=== PATIENT | male | born 1970 | race Two or more races ===

== ENCOUNTER 2017-09-07 09:09 | Inpatient (IN) | payer SELFPAY ==
[2017-09-07] MEDS ORDERED: ASPIRIN 81 MG CHEWABLE TAB PO ONE (09:20)
--- NOTE | 2017-09-07 09:21 | EDPHY ---
H & P HPI/ROS: CHIEF COMPLAINT: Chest pain HISTORY OF PRESENT ILLNESS: The patient is a Icelandic-speaking 47 y/o male complaining of chest pain and dyspnea onset acutely at 07:00 this morning, 2.5 hours ago. He was combing his hair this morning and felt like "an electric shock came from my head to my heart." His pain is located along his left anterior chest and radiates directly through to his back. He describes it as if "someone is punching my chest" and very severe. He took ibuprofen for pain prior to arrival here. His roommate noted that he has complained of epigastric pain for the last 2 weeks. He denies nausea, vomiting. He denies any prior medical history or surgeries and does not take any medication. History obtained via Icelandic fiction and nonfiction author. REVIEW OF SYSTEMS: A ten point review of systems was performed during the course of his ED evaluation and is negative with the exception of the items mentioned in the HPI. Past medical history: Denies Past surgical history: Denies Family history: Noncontributory Social history: Icelandic speaking. Employed. Nonsmoker. No alcohol or illicit drug use. General Appearance: Alert. Writhing, very uncomfortable appearing, diaphoretic. Vital signs reviewed. BP 200/90. Eyes: Pupils equal and round. ENT, Mouth: Mucous membranes are moist, no oropharyngeal erythema or edema. Neck: No lymphadenopathy, supple. No JVD. Respiratory: Lungs are clear to auscultation; no wheezes, rales, or rhonchi. Cardiovascular: Regular rate and rhythm; no murmur, rub, or gallop. Gastrointestinal: Abdomen is obese, soft and nontender, no masses or organomegaly. Skin: Warm and diaphoretic, no rashes on exposed skin, normal color. Back: Nontender to palpation over the thoracolumbar spine. No CVAT. Extremities: No lower extremity edema, no calf tenderness or swelling. Neurological: Alert and oriented. Moving all four extremities easily and equally. Psychiatric: Normal affect. Constitutional: Initial Vital Signs Temperature (C) 36 C 09/07/17 09:15 Heart Rate 59 L 09/07/17 09:15 Respiratory Rate 16 09/07/17 09:15 Blood Pressure 200/90 H 09/07/17 09:15 O2 Sat (%) 97 09/07/17 09:15 O2 Delivery Mode Nasal Cannula O2 (L/minute) 2 Allergies/Adverse Reactions: No Known Allergies Allergy (Unverified 09/07/17 09:15) Home Medications: Medication Instructions Recorded NK [No Known Home Meds] 09/07/17 Medical Decision Making - Diagnostics Imaging: Discussed imaging studies w/ advertising internship Radiologist, I viewed and interpreted images myself ED Course/Re-evaluation: This is a Icelandic-speaking obese 47 y/o male with no known prior medical history who presents with acute onset severe chest pain radiating directly through to his back. He is extremely uncomfortable appearing, diaphoretic, and restless. He complains of associated dyspnea. Significant concern for aortic dissection. IV established. Labs drawn. Patient placed on appliance installer. Chest x-ray ordered. The 12 lead EKG was interpreted by myself. Sinus rhythm. Inverted T waves and ST depression. See hard copy and/or "tracemaster" electronic copy for interpretation. 0927: Cardiac Alert called due to ischemic EKG changes. Continued concern for aortic dissection. Second IV established. 0931: Dr. Galvin, focuser, at bedside, assessing patient. Echocardiogram ordered. 0933: Portable chest x-ray appears to show widened mediastinum. STAT chest CT ordered. BP at arrival was 200/90, now 178/100. RR 22 on 2L NC oxygen with pulse ox of 95%. HR 75. 0935: Nitro drip ordered at request of Dr. Galvin. 0938: K low at 2.5. Repeat potassium ordered. 0945: Consulted with Dr. Kilgore, nuclear plant operator. 0950: Spoke with Dr. Ricardo, radiology. He reads an extensive aortic dissection from root of aorta extending to renal arteries. Cardiothoracic surgeon paged. 0954: Dr. Rock, cardiothoracic surgery, at bedside. To OR emergently. 0958: Additional 5mg Lopressor ordered--esmolol not yet arrived in ED. Critical care time spent by me, Dr. Padilla, exclusively with this patient was 40 minutes, exclusive of PA time and exclusive of procedures (none were performed by me). The organ system at risk was cardiovascular. Time spent in urgent assessment and serial reassessments of patient, consideration of appropriate antihypertensive drips, consultation with cardiology, nuclear plant operator, radiologist, and cardiothoracic surgeon, and review of imaging. Differential Diagnosis: DDX included but was not limited to aortic dissection, ACS, cardiac tamponade, pneumothorax, hypertensive emergency. - Data Points Laboratory Results: Laboratory Results 09/07/17 12:37 09/07/17 12:37 Medications Given: Acetaminophen (Tylenol 650/20.3ml Oral Liquid) 650 mg TUBE Q4HRS PRN PRN Reason: Pain, Mild/Fever, Can Take PO Stop: 03/08/18 08:50 Last Admin: 09/13/17 21:11 Dose: 650 mg Hydralazine HCl (Apresoline) 10 mg IVP Q6H PRN PRN Reason: SBP > 180 OR MAP > 85 Stop: 03/12/18 15:46 Last Admin: 09/14/17 04:11 Dose: 10 mg Sodium Citrate 5 ml/ (Miscellaneous Information) 5 mls @ 0 mls/hr DIAL AD PRN; As Directed PRN Reason: For Dialysis Catheter Stop: 03/09/18 13:46 Last Admin: 09/11/17 18:11 Dose: 5 mls Lansoprazole (Prevacid Susp (Adult)) 30 mg TUBE DAILY [facility] Stop: 03/08/18 08:59 Last Admin: 09/13/17 08:00 Dose: 30 mg Metoclopramide HCl (Reglan Injection) 5 mg IVP Q12 PRN PRN Reason: Nausea/Vomiting, Can't Take PO Stop: 03/08/18 08:59 Last Admin: 09/11/17 22:03 Dose: 5 mg Metoprolol Tartrate (Lopressor) 25 mg TUBE BID BRENT Stop: 03/12/18 20:59 Last Admin: 09/13/17 21:11 Dose: 25 mg Senna (Senexon Oral Liquid) 8.8 - 17.6 mg TUBE BID [facility] Stop: 03/08/18 10:29 Last Admin: 09/13/17 21:11 Dose: 17.6 mg Tramadol HCl (Ultram) 25 mg PO Q6H PRN PRN Reason: Pain, Moderate Able to Take PO Stop: 03/12/18 18:40 Last Admin: 09/13/17 21:10 Dose: 25 mg Discontinued Medications Hydrocodone Bitart/Acetaminophen ([place] 5/325) 1 - 2 tab PO Q4HRS PRN PRN Reason: Pain, Moderate Able to Take PO Stop: 09/17/17 15:39 Last Admin: 09/11/17 09:22 Dose: 2 tab Hydrocodone Bitart/Acetaminophen (Hycet Oral Liquid) 10 - 20 ml TUBE Q4HRS PRN PRN Reason: Pain, Moderate Able to Take PO Stop: 09/21/17 11:03 Last Admin: 09/12/17 10:27 Dose: 20 ml Adenosine (Adenosine) Confirm Administered Dose 12 mg .ROUTE .STK-MED ONE Stop: 09/07/17 10:43 Last Admin: 09/07/17 12:16 Dose: Not Given Adenosine (Adenosine) Confirm Administered Dose 12 mg .ROUTE .STK-MED ONE Stop: 09/08/17 05:46 Last Admin: 09/08/17 08:01 Dose: Not Given Albumin Human (Alburx 5) Confirm Administered Dose 1,000 ml IV .STK-MED ONE Stop: 09/07/17 10:43 Last Admin: 09/07/17 12:17 Dose: Not Given Albumin Human (Alburx 5) Confirm Administered Dose 500 ml IV .STK-MED ONE Stop: 09/08/17 06:27 Last Admin: 09/08/17 11:52 Dose: Not Given Amiodarone HCl (Amiodarone Hcl) Confirm Administered Dose 300 mg .ROUTE .STK- MED ONE Stop: 09/07/17 10:32 Last Admin: 09/07/17 12:18 Dose: Not Given Amiodarone HCl (Amiodarone Hcl) Confirm Administered Dose 300 mg .ROUTE .STK- MED ONE Stop: 09/07/17 10:43 Last Admin: 09/07/17 12:18 Dose: Not Given Amiodarone HCl (Amiodarone Hcl) Confirm Administered Dose 150 mg .ROUTE .STK- MED ONE Stop: 09/07/17 10:44 Last Admin: 09/07/17 12:18 Dose: Not Given Amiodarone HCl (Amiodarone Hcl) Confirm Administered Dose 300 mg .ROUTE .STK- MED ONE Stop: 09/08/17 05:46 Last Admin: 09/08/17 08:01 Dose: Not Given Aspirin (Aspirin) 324 mg PO EDNOW ONE Stop: 09/07/17 09:21 Last Admin: 09/07/17 09:22 Dose: 324 mg Calcium Chloride (Calcium Chloride) Confirm Administered Dose 3 gm .ROUTE .STK- MED ONE Stop: 09/07/17 10:32 Last Admin: 09/07/17 12:23 Dose: Not Given Calcium Chloride (Calcium Chloride) Confirm Administered Dose 3 gm .ROUTE .STK- MED ONE Stop: 09/07/17 10:41 Last Admin: 09/07/17 12:25 Dose: Not Given Calcium Chloride (Calcium Chloride) Confirm Administered Dose 3 gm .ROUTE .STK- MED ONE Stop: 09/07/17 10:44 Last Admin: 09/07/17 12:25 Dose: Not Given Calcium Chloride (Calcium Chloride) Confirm Administered Dose 3 gm .ROUTE .STK- MED ONE Stop: 09/08/17 05:45 Last Admin: 09/08/17 08:03 Dose: Not Given Cefazolin Sodium (Ancef) Confirm Administered Dose 2 gm .ROUTE .STK-MED ONE Stop: 09/07/17 10:43 Last Admin: 09/07/17 12:26 Dose: Not Given Cefazolin Sodium (Ancef) Confirm Administered Dose 2 gm .ROUTE .STK-MED ONE Stop: 09/08/17 05:46 Last Admin: 09/08/17 08:02 Dose: Not Given Chlorhexidine Gluconate (Hibiclens) 1 btl TP ONCALL ONE Stop: 09/07/17 16:31 Last Admin: 09/07/17 16:38 Dose: Not Given Dopamine HCl/Dextrose (Dopamine 1600 Mcg/Ml (Premix)) Confirm Administered Dose 400 mg IV .STK-MED ONE Stop: 09/07/17 10:32 Last Admin: 09/07/17 12:27 Dose: Not Given Dopamine HCl/Dextrose (Dopamine 1600 Mcg/Ml (Premix)) Confirm Administered Dose 400 mg IV .STK-MED ONE Stop: 09/07/17 10:42 Last Admin: 09/07/17 12:27 Dose: Not Given Dopamine HCl/Dextrose (Dopamine 1600 Mcg/Ml (Premix)) Confirm Administered Dose 400 mg IV .STK-MED ONE Stop: 09/08/17 05:46 Last Admin: 09/08/17 07:59 Dose: 400 mg Fentanyl (Sublimaze) 50 - 100 mcg IVP Q1HR PRN PRN Reason: Pain, Severe Unable to Take PO Stop: 09/17/17 15:39 Last Admin: 09/08/17 07:57 Dose: 100 mcg Fibrinogen/Thrombin (Evicel Fibrin Sealant) Confirm Administered Dose 5 ml TP .STK-MED ONE Stop: 09/07/17 14:50 Last Admin: 09/08/17 00:02 Dose: Not Given Furosemide (Lasix Injection) 40 mg IVP ONCE ONE Stop: 09/08/17 00:31 Last Admin: 09/08/17 00:30 Dose: 40 mg Furosemide (Lasix Injection) 40 mg IVP ONCE ONE Stop: 09/08/17 15:01 Last Admin: 09/08/17 15:06 Dose: 40 mg Heparin Sodium (Porcine) (Heparin Injection) Confirm Administered Dose 100,000 unit .ROUTE .STK-MED ONE Stop: 09/07/17 10:32 Last Admin: 09/07/17 12:29 Dose: Not Given Heparin Sodium (Porcine) (Heparin Injection) Confirm Administered Dose 100,000 unit .ROUTE .STK-MED ONE Stop: 09/07/17 10:42 Last Admin: 09/07/17 12:30 Dose: Not Given Heparin Sodium (Porcine) (Heparin Injection) Confirm Administered Dose 40,000 unit .ROUTE .STK-MED ONE Stop: 09/07/17 10:44 Last Admin: 09/07/17 12:30 Dose: Not Given Heparin Sodium (Porcine) (Heparin Sc Injection) 5,000 unit SC Q8HRS BRENT Stop: 03/07/18 05:59 Last Admin: 09/09/17 06:31 Dose: Not Given Heparin Sodium (Porcine) (Heparin Injection) Confirm Administered Dose 100,000 unit .ROUTE .STK-MED ONE Stop: 09/08/17 05:46 Last Admin: 09/08/17 08:01 Dose: Not Given Sodium Bicarbonate 20 meq/Lidocaine HCl 10 ml/Parenteral Electrolytes 1,030 mls @ 0 mls/hr MISC ONCALL ONE PRN Reason: As Directed Stop: 09/07/17 09:54 Last Admin: 09/07/17 12:34 Dose: Not Given Cefazolin Sodium 3 gm/ (Dextrose) 100 mls @ 200 mls/hr IV ONCALL ONE PRN Reason: Protocol Stop: 09/07/17 10:22 Last Admin: 09/07/17 10:10 Dose: 100 mls Dopamine HCl/Dextrose (Dopamine 1600 Mcg/Ml (Premix)) 250 mls @ 0 mls/hr IV ONCALL ONE PRN Reason: As Directed Stop: 09/07/17 09:54 Last Admin: 09/07/17 12:29 Dose: Not Given Epinephrine HCl 8 mg/ Dextrose 250 mls @ 0 mls/hr IV ONCALL ONE PRN Reason: As Directed Stop: 09/07/17 09:54 Last Admin: 09/07/17 12:29 Dose: Not Given Insulin Human Regular 100 unit (/ Sodium Chloride) 101 mls @ 0 mls/hr IV ONCALL ONE PRN Reason: As Directed Stop: 09/07/17 09:54 Last Admin: 09/07/17 12:30 Dose: Not Given Norepinephrine 16 mg/ Sodium (Chloride) 250 mls @ 0 mls/hr IV ONCALL ONE PRN Reason: As Directed Stop: 09/07/17 09:54 Last Admin: 09/07/17 12:32 Dose: Not Given Phenylephrine HCl 50 mg/ (Sodium Chloride) 250 mls @ 0 mls/hr IV ONCALL ONE; As Directed PRN Reason: Protocol Stop: 09/07/17 09:54 Last Admin: 09/07/17 12:32 Dose: Not Given Nicardipine/Sodium Chloride (Cardene 0.1 Mg/Ml (Premix)) 200 mls @ 0 mls/hr IV CONT BRENT; Titrate PRN Reason: Protocol Stop: 03/06/18 09:59 Last Admin: 09/07/17 16:34 Dose: 200 mls Esmolol HCl/Sodium Chloride (Brevibloc 10 Mg/Ml Premix) 250 mls @ 0 mls/hr IV ONCE ONE PRN Reason: As Directed Stop: 09/07/17 10:01 Last Admin: 09/07/17 12:29 Dose: Not Given Tranexamic Acid 1,000 mg/ (Sodium Chloride) 110 mls @ 0 mls/hr IV ONCE ONE PRN Reason: As Directed Stop: 09/07/17 15:31 Last Admin: 09/08/17 00:06 Dose: Not Given Albumin Human (Alburx 5) 250 mls @ 0 mls/hr IV PRN PRN; As Directed PRN Reason: Volume Expansion Stop: 09/08/17 15:40 Last Admin: 09/07/17 17:33 Dose: 250 mls Cefazolin Sodium/Dextrose (Ancef 2 Gm (Premix)) 100 mls @ 200 mls/hr IV Q8HRS BRENT PRN Reason: Protocol Stop: 09/09/17 06:29 Last Admin: 09/08/17 05:23 Dose: 100 mls Insulin Human Regular 100 unit (/ Sodium Chloride) 101 mls @ 0 mls/hr IV CONT BRENT; Per Protocol PRN Reason: Protocol Stop: 03/06/18 15:59 Last Admin: 09/07/17 16:33 Dose: 101 mls Magnesium Sulfate (Magnesium Sulf 2 Gm (Premix)) 50 mls @ 12.5 mls/hr IV ONCE ONE Stop: 09/07/17 19:39 Last Admin: 09/07/17 16:38 Dose: 50 mls Sodium Chloride (Ns) 1,000 mls @ 25 mls/hr IV CONT BRENT Stop: 03/06/18 15:44 Last Admin: 09/09/17 07:48 Dose: 1,000 mls Tranexamic Acid 1,000 mg/ (Sodium Chloride) 110 mls @ 660 mls/hr IV ONCALL ONE Stop: 09/07/17 16:23 Last Admin: 09/08/17 00:07 Dose: 110 mls Tranexamic Acid 1,000 mg/ (Sodium Chloride) 110 mls @ 660 mls/hr IV ONCALL ONE Stop: 09/07/17 16:25 Last Admin: 09/07/17 16:33 Dose: 110 mls Dexmedetomidine/Sodium Chloride (Precedex 4 Mcg/Ml 100 Ml (Premix)) 100 mls @ 0 mls/hr IV CONT BRENT; Per Protocol PRN Reason: Protocol Stop: 03/06/18 16:59 Last Admin: 09/13/17 00:28 Dose: 100 mls Albumin Human (Alburx 5) 250 mls @ 0 mls/hr IV ONCE ONE PRN Reason: As Directed Stop: 09/07/17 18:31 Last Admin: 09/07/17 19:00 Dose: 250 mls Calcium Gluconate (Calcium Gluconate 1 Gm (Premix)) 50 mls @ 100 mls/hr IV ONCE ONE Stop: 09/07/17 20:29 Last Admin: 09/07/17 23:53 Dose: Not Given Dopamine HCl/Dextrose (Dopamine 1600 Mcg/Ml (Premix)) 250 mls @ 0 mls/hr IV CONT BRENT; Titrate PRN Reason: Protocol Stop: 03/06/18 21:29 Last Admin: 09/11/17 16:55 Dose: 250 mls Factor VIIa (Recombinant) 5, 000 mcg/ Miscellaneous Information 5 mls @ 0 mls/ hr IVP ONCE ONE PRN Reason: As Directed Stop: 09/07/17 22:22 Last Admin: 09/07/17 22:45 Dose: 5 mls Norepinephrine 16 mg/ Sodium (Chloride) 250 mls @ 0 mls/hr IV CONT BRENT; Per Protocol PRN Reason: Protocol Stop: 03/07/18 05:59 Last Admin: 09/10/17 07:10 Dose: 250 mls Furosemide 100 mg/ Dextrose 100 mls @ 0 mls/hr IV CONT BRENT PRN Reason: As Directed Stop: 03/07/18 16:14 Last Admin: 09/09/17 01:22 Dose: 100 mls Cefazolin Sodium/Dextrose (Ancef 1 Gm (Premix)) 50 mls @ 200 mls/hr IV ONCE ONE PRN Reason: Protocol Stop: 09/09/17 09:14 Last Admin: 09/09/17 09:37 Dose: 50 mls Albumin Human (Alburx 5) 500 mls @ 0 mls/hr IV ONCE ONE PRN Reason: As Directed Stop: 09/09/17 22:01 Last Admin: 09/09/17 22:05 Dose: 500 mls Calcium Gluconate 2 gm/ (Dextrose) 60 mls @ 30 mls/hr IV ONCE ONE Stop: 09/10/17 22:29 Last Admin: 09/10/17 21:42 Dose: 60 mls Calcium Gluconate 2 gm/ (Dextrose) 70 mls @ 140 mls/hr IV ONCE ONE Stop: 09/11/17 09:22 Last Admin: 09/11/17 09:21 Dose: 70 mls Amiodarone HCl (Amiodarone Hcl) 100 mls @ 600 mls/hr IV ONCE ONE Stop: 09/11/17 12:39 Last Admin: 09/11/17 13:00 Dose: 100 mls Amiodarone HCl (Amiodarone Hcl) 200 mls @ 33.333 mls/hr IV ONCE ONE PRN Reason: Protocol Stop: 09/11/17 18:29 Last Admin: 09/11/17 13:13 Dose: 200 mls Amiodarone HCl 540 mg/ (Dextrose) 300 mls @ 16.667 mls/hr IV ONCE ONE PRN Reason: Protocol Stop: 09/12/17 12:59 Last Admin: 09/11/17 19:02 Dose: 300 mls Amiodarone HCl (Amiodarone Hcl) 100 mls @ 600 mls/hr IV ONCE ONE Stop: 09/11/17 17:39 Last Admin: 09/11/17 18:03 Dose: 100 mls Amiodarone HCl (Amiodarone Hcl) 200 mls @ 16.7 mls/hr IV AD BRENT PRN Reason: As Directed Stop: 03/11/18 12:59 Last Admin: 09/13/17 00:28 Dose: 200 mls Norepinephrine 16 mg/ Sodium (Chloride) 250 mls @ 0 mls/hr IV CONT BRENT; Per Protocol PRN Reason: Protocol Stop: 03/11/18 12:29 Last Admin: 09/12/17 12:38 Dose: 250 mls Lidocaine HCl (Lidocaine Hcl 2%) Confirm Administered Dose 200 mg .ROUTE .STK- MED ONE Stop: 09/07/17 10:44 Last Admin: 09/07/17 12:30 Dose: Not Given Magnesium Sulfate (Magnesium Sulfate) Confirm Administered Dose 4 gm .ROUTE .STK -MED ONE Stop: 09/07/17 10:44 Last Admin: 09/07/17 12:30 Dose: Not Given Mannitol (Mannitol 25%) 25 gm IVP ONCALL ONE Stop: 09/07/17 09:54 Last Admin: 09/07/17 12:31 Dose: Not Given Methylprednisolone Sodium Succinate (Solu-Medrol) Confirm Administered Dose 1 gm .ROUTE .STK-MED ONE Stop: 09/07/17 10:44 Last Admin: 09/07/17 12:31 Dose: Not Given Metoprolol Tartrate (Lopressor) 12.5 mg TUBE ONCE ONE Stop: 09/13/17 12:01 Last Admin: 09/13/17 14:25 Dose: 12.5 mg Midazolam HCl (Versed) 2 mg IVP ONCE ONE Stop: 09/09/17 20:16 Last Admin: 09/09/17 20:15 Dose: 2 mg Milrinone Lactate/Dextrose (Primacor 200 Mcg/Ml (Premix)) Confirm Administered Dose 20 mg IV .STK-MED ONE Stop: 09/07/17 10:32 Last Admin: 09/07/17 12:31 Dose: Not Given Milrinone Lactate/Dextrose (Primacor 200 Mcg/Ml (Premix)) Confirm Administered Dose 20 mg IV .STK-MED ONE Stop: 09/07/17 10:42 Last Admin: 09/07/17 12:31 Dose: Not Given Milrinone Lactate/Dextrose (Primacor 200 Mcg/Ml (Premix)) Confirm Administered Dose 20 mg IV .STK-MED ONE Stop: 09/08/17 05:45 Last Admin: 09/08/17 08:01 Dose: Not Given Mineral Oil (Muri-Lube Mineral Oil) Confirm Administered Dose 10 ml .ROUTE .STK- MED ONE Stop: 09/08/17 05:47 Last Admin: 09/08/17 06:40 Dose: 10 ml Morphine Sulfate (Morphine) 4 mg IVP EDNOW ONE Stop: 09/07/17 09:41 Last Admin: 09/07/17 10:09 Dose: 4 mg Morphine Sulfate (Morphine) 2 - 4 mg IVP Q1HR PRN PRN Reason: Pain, Severe Unable to Take PO Stop: 09/17/17 15:39 Last Admin: 09/13/17 09:45 Dose: 2 mg Morphine Sulfate (Morphine) 1 - 2 mg IVP Q1HR PRN PRN Reason: Pain, Severe Unable to Take PO Stop: 09/22/17 16:59 Last Admin: 09/13/17 07:02 Dose: 2 mg Mupirocin (Bactroban 2%) 1 cb NS ONCE ONE Stop: 09/07/17 09:54 Last Admin: 09/07/17 12:31 Dose: Not Given Mupirocin (Bactroban 2%) 1 cb NS BID BRENT PRN Reason: Protocol Stop: 09/09/17 20:59 Last Admin: 09/09/17 09:55 Dose: 1 cb Naloxone HCl (Narcan) 0.4 mg IVP ONCE ONE Stop: 09/08/17 22:46 Last Admin: 09/08/17 22:45 Dose: 0.4 mg Nicardipine/Sodium Chloride (Cardene 0.1 Mg/Ml (Premix)) Confirm Administered Dose 20 mg IV .STK-MED ONE Stop: 09/07/17 10:32 Last Admin: 09/07/17 12:32 Dose: Not Given Nicardipine/Sodium Chloride (Cardene 0.1 Mg/Ml (Premix)) Confirm Administered Dose 20 mg IV .STK-MED ONE Stop: 09/07/17 10:42 Last Admin: 09/07/17 12:32 Dose: Not Given Nicardipine/Sodium Chloride (Cardene 0.1 Mg/Ml (Premix)) Confirm Administered Dose 20 mg IV .STK-MED ONE Stop: 09/08/17 05:46 Last Admin: 09/08/17 06:43 Dose: Not Given Pantoprazole Sodium (Protonix) 40 mg PO DAILY [facility] Stop: 03/07/18 08:59 Last Admin: 09/08/17 11:43 Dose: Not Given Pantoprazole Sodium (Protonix) 40 mg IVP ONCE ONE Stop: 09/07/17 15:41 Last Admin: 09/08/17 00:06 Dose: Not Given Pantoprazole Sodium (Protonix) 40 mg IVP ONCE ONE Stop: 09/08/17 10:46 Last Admin: 09/08/17 11:42 Dose: 40 mg Papaverine HCl (Papaverine) Confirm Administered Dose 120 mg .ROUTE .STK-MED ONE Stop: 09/08/17 05:47 Last Admin: 09/08/17 06:42 Dose: Not Given Protamine Sulfate (Protamine Sulfate) Confirm Administered Dose 400 mg IVP .STK- MED ONE Stop: 09/07/17 10:32 Last Admin: 09/07/17 12:33 Dose: Not Given Protamine Sulfate (Protamine Sulfate) Confirm Administered Dose 400 mg IVP .STK- MED ONE Stop: 09/07/17 10:41 Last Admin: 09/07/17 12:33 Dose: Not Given Protamine Sulfate (Protamine Sulfate) Confirm Administered Dose 350 mg IVP .STK- MED ONE Stop: 09/08/17 05:45 Last Admin: 09/08/17 06:43 Dose: Not Given Senna (Senexon Oral Liquid) 8.8 - 17.6 mg PO BID [facility] Stop: 03/08/18 10:29 Last Admin: 09/11/17 08:56 Dose: 8.8 mg Senna/Docusate Sodium (Senokot-S) 1 - 2 tab PO BID BRENT PRN Reason: Protocol Stop: 03/06/18 20:59 Last Admin: 09/09/17 11:21 Dose: Not Given Sodium Bicarbonate (Sodium Bicarbonate) Confirm Administered Dose 350 meq .ROUTE .STK-MED ONE Stop: 09/07/17 10:32 Last Admin: 09/07/17 12:33 Dose: Not Given Sodium Bicarbonate (Sodium Bicarbonate) Confirm Administered Dose 200 meq .ROUTE .STK-MED ONE Stop: 09/07/17 10:40 Last Admin: 09/07/17 12:33 Dose: Not Given Sodium Bicarbonate (Sodium Bicarbonate) Confirm Administered Dose 350 meq .ROUTE .STK-MED ONE Stop: 09/07/17 10:42 Last Admin: 09/07/17 12:33 Dose: Not Given Sodium Bicarbonate (Sodium Bicarbonate) 100 meq IV ONCE ONE Stop: 09/07/17 18:31 Last Admin: 09/07/17 18:30 Dose: 100 meq Sodium Bicarbonate (Sodium Bicarbonate) Confirm Administered Dose 350 meq .ROUTE .STK-MED ONE Stop: 09/08/17 05:45 Last Admin: 09/08/17 06:43 Dose: Not Given Sodium Bicarbonate (Sodium Bicarbonate) 50 meq IV ONCE ONE Stop: 09/08/17 20:46 Last Admin: 09/08/17 20:42 Dose: 50 meq Sodium Bicarbonate (Sodium Bicarbonate) 50 meq IV ONCE ONE Stop: 09/08/17 21:46 Last Admin: 09/08/17 21:45 Dose: 50 meq Sodium Citrate (Acd-A) 500 ml MISC ONCALL ONE Stop: 09/07/17 09:54 Last Admin: 09/07/17 12:27 Dose: Not Given Sodium Citrate (Acd-A) Confirm Administered Dose 500 ml .ROUTE .STK-MED ONE Stop: 09/07/17 10:44 Last Admin: 09/07/17 12:27 Dose: Not Given Sodium Citrate (Acd-A) Confirm Administered Dose 500 ml .ROUTE .STK-MED ONE Stop: 09/07/17 14:38 Last Admin: 09/07/17 16:35 Dose: Not Given Sodium Polystyrene Sulfonate (Kayexalate) 60 gm PO ONCE ONE Stop: 09/08/17 23:01 Last Admin: 09/08/17 23:05 Dose: 60 gm Verapamil HCl (Verapamil Hcl) Confirm Administered Dose 5 mg .ROUTE .STK-MED ONE Stop: 09/08/17 05:47 Last Admin: 09/08/17 06:42 Dose: Not Given Departure - Departure Disposition: [facility] Inpatient Acute Clinical Impression: Aortic dissection, thoracoabdominal, Hypokalemia Condition: Critical Report Scribed for: Sheila Padilla Report Scribed by: Beatriz Bobo Date of Report: 09/07/17 Time of Report: 09:29 Physician Review and Approval Statement: 09/07/17 09:21 Portions of this note were transcribed by the curator medical museum. I, Dr. Sheila Padilla, personally performed the history, physical exam, and medical decision- making; and confirmed the accuracy of the information in the transcribed note.
--- NOTE | 2017-09-07 09:23 | CPEKG ---
Heart Rate: 51 RR Interval: 1176 P-R Interval: 208 QRSD Interval: 184 QT Interval: 552 QTC Interval: 509 P [place]: 56 QRS [place]: 14 T Wave [place]: 190 EKG Severity - ABNORMAL ECG - EKG Impression: Not interpreted due to artifact. Electronically Signed By: Sheila Padilla 07-Sep-2017 15:02:30
[2017-09-07 09:27] LABS: PLATELET COUNT 213 10^3/uL (150-400)
--- NOTE | 2017-09-07 09:31 | CPEKG ---
Heart Rate: 58 RR Interval: 1034 P-R Interval: 192 QRSD Interval: 170 QT Interval: 564 QTC Interval: 555 P [place]: 45 QRS [place]: 18 T Wave [place]: 212 EKG Severity - ABNORMAL ECG - EKG Impression: SINUS RHYTHM EKG Impression: RIGHT BUNDLE BRANCH BLOCK Electronically Signed By: Sheila Padilla 07-Sep-2017 15:01:45
[2017-09-07] MEDS ORDERED: IOPAMIDOL (ISOVUE 370) 100 ML BTL IV ONE (09:36)
[2017-09-07] MEDS ORDERED: NITROGLYCERIN/D5W 50 MG/250 ML BOTTLE IV ONE (09:36)
[2017-09-07] MEDS ORDERED: CITRATE DEXTROSE SOLN 500 ML BAG MISC ONE (09:53)
[2017-09-07] MEDS ORDERED: NOREPINEPHRINE BITARTRATE 16 MG in NS 250 ML IV ONE (09:53)
[2017-09-07] MEDS ORDERED: AMINOCAPROIC ACID 5 GM/20 ML VIAL IV ONE (09:53)
[2017-09-07] MEDS ORDERED: MANNITOL 25% 12.5 GM/50 ML VIAL IVP ONE (09:53)
[2017-09-07] MEDS ORDERED: SODIUM BICARBONATE 20 MEQ, LIDOCAINE 1% 10 ML in NORMOSOL-R 1,000 ML MISC ONE (09:53)
[2017-09-07] MEDS ORDERED: INSULIN REGULAR HUMAN 100 UNIT in NS 100 ML IV ONE (09:53)
[2017-09-07] MEDS ORDERED: MUPIROCIN 2% 22 GM OINT NS ONE (09:53)
[2017-09-07] MEDS ORDERED: ceFAZolin 3 GM in D5W 100 ML IV ONE (09:53)
[2017-09-07] MEDS ORDERED: PHENYLEPHRINE HCL 50 MG in NS 250 ML IV ONE (09:53)
[2017-09-07] MEDS ORDERED: METOPROLOL TARTRATE 5 MG/5 ML INJ ONE (09:59)
[2017-09-07] MEDS ORDERED: ESMOLOL/NACL 250 ML IV SCH (10:00)
[2017-09-07] MEDS ORDERED: ESMOLOL/NACL 250 ML IV ONE (10:00)
[2017-09-07] MEDS ORDERED: niCARdipine/NACL 200 ML IV SCH (10:00)
[2017-09-07] MEDS ORDERED: NITROGLYCERIN/DEXTROSE 250 ML IV SCH (10:00)
--- NOTE | 2017-09-07 10:09 | ASMTCMCOM ---
CM Note CM Note Notes: Patient brought to ED by friend(s); as they were driving to work this AM, patient began to complain of intense chest/back pain. Found to have aortic dissection and taken emergently to OR. Patient was accompanied by friend Ray, but we were unable to find him in the waiting room. Patient says he has no family here; he is from [facility] and is [place] speaking only. Hopefully, his friend returns to hospital and can be informed of the situation. Date Signed: 09/07/2017 10:09 AM Electronically Signed By:Samantha Marshall RN
[2017-09-07] MEDS ORDERED: AMIODARONE HCL 150 MG/3 ML VIAL ONE ×3 (10:31→10:43)
[2017-09-07] MEDS ORDERED: PROTAMINE SULFATE 50 MG/5 ML VIAL IVP ONE ×2 (10:31→10:40)
[2017-09-07] MEDS ORDERED: CALCIUM CHLORIDE 1 GM/10 ML INJ ONE ×3 (10:31→10:43)
[2017-09-07] MEDS ORDERED: MILRINONE/DEXTROSE/100 ML BAG IV ONE ×2 (10:31→10:41)
[2017-09-07] MEDS ORDERED: niCARdipine/NACL/200 ML BAG IV ONE ×2 (10:31→10:41)
[2017-09-07] MEDS ORDERED: HEPARIN 10,000 UNIT/10 ML MDV (1,000 UNIT/ML) ONE ×3 (10:31→10:43)
[2017-09-07] MEDS ORDERED: NA BICARBONATE 50 MEQ/50 ML VIAL ONE ×3 (10:31→10:41)
[2017-09-07] MEDS ORDERED: DOPamine/DEXTROSE/250 ML BAG IV ONE ×2 (10:31→10:41)
[2017-09-07] MEDS ORDERED: ceFAZolin 1 GM VIAL ONE (10:42)
[2017-09-07] MEDS ORDERED: ALBUMIN 5% 250 ML BOTTLE IV ONE ×2 (10:42→13:37)
[2017-09-07] MEDS ORDERED: ADENOSINE 6 MG/2 ML VIAL ONE (10:42)
[2017-09-07] MEDS ORDERED: methylPREDNISolone SOD SUCC 1 GM/8 ML VIAL ONE (10:43)
[2017-09-07] MEDS ORDERED: LIDOCAINE 2% 100 MG/5 ML SYR ONE (10:43)
[2017-09-07] MEDS ORDERED: MAGNESIUM SULFATE 1 GM/2 ML VIAL ONE (10:43)
[2017-09-07] MEDS ORDERED: CITRATE DEXTROSE SOLN 500 ML BAG ONE ×2 (10:43→14:37)
[2017-09-07] MEDS ORDERED: ROCURONIUM 50 MG/5 ML VIAL ONE ×2 (11:44→13:12)
--- NOTE | 2017-09-07 12:04 | PDANEPAE ---
ANE History of Present Illness aortic dissection ANE Past Medical History - Cardiovascular History Hx Hypertension: No Hx Arrhythmias: No Hx Chest Pain: Yes Hx Coronary Artery / Peripheral Vascular Disease: No Hx CHF / Valvular Disease: No Hx Palpitations: No - Pulmonary History Hx COPD: No Hx Asthma/Reactive Airway Disease: No Hx Recent Upper Respiratory Infection: No Hx Oxygen in Use at Home: No Hx Sleep Apnea: No - Neurologic History Hx Cerebrovascular Accident: No Hx Seizures: No Hx Dementia: No - Endocrine History Hx Diabetes: No Hypothyroid: No Hyperthyroid: No - Renal History Hx Renal Disorders: No ANE Review of Systems Review of Systems: - Exercise capacity Exercise capacity: unable to assess ANE Patient History - Allergies Allergies/Adverse Reactions: No Known Allergies Allergy (Unverified 09/07/17 09:15) - Home Medications Home Medications: NK [No Known Home Meds] 09/07/17 [Last Taken Unknown] - Anes Hx Anes Hx: no prior problems Hx Anesthesia Complications (with details): no prior operations reported - Smoking Hx Smoking Status: Never smoked ANE Labs/Vital Signs - Labs Result Diagrams: 09/07/17 09:15 09/07/17 09:15 - Vital Signs Blood Pressure: 178/100 Heart Rate: 75 Respiratory Rate: 24 O2 Sat (%): 95 Height: 170.18 cm Weight: 90.718 kg ANE Physical Exam - Airway Mallampati Score: Class 2 Mouth exam: normal dental/mouth exam - Pulmonary Pulmonary: no respiratory distress - Cardiovascular Cardiovascular: tachycardia - ASA Status ASA Status: IV, E ANE Anesthesia Plan Anesthesia Plan: general endotracheal anesthesia Lines/Monitors: arterial line, central line, MARA Urgent/Emergent Case: Louisa kemp completed preop but documented later for safe timely pt care
[2017-09-07] MEDS ORDERED: MAGNESIUM SULF 2 GM/WATER 50 ML BAG IV ONE (13:37)
[2017-09-07] MEDS ORDERED: THROMBIN(HUM PLAS)/FIBRINOG/CA 5 ML VIAL TP ONE (14:49)
[2017-09-07] MEDS ORDERED: PROPOFOL 200 MG/20 ML VIAL ONE (15:27)
[2017-09-07] MEDS ORDERED: fentaNYL 250 MCG/5 ML INJ ONE ×2 (15:27)
[2017-09-07] MEDS ORDERED: PHENYLEPHRINE 10 MG/ML SDV ONE (15:29)
[2017-09-07] MEDS ORDERED: TRANEXAMIC ACID 1,000 MG in NS 100 ML IV ONE ×4 (15:30→22:21)
[2017-09-07] MEDS ORDERED: LIDOCAINE 2% 5 ML SDV ONE (15:30)
[2017-09-07] MEDS ORDERED: ROCURONIUM 100 MG/10 ML VIAL ONE (15:31)
[2017-09-07] MEDS ORDERED: MAGNESIUM SULF 2 GM/WATER 50 ML IV ONE (15:40)
[2017-09-07] MEDS ORDERED: PANTOPRAZOLE SODIUM 40 MG VIAL IVP ONE (15:40)
[2017-09-07] MEDS ORDERED: ACETAMINOPHEN 650 MG SUPP PR PRN (15:40)
[2017-09-07] MEDS ORDERED: D50W 25 GM/50 ML SYR IVP PRN (15:40)
[2017-09-07] MEDS ORDERED: POLYETHYLENE GLYCOL 3350 17 GM PKT PO PRN (15:40)
[2017-09-07] MEDS ORDERED: SODIUM CL NASAL 45 ML BTL EACHNARE PRN (15:40)
[2017-09-07] MEDS ORDERED: CEPACOL LOZENGE PO PRN (15:40)
[2017-09-07] MEDS ORDERED: ONDANSETRON 4 MG/2 ML VIAL IVP PRN (15:40)
[2017-09-07] MEDS ORDERED: ONDANSETRON DISINTEGRATING 4 MG TAB PO PRN (15:40)
[2017-09-07] MEDS ORDERED: MEPERIDINE 25 MG/ML SYR IVP PRN (15:40)
[2017-09-07] MEDS ORDERED: MAGNESIUM HYDROXIDE 30 ML UDCUP PO PRN (15:40)
[2017-09-07] MEDS ORDERED: POTASSIUM Cl (KCl) 50 ML IV PRN (15:40)
[2017-09-07] MEDS ORDERED: fentaNYL 100 MCG/2 ML INJ IVP PRN (15:40)
[2017-09-07] MEDS ORDERED: METOCLOPRAMIDE 10 MG/2 ML VIAL IVP PRN (15:40)
[2017-09-07] MEDS ORDERED: HYDROCODONE/APAP 5/325 TAB PO PRN (15:40)
[2017-09-07] MEDS ORDERED: LACTULOSE 20 GM/30 ML UDCUP PO PRN (15:40)
[2017-09-07] MEDS ORDERED: ACETAMINOPHEN 325 MG TAB PO PRN (15:40)
[2017-09-07] MEDS ORDERED: BISACODYL 10 MG SUPP PR PRN (15:40)
[2017-09-07] MEDS ORDERED: NS 1,000 ML IV SCH (15:45)
--- NOTE | 2017-09-07 15:45 | PDGENHP ---
History and Physical - Chief Complaint asc ao dissection - History of Present Illness 47M with tearing chest pain this morning discovered to have ascending aortic dissection. History Information - Allergies/Home Medication List Allergies/Adverse Reactions: No Known Allergies Allergy (Unverified 09/07/17 09:15) Home Medications: NK [No Known Home Meds] 09/07/17 [Last Taken Unknown] I have personally reviewed and updated: family history, medical history, social history, surgical history - Social History Smoking Status: Never smoked Review of Systems Review of Systems: ROS: 10pt was reviewed & negative except for what was stated in HPI & below Physical Exam Physical Exam: Temp Pulse Resp BP Pulse Ox 36 C 75 24 H 178/100 H 95 09/07/17 09:15 09/07/17 12:04 09/07/17 12:04 09/07/17 12:04 09/07/17 12:04 Constitutional: no apparent distress, obese Eyes: anicteric sclera Cardiovascular: bradycardia Respiratory: no respiratory distress Gastrointestinal: soft, non-tender abdomen Skin: warm, normal color Musculoskeletal: full muscle strength Neurologic: AAOx3 Lab Data & Imaging Review 09/07/17 09:15 09/07/17 09:15 WBC 10.82 10^3/uL (3.80-9.50) H 09/07/17 09:15 RBC 5.00 10^6/uL (4.40-6.38) 09/07/17 09:15 Hgb 15.1 g/dL (13.7-17.5) 09/07/17 09:15 Hct 42.5 % (40.0-51.0) 09/07/17 09:15 MCV 85.0 fL (81.5-99.8) 09/07/17 09:15 MCH 30.2 pg (27.9-34.1) 09/07/17 09:15 MCHC 35.5 g/dL (32.4-36.7) 09/07/17 09:15 RDW 14.3 % (11.5-15.2) 09/07/17 09:15 Plt Count 213 10^3/uL (150-400) 09/07/17 09:15 MPV 9.6 fL (8.7-11.7) 09/07/17 09:15 Neut % (Auto) 62.3 % (39.3-74.2) 09/07/17 09:15 Lymph % (Auto) 27.2 % (15.0-45.0) 09/07/17 09:15 [place] % (Auto) 7.2 % (4.5-13.0) 09/07/17 09:15 Eos % (Auto) 2.2 % (0.6-7.6) 09/07/17 09:15 Baso % (Auto) 0.5 % (0.3-1.7) 09/07/17 09:15 Nucleat RBC Rel Count 0.0 % (0.0-0.2) 09/07/17 09:15 Absolute Neuts (auto) 6.75 10^3/uL (1.70-6.50) H 09/07/17 09:15 Absolute Lymphs (auto) 2.94 10^3/uL (1.00-3.00) 09/07/17 09:15 Absolute Monos (auto) 0.78 10^3/uL (0.30-0.80) 09/07/17 09:15 Absolute Eos (auto) 0.24 10^3/uL (0.03-0.40) 09/07/17 09:15 Absolute Basos (auto) 0.05 10^3/uL (0.02-0.10) 09/07/17 09:15 Absolute Nucleated RBC 0.00 10^3/uL (0-0.01) 09/07/17 09:15 Immature Gran % 0.6 % (0.0-1.1) 09/07/17 09:15 Immature Gran # 0.06 10^3/uL (0.00-0.10) 09/07/17 09:15 Puncture Site NONE GIVEN 09/07/17 12:37 Patient Temperature 37.0 DEGREES 09/07/17 12:37 pCO2 39 mmHg (34-38) H 09/07/17 12:37 pO2 331 mmHg (65-75) H 09/07/17 12:37 Total CO2 20 mEq/L (23-27) L 09/07/17 12:37 ABG pH 7.30 (7.35-7.45) L 09/07/17 12:37 ABG HCO3 19 mEq/L (22-26) L 09/07/17 12:37 ABG O2 Saturation 100 % (92-95) H 09/07/17 12:37 ABG Base Excess -6.4 mEq/L (-2.5-2.5) L 09/07/17 12:37 ABG Hemoglobin 9.4 gm/dL (14.5-17.3) L 09/07/17 12:37 Cord Blood PCO2 Cancelled 09/07/17 12:37 Cord Base Excess Cancelled 09/07/17 12:37 Cord ABG pH Cancelled 09/07/17 12:37 Cord VBG pH Cancelled 09/07/17 12:37 POC Sodium 135 mEq/L (137-146) L 09/07/17 12:37 POC Potassium 5.0 mEq/L (3.3-5.0) 09/07/17 12:37 Sodium 143 mEq/L (134-144) 09/07/17 09:15 Potassium 2.8 mEq/L (3.5-5.2) L 09/07/17 09:15 Chloride 101 mEq/L (97-110) 09/07/17 09:15 Carbon Dioxide 25 mEq/l (22-31) 09/07/17 09:15 Anion Gap 17 mEq/L (8-16) H 09/07/17 09:15 BUN 15 mg/dL (7-23) 09/07/17 09:15 Creatinine 1.2 mg/dL (0.7-1.3) 09/07/17 09:15 Estimated GFR > 60 09/07/17 09:15 Glucose 177 mg/dL (70-100) H 09/07/17 09:15 Calcium 8.8 mg/dL (8.5-10.4) 09/07/17 09:15 Ionized Calcium 0.95 MMOL/L (1.12-1.30) L 09/07/17 12:37 Troponin I 0.031 ng/mL (0.000-0.034) 09/07/17 09:15 Specimen Hemolysis [employer] 09/07/17 09:15 Patient ABO/Rh O POSITIVE 09/07/17 09:50 Antibody Screen NEGATIVE 09/07/17 09:50 Crossmatch IS Only See Detail 09/07/17 09:50 Bld Prod Verbal Order YES 09/07/17 09:50 Visualized and Interpreted imaging results: Yes Assessment & Plan Assessment: Asc ao dissection Plan: To OR
[2017-09-07] MEDS ORDERED: NALOXONE HCL 0.4 MG/ML INJ IVP PRN (15:57)
--- NOTE | 2017-09-07 15:58 | POSTANESTH ---
Post Anesthetic Evaluation Cardiovascular Status: Other, See Comment Respiratory Status: Other, See Comment Level of Consciousness/Mental Status: Unconscious Pain Control: Adequate, Prn Tx Ordered Nausea/Vomiting Control: Adequate, Prn Tx Ordered Complications Possibly Related to Anesthesia: None Noted (stable on bp control, stable on the vent)
[2017-09-07] MEDS ORDERED: INSULIN REGULAR HUMAN 100 UNIT in NS 100 ML IV SCH (16:00)
[2017-09-07] MEDS ORDERED: MIDAZOLAM 2 MG/2 ML VIAL ONE (16:01)
[2017-09-07] MEDS ORDERED: CHLORHEXIDINE GLUC HIBICLENS 118 ML BTL TP ONE (16:30)
[2017-09-07] MEDS ORDERED: SODIUM BICARBONATE 50 MEQ/50 ML SYR ONE ×2 (16:45→18:20)
[2017-09-07] MEDS ORDERED: NS 500 ML IV PRN (16:51)
[2017-09-07] MEDS ORDERED: DEXMEDETOMIDINE HCL 400 MCG in NS 100 ML IV SCH (16:51)
[2017-09-07] MEDS: ALBUMIN 5% 250 ML IV PRN ×2 (17:05→17:33)
[2017-09-07] MEDS ORDERED: PHENYLEPHRINE HCL 100 MCG/ML SYR ONE ×2 (18:28→19:43)
[2017-09-07] MEDS ORDERED: NA BICARBONATE 50 MEQ/50 ML VIAL IV ONE (18:30)
[2017-09-07] MEDS ORDERED: ALBUMIN 5% 250 ML IV ONE (18:30)
--- NOTE | 2017-09-07 19:33 | GCON ---
[f rep st] CONSULTATION ETHANOL MAINTENANCE MECHANIC CONSULTATION. Patient examined postoperatively after receiving an ascending aortic dissection repair. HISTORY: Patient is a 47-year-old male with a past medical history of uncontrolled hyperten yandy. He presented to the emergency room with complaints of chest pain. He had been complaining of epigastric pain for 2 weeks prior. He was brought to the emergency room and was subsequently diagnos ed by CT angiogram of the chest and thorax of a type 1 aortic dissection extending from the aortic ro ot to below the renal arteries. He went urgently to surgery and was repaired by Dr. Rock. Currentl y patient is sedated and on mechanical ventilation. All history is gleaned from the medical record. PAST MEDICAL HISTORY: Significant for hypertension. PAST SURGICAL HISTORY: None. ALLERGIES: No known allergies to medications. SOCIAL HISTORY: No history of tobacco use. No history of alcohol use. He is Bahamian-speaking only. FAMILY HISTORY: Noncontributory. REVIEW OF SYSTEMS: A 10-point review of systems was performed. Patient is on the mechanical ventila tion and unable to provide this. PHYSICAL EXAM: VITAL SIGNS: Blood pressure 178/100, pulse 75, respirations 24, temperature 36.0. Ox ygen saturation 95% on mechanical ventilation. GENERAL: He is a moderately overweight 47-year-old, male, who is sedated and on mechanical ventilation. HEENT: Eyes are PERRLA, EOMI. Throat e ndotracheal tube is in good position. NECK: Supple. No cervical adenopathy. HEART: Regular rate and rhythm without murmurs, rubs, or gallops. LUNGS: Diminished breath sounds but no wheeze. ABDOM EN: Soft, nontender. Bowel sounds are present in all 4 quadrants. EXTREMITIES: No clubbing, cyano sis, or edema. LABORATORIES: White count 10, hemoglobin 15, hematocrit 42, platelet count 213. Sodium 143, potassi um 2.8, chloride 101, CO2 25, BUN 15, creatinine 1.2. Glucose is 177. Arterial blood gas: pH 7.30, pCO2 of 39, PO2 331, bicarb 20, oxygen saturation 100%. IMPRESSION: 1. Type 1 aortic dissection. 2. Status post emergent repair. 3. Acute respiratory failure secondary to above. 4. Hypertension, poorly controlled as an outpatient. 5. Obesity. 6. Hypokalemia. RECOMMENDATIONS: 1. Adequate pain control. 2. Wean FiO2 as tolerated. 3. Assess for extubation. 4. DVT and PE prophylaxis, holding anticoagulation for now. 5. Stress ulcer prophylaxis. 6. Aggressive blood pressure control. /[id number]/MODL
[2017-09-07] MEDS ORDERED: CALCIUM GLUCONATE 50 ML IV ONE (20:00)
[2017-09-07] MEDS ORDERED: PHENYLEPHRINE HCL 50 MG in D5W 250 ML IV SCH (20:00)
[2017-09-07 20:07] LABS: PLATELET COUNT 83 10^3/uL (150-400)
[2017-09-07 20:27] LABS: INR 2.03 (0.83-1.16)
[2017-09-07] MEDS ORDERED: FAMOTIDINE 20 MG/NACL 50 ML IV SCH (21:00)
--- NOTE | 2017-09-07 21:39 | GOP ---
[f rep st] OPERATIVE REPORT DATE OF OPERATION: 09/07/2017 SURGEON: Neil Rock DO ENGINEER SECOND ASSISTANT: Patrick Agarwal PA-C. ANESTHESIA: Dr. Stearns. PREOPERATIVE DIAGNOSIS: Acute aortic dissection, uncontrolled hypertension, and morbid obesity. POSTOPERATIVE DIAGNOSIS: Acute aortic dissection, uncontrolled hypertension, and morbid obesity. PROCEDURE PERFORMED: 1. Emergent replacement of ascending aorta and grace arch under circulatory arrest with right axillar y artery cannulation with a 10 mm Hemashield end to side axillary graft. 2. Resuspension of the aortic valve with repair. FINDINGS: DESCRIPTION OF PROCEDURE: The patient presented with uncontrolled hypertension and severe chest pain , was immediately diagnosed with aortic dissection type A with extension into the iliacs. He was ernestine en directly to the operating room, intubated, and monitoring lines were placed. He was prepped and d raped in sterile classical manner. We then exposed the right axillary artery. The patient was hepar inized and a 10 mm Hemashield graft was sewn end-to-side. We then placed an arterial graft within th at conduit and secured it to the chest wall. We then performed a sternotomy, opened the pericardium. There was serosanguineous fluid. There was obvious evidence of dissection of ascending aorta with evidence of a contained rupture between the aorta and pulmonary artery. Cardiopulmonary bypass was b egun. We then began cooling to 19 degree centigrade with nasopharyngeal temperature probe. Because of the urgent nature and his uncontrolled hypertension coming to the OR, which was refractory to medi cations, we were unable to place a right radial A line; however, the plan was to axillary cannulate a nd perfuse at 50 cc/kilo with the innominate artery cross clamped while performing low-flow circulato ry arrest. When the patient fibrillated, we placed an LV sump through the right superior pulmonary v ein. He was noted to have massive left ventricular hypertrophy on echo as well as palpably in the op erating room. He had a 5 cm ascending aorta again which was with contained rupture between there and the pulmonary artery. As far as we could tell from the CT scan, the coronary arteries were without calcification and appeared to be without plaque in the lumen. When the patient reached 19 degrees ce ntigrade, the innominate artery was cross clamped. The pump was turned down to 500 cc/minute and the aorta was opened. A classic lateral wall dissection originating appeared to be just at the base of the innominate. The sinotubular junction to the base of the innominate and into the grace arch was ex cised. The true and false lumens were proximally were felt on the inside and graft on the outside wi th a continuous running 3-0 Prolene suture reinforced in multiple sites. BioGlue was applied. We th en shortened the graft and then anastomosed it end-to-side to the sinotubular junction after placing felt along the non coronary and the right sinus to resuspend the prolapsed commissure with an interru pted 2-0 Prolene pledgeted mattress suture on the non right commissure. The valve appeared to be nor mal. Otherwise, the sinuses were normal. We then anastomosed the graft end-to-side to the sinotubul ar junction with felt reinforcement on the outside reinforced in several sites with pledgeted mattres s sutures. Intermittent retrograde cardioplegia was administered throughout the procedure. Rewarmin g had been begun after completing the distal anastomosis. We then removed the cross-clamp on suction on the ascending aortic vent and LV sump. The patient was cardioverted to sinus rhythm. When this temperature reached 33 degrees, he was allowed to eject in Trendelenburg to de-air through the apex a nd aortic vent. When he was rewarmed, the vent was removed. He was weaned from bypass in Trendelenb urg. Again, de-airing was performed through the ascending aorta until no further air was seen. We t hen removed the cannulas in the heart and over sewed the sites while protamine was administered. LV function appeared preserved. The patient remained relatively hemodynamically stable. He had some ev idence of a coagulopathy, which was corrected with platelets and time. Right axillary graft was left intact and cut off 1 cm proximal to the anastomosis and oversewn with several large clips applied to it as well. That wound was closed in standard fashion. We then waited some time for his coagulopat hy to resolve and gave additional products. 2 drains were placed, 2 V wires. The thymic fat and per icardium were reapproximated. The sternum was closed in standard fashion. The patient was returned to ICU in stable condition. /[id number]/MODL
[2017-09-07] MEDS ORDERED: TRANEXAMIC ACID 1,000 MG in NS 500 ML IV ONE (22:21)
[2017-09-07] MEDS ORDERED: [UNRECOGNIZED DRUG - MIXTURE] IVP ONE (22:21)
[2017-09-07] MEDS ORDERED: POTASSIUM Cl (KCl) 20 MEQ/100 ML BAG IV ONE (22:25)
[2017-09-07] MEDS: DEXMEDETOMIDINE IN 0.9 % NACL 100 ML IV SCH (23:13)
[2017-09-07] MEDS: ceFAZolin 2 GM/DEXTROSE 100 ML IV SCH (23:51)
[2017-09-08] MEDS: MUPIROCIN 2% 22 GM OINT NS SCH ×3 (00:07→19:55)
[2017-09-08] MEDS: SENNOSIDES/DOCUSATE SODIUM TAB PO SCH ×3 (00:08→19:55)
[2017-09-08] MEDS ORDERED: FUROSEMIDE 40 MG/4 ML VIAL IVP ONE ×2 (00:30→15:00)
[2017-09-08 04:36] LABS: PLATELET COUNT 95 10^3/uL (150-400)
--- NOTE | 2017-09-08 04:45 | CPEKG ---
Heart Rate: 85 RR Interval: 706 P-R Interval: 157 QRSD Interval: 134 QT Interval: 444 QTC Interval: 528 P [place]: 0 QRS [place]: -73 T Wave [place]: 106 EKG Severity - ABNORMAL ECG - EKG Impression: SINUS RHYTHM EKG Impression: IVCD, CONSIDER ATYPICAL RBBB EKG Impression: LVH WITH IVCD AND SECONDARY REPOL ABNRM Electronically Signed By: Moses Drew 09-Sep-2017 07:51:43
[2017-09-08] MEDS: DEXMEDETOMIDINE IN 0.9 % NACL 100 ML IV SCH ×3 (04:59→19:54)
[2017-09-08] MEDS ORDERED: EPINEPHrine 1 MG/10 ML SYR IVP ONE (05:21)
[2017-09-08] MEDS ORDERED: PHENYLEPHRINE HCL 100 MCG/ML SYR ONE (05:23)
[2017-09-08] MEDS: ceFAZolin 2 GM/DEXTROSE 100 ML IV SCH (05:23)
[2017-09-08] MEDS ORDERED: NA BICARBONATE 50 MEQ/50 ML VIAL ONE (05:44)
[2017-09-08] MEDS ORDERED: MILRINONE/DEXTROSE/100 ML BAG IV ONE (05:44)
[2017-09-08] MEDS ORDERED: CALCIUM CHLORIDE 1 GM/10 ML INJ ONE (05:44)
[2017-09-08] MEDS ORDERED: PROTAMINE SULFATE 50 MG/5 ML VIAL IVP ONE (05:44)
[2017-09-08] MEDS ORDERED: ceFAZolin 1 GM VIAL ONE (05:45)
[2017-09-08] MEDS ORDERED: HEPARIN 10,000 UNIT/10 ML MDV (1,000 UNIT/ML) ONE (05:45)
[2017-09-08] MEDS ORDERED: ADENOSINE 6 MG/2 ML VIAL ONE (05:45)
[2017-09-08] MEDS ORDERED: niCARdipine/NACL/200 ML BAG IV ONE (05:45)
[2017-09-08] MEDS ORDERED: AMIODARONE HCL 150 MG/3 ML VIAL ONE (05:45)
[2017-09-08] MEDS ORDERED: DOPamine/DEXTROSE/250 ML BAG IV ONE (05:45)
[2017-09-08] MEDS ORDERED: VERAPAMIL 5 MG/2 ML VIAL ONE (05:46)
[2017-09-08] MEDS ORDERED: PAPAVERINE HCL 60 MG/2 ML SDV ONE (05:46)
[2017-09-08] MEDS ORDERED: MINERAL OIL 10 ML VIAL ONE (05:46)
[2017-09-08] MEDS ORDERED: MIDAZOLAM 2 MG/2 ML VIAL ONE (05:57)
[2017-09-08] MEDS ORDERED: ALBUMIN 5% 250 ML BOTTLE IV ONE (06:26)
[2017-09-08] MEDS: HEPARIN 5,000 UNIT/0.5 ML SYR SC SCH ×3 (06:37→20:42)
--- NOTE | 2017-09-08 07:03 | SOAPPROG ---
SOAP Progress Note Assessment/Plan: POD #1: Emergent replacement of ascending aorta and hemiarch under circulatory arrest with #26 mm Hemashield graft, left axillary artery cannulation with #10 mm Hemashield graft and resuspension of aortic valve with repair POD #0: Re-exploration of chest with evacuation of clot Acute ascending aortic dissection s/p repair - wean drips and vent as tolerated. Acute blood loss anemia with coagulopathy s/p massive blood transfusion - monitor CT output and lab work and transfuse as needed. Post-op tamponade - clot evacuated with improvement in hemodynamics. Acute renal failure - likely secondary to hypotension and low-flow state. Monitor. Hypertension - stable for now. Subjective: Sedated. Objective: Vital Signs Temp Pulse Resp BP Pulse Ox 38.4 C H 101 H 21 H 85/51 L 98 09/08/17 05:00 09/08/17 05:00 09/08/17 05:00 09/08/17 05:00 09/08/17 05:00 Laboratory Results 09/08/17 04:25 09/08/17 04:25 09/07/17 09/08/17 09/09/17 05:59 05:59 05:59 Intake Total 00137 Output Total 2835 Balance 7499 PT 23.0 SEC (12.0-15.0) H 09/07/17 19:55 INR 2.03 (0.83-1.16) H 09/07/17 19:55 Physical Exam - Physical Exam General Appearance: no apparent distress, obese EENT: ET tube, No scleral icterus (R), No scleral icterus (L) Neck: normal inspection Respiratory: No respiratory distress Cardiac/Chest: tachycardia Abdomen: soft, distended Skin: normal color, warm/dry Extremities: pedal edema Neuro/Psych: other (sedated ) ICD10 Worksheet Patient Problems: Problems Problem Status Onset Aortic dissection, thoracoabdominal Acute Hypokalemia Acute
[2017-09-08] MEDS ORDERED: NALOXONE HCL 0.4 MG/ML INJ IVP PRN (07:28)
--- NOTE | 2017-09-08 07:28 | PDANEPAE ---
ANE History of Present Illness exp chest ANE Past Medical History - Cardiovascular History Hx Hypertension: No Hx Arrhythmias: No Hx Chest Pain: Yes Hx Coronary Artery / Peripheral Vascular Disease: No Hx CHF / Valvular Disease: No Hx Palpitations: No - Pulmonary History Hx COPD: No Hx Asthma/Reactive Airway Disease: No Hx Recent Upper Respiratory Infection: No Hx Oxygen in Use at Home: No Hx Sleep Apnea: No - Neurologic History Hx Cerebrovascular Accident: No Hx Seizures: No Hx Dementia: No - Endocrine History Hx Diabetes: No Hypothyroid: No Hyperthyroid: No - Renal History Hx Renal Disorders: No ANE Review of Systems Review of Systems: - Exercise capacity Exercise capacity: unable to assess ANE Patient History - Allergies Allergies/Adverse Reactions: No Known Allergies Allergy (Unverified 09/07/17 09:15) - Home Medications Home Medications: NK [No Known Home Meds] 09/07/17 [Last Taken Unknown] - NPO status NPO Status: no food or drink >8 hours - Smoking Hx Smoking Status: Never smoked ANE Labs/Vital Signs - Labs Result Diagrams: 09/08/17 04:25 09/08/17 04:25 - Vital Signs Blood Pressure: 85/51 Heart Rate: 101 Respiratory Rate: 21 O2 Sat (%): 98 Height: 170.18 cm Weight: 90.718 kg ANE Physical Exam - Airway Mouth exam: ETT in situ - Cardiovascular Cardiovascular: tachycardia - ASA Status ASA Status: V, E ANE Anesthesia Plan Anesthesia Plan: general endotracheal anesthesia Urgent/Emergent Case: Louisa kemp completed preop but documented later for safe timely pt care
--- NOTE | 2017-09-08 07:29 | POSTANESTH ---
Post Anesthetic Evaluation Cardiovascular Status: Other, See Comment (stable on pressor, stable on vent) Respiratory Status: Other, See Comment Level of Consciousness/Mental Status: Unconscious Pain Control: Adequate, Prn Tx Ordered Nausea/Vomiting Control: Adequate, Prn Tx Ordered Complications Possibly Related to Anesthesia: None Noted
--- NOTE | 2017-09-08 07:55 | GOP ---
[f rep st] OPERATIVE REPORT DATE OF OPERATION: 09/08/2017 SURGEON: Neil Rock DO BILLIARD TABLE MECHANIC: Patrick Agarwal PA-C. ANESTHESIOLOGIST: Nathen Stearns MD. PREOPERATIVE DIAGNOSIS: Cardiac tamponade. POSTOPERATIVE DIAGNOSIS: Cardiac tamponade. PROCEDURE PERFORMED: Re-exploration of sternum with evacuation of clot. FINDINGS: Patient had repair of an aortic dissection the day before. Had persistent bleeding with c oagulopathy. Once his coagulopathy was resolved, he then developed signs of tamponade. He was taken back to the operating room, prepped and draped in sterile classical manner. Repeat median sternotom y was performed. Clot was evacuated from the anterior mediastinum in the right side of the heart as well as around the aorta. The heart was copiously irrigated. There was no evidence of ongoing bleed ing. The coagulopathy appeared resolved. We then partially closed the pericardium over the aorta, r eplaced the drains, closed the sternum in the standard fashion. Returned patient to ICU in stable co ndition. DESCRIPTION OF PROCEDURE: /[id number]/MODL
--- NOTE | 2017-09-08 08:19 | CPEKG ---
Heart Rate: 101 RR Interval: 594 P-R Interval: 176 QRSD Interval: 128 QT Interval: 424 QTC Interval: 550 P [place]: 69 QRS [place]: 125 T Wave [place]: -49 EKG Severity - ABNORMAL ECG - EKG Impression: SINUS TACHYCARDIA EKG Impression: IVCD, CONSIDER ATYPICAL RBBB EKG Impression: BORDERLINE R WAVE PROGRESSION, ANTERIOR LEADS EKG Impression: CONSIDER ST ELEVATION IN SEPTAL LEADS AND ST DEPRESSION IN INFERIOR LEADS Electronically Signed By: Moses Drew 09-Sep-2017 07:56:07
--- NOTE | 2017-09-08 08:47 | PDINTPN ---
Advertising Assistant Manager Progress Note Assessment/Plan: Assessment/plan: * Type 1 aortic dissection with repair * Cardiac tamponade requiring return to the operating room and removal of clots from the anterior mediastinum * Excessive blood loss requiring multiple units of blood products * Coagulopathy-improved. INR at 2 * Shock-on multiple pressors -wean as tolerated * Acute respiratory failure-now with high FiO2 -wean FiO2 as tolerated * History of Hypertension * Sedation-adequate * Nutrition-none * Acute renal failure-creatinine now at 2.7 -Follow closely -consider nephrology consult * VTE prophylaxis * Stress ulcer prophylaxis Case discussed with Nursing and Respiratory therapy Subjective: Sedated and on mechanical ventilation Objective: Vital Signs Temp Pulse Resp BP Pulse Ox 38.4 C H 112 H 20 85/51 L 93 09/08/17 05:00 09/08/17 07:50 09/08/17 07:50 09/08/17 07:28 09/08/17 07:50 Laboratory Results 09/08/17 04:25 09/08/17 04:25 09/07/17 09/08/17 09/09/17 05:59 05:59 05:59 Intake Total 52611 Output Total 2835 Balance 7499 PT 23.0 SEC (12.0-15.0) H 09/07/17 19:55 INR 2.03 (0.83-1.16) H 09/07/17 19:55 Laboratory Results 09/08/17 04:25 09/08/17 04:25 09/08/17 01:09 Patient Temperature 97.5 DEGREES DEGREES POC pH 7.42 (7.35 - 7.45) POC pCO2 40 mmHg H mmHg (34 - 38) POC pO2 68 mmHg mmHg (65 - 75) POC HCO3 26 mEq/L mEq/L (22 - 26) POC Total CO2 27 mEq/L mEq/L (23 - 27) POC Base Excess 1.0 mEq/L mEq/L (-2.5 - 2.5) POC O2 Sat (Calc) 94 % % (92 - 95) POC FiO2 40 % % Chest [id number] by myself. Endotracheal tube in good position. Line in chest tube in good position. Mild pulmonary edema - Time Spent With Patient Time Spent With Patient: 45 min of critical care time spent with patient. Case discussed with Nursing and Respiratory therapy Physical Exam - Physical Exam General Appearance: other (Sedated), No alert EENT: PERRL/EOMI, ET tube Neck: non-tender Respiratory: rales (Few), No respiratory distress, No accessory muscle use Cardiac/Chest: normal peripheral pulses, regular rate, rhythm Abdomen: normal bowel sounds, non-tender, soft Male Genitalia: deferred Rectal: deferred Skin: normal color, warm/dry Extremities: normal inspection Neuro/Psych: No alert ICD10 Worksheet Patient Problems: Problems Problem Status Onset Aortic dissection, thoracoabdominal Acute Hypokalemia Acute
[2017-09-08] MEDS ORDERED: PANTOPRAZOLE SODIUM 40 MG TAB PO SCH (09:00)
[2017-09-08] MEDS ORDERED: PANTOPRAZOLE SODIUM 40 MG VIAL IVP ONE (10:45)
[2017-09-08] MEDS: NOREPINEPHRINE BITARTRATE 16 MG in NS 250 ML IV SCH (11:51)
[2017-09-08] MEDS ORDERED: FUROSEMIDE 40 MG/4 ML VIAL ONE (14:14)
[2017-09-08] MEDS: FUROSEMIDE 100 MG in D5W 100 ML IV SCH (16:48)
[2017-09-08] MEDS ORDERED: NA BICARBONATE 50 MEQ/50 ML VIAL IV ONE ×2 (20:45→21:45)
[2017-09-08] MEDS ORDERED: SUCCINYLCHOLINE CHLORIDE 200 MG/10 ML SYR IVP ONE (22:05)
[2017-09-08] MEDS ORDERED: KETAMINE 100 MG/10 ML SYR ONE (22:05)
[2017-09-08] MEDS ORDERED: NALOXONE HCL 0.4 MG/ML INJ ONE (22:21)
--- NOTE | 2017-09-08 22:42 | EDPHY ---
ED Progress Note Narrative: I was called to the ICU to intubate a patient who was having respiratory distress. Patient had recent open heart surgery. He required repeat surgery this morning. He is extubated today. Since that time, the nursing staff states he has had increasing respiratory distress. I evaluated the patient at bedside. He was noted to have significant work of breathing. He had coarse breath sounds bilaterally. His on oxygen saturation was 90%. Indication for the procedure was respiratory distress. The patient was preoxygenated with 100% oxygen by face mask and high-flow nasal cannula. The patient was sedated with the ketamine and paralyzed with succinylcholine. The patient was orally endotracheally intubated under direct visualization with a the 7.5 ETT. Tracheal intubation was confirmed with misting on the tube; breath sounds were auscultated equally bilaterally; appropriate color change with [place] CO2 detector, capnography waveform is appropriate, oxygen saturation after procedure is 97% . Chest X-ray shows ETT the at the kevin. I discussed this with the patient's nurse in ICU. The ET tube was pulled back 1 cm. The procedure was performed by myself.
[2017-09-08] MEDS ORDERED: NALOXONE HCL 0.4 MG/ML INJ IVP ONE (22:45)
[2017-09-08] MEDS ORDERED: SODIUM POLY SULF 15 GM/60 ML BOTTLE PO ONE (23:00)
[2017-09-09] MEDS: DEXMEDETOMIDINE IN 0.9 % NACL 100 ML IV SCH ×5 (01:02→21:15)
[2017-09-09] MEDS: FUROSEMIDE 100 MG in D5W 100 ML IV SCH (01:22)
[2017-09-09 05:35] LABS: PLATELET COUNT 60 10^3/uL (150-400)
[2017-09-09] MEDS: HEPARIN 5,000 UNIT/0.5 ML SYR SC SCH (06:31)
--- NOTE | 2017-09-09 08:06 | SOAPPROG ---
SOAP Progress Note Assessment/Plan: Assessment: POD#2 Emergent replacement of ascending aorta and hemiarch with #26 mm Hemashield graft. Hypothermic circulatory arrest, right axillary artery cannulation, resuspension of aortic valve with repair POD #1 Re-exploration of chest with evacuation of clot Acute type 1 aortic dissection - Repair complicated by coagulopathy and cardiac tamponade necessitating re-exploration and wash-out. Hemodynamic support on multiple pressors. Significant fluid overload and ventilatory support. Acute expected blood loss anemia with coagulopathy - Exacerbated by HCA. Stable s/p massive blood transfusion. No evidence active bleeding. Additional transfusion as needed. Acute renal failure - Likely secondary to hypotension and low-flow state. Nephrology consulted. HD, fluid and electrolyte management at their direction. Acute postoperative respiratory failure - Remains on vent with elev FIO2. Plan: Switch RIJ QLC to dialysis cath. LUE PICC. Vent per ICU. Dialysis per renal. Wean levo to MAP > 70. Wean dopa once off levo. Cont Vpacing at 72. Keep blakes to pleurovac while on vent. Keep palmer for accurate I/Os. Keep juhi while on pressors. 09/09/17 08:00 Subjective: Sedated on vent Objective: Vital Signs Temp Pulse Resp BP Pulse Ox 38 C 72 23 H 104/55 L 93 09/09/17 03:00 09/09/17 06:00 09/09/17 06:00 09/09/17 06:00 09/09/17 06:00 Laboratory Results 09/09/17 05:20 09/09/17 05:20 09/08/17 09/09/17 09/10/17 05:59 05:59 05:59 Intake Total 03350 3400 Output Total 2835 2295 Balance 7499 1105 PT 23.0 SEC (12.0-15.0) H 09/07/17 19:55 INR 2.03 (0.83-1.16) H 09/07/17 19:55 Vpaced. Dopa @ 7.5 mcg, Levo at 7 mcg. Vent FIO2 60-80%. CXR -> no PTX, mild pulm vasc congestion, LLL atelectasis, support tubes/lines in good position. CTOP thinning, quantity falling. Positive fluid balance. +14kg overall. Slight dip in platelets, possibly dilutional. H/H stable. Cr appears to have plateaued. Physical Exam - Physical Exam General Appearance: no apparent distress Respiratory: lungs clear (vent), other (mediastinal blakes x 2 y-d to pleurovac , no air leak) Cardiac/Chest: regular rate, rhythm (paced), other (Vwire to generator) Abdomen: soft Skin: warm/dry Extremities: swelling (2+ gen), other (feet slightly cool to touch, no mottling) ICD10 Worksheet Patient Problems: Problems Problem Status Onset Aortic dissection, thoracoabdominal Acute Hypokalemia Acute
[2017-09-09] MEDS ORDERED: ceFAZolin 2 GM/DEXTROSE 100 ML IV SCH (09:00)
[2017-09-09] MEDS: ACETAMINOPHEN 650 MG/20.3 ML UDCUP TUBE PRN (09:37)
[2017-09-09] MEDS: MUPIROCIN 2% 22 GM OINT NS SCH (09:55)
--- NOTE | 2017-09-09 10:08 | GCON ---
[f rep st] CONSULTATION NEPHROLOGY CONSULTATION REASON FOR ADMISSION: Chest pain. ADMITTING DIAGNOSIS: Dissection of Ascending Aorta REASON FOR CONSULTATION: Acute renal failure. ASSESSMENT: 1. Acute renal failure, likely ATN. 2. Status post emergent repair of ascending aortic and grace arch with 10 mm grace shield end-to-side axillary graft and right axillary artery cannulation. 3. Resuspension of the aortic valve with repair. 4. Complication of pericardial tamponade requiring sternotomy and evacuation of clot on 09/08/2017. 5. Anuric acute renal failure. RECOMMENDATIONS: 1. Placement of temporary hemodialysis catheter. 2. Initiation of dialysis. 3. Ultrafiltration as tolerated. HISTORY OF PRESENT ILLNESS: The patient is a 47-year-old male who presented to the emergency room with 2-1/2 hours of tearing chest pain. He was found to have an ascending aortic dissection. He was taken to the operating room emergently for repair. This was complicated by uncontrolled hypertension and tamponade as described. The patient now is in the ICU on dopamine and Levophed with good blood pressures, with systolics in the 100 and oxygen requirements decreasing from 80% down to 60%. He is oliguric. His creatinine has risen from 3.2 yesterday morning to a level of 6.1 this morning. He is moderately azotemic with a BUN of 45. PAST MEDICAL HISTORY: His past medical history is limited. In the emergency room, he denied any past medical history. FAMILY HISTORY: Noncontributory. SOCIAL HISTORY: Noncontributory, nonsmoker. MEDICATIONS: Patient has no medications. ALLERGIES: Patient has no allergies. REVIEW OF SYSTEMS: Currently is unobtainable. PHYSICAL EXAMINATION: VITAL SIGNS: Temperature 39.2, pulse 72, respirations 22 , saturating 95% on 60% with the ventilator. Blood pressure 112/57, CVP is 15. His weight is 25 kg above his admission weight. APPEARANCE: Intubated, sedated, on vent and pressors. HEENT: Exam unremarkable. NECK: Unremarkable. CHEST: Shows a scar over the right subclavian area from what I believe was where the artery was cannulated, status post sternotomy with chest tubes in place. Lungs coarse. ABDOMEN: Silent. EXTREMITIES: With mild edema. MEDICATIONS CURRENTLY: Acetaminophen, Seaview, Dulcolax, Precedex, dopamine, fentanyl, Lasix, heparin, Cephulac, Prevacid, Reglan, morphine, Bactroban, norepinephrine, Zofran. LABORATORY STUDIES: Potassium 5.1. Carbon dioxide 17 with an anion gap increased at 25. INR after surgery was 2.0. Hematocrit 26.9, platelet count today 60,000. ASSESSMENT: Acute renal failure. This most certainly represents acute tubular necrosis. His creatinine on admission was 1.2. We have no prior values to know what his true baseline may have been. Currently his creatinine is up to 6.1, with oliguria, acidosis and a potassium that has increased mildly over the last 24 hours. I think it is likely the patient will need dialysis to help control volume status and maintain homeostasis. I placed a call to a friend of his, who plans to come in later this morning. It sounds like the patient is estranged from his brother and therefore this close friend is likely the closest person who can speak for [facility]on at this time. I have asked CV surgery to place a temporary dialysis catheter today. I suspect we will be able to have a PICC line placed in his arm with subsequent rewiring of the right IJ triple-lumen catheter with a 16 cm triple-lumen dialysis catheter. This should provide adequate access. I think from the medical point of view, we can simply do daily intermittent hemodialysis rather than CRRT. I think this should be much more straightforward and with his primary problems being volume and not metabolic we should be able to keep up with this form of treatment. The dialysis team is aware of the patient's current situation. The plan would be to have him undergo dialysis as soon as access is available. I think it is probably better for him to start sooner rather than later given his clinical situation. There is no reason for him to get to an extreme level of potassium or uremia before initiating therapy especially given the fact that he had the pericardial bleeding before that led to tamponade. There is no reason to have him experience additional platelet dysfunction that could cause additional problems with coagulopathy. /[id number]/MODL MTDD
[2017-09-09] MEDS: LANSOPRAZOLE SUSP 30MG/10ML UDSYR (Adult) TUBE SCH (10:13)
[2017-09-09] MEDS: SENNOSIDES/DOCUSATE SODIUM TAB PO SCH (11:21)
[2017-09-09] MEDS: SENNOSIDES 17.6 MG/10 ML UDL PO SCH (11:42)
--- NOTE | 2017-09-09 13:05 | PDINTPN ---
Sports Book Writer Progress Note Assessment/Plan: Assessment/plan: 47 M with uncontrolled HTN admitted 09/07/17 with chest pain and found to have Aortic dissection from Ao root to iliacs, who underwent urgent repair including AV repair and root replacement with graft, complicated by cardiac tamponade requiring return to OR for removal of large clot. He was also hypotensive and required multiple pressors, in addition to 11 units RBCs, 10 units FFP, 4 platelets and 2 cryo transfusions. He subsequently develop MADDY and will require HD 09/09. * Aortic dissection- s/p root replacement, AV repair with improving hemodynamics. Titrating levophed per surgery * Acute respiratory failure with hypoxia. Minimal O2 requirement and improving. Will start weaning in AM and proceed towards extubation depending on HD effect * MADDY 2/2 likely ATN and hypotension. Will assist with HD catheter placement after PICC placement, and proceed with HD per renal recs. * Hypocalcemia- will correct with HD * Critical care time 35 minutes including bedside eval in patient with MOF. Of note- patient is unable to sign consents and no available next of kin. I signed his HD catheter consent, but feel this is medically necessary and urgent (if not emergent) care at this time. Will continue to work with CM to notify appropriate family. Subjective: No events. Remains on levophed and dopamine as well as SIMV ventilation Objective: Vital Signs Temp Pulse Resp BP Pulse Ox 38.5 C H 72 22 H 125/63 H 94 09/09/17 12:00 09/09/17 12:00 09/09/17 12:00 09/09/17 12:00 09/09/17 12:00 Laboratory Results 09/09/17 05:20 09/09/17 05:20 09/08/17 09/09/17 09/10/17 05:59 05:59 05:59 Intake Total 33633 3400 30.1 Output Total 2835 2295 111 Balance 7499 1105 -80.9 PT 23.0 SEC (12.0-15.0) H 09/07/17 19:55 INR 2.03 (0.83-1.16) H 09/07/17 19:55 Physical Exam - Physical Exam General Appearance: unresponsive, obese, other (sedated on vent) EENT: PERRL/EOMI Neck: supple Respiratory: lungs clear, normal breath sounds, decreased breath sounds, No respiratory distress Cardiac/Chest: regular rate, rhythm, No edema Abdomen: non-tender, soft, No distended Skin: normal color, warm/dry Lymphatic: no adenopathy Extremities: No pedal edema Neuro/Psych: cognition abnormalities ICD10 Worksheet Patient Problems: Problems Problem Status Onset Aortic dissection, thoracoabdominal Acute Hypokalemia Acute
[2017-09-09] MEDS ORDERED: MIDAZOLAM 2 MG/2 ML VIAL ONE (19:30)
[2017-09-09] MEDS ORDERED: HEPARIN 10,000 UNIT/10 ML MDV (1,000 UNIT/ML) ONE (19:53)
[2017-09-09] MEDS ORDERED: MIDAZOLAM 2 MG/2 ML VIAL IVP ONE (20:15)
[2017-09-09] MEDS ORDERED: HEPARIN 50,000 UNIT/10 ML VIAL ONE (21:00)
[2017-09-09] MEDS ORDERED: ALBUMIN 5% 500 ML BOTTLE IV ONE (21:48)
[2017-09-09] MEDS ORDERED: ALBUMIN 5% 500 ML IV ONE (22:00)
--- NOTE | 2017-09-09 23:57 | SOAPPROG ---
AIDA Progress Note Assessment/Plan: Assessment: 47 MALE SP URGENT HEART SURGERY FOR DISSECTION IN NEED OF DIALYSIS CATH FOR ACUTE RENAL FAILURWE WITH CREAT> 8 INR PROLONGED PT UNABLE TO RESPOND Plan:RT IJ DIALYSIS CATH 09/09/17 23:55 Objective: Vital Signs Temp Pulse Resp BP Pulse Ox 36.6 C 104 H 18 115/71 96 09/09/17 19:00 09/09/17 23:00 09/09/17 23:00 09/09/17 23:00 09/09/17 23:00 Laboratory Results 09/09/17 05:20 09/09/17 05:20 09/08/17 09/09/17 09/10/17 05:59 05:59 05:59 Intake Total 76803 3400 1066.7 Output Total 2835 2295 513 Balance 7499 1105 553.7 PT 23.0 SEC (12.0-15.0) H 09/07/17 19:55 INR 2.03 (0.83-1.16) H 09/07/17 19:55 ICD10 Worksheet Patient Problems: Problems Problem Status Onset Aortic dissection, thoracoabdominal Acute Hypokalemia Acute
--- NOTE | 2017-09-09 23:59 | POSTOPPROG ---
Post Op Note Date of Operation: 09/09/17 Surgeon: Angelo Harkins Anesthesia: Local (Specify) Pre-op Diagnosis: RENAL FAILURE Post-op Diagnosis: SAME Indication: DIALYSIS Procedure: RT IJ TEMPORARY DIALYSIS CATH PLACEMENT Findings: GOOD POSITION AND FLOW Inf/Abcess present in the surg proc area at time of surgery?: No Depth: Deep Incisional (Fascial) EBL: Minimal Complications: 0
[2017-09-10] MEDS: DEXMEDETOMIDINE IN 0.9 % NACL 100 ML IV SCH ×6 (04:00→21:47)
[2017-09-10] MEDS ORDERED: PETROLAT,WHT/MIN OIL/SOD CHL 3.5 GM OPHT.OINT ONE (05:19)
[2017-09-10 05:45] LABS: PLATELET COUNT 41 10^3/uL (150-400)
[2017-09-10] MEDS: NOREPINEPHRINE BITARTRATE 16 MG in NS 250 ML IV SCH (07:10)
--- NOTE | 2017-09-10 07:42 | SOAPPROG ---
SOAP Progress Note Assessment/Plan: POD #3: Emergent replacement of ascending aorta and hemiarch under circulatory arrest with #26 mm Hemashield graft, resuspension of aortic valve with repair, left axillary artery cannulation with #10 mm Hemashield graft POD #2: Re-exploration of chest with evacuation of clot Acute ascending aortic dissection s/p repair - wean dopamine as tolerated. Post-op tamponade - clot evacuated, stable. Acute blood loss anemia with coagulopathy s/p massive blood transfusion - stable. Acute renal failure - dialysis as per renal. VDRF - management as per pulmonology. Lines/drains - RIJ HD catheter, LUE PICC, CT x2 (to be removed), V pacing wires , Betancourt catheter Subjective: Sedated. Objective: Vital Signs Temp Pulse Resp BP Pulse Ox 38.1 C 92 20 122/75 H 99 09/10/17 04:00 09/10/17 07:30 09/10/17 07:30 09/10/17 07:30 09/10/17 07:30 Laboratory Results 09/10/17 04:30 09/10/17 04:30 09/09/17 09/10/17 09/11/17 05:59 05:59 05:59 Intake Total 3400 1662.5 Output Total 2295 773 Balance 1105 889.5 PT 23.0 SEC (12.0-15.0) H 09/07/17 19:55 INR 2.03 (0.83-1.16) H 09/07/17 19:55 Physical Exam - Physical Exam General Appearance: no apparent distress, obese EENT: ET tube, No scleral icterus (R), No scleral icterus (L) Neck: normal inspection Respiratory: No respiratory distress Cardiac/Chest: regular rate, rhythm Abdomen: non-tender, soft, distended Skin: normal color, warm/dry Extremities: pedal edema Neuro/Psych: other (sedated) ICD10 Worksheet Patient Problems: Problems Problem Status Onset Aortic dissection, thoracoabdominal Acute Hypokalemia Acute
--- NOTE | 2017-09-10 08:37 | SOAPPROG ---
SOAP Progress Note Assessment/Plan: Assessment: Oliguric MADDY POD 3 Ao repair after dissection hypocalcemia volume overload, FiO2 0.6 Plan: HD today, not much volume removal yesterday, will try again today HD should help with his hypocalcemia if unable to remove fluid on HD, may need to consider CRRT, would need to be sedated if we go the CRRT route 09/10/17 08:27 Subjective: not communicative this AM Objective: Vital Signs Temp Pulse Resp BP Pulse Ox 38.1 C 87 20 106/67 98 09/10/17 08:00 09/10/17 08:00 09/10/17 08:00 09/10/17 08:00 09/10/17 08:00 Laboratory Results 09/10/17 04:30 09/10/17 04:30 09/09/17 09/10/17 09/11/17 05:59 05:59 05:59 Intake Total 3400 1662.5 Output Total 2295 773 40 Balance 1105 889.5 -40 PT 23.0 SEC (12.0-15.0) H 09/07/17 19:55 INR 2.03 (0.83-1.16) H 09/07/17 19:55 Physical Exam - Physical Exam General Appearance: other (not communicative this AM) Respiratory: other (coarse, occas rhonchi wh and rales) Cardiac/Chest: regular rate, rhythm, edema, No friction rub Abdomen: other (quiet, distended, nt) Extremities: swelling ICD10 Worksheet Patient Problems: Problems Problem Status Onset Aortic dissection, thoracoabdominal Acute Hypokalemia Acute
[2017-09-10] MEDS: METOCLOPRAMIDE 10 MG/2 ML VIAL IVP PRN (08:38)
[2017-09-10] MEDS: SENNOSIDES 17.6 MG/10 ML UDL PO SCH ×3 (08:41→21:47)
--- NOTE | 2017-09-10 09:26 | PDINTPN ---
Build And Release Manager Progress Note Assessment/Plan: Assessment/plan: 47 M with uncontrolled HTN admitted 09/07/17 with chest pain and found to have Aortic dissection from Ao root to iliacs, who underwent urgent repair including AV repair and root replacement with graft, complicated by cardiac tamponade requiring return to OR for removal of large clot. He was also hypotensive and required multiple pressors, in addition to 11 units RBCs, 10 units FFP, 4 platelets and 2 cryo transfusions. He subsequently develop MADDY and will require HD 09/09. * Aortic dissection- s/p root replacement, AV repair with improving hemodynamics. Levophed off, DA coming down. BP labile with HD * Acute respiratory failure with hypoxia. Increased PEEP today and will reduce FiO2 as tolerated. Additional HD (or CRRT) may be helpful. * MADDY 2/2 likely ATN and hypotension. Additional HD attempts today vs CRRT * Hypocalcemia- will correct with HD * * Critical care time 30 minutes including bedside eval in patient with MOF. Of note- patient is unable to sign consents and no available next of kin. I signed his HD catheter consent, but feel this is medically necessary and urgent (if not emergent) care at this time. Will continue to work with CM to notify appropriate family. 09/10/17 09:23 Subjective: Imp[roved pressor requirements. S/P HD but very little volume removed. FiO2 60% Objective: Vital Signs Temp Pulse Resp BP Pulse Ox 38.1 C 87 20 106/67 98 09/10/17 08:00 09/10/17 08:00 09/10/17 08:00 09/10/17 08:00 09/10/17 08:00 Laboratory Results 09/10/17 04:30 09/10/17 04:30 09/09/17 09/10/17 09/11/17 05:59 05:59 05:59 Intake Total 3400 1662.5 Output Total 2295 773 40 Balance 1105 889.5 -40 PT 23.0 SEC (12.0-15.0) H 09/07/17 19:55 INR 2.03 (0.83-1.16) H 09/07/17 19:55 Physical Exam - Physical Exam General Appearance: no apparent distress, obtunded, obese, other (sedated on vent) EENT: PERRL/EOMI Neck: supple Respiratory: decreased breath sounds, rhonchi, No respiratory distress, No accessory muscle use, No wheezing Cardiac/Chest: regular rate, rhythm, edema Abdomen: non-tender, soft, No distended Skin: normal color, warm/dry, No cyanosis Lymphatic: no adenopathy Extremities: pedal edema Neuro/Psych: cognition abnormalities ICD10 Worksheet Patient Problems: Problems Problem Status Onset Aortic dissection, thoracoabdominal Acute Hypokalemia Acute
[2017-09-10] MEDS: LANSOPRAZOLE SUSP 30MG/10ML UDSYR (Adult) TUBE SCH (09:34)
[2017-09-10] MEDS: ACETAMINOPHEN 650 MG/20.3 ML UDCUP TUBE PRN (10:51)
--- NOTE | 2017-09-10 12:34 | ASMTCMCOM ---
CM Note CM Note Notes: Looking for an interested person to be Medical Proxy. Contacted Tavares Lock [phone] a work friend who came to the hospital with two other work mates. They speak Korean and have worked with [facility] for a few years. They have talked with patient's brother, Adal and Adal understands that patient is in the hospital. Adal and [facility]on don't have a close relationship but Chapin felt that they should first ask Adal before taking on the responsibility of Medical Proxy. Chapin will let this CM know this afternoon the outcome of their discussion. Date Signed: 09/10/2017 12:34 PM Electronically Signed By:Rae Price LCSW
--- NOTE | 2017-09-10 13:08 | GPN ---
[f rep st] PROCEDURE NOTE DATE OF PROCEDURE: 09/09/2017 PRE-PROCEDURE DIAGNOSIS: Renal failure. POST-PROCEDURE DIAGNOSIS: Renal failure. NAME OF PROCEDURE: Right IJ temporary dialysis catheter placement. FINDINGS: Patient was found to have good flow and good position of the catheter. DESCRIPTION OF PROCEDURE: Patient was in the ICU on a ventilator and sedated. He was prepped and debo ped in the usual sterile fashion, and the previous Neck catheter was completely painted with Hibiclen s. The area was prepped and draped in the usual sterile fashion. A guidewire was passed through the d istal lumen and then the catheter was removed. The wound was re-prepped and draped. A dilator was the n passed over the guidewire and then a Mahurkar neck catheter was passed over the guidewire which was then removed. Good backflow was present. The catheter was flushed with heparinized saline, all 3 lum ens, and it was secured to the skin with 3-0 nylon suture. The wound was sterilely dressed. He tolera lu the procedure well. There were no complications. Chest x-ray shows good position of the catheter without complications. /[id number]/MODL
[2017-09-10] MEDS: SODIUM CITRATE 4% 5 ML in SYRINGE 0 ML DIAL PRN (16:50)
--- NOTE | 2017-09-10 17:32 | WOCRNPDOC ---
[facility] Advanced Assessment Note - Skin Integrity Problem, Advanced Assess Bilateral Buttock Pressure Injury Dressing Type: Open to Air Exudate Amount: None Integumentary Issue Intervention: Dressing Applied Wound Bed Constitution: Intact Serous Filled Blister Site Measurement - Head-to-Toe Length X Width X Depth (cm): 9.5x13x0 Pressure Injury Stage: Deep Tissue Injury (DTI) Pressure Injury Present on Admit: No Skin Integrity Problem Comment: Extensive DTI on bilateral sacral area. Majority of area is intact and non blanching, however there on the medial buttocks there are areas begining to blister on both sides. Allevyn Life sacral dressing applied and several XL Allevyn life dressings were sent to ICU seperately. Wound care will continue to follow this patient and monitor wound. Bariatric TAPS in use and second one opened to use the draw sheet as the original one was soiled and thrown away. Patient on Total Care Bariatric Support surface which is appropriate as a Clinitron mattress may bottom out due to his body habitus. Nerissa RAY in room, Reanna YUSUF.
[2017-09-10] MEDS ORDERED: CALCIUM GLUCONATE 2 GM in D5W 50 ML IV ONE (20:30)
[2017-09-11] MEDS: ACETAMINOPHEN 650 MG/20.3 ML UDCUP TUBE PRN (04:13)
[2017-09-11 05:30] LABS: PLATELET COUNT 33 10^3/uL (150-400)
[2017-09-11] MEDS: DEXMEDETOMIDINE IN 0.9 % NACL 100 ML IV SCH ×6 (05:39→22:05)
--- NOTE | 2017-09-11 07:50 | SOAPPROG ---
SOAP Progress Note Assessment/Plan: Assessment: POD#4 Emergent replacement of ascending aorta and hemiarch with #26 mm Hemashield graft. Hypothermic circulatory arrest, right axillary artery cannulation, resuspension of aortic valve with repair POD #3 Re-exploration of chest with evacuation of clot. Chest closure with kacey. LUE PICC. RIJ dialysis cath. GIUSEPPE reynaga. NGT trickle TFs Acute type 1 aortic dissection - Aortic root to infrarenal abd aorta. AV resuspended and asc ao and hemiarch replaced with dacron tube graft. Repair complicated by coagulopathy and cardiac tamponade necessitating re-exploration and wash-out. Hemodynamic support on multiple pressors x 48 hrs. Now only on low dose dopa. Significant fluid overload and ventilatory support. Acute expected blood loss anemia with coagulopathy - Exacerbated by HCA. Stable s/p massive blood transfusion. No evidence active bleeding. Chest tubes out. Platelet count remains depressed. Precautionary HIT pending. Acute renal failure - Likely secondary to hypotension and low-flow state. Nephrology consulted. HD, fluid and electrolyte management at their direction. Acute postoperative respiratory failure - Vent dependent. Wean per ICU. Plan: Vent per ICU. Dialysis per renal. Wean dopa to MAP > 70 after HD/CRRT. Remove fem elsie as unreliable. Decr VVI backup to 50. Keep palmer for accurate I/Os. 09/11/17 07:47 Subjective: Sedated on vent. Objective: Vital Signs Temp Pulse Resp BP Pulse Ox 37 C 80 24 H 119/72 97 09/11/17 06:00 09/11/17 07:00 09/11/17 07:00 09/11/17 07:00 09/11/17 07:00 Laboratory Results 09/11/17 05:00 09/11/17 05:00 09/10/17 09/11/17 09/12/17 05:59 05:59 05:59 Intake Total 1662.5 1929 Output Total 773 2204 Balance 889.5 -275 PT 23.0 SEC (12.0-15.0) H 09/07/17 19:55 INR 2.03 (0.83-1.16) H 09/07/17 19:55 Holding SR > 70. VVI backup at 60. Off levo yest. Dopa down to 3 mcg. Poor Elsie tracing. Cath appears easily kinked under pannus. CPAP, FIO2 down to 40%. Balanced I/Os. Suboptimal fluid removal on HD. Platelet count cont to fall. Physical Exam - Physical Exam General Appearance: no apparent distress Respiratory: lungs clear (vent) Cardiac/Chest: regular rate, rhythm, other (Sternum grossly stable. Sternotomy CDI. CT sites clean and moist.) Peripheral Pulses: 2+: dorsalis-pedis (R) (feet cool, mottled toes), dorsalis- pedis (L) (feet cool, mottled toes) Abdomen: soft Skin: warm/dry Extremities: swelling (1-2+ gen) ICD10 Worksheet Patient Problems: Problems Problem Status Onset Aortic dissection, thoracoabdominal Acute Hypokalemia Acute
--- NOTE | 2017-09-11 08:49 | SOAPPROG ---
SOAP Progress Note Assessment/Plan: Assessment: Oliguric MADDY POD 4 Ao repair after dissection hypocalcemia, continue supplementation volume overload, FiO2 0.4 today, down from 0.6 Plan: HD today, tolerated HD better yesterday, will try again today for more volume removal HD should help with his hypocalcemia, ended up needing IV calcium last night as well. will give another 2G today if unable to remove fluid on HD, may need to consider CRRT, would need to be sedated if we go the CRRT route: assess needs daily 09/10/17 08:27 09/11/17 08:46 09/11/17 08:52 Subjective: restless, not communicative Objective: Vital Signs Temp Pulse Resp BP Pulse Ox 37 C 80 24 H 119/72 97 09/11/17 06:00 09/11/17 07:00 09/11/17 07:00 09/11/17 07:00 09/11/17 07:00 Laboratory Results 09/11/17 05:00 09/11/17 05:00 09/10/17 09/11/17 09/12/17 05:59 05:59 05:59 Intake Total 1662.5 1929 Output Total 773 2204 Balance 889.5 -275 PT 23.0 SEC (12.0-15.0) H 09/07/17 19:55 INR 2.03 (0.83-1.16) H 09/07/17 19:55 Physical Exam - Physical Exam General Appearance: other (restless, opens eyes) Respiratory: other (coarse bs bilat occas rh and wh) Cardiac/Chest: regular rate, rhythm, edema, No friction rub Abdomen: other (minimal BS, mild dist, nt) Extremities: swelling Neuro/Psych: other (not communicative on vent, voluntarily moving his left arm above his head) ICD10 Worksheet Patient Problems: Problems Problem Status Onset Aortic dissection, thoracoabdominal Acute Hypokalemia Acute
[2017-09-11] MEDS ORDERED: CALCIUM GLUCONATE 2 GM in D5W 50 ML IV ONE (08:53)
[2017-09-11] MEDS: SENNOSIDES 17.6 MG/10 ML UDL PO SCH (08:56)
[2017-09-11] MEDS: LANSOPRAZOLE SUSP 30MG/10ML UDSYR (Adult) TUBE SCH (08:57)
[2017-09-11] MEDS ORDERED: HYDROCOD/APAP 7.5/325 IN 15ML UDCUP TUBE PRN (11:04)
[2017-09-11] MEDS ORDERED: ONDANSETRON DISINTEGRATING 4 MG TAB TUBE PRN (11:30)
[2017-09-11] MEDS ORDERED: LACTULOSE 20 GM/30 ML UDCUP TUBE PRN (11:30)
--- NOTE | 2017-09-11 11:43 | GCON ---
[f rep st] CONSULTATION DATE OF CONSULTATION: 09/09/2017 HISTORY OF PRESENT ILLNESS: The patient is a 47-year-old male who has just undergone emergency cardi ac surgery for ascending aortic dissection. He has gone into acute renal failure and is in need of u rgent dialysis. The patient is sedated on a ventilator and cannot be directly consented. PAST MEDICAL HISTORY: Limited by his condition. REVIEW OF SYSTEMS: Limited by his condition. MEDICATIONS: None prior to hospitalization. ALLERGIES: None by report. PHYSICAL EXAMINATION: Exam reveals a sedated and responsive 47-year-old male on a ventilator status post open heart surgery. IMPRESSION: A significant rise in creatinine, up greater than 8, in a patient who needs hemodialysis . PLAN: Temporary right jugular dialysis catheter placement. /[id number]/MODL
--- NOTE | 2017-09-11 12:24 | PDINTPN ---
Project Systems Engineer Progress Note Assessment/Plan: Assessment/plan: 47 M with uncontrolled HTN admitted 09/07/17 with chest pain and found to have Aortic dissection from Ao root to iliacs, who underwent urgent repair including AV repair and root replacement with graft, complicated by cardiac tamponade requiring return to OR for removal of large clot. He was also hypotensive and required multiple pressors, in addition to 11 units RBCs, 10 units FFP, 4 platelets and 2 cryo transfusions. He subsequently develop MADDY and will require HD 09/09. * Aortic dissection- s/p root replacement, AV repair with improving hemodynamics. Levophed off, DA coming down. BP labile with HD * Acute respiratory failure with hypoxia. FiO2 has been reduced and weaning well on minimal support. Mental status remains poor and not following commands with some intermittent right side neglect. Continue weans today and possible extubation in AM. * MADDY 2/2 likely ATN and hypotension. Additional HD attempts today vs CRRT * Hypocalcemia- will correct with HD * * Critical care time 35 minutes including bedside eval in patient with MOF. 09/10/17 09:23 09/11/17 12:21 Subjective: Stable overnight with reduced FiO2 Objective: Vital Signs Temp Pulse Resp BP Pulse Ox 37.1 C 95 22 H 149/85 H 97 09/11/17 09:00 09/11/17 11:00 09/11/17 11:00 09/11/17 11:00 09/11/17 11:00 Laboratory Results 09/11/17 05:00 09/11/17 05:00 09/10/17 09/11/17 09/12/17 05:59 05:59 05:59 Intake Total 1662.5 1929 Output Total 773 2204 Balance 889.5 -275 PT 23.0 SEC (12.0-15.0) H 09/07/17 19:55 INR 2.03 (0.83-1.16) H 09/07/17 19:55 Physical Exam - Physical Exam General Appearance: no apparent distress, obtunded EENT: normal ENT inspection, ET tube, other (pinpoint pupils, roving movement) Neck: supple Respiratory: lungs clear, normal breath sounds, decreased breath sounds, No respiratory distress, No accessory muscle use Cardiac/Chest: normal peripheral pulses, regular rate, rhythm, No edema Abdomen: non-tender, soft, No distended, No guarding Skin: normal color, warm/dry, No cyanosis Lymphatic: no adenopathy Extremities: No pedal edema Neuro/Psych: cognition abnormalities, No abnormal supervisor education II-XII ICD10 Worksheet Patient Problems: Problems Problem Status Onset Acute blood loss anemia Acute Acute renal failure Acute Acute respiratory failure Acute Aortic dissection, thoracoabdominal Acute Hypokalemia Acute S/P ascending aortic replacement Acute ~09/07/17 HTN (hypertension) Chronic Morbid obesity Chronic
[2017-09-11] MEDS ORDERED: AMIODARONE A.FIB-18HR INFSN (ORDER 3/3) IV ONE ×2 (12:30→19:00)
[2017-09-11] MEDS ORDERED: AMIODARONE A.FIB-6HR INFSN (ORDER 2/3) PREMIX IV ONE (12:30)
[2017-09-11] MEDS ORDERED: AMIODARONE A.FIB-LOAD DOSE(ORDER 1/3) PREMIX IV ONE (12:30)
--- NOTE | 2017-09-11 13:17 | ASMTCMCOM ---
CM Note CM Note Notes: Chart reviewed. This CM has not seen any viistors today. Slow progession. Spiritual care asked to get involved to assist with finding proxy, CM to follow. Date Signed: 09/11/2017 01:16 PM Electronically Signed By:Mare Fernandez RN
--- NOTE | 2017-09-11 15:15 | SOAPPROG ---
SOAP Progress Note Assessment/Plan: Assessment: Plan: 09/11/17 15:13 Pt was fully neurologically intact postop before and after reintubation, no neuro event. Current status due to sedation and language barrier, no further eval at this time. No reason for any acute neuro injury. Will follow Objective: Vital Signs Temp Pulse Resp BP Pulse Ox 37.2 C 89 17 100/60 97 09/11/17 13:00 09/11/17 13:00 09/11/17 13:00 09/11/17 13:00 09/11/17 13:00 Laboratory Results 09/11/17 05:00 09/11/17 05:00 09/10/17 09/11/17 09/12/17 05:59 05:59 05:59 Intake Total 1662.5 1929 Output Total 773 2204 Balance 889.5 -275 PT 23.0 SEC (12.0-15.0) H 09/07/17 19:55 INR 2.03 (0.83-1.16) H 09/07/17 19:55 ICD10 Worksheet Patient Problems: Problems Problem Status Onset Acute blood loss anemia Acute Acute renal failure Acute Acute respiratory failure Acute Aortic dissection, thoracoabdominal Acute Hypokalemia Acute Postoperative atrial fibrillation Acute S/P ascending aortic replacement Acute ~09/07/17 HTN (hypertension) Chronic Morbid obesity Chronic
[2017-09-11 17:22] LABS: HEPATITIS B SURFACE ANTIGEN NEGATIVE (NEGATIVE)
[2017-09-11 17:27] LABS: HEPATITIS B CORE AB IGM NEGATIVE (NEGATIVE)
[2017-09-11] MEDS ORDERED: AMIODARONE HCL 100 ML IV ONE (17:30)
[2017-09-11] MEDS: SODIUM CITRATE 4% 5 ML in SYRINGE 0 ML DIAL PRN (18:11)
[2017-09-11] MEDS: METOCLOPRAMIDE 10 MG/2 ML VIAL IVP PRN (22:03)
[2017-09-11] MEDS: SENNOSIDES 17.6 MG/10 ML UDL TUBE SCH (22:03)
[2017-09-12] MEDS: DEXMEDETOMIDINE IN 0.9 % NACL 100 ML IV SCH ×5 (00:49→21:20)
[2017-09-12 05:32] LABS: PLATELET COUNT 42 10^3/uL (150-400)
--- NOTE | 2017-09-12 08:35 | SOAPPROG ---
<Leyda Potter - Last Filed: 09/12/17 11:30> SOAP Progress Note Assessment/Plan: Assessment: POD#5 Emergent replacement of ascending aorta and hemiarch with #26 mm Hemashield graft. Hypothermic circulatory arrest, right axillary artery cannulation, resuspension of aortic valve with repair POD #4 Re-exploration of chest with evacuation of clot. Chest closure with kacey. LUE PICC. RIJ dialysis cath. NGT trickle TFs Acute type 1 aortic dissection - Aortic root to infrarenal abd aorta. AV resuspended and asc ao and hemiarch replaced with dacron tube graft. Repair complicated by coagulopathy and cardiac tamponade necessitating re-exploration and wash-out. Hemodynamic support on multiple pressors x 48 hrs. Able to wean off dopa yest. Significant fluid overload and ventilatory support. Acute expected blood loss anemia with coagulopathy - Exacerbated by HCA. Stable s/p massive blood transfusion. No evidence active bleeding. Chest tubes out. Platelet count appears to have plateaued. Precautionary HIT neg. Acute renal failure - Likely secondary to hypotension and low-flow state. Nephrology consulted. HD, fluid and electrolyte management at their direction. Acute postoperative respiratory failure - Vent dependent. Wean yest thwarted by AMS, decr rt limb mvmt, concern neuro event. Sedation adjusted without clear improvement. Postoperative PAF - With RVR. Onset yest. Successful conversion back to SR on amiodarone within 8hr. High threshold for anticoag given depressed plt count. Plan: Vent per ICU. Dialysis per renal. Cont IV amio at 0.5mg/min. Cont VVI backup at 50. Keep palmer for accurate I/Os. Agree CT head. 09/12/17 08:28 Subjective: Sedated. Opens eyes to name. No spontaneous limb movement. Central wince to pain. Objective: Vital Signs Temp Pulse Resp BP Pulse Ox 38.7 C H 86 34 H 132/77 H 98 09/12/17 05:00 09/12/17 08:03 09/12/17 08:03 09/12/17 05:00 09/12/17 08:03 Microbiology 09/12/17 05:16 - Final Sputum, Induced/Suctioned Laboratory Results 09/12/17 05:10 09/12/17 05:10 09/11/17 09/12/17 09/13/17 05:59 05:59 05:59 Intake Total 1928 2724 Output Total 2203 2049 Balance -275 674 PT 23.0 SEC (12.0-15.0) H 09/07/17 19:55 INR 2.03 (0.83-1.16) H 09/07/17 19:55 Holding SR. Stable BPs off dopa. Stable sats on FIO2 40%. Remains sig fluid overloaded, > 20kg. No further drop in plt. HIT neg. Physical Exam - Physical Exam General Appearance: no apparent distress Respiratory: lungs clear (vent) Cardiac/Chest: regular rate, rhythm, other (Sternotomy CDI. Vwires intact.) Skin: mottled (soles/toes) Extremities: swelling (2+ gen) ICD10 Worksheet Patient Problems: Problems Problem Status Onset Acute blood loss anemia Acute Acute renal failure Acute Acute respiratory failure Acute Aortic dissection, thoracoabdominal Acute Hypokalemia Acute Postoperative atrial fibrillation Acute S/P ascending aortic replacement Acute ~09/07/17 HTN (hypertension) Chronic Morbid obesity Chronic <Nimo Morales - Last Filed: 09/12/17 23:02> SOAP Progress Note Assessment/Plan: Patient seen and examined with Leyda Potter PA-C. Main issue is that of decreased left sided motor function in past 24-36h - exact timing unknown. Continues on dialysis - will try to pull as much fluid as possible (pulled ~2L yesterday and will try to do same today). Weaned off Dopamine O/N. May need transient Levo to try and be aggressive in pulling fluid on HD. Agree with CT scan of head for noted left sided motor deficit. Will need to establish medical proxy for future decision making. Objective: Vital Signs Temp Pulse Resp BP Pulse Ox 38.2 C 71 20 121/66 H 95 09/12/17 20:00 09/12/17 22:00 09/12/17 22:00 09/12/17 22:00 09/12/17 22:00 Microbiology 09/12/17 05:16 - Final Sputum, Induced/Suctioned Laboratory Results 09/12/17 05:10 09/12/17 05:10 09/11/17 09/12/17 09/13/17 05:59 05:59 05:59 Intake Total 19284 511.5 Output Total 2203 2049 75 Balance -275 674 436.5 PT 23.0 SEC (12.0-15.0) H 09/07/17 19:55 INR 2.03 (0.83-1.16) H 09/07/17 19:55
--- NOTE | 2017-09-12 09:42 | PDINTPN ---
Sound Cutter Progress Note Assessment/Plan: Assessment/plan: 47 M with uncontrolled HTN admitted 09/07/17 with chest pain and found to have Aortic dissection from Ao root to iliacs, who underwent urgent repair including AV repair and root replacement with graft, complicated by cardiac tamponade requiring return to OR for removal of large clot. He was also hypotensive and required multiple pressors, in addition to 11 units RBCs, 10 units FFP, 4 platelets and 2 cryo transfusions. He subsequently develop MADDY and will require HD 09/09. * Aortic dissection- s/p root replacement, AV repair with improving hemodynamics. Levophed off, DA remains but minimal. BP labile with HD * Acute respiratory failure with hypoxia. Tolerating weans well with acceptable ABG, but mental status precludes extubation. Continue with CPAP/PS today * MADDY 2/2 likely ATN and hypotension. Additional HD per renal * Hypocalcemia- will correct with HD * Altered mental status- difficult to assess as he does not wd to painful stim, though has had spontaneous movements, at least in his LUE. Pupils remain pinpoint so suspect element of persistent medication effect. Would hold narcotics and precedex as tolerated. No seizure activity, no obvious CVA symptoms, but some concern for anoxic/ischemic encephalopathy. Check head CT today * Critical care time 35 minutes including bedside eval in patient with MOF. 09/12/17 09:43 09/12/17 09:46 Subjective: Weaned most of yesterday on minimal support. Mental status remains poor Objective: Vital Signs Temp Pulse Resp BP Pulse Ox 38.7 C H 86 34 H 132/77 H 98 09/12/17 05:00 09/12/17 08:03 09/12/17 08:03 09/12/17 05:00 09/12/17 08:03 Microbiology 09/12/17 05:16 - Final Sputum, Induced/Suctioned Laboratory Results 09/12/17 05:10 09/12/17 05:10 09/11/17 09/12/17 09/13/17 05:59 05:59 05:59 Intake Total 1929 2724 Output Total 2203 2049 Balance -275 674 PT 23.0 SEC (12.0-15.0) H 09/07/17 19:55 INR 2.03 (0.83-1.16) H 09/07/17 19:55 Physical Exam - Physical Exam General Appearance: obtunded, obese EENT: ET tube, other (pinpoint but equal pupils), No scleral icterus (R), No scleral icterus (L), No EOM palsy Neck: supple Respiratory: lungs clear, normal breath sounds, decreased breath sounds, No respiratory distress, No accessory muscle use, No rhonchi, No wheezing Cardiac/Chest: regular rate, rhythm, tachycardia, No edema Abdomen: non-tender, soft, No distended Skin: normal color, warm/dry, No cyanosis Lymphatic: no adenopathy Extremities: No pedal edema Neuro/Psych: motor weakness (all extremities except LUE), cognition abnormalities ICD10 Worksheet Patient Problems: Problems Problem Status Onset Acute blood loss anemia Acute Acute renal failure Acute Acute respiratory failure Acute Aortic dissection, thoracoabdominal Acute Hypokalemia Acute Postoperative atrial fibrillation Acute S/P ascending aortic replacement Acute ~09/07/17 HTN (hypertension) Chronic Morbid obesity Chronic
[2017-09-12] MEDS: SENNOSIDES 17.6 MG/10 ML UDL TUBE SCH ×2 (10:27→21:20)
[2017-09-12] MEDS: LANSOPRAZOLE SUSP 30MG/10ML UDSYR (Adult) TUBE SCH (10:27)
[2017-09-12] MEDS ORDERED: PROPOFOL/EMULSION 500 MG/50 ML BOTTLE IV ONE (11:35)
[2017-09-12] MEDS ORDERED: NOREPINEPHRINE BITARTRATE 16 MG in NS 250 ML IV SCH (12:30)
[2017-09-12] MEDS: AMIODARONE HCL 200 ML IV SCH (12:38)
--- NOTE | 2017-09-12 13:11 | SOAPPROG ---
SOAP Progress Note Assessment/Plan: Assessment/Plan: The patient is a 47 y/o M who presented with an aortic dissection and oliguric MADDY requiring dialysis most likely 2/2 to ATN. -HD today, able to UF 1.9L -will assess for HD tomorrow, CXR -still oliguric with 150cc UO yesterday -BP's stable, keep MAP>65 -continue to monitor UO -replete lytes as needed -awaiting family meeting given poor neurologic function as d/w ethics coordinator -please contact if ?'s, 09/12/17 14:04 Subjective: Patient seen on HD requiring some pressor support. Unresponsive. Having some line issues. Objective: Vital Signs Temp Pulse Resp BP Pulse Ox 38.7 C H 74 17 132/77 H 98 09/12/17 05:00 09/12/17 11:57 09/12/17 11:57 09/12/17 05:00 09/12/17 11:57 Microbiology 09/12/17 05:16 - Final Sputum, Induced/Suctioned Laboratory Results 09/12/17 05:10 09/12/17 05:10 09/11/17 09/12/17 09/13/17 05:59 05:59 05:59 Intake Total 1929 2724 Output Total 2204 2050 Balance -275 674 PT 23.0 SEC (12.0-15.0) H 09/07/17 19:55 INR 2.03 (0.83-1.16) H 09/07/17 19:55 Physical Exam - Physical Exam General Appearance: obtunded, obese, other (intubated) EENT: ET tube Neck: supple Respiratory: decreased breath sounds Cardiac/Chest: regular rate, rhythm Abdomen: non-tender, soft, distended Skin: normal color, warm/dry Extremities: normal range of motion, non-tender Neuro/Psych: other (unable to assess) ICD10 Worksheet Patient Problems: Problems Problem Status Onset Acute blood loss anemia Acute Acute renal failure Acute Acute respiratory failure Acute Aortic dissection, thoracoabdominal Acute Hypokalemia Acute Postoperative atrial fibrillation Acute S/P ascending aortic replacement Acute ~09/07/17 HTN (hypertension) Chronic Morbid obesity Chronic
--- NOTE | 2017-09-12 15:23 | ASMTCMCOM ---
CM Note CM Note Notes: Chart reviewed. Little progress. Withdraws to painful stimulation. No therapies at this time. Head CT this am. Spiritual care called ethics who was able to speak to brother with boat [employer]er. His Brother Adal # [phone] is trying to get here by the weekend with other family members. Hopefully he will assume role of proxy medical decision maker. CM to follow, Date Signed: 09/12/2017 03:23 PM Electronically Signed By:Mare Fernandez RN
[2017-09-13] MEDS: ACETAMINOPHEN 650 MG/20.3 ML UDCUP TUBE PRN ×4 (00:28→21:11)
[2017-09-13] MEDS: AMIODARONE HCL 200 ML IV SCH (00:28)
[2017-09-13] MEDS: DEXMEDETOMIDINE IN 0.9 % NACL 100 ML IV SCH (00:28)
[2017-09-13 05:24] LABS: PLATELET COUNT 45 10^3/uL (150-400)
[2017-09-13] MEDS: SENNOSIDES 17.6 MG/10 ML UDL TUBE SCH ×2 (08:00→21:11)
[2017-09-13] MEDS: LANSOPRAZOLE SUSP 30MG/10ML UDSYR (Adult) TUBE SCH (08:00)
--- NOTE | 2017-09-13 08:26 | GCON ---
[f rep st] CONSULTATION NEUROLOGIC CONSULTATION REFERRING PHYSICIAN: Patrick Monsivais MD HISTORY OF PRESENT ILLNESS: The patient is a 47-year-old male who came to the hospital 08/16, for acute onset of chest pain and was found to have significant aortic dissection and underwent ur gent surgical treatment. Over the next 12 hours, he developed cardiac tamponade and had repeat surge ry for evacuation of hematoma and stabilized. There were some periods of relative hypotension with t he lowest I have seen in the range of 80 systolic. For the most part, however, he has been stable wit h blood pressure 80 to 120 systolic and had periodically needed pressors. His first several days wer e predominantly focused on management of his cardiovascular status and treatment of acute renal injur y. He has received multiple blood products and is also getting dialysis. I received a call from Dr. Monsivais yesterday to assess him for evidence of relative right-sided weakness and diffuse encephalopat hy. He has had periods of agitation and nurse was reporting spontaneous movements, predominantly of the left arm and seemingly purposeful attempts to grab his tube on the left side, had definitely less obvious movements in the right side. However, the report from overnight was that he was having some movements on the right as well as the left spontaneously. He has spontaneous eye opening. He was t olerating a weaning trial yesterday on CPAP for several hours and is back on assist control at this p oint and rested overnight, not requiring any heavy sedation. Just before I am seeing him, he receive d some morphine. He does not have any known neurologic history. We are unable to get detail because of lack of knowle dge of any individuals who have been around him, and we do not have any family members currently [facility] for any clarification. In reviewing the medical information from the therapeutic case manager, it appears he does have at least a brother and other family members who will be likely coming to town soon to as sist in followup and decision-making, but he is starting to make significant improvements. He had a head CT obtained yesterday, and that showed some evidence of possible ischemia with microvascular gli osis in the left frontal lobe and possible lacunar infarctions in the right head of the caudate and l eft occipital region. There was rather diffuse white matter change. No hemorrhage or cerebral edema . PAST MEDICAL HISTORY: Prior to this, he had been working and active. My understanding is that he pr obably speaks either exclusively B[place]an or limited Azeri abilities. In any case, it also sounds a s if he does not have any regular medical care and probably has chronic hypertension. PHYSICAL EXAMINATION: Blood pressure is currently 127/66, pulse of 70, respirations 20, temperature is currently 38.9 Celsius. In general, he is an overweight man in no acute distress. When I first wa lked in the room, he was resting comfortably and breathing on the ventilator. When I said his first name, he probably opened his eyes and looked toward me. He would follow some commands to specificall y close and open his eyes and seemed to move the left arm better than any other extremity, although t here was a little bit of movement of the left lower extremity and a little bit on the right. I would assess strength probably at least 4/5, or normal in the left upper extremity. Left lower extremity was probably only in the 2 or 3/5, and the right side similarly, 3 to 3/5, but hard to assess beyond that. Reflexes are all hypoactive. He seems to localize to touch. Pupils are 2 mm with partial yana ctivity. Extraocular movements appear to be intact, even if he is not consistently tracking my finge r very well. He becomes a little bit restless and looks around and seems to simply have an inquisiti ve look on his face as if to say what is happening is unclear to him, but this is purely conjecture. In any case, he rested and did not continue to become any more agitated. We were communicating with him through my limited [place]an ability and we will hopefully get a greenbelt soon for clarification of details and give the patient a lot more reassurance about what is happening. IMPRESSION: The patient has experienced aortic dissection and cardiac tamponade and had some periods of hypotension but is starting to make a good recovery. At a preliminary stage, he seems to now be comprehending and following commands and has relative right-sided weakness compared to the left. As to whether this represents any definite cerebral ischemic change or not is hard to say yet. It is ce rtainly possible he could have had some ischemic damage. The head CT shows changes of rather diffuse white matter change, which could be related to chronic hypertension. There is no evidence of a larg e infarct with any significant edema, but there are changes that look consistent with multiple small lacunar infarcts. This could be related to diffuse hypoxic ischemic insult or embolic phenomena. MR I could clarify that, but I would not recommend doing that in this acute setting. It would not jewell e our current management and we will continue to monitor his clinical course. It is very encouraging today the progress he has made from a neurologic standpoint compared to what was described even yest van. Hopefully, it will be possible to gradually wean him from the ventilator as long as he can ma intain adequate protection of his airway, but this will be deferred to the judgment of Dr. Rock and the neuro litigation legal assistant. I am available for further questions as they arise. The total unit time was 50 minutes. /[id number]/MODL
--- NOTE | 2017-09-13 08:46 | SOAPPROG ---
SOAP Progress Note Assessment/Plan: Assessment: POD#6 Emergent replacement of ascending aorta and hemiarch with #26 mm Hemashield graft. Hypothermic circulatory arrest, right axillary artery cannulation, resuspension of aortic valve with repair POD #5 Re-exploration of chest with evacuation of clot. Chest closure with kacey. LUE PICC. [facility] dialysis cath. NGT trickle TFs Acute type 1 aortic dissection - Aortic root to infrarenal abd aorta. AV resuspended and asc ao and hemiarch replaced with dacron tube graft. Repair complicated by coagulopathy and cardiac tamponade necessitating re-exploration and wash-out. Hemodynamic support on multiple pressors x 48 hrs. Able to wean off dopa yest. Significant fluid overload and ventilatory support. Acute expected blood loss anemia with coagulopathy - Exacerbated by HCA. Stable s/p massive blood transfusion. No evidence active bleeding. Chest tubes out. Platelet count appears to rebounding. Precautionary HIT neg. Acute renal failure - Likely secondary to hypotension and low-flow state. Nephrology consulted. HD, fluid and electrolyte management at their direction. Acute postoperative respiratory failure - Vent dependent. Wean yest thwarted by AMS, decr rt limb mvmt, concern neuro event. CT head indeterminate. Possible small lacunar infarcts per neurology. Component of metabolic encephalopathy as delayed but notable improvements in responsiveness and ability to follow commands today. Right leg only limb without purposeful mvmt. Vent wean to be retrialed. Postoperative PAF - With RVR on POD#4. Successful conversion back to SR on amiodarone within 8hr. High threshold for anticoag given depressed plt count. Plan: Vent per ICU. Dialysis per renal. Stop amio. Start metoprolol 12.5 mg BID. Cont VVI backup capacity. 09/13/17 08:45 Subjective: Lightly sedated. Eyes open. Head tracking. Responds to czech. Trying to talk. Follows simple commands, ROBLES except rt leg. Objective: Vital Signs Temp Pulse Resp BP Pulse Ox 38.9 C H 70 20 127/66 H 97 09/13/17 07:22 09/13/17 07:22 09/13/17 07:22 09/13/17 07:22 09/13/17 07:22 Microbiology 09/12/17 05:16 - Final Sputum, Induced/Suctioned Laboratory Results 09/13/17 05:10 09/13/17 05:10 09/12/17 09/13/17 09/14/17 05:59 05:59 05:59 Intake Total 2724 1751.5 Output Total 5 2105 Balance 674 -353.5 PT 23.0 SEC (12.0-15.0) H 09/07/17 19:55 INR 2.03 (0.83-1.16) H 09/07/17 19:55 Precedex during night, o/w off all sedation. Holding SR. SBP trending up. Min vent support. Balanced I/Os. LFTs elev. Physical Exam - Physical Exam General Appearance: alert, no apparent distress Respiratory: lungs clear (vent) Cardiac/Chest: regular rate, rhythm, other (Sternum grossly stable. Distal sternotomy with clear serosang ooze between kacey. Vwires intact.) Abdomen: distended (slightly), other (hypoactive BS) Skin: warm/dry Extremities: swelling (2+ gen) ICD10 Worksheet Patient Problems: Problems Problem Status Onset Acute blood loss anemia Acute Acute renal failure Acute Acute respiratory failure Acute Aortic dissection, thoracoabdominal Acute Hypokalemia Acute Postoperative atrial fibrillation Acute S/P ascending aortic replacement Acute ~09/07/17 HTN (hypertension) Chronic Morbid obesity Chronic
[2017-09-13] MEDS ORDERED: METOPROLOL TARTRATE 25 MG TAB TUBE ONE (12:00)
--- NOTE | 2017-09-13 13:00 | PDINTPN ---
Density Control Puncher Progress Note Assessment/Plan: Assessment/plan: 47 M with uncontrolled HTN admitted 09/07/17 with chest pain and found to have Aortic dissection from Ao root to iliacs, who underwent urgent repair including AV repair and root replacement with graft, complicated by cardiac tamponade requiring return to OR for removal of large clot. He was also hypotensive and required multiple pressors, in addition to 11 units RBCs, 10 units FFP, 4 platelets and 2 cryo transfusions. He subsequently develop MADDY and will require HD 09/09. * Aortic dissection- s/p root replacement, AV repair with improving hemodynamics. BP labile with HD * Acute respiratory failure with hypoxia. Weaned all day 09/12 and stable this AM for extubation * MADDY 2/2 likely ATN and hypotension. Additional HD per renal but agree with holding for today * Hypocalcemia- resolved * Altered mental status- much improved after holding meds last pm. CT with tiny hypodensities consistent with infarcts, but do not explain issues of 09/11-. No immediate intervention at this time. * Abnormal sputum. though Tm 38.9 today, his CXR does not show PNA and his WBC is normal. Chest incision clean and dry. Holding abx for now. Check blood cultures * Afib- resolved. Amiodarone dc'd today * * Critical care time 40 minutes including bedside eval in patient with MOF. Subjective: Improved mental status overnight Objective: Vital Signs Temp Pulse Resp BP Pulse Ox 38 C 80 25 H 140/78 H 96 09/13/17 09:52 09/13/17 11:48 09/13/17 11:48 09/13/17 11:48 09/13/17 11:48 Microbiology 09/12/17 05:16 - Final Sputum, Induced/Suctioned Laboratory Results 09/13/17 05:10 09/13/17 05:10 09/12/17 09/13/17 09/14/17 05:59 05:59 05:59 Intake Total 2724 1751.5 Output Total 0 2105 Balance 674 -353.5 PT 23.0 SEC (12.0-15.0) H 09/07/17 19:55 INR 2.03 (0.83-1.16) H 09/07/17 19:55 Physical Exam - Physical Exam General Appearance: alert, no apparent distress, obese EENT: PERRL/EOMI Neck: supple Respiratory: lungs clear, normal breath sounds, decreased breath sounds, No respiratory distress, No accessory muscle use Cardiac/Chest: regular rate, rhythm, edema Abdomen: non-tender, soft, No distended Skin: normal color, warm/dry, No cyanosis Lymphatic: no adenopathy Extremities: No pedal edema Neuro/Psych: alert, cognition abnormalities ICD10 Worksheet Patient Problems: Problems Problem Status Onset Acute blood loss anemia Acute Acute renal failure Acute Acute respiratory failure Acute Aortic dissection, thoracoabdominal Acute Hypokalemia Acute Postoperative atrial fibrillation Acute S/P ascending aortic replacement Acute ~09/07/17 HTN (hypertension) Chronic Morbid obesity Chronic
--- NOTE | 2017-09-13 13:46 | SOAPPROG ---
SOAP Progress Note Assessment/Plan: Assessment/Plan: The patient is a 47 y/o M who presented with an aortic dissection and oliguric MADDY requiring dialysis most likely 2/2 to ATN. 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 Agitated. Eyes open, not following commands. Objective: Vital Signs Temp Pulse Resp BP Pulse Ox 38 C 80 25 H 140/78 H 96 09/13/17 09:52 09/13/17 11:48 09/13/17 11:48 09/13/17 11:48 09/13/17 11:48 Microbiology 09/12/17 05:16 - Final Sputum, Induced/Suctioned Laboratory Results 09/13/17 05:10 09/13/17 05:10 09/12/17 09/13/17 09/14/17 05:59 05:59 05:59 Intake Total 2724 1751.5 Output Total 2050 2105 Balance 674 -353.5 PT 23.0 SEC (12.0-15.0) H 09/07/17 19:55 INR 2.03 (0.83-1.16) H 09/07/17 19:55 Physical Exam - Physical Exam General Appearance: mild distress, obese EENT: PERRL/EOMI Neck: non-tender, full range of motion, supple Respiratory: decreased breath sounds, rales Cardiac/Chest: regular rate, rhythm, edema Abdomen: normal bowel sounds, non-tender, soft, distended Skin: normal color, warm/dry Extremities: normal range of motion, non-tender, pedal edema Neuro/Psych: no motor/sensory deficits, disoriented to person, disoriented to place, disoriented to time ICD10 Worksheet Patient Problems: Problems Problem Status Onset Acute blood loss anemia Acute Acute renal failure Acute Acute respiratory failure Acute Aortic dissection, thoracoabdominal Acute Hypokalemia Acute Postoperative atrial fibrillation Acute S/P ascending aortic replacement Acute ~09/07/17 HTN (hypertension) Chronic Morbid obesity Chronic
[2017-09-13] MEDS ORDERED: METOPROLOL TARTRATE 25 MG TAB ONE (14:24)
[2017-09-13] MEDS: hydrALAZINE 20 MG/ML VIAL IVP PRN (16:06)
[2017-09-13] MEDS ORDERED: METOPROLOL TARTRATE 25 MG TAB TUBE SCH (21:00)
[2017-09-13] MEDS: traMADol 50 MG TAB PO PRN (21:10)
[2017-09-13] MEDS: METOPROLOL TARTRATE 25 MG TAB TUBE SCH (21:11)
[2017-09-14] MEDS: hydrALAZINE 20 MG/ML VIAL IVP PRN (04:11)
[2017-09-14 06:06] LABS: PLATELET COUNT 71 10^3/uL (150-400)
--- NOTE | 2017-09-14 08:52 | SOAPPROG ---
SOAP Progress Note Assessment/Plan: Assessment: POD#7 Emergent replacement of ascending aorta and hemiarch with #26 mm Hemashield graft. Hypothermic circulatory arrest, right axillary artery cannulation, resuspension of aortic valve with repair POD#6 Re-exploration of chest with evacuation of clot. Chest closure with kacey. CASEYE PICC. [facility] dialysis cath. NG TFs @ 50ml/h Acute type 1 aortic dissection - Aortic root to infrarenal abd aorta. AV resuspended and asc ao and hemiarch replaced with dacron tube graft. Repair complicated by coagulopathy and cardiac tamponade necessitating re-exploration and wash-out. Hemodynamic support on multiple pressors x 48 hrs. Successfully extubated yest. Remains significantly fluid overloaded. Acute expected blood loss anemia with coagulopathy - Exacerbated by HCA. Stable s/p massive blood transfusion. No evidence active bleeding. Chest tubes out. Platelet count slowly rebounding. Precautionary HIT neg. Acute renal failure - Likely secondary to hypotension and low-flow state. Nephrology consulted. HD, fluid and electrolyte management at their direction. Acute postoperative respiratory failure - Vent dependent. Wean delayed by metabolic encephalopathy. Stable for extubation yest. Modest suppl O2 req. Min interstitial edema/effusions/atelectasis by CXR. Cleared for dysphagia 1 diet by INCOMING FREIGHT CLERK. thwarted by AMS, decr rt limb mvmt, concern neuro event.Component of metabolic encephalopathy as delayed but notable improvements in responsiveness and ability to follow commands today. Right leg only limb without purposeful mvmt. Vent wean to be retrialed. Postoperative encephalopathy - AMS with decr rt limb mvmt. CT head indeterminate. Rapid improvements in mentation and ext mvmt/strength last 48h with cessation of sedation and ongoing supportive care. Postoperative PAF - With RVR on POD#4. Successful conversion back to SR on amiodarone within 8hr. Transitioned to BB. High threshold for anticoag given depressed plt count. Plan: Vwires removed. Dysphagia diet per INCOMING FREIGHT CLERK. Transition off TFs per ICU. Dialysis per renal. Cont metoprolol 25 mg BID. Permissive HTN to tolerate more aggressive fluid removal HD/CRRT. Mobilize. 09/14/17 08:48 Subjective: More alert. Talking (in frisian) intelligibly. Aware had surgery. Thirsty for ice. Able to wiggle toes and lift both arms. Denies pain. Objective: Vital Signs Temp Pulse Resp BP Pulse Ox 37.9 C 78 16 147/74 H 98 09/14/17 04:00 09/14/17 08:00 09/14/17 08:00 09/14/17 08:00 09/14/17 08:00 Microbiology 09/12/17 05:16 - Final Sputum, Induced/Suctioned Laboratory Results 09/14/17 05:55 09/14/17 05:55 09/13/17 09/14/17 09/15/17 05:59 05:59 05:59 Intake Total 1751.5 1881.6 Output Total 2105 270 Balance -353.5 1611.6 PT 23.0 SEC (12.0-15.0) H 09/07/17 19:55 INR 2.03 (0.83-1.16) H 09/07/17 19:55 Holding SR. SBP creeping up. Afeb overnoc. 4 Lpm suppl O2 req. CXR -> min pulm vasc congestion, mild bibasilar atelectasis. Sputum + enterobacter and ecoli. Coverage deferred to pulm. Blood cxs NG x 24h. +24 kg by wt. TFs reportedly at goal, without residual. Physical Exam - Physical Exam General Appearance: alert, no apparent distress Respiratory: other (coarse breath sounds) Cardiac/Chest: regular rate, rhythm, other (Sternotomy with serosang ooze distally. No underlying fluctuance or erythema. No appreciable sternal instability. CT sites clean and moist.) Peripheral Pulses: 2+: dorsalis-pedis (R) (dusky toe pads), dorsalis-pedis (L) ( dusky toe pads, incl gt toe) Abdomen: distended (slightly), other (hypoactive BS) Skin: warm/dry Extremities: swelling (2+ gen) ICD10 Worksheet Patient Problems: Problems Problem Status Onset Acute blood loss anemia Acute Acute renal failure Acute Acute respiratory failure Acute Aortic dissection, thoracoabdominal Acute Hypokalemia Acute Postoperative atrial fibrillation Acute S/P ascending aortic replacement Acute ~09/07/17 HTN (hypertension) Chronic Morbid obesity Chronic
[2017-09-14] MEDS: SENNOSIDES 17.6 MG/10 ML UDL TUBE SCH (08:53)
[2017-09-14] MEDS: LANSOPRAZOLE SUSP 30MG/10ML UDSYR (Adult) TUBE SCH (08:53)
[2017-09-14] MEDS: METOPROLOL TARTRATE 25 MG TAB TUBE SCH (08:53)
--- NOTE | 2017-09-14 09:10 | NEUROPROG ---
Assessment: Total unit time of 25 min with review of his neurologic status and determination of the best plan moving forward. For now, we have clinical evidence of ongoing improvement in his encephalopathy and focal neurologic findings with some relative right-sided weakness. Although there may be cerebral ischemia accounting for some of the findings, he continues to improve. We will continue to monitor his progress intermittently and will be happy to be involved if necessary for ongoing outpatient assistance. He may ultimately need rehab care, but that will be determined based on his recovery. Dr. Hernandez will be available starting tomorrow for any additional questions. Subjective: The patient is now extubated. He is able to communicate at a basic level in [place]ese. He is requiring more to eat. He denies feeling pain. He is not clear on pressing what has occurred but has the general understanding that he is in the hospital following his surgical procedure. He has been able to start eating under the guidance of speech therapy and was not having any choking. Objective: Vital Signs Temp Pulse Resp BP Pulse Ox 37.9 C 78 16 147/74 H 98 09/14/17 04:00 09/14/17 08:00 09/14/17 08:00 09/14/17 08:00 09/14/17 08:00 Microbiology 09/12/17 05:16 - Final Sputum, Induced/Suctioned Laboratory Results 09/14/17 05:55 09/14/17 05:55 09/13/17 09/14/17 09/15/17 05:59 05:59 05:59 Intake Total 1751.5 1881.6 Output Total 2105 270 Balance -353.5 1611.6 PT 23.0 SEC (12.0-15.0) H 09/07/17 19:55 INR 2.03 (0.83-1.16) H 09/07/17 19:55 He is currently awake and has fairly well sustained attention. As noted, he will answer basic questions and follow commands to move all of the extremities. I do not see any asymmetry of movement in the face. The movement is easier and stronger on the left side by the exam today but he is definitely still moving both the right arm and the right leg to command and shows antigravity strength at least in the right upper extremity and less clear about function in the right upper extremity. I asked if he could feel cold in the extremities in the implied that he could not feel cold but he knew he was being touched. Allergies/Adverse Reactions: No Known Allergies Allergy (Unverified 09/07/17 09:15)
--- NOTE | 2017-09-14 10:29 | SOAPPROG ---
SOAP Progress Note Assessment/Plan: Assessment/Plan: The patient is a 47 y/o M who presented with an aortic dissection and oliguric MADDY requiring dialysis most likely 2/2 to ATN. -HD 09/12, will do HD again today -CXR markedly improved -still oliguric, monitor UO -BP's labile, may be cuff keep MAP>65 and may add hydralazine prn as needed -replete lytes as needed including calcium -starting phos binder, if TF's should be renally dosed and may need to increase FW flushes due to mild hypernatremia -awaiting family meeting -please contact if ?'s, 09/14/17 11:40 Subjective: Hypertensive overnight. Now awake and alert. About to start dialysis. Objective: Vital Signs Temp Pulse Resp BP Pulse Ox 36.4 C 74 23 H 115/87 H 96 09/14/17 10:00 09/14/17 10:00 09/14/17 10:00 09/14/17 10:00 09/14/17 10:00 Microbiology 09/12/17 05:16 - Final Sputum, Induced/Suctioned Laboratory Results 09/14/17 05:55 09/14/17 05:55 09/13/17 09/14/17 09/15/17 05:59 05:59 05:59 Intake Total 1751.5 1881.6 Output Total 2105 270 Balance -353.5 1611.6 PT 23.0 SEC (12.0-15.0) H 09/07/17 19:55 INR 2.03 (0.83-1.16) H 09/07/17 19:55 Physical Exam - Physical Exam General Appearance: mild distress, obese EENT: PERRL/EOMI Neck: non-tender, full range of motion Respiratory: accessory muscle use, decreased breath sounds Cardiac/Chest: regular rate, rhythm, edema Abdomen: normal bowel sounds, non-tender, soft Skin: normal color, warm/dry Extremities: normal range of motion, pedal edema (Unable to cooperate with exam) ICD10 Worksheet Patient Problems: Problems Problem Status Onset Acute blood loss anemia Acute Acute renal failure Acute Acute respiratory failure Acute Aortic dissection, thoracoabdominal Acute Hypokalemia Acute Postoperative atrial fibrillation Acute S/P ascending aortic replacement Acute ~09/07/17 HTN (hypertension) Chronic Morbid obesity Chronic
[2017-09-14] MEDS ORDERED: SODIUM CITRATE 4% 5 ML in SYRINGE 0 ML DIAL PRN (11:14)
--- NOTE | 2017-09-14 13:22 | PDINTPN ---
Tool Filer Progress Note Assessment/Plan: Assessment/plan: 47 M with uncontrolled HTN admitted 09/07/17 with chest pain and found to have Aortic dissection from Ao root to iliacs, who underwent urgent repair including AV repair and root replacement with graft, complicated by cardiac tamponade requiring return to OR for removal of large clot. He was also hypotensive and required multiple pressors, in addition to 11 units RBCs, 10 units FFP, 4 platelets and 2 cryo transfusions. He subsequently develop MADDY and will require HD 09/09. * Aortic dissection- s/p emergent root replacement, AV repair with improving hemodynamics. BP labile with HD. Would favor beta anish if needed * Acute respiratory failure with hypoxia. Extubated without difficulty, and now on minimal O2. Tm 39 and now WBC 14 with sputum culture growing E coli and enterobacter. Uncertain significance but will cover with Zosyn for now and monitor progress. Encourage IS, OOB as tolerates * MADDY 2/2 likely ATN and hypotension. To get additional HD today, but note that serum calcium remains low and BUN continues to rise despite previous HD treatments. * Altered mental status- much improved after holding meds last prior to extubation. CT with tiny hypodensities consistent with infarcts, but do not explain issues of 09/11-. No immediate intervention at this time. Family expected to arrive today, but prognosis is good and I dont think these Ct abnormalities will have any sequelae. Passed speech eval for swallow. There has been zero discussion about withdrawal of any support which would be inappropriate. * Afib- resolved. Amiodarone dc'd 09/13 * 09/14/17 13:15 Subjective: Much improved mental status and extubated 09/13. Off pressors Objective: Vital Signs Temp Pulse Resp BP Pulse Ox 36.4 C 76 19 117/61 94 09/14/17 10:00 09/14/17 12:00 09/14/17 12:00 09/14/17 12:00 09/14/17 12:00 Microbiology 09/12/17 05:16 - Final Sputum, Induced/Suctioned Laboratory Results 09/14/17 05:55 09/14/17 05:55 09/13/17 09/14/17 09/15/17 05:59 05:59 05:59 Intake Total 1751.5 1881.6 Output Total 2105 270 Balance -353.5 1611.6 PT 23.0 SEC (12.0-15.0) H 09/07/17 19:55 INR 2.03 (0.83-1.16) H 09/07/17 19:55 Physical Exam - Physical Exam General Appearance: alert, no apparent distress, obese EENT: PERRL/EOMI Neck: supple Respiratory: lungs clear, normal breath sounds, decreased breath sounds, No respiratory distress, No accessory muscle use, No rhonchi, No stridor, No wheezing Cardiac/Chest: regular rate, rhythm, No edema Abdomen: non-tender, soft, No distended Skin: normal color, warm/dry, other (sternotomy incision clean and dry), No cyanosis Lymphatic: no adenopathy Extremities: No pedal edema Neuro/Psych: alert, normal mood/affect, cognition abnormalities, other ( language barrier) ICD10 Worksheet Patient Problems: Problems Problem Status Onset Acute blood loss anemia Acute Acute renal failure Acute Acute respiratory failure Acute Aortic dissection, thoracoabdominal Acute Hypokalemia Acute Postoperative atrial fibrillation Acute S/P ascending aortic replacement Acute ~09/07/17 HTN (hypertension) Chronic Morbid obesity Chronic
[2017-09-14] MEDS: CALCIUM ACETATE 667 MG CAP PO SCH ×3 (15:34→18:04)
[2017-09-14] MEDS: PIPERACILLIN/TAZO 2.25 GM/DEX 50 ML IV SCH ×2 (16:02→22:17)
[2017-09-14] MEDS: SENNOSIDES 1 TAB PO SCH (20:39)
[2017-09-14] MEDS: METOPROLOL TARTRATE 25 MG TAB PO SCH (20:39)
[2017-09-14] MEDS ORDERED: ONDANSETRON DISINTEGRATING 4 MG TAB PO PRN (21:00)
[2017-09-15 04:23] LABS: PLATELET COUNT 99 10^3/uL (150-400)
[2017-09-15] MEDS: PIPERACILLIN/TAZO 2.25 GM/DEX 50 ML IV SCH ×3 (05:30→21:44)
--- NOTE | 2017-09-15 08:19 | SOAPPROG ---
<Leyda Potter - Last Filed: 18 09:34> SOAP Progress Note Assessment/Plan: Assessment: POD#8 Emergent replacement of ascending aorta and hemiarch with #26 mm Hemashield graft. Hypothermic circulatory arrest, right axillary artery cannulation, resuspension of aortic valve with repair POD#7 Re-exploration of chest with evacuation of clot. Chest closure with kacey. LUE PICC. D2 Zosyn Acute type 1 aortic dissection - Aortic root to infrarenal abd aorta. AV resuspended and asc ao and hemiarch replaced with dacron tube graft. Repair complicated by coagulopathy and cardiac tamponade necessitating re-exploration and wash-out. Hemodynamic support on multiple pressors x 48 hrs. Multiorgan dysfx slowly resolving. Remains significantly fluid overloaded. Acute expected blood loss anemia with coagulopathy - Exacerbated by HCA. Stable s/p massive blood transfusion. No evidence active bleeding. Chest tubes out. Platelet count slowly rebounding. Precautionary HIT neg. VTE prophylaxis with SCDs. Acute renal failure - Likely secondary to hypotension and low-flow state. Nephrology consulted. HD, fluid and electrolyte management at their direction. Acute postoperative respiratory failure - Vent dependent thru POD#6. Wean delayed by metabolic encephalopathy. Modest suppl O2 req post extubation. Now on room air. Abnl sputum (with low grade temps/mild inc WBC) covered with Zosyn. No overt PNA by CXR. Cleared for dysphagia 1 diet by RN SURGICAL. Postoperative encephalopathy - AMS with decr rt limb mvmt. CT head indeterminate. Rapid improvements in mentation and ext mvmt/strength last 72h with cessation of sedation and ongoing supportive care. Postoperative PAF - With RVR on POD#4. Successful conversion back to SR on amiodarone within 8hr. Transitioned to BB. High threshold for anticoag given depressed plt count. Plan: Cont supportive care by multidisciplinary team. Dialysis access per ICU or gen surg. Start daily ASA 81mg. Consider daily lovenox in am. 09/15/17 08:19 Subjective: Awoken from sleep. Speech thick and not as easily understood as yest. Answers simple questions appropriately. MAEE. Objective: Vital Signs Temp Pulse Resp BP Pulse Ox 37.3 C 87 22 H 109/86 H 96 09/15/17 04:00 09/15/17 04:00 09/15/17 04:00 09/15/17 04:00 09/15/17 04:00 Microbiology 09/12/17 05:16 - Final Sputum, Induced/Suctioned Laboratory Results 09/15/17 04:15 09/15/17 04:15 09/14/17 09/15/17 09/16/17 05:59 05:59 05:59 Intake Total 1881.6 1642.7 Output Total 270 2350 Balance 1611.6 -707.3 PT 23.0 SEC (12.0-15.0) H 09/07/17 19:55 INR 2.03 (0.83-1.16) H 09/07/17 19:55 Intermittent confusion and agitation. Pulled out his dialysis cath last noc. Cardioresp status stable. Off suppl O2. UOP improving. >2L fluid removed on HD yest. +20 kg overall. Plts appear to be rebounding. WBC stable. Afeb. Blood cxs NGTD. Physical Exam - Physical Exam General Appearance: no apparent distress Respiratory: lungs clear (grossly) Cardiac/Chest: regular rate, rhythm, other (Sternum grossly stable. Sternotomy and CT dressing CDI. Rt ax incision CDI. Rt radial pulse 2+) Peripheral Pulses: 3+: dorsalis-pedis (R), dorsalis-pedis (L) Abdomen: non-tender, soft Skin: warm/dry Extremities: swelling (2+ gen) ICD10 Worksheet Patient Problems: Problems Problem Status Onset Acute blood loss anemia Acute Acute renal failure Acute Acute respiratory failure Acute Aortic dissection, thoracoabdominal Acute Hypokalemia Acute Postoperative atrial fibrillation Acute S/P ascending aortic replacement Acute ~09/07/17 HTN (hypertension) Chronic Morbid obesity Chronic <Terrell Bergman - Last Filed: 09/15/17 15:54> SOAP Progress Note Assessment/Plan: Assessment: Pt seen and records reviewed. Opens eyes, responds to verbal command per family Agree with note. Continue present care. Plan: 09/15/17 15:52 Objective: Vital Signs Temp Pulse Resp BP Pulse Ox 37.3 C 82 22 H 112/73 96 09/15/17 04:00 09/15/17 14:00 09/15/17 14:00 09/15/17 14:00 09/15/17 14:00 Microbiology 12/29/17 05:16 - Final Sputum, Induced/Suctioned Sputum Culture - Final Enterobacter Aerogenes Escherichia Coli Laboratory Results 09/15/17 04:15 09/15/17 04:15 09/14/17 09/15/17 09/16/17 05:59 05:59 05:59 Intake Total 1881.6 1642.7 Output Total 270 2350 Balance 1611.6 -707.3 PT 23.0 SEC (12.0-15.0) H 09/07/17 19:55 INR 2.03 (0.83-1.16) H 09/07/17 19:55
[2017-09-15] MEDS: SENNOSIDES 1 TAB PO SCH ×2 (09:55→20:18)
[2017-09-15] MEDS: ASPIRIN EC 81 MG TAB PO SCH (09:55)
[2017-09-15] MEDS: CALCIUM ACETATE 667 MG CAP PO SCH ×3 (09:55→20:16)
[2017-09-15] MEDS: PANTOPRAZOLE SODIUM 40 MG TAB PO SCH (09:55)
[2017-09-15] MEDS: METOPROLOL TARTRATE 25 MG TAB PO SCH ×2 (09:55→20:18)
[2017-09-15] MEDS: METOCLOPRAMIDE 10 MG/2 ML VIAL IVP PRN (09:56)
--- NOTE | 2017-09-15 12:28 | SOAPPROG ---
SOAP Progress Note Assessment/Plan: Assessment/Plan: The patient is a 47 y/o M who presented with an aortic dissection and oliguric MADDY requiring dialysis most likely 2/2 to ATN. -HD 09/14, will reassess tomorrow -needs new dialysis line in IR early tomorrow -CXR markedly improved and off supplement O2 entirely -still oliguric, monitor UO and may consider d/c palmer with PVR and straight cath to prevent infection -BP's improving, hydralazine prn, will UF with HD -replete lytes as needed including calcium -started phos binder, if TF's should be renally dosed and may need to increase FW flushes due to mild hypernatremia -cardiology and ICU management appreciated -avoid hypotension and nephrotoxins -please contact if ?'s, 09/15/17 12:27 09/15/17 12:50 Subjective: Patient resting comfortably. Pulled out HD line late last night. Objective: Vital Signs Temp Pulse Resp BP Pulse Ox 37.3 C 84 20 140/83 H 97 09/15/17 04:00 09/15/17 09:55 09/15/17 08:00 09/15/17 09:55 09/15/17 08:00 Microbiology 09/12/17 05:16 - Final Sputum, Induced/Suctioned Sputum Culture - Final Enterobacter Aerogenes Escherichia Coli Laboratory Results 09/15/17 04:15 09/15/17 04:15 09/14/17 09/15/17 09/16/17 05:59 05:59 05:59 Intake Total 1881.6 1642.7 Output Total 270 2350 Balance 1611.6 -707.3 PT 23.0 SEC (12.0-15.0) H 09/07/17 19:55 INR 2.03 (0.83-1.16) H 09/07/17 19:55 Physical Exam - Physical Exam General Appearance: WD/WN, no apparent distress, obese, other (sleeping) EENT: PERRL/EOMI, normal ENT inspection Neck: non-tender, full range of motion, supple Respiratory: respiratory distress, decreased breath sounds, crackles Cardiac/Chest: regular rate, rhythm, edema, other (midline kacey) Abdomen: normal bowel sounds, non-tender, soft, distended Skin: normal color, warm/dry Extremities: normal range of motion, non-tender, pedal edema Neuro/Psych: no motor/sensory deficits, alert (Nonfocal) ICD10 Worksheet Patient Problems: Problems Problem Status Onset Acute blood loss anemia Acute Acute renal failure Acute Acute respiratory failure Acute Aortic dissection, thoracoabdominal Acute Hypokalemia Acute Postoperative atrial fibrillation Acute S/P ascending aortic replacement Acute ~09/07/17 HTN (hypertension) Chronic Morbid obesity Chronic
--- NOTE | 2017-09-15 13:30 | PDINTPN ---
[employer] Operator Progress Note Assessment/Plan: Assessment/plan: 47 M with uncontrolled HTN admitted 09/07/17 with chest pain and found to have Aortic dissection from Ao root to iliacs, who underwent urgent repair including AV repair and root replacement with graft, complicated by cardiac tamponade requiring return to OR for removal of large clot. He was also hypotensive and required multiple pressors, in addition to 11 units RBCs, 10 units FFP, 4 platelets and 2 cryo transfusions. He subsequently develop MADDY and will require HD 09/09. * Aortic dissection- s/p emergent root replacement, AV repair with improving hemodynamics. BP required pressor support for several days postop, and labile with HD, though much more stable now and off pressors. Would favor beta anish if needed * Acute respiratory failure with hypoxia. Extubated without [id number], and now on RA. Fever and elevated WBC post extubation, but CXR without obvious PNA. Sputum culture growing E coli and enterobacter, with uncertain significance but started Zosyn 09/14 with slight downtrend in WBC. Encourage IS , OOB as tolerates * MADDY 2/2 likely ATN and hypotension. Continue with HD per renal. * Altered mental status- much improved after holding meds last prior to extubation. CT with tiny hypodensities consistent with infarcts, but do not explain issues of 09/11-. No immediate intervention at this time. I dont think these Ct abnormalities will have any sequelae. Passed speech eval for swallow. Discussed improving clinical status with family today, and directed them to discuss further with Dr. Rock when he returns. * Afib- resolved. Amiodarone dc'd 09/13 * Subjective: Improving mental status, and confirmed by family Objective: Vital Signs Temp Pulse Resp BP Pulse Ox 37.3 C 84 20 140/83 H 97 09/15/17 04:00 09/15/17 09:55 09/15/17 08:00 09/15/17 09:55 09/15/17 08:00 Microbiology 09/12/17 05:16 - Final Sputum, Induced/Suctioned Sputum Culture - Final Enterobacter Aerogenes Escherichia Coli Laboratory Results 09/15/17 04:15 09/15/17 04:15 09/14/17 09/15/17 09/16/17 05:59 05:59 05:59 Intake Total 1881.6 1642.7 Output Total 270 2350 Balance 1611.6 -707.3 PT 23.0 SEC (12.0-15.0) H 09/07/17 19:55 INR 2.03 (0.83-1.16) H 09/07/17 19:55 Physical Exam - Physical Exam General Appearance: alert, no apparent distress, obese EENT: PERRL/EOMI Neck: full range of motion Respiratory: lungs clear, normal breath sounds, No respiratory distress, No accessory muscle use Cardiac/Chest: regular rate, rhythm, edema Abdomen: non-tender, soft, No distended Skin: normal color, warm/dry, No cyanosis Lymphatic: no adenopathy Extremities: pedal edema Neuro/Psych: alert, normal mood/affect ICD10 Worksheet Patient Problems: Problems Problem Status Onset Acute blood loss anemia Acute Acute renal failure Acute Acute respiratory failure Acute Aortic dissection, thoracoabdominal Acute Hypokalemia Acute Postoperative atrial fibrillation Acute S/P ascending aortic replacement Acute ~09/07/17 HTN (hypertension) Chronic Morbid obesity Chronic
[2017-09-15] MEDS: ACETAMINOPHEN 325 MG TAB PO PRN ×2 (14:07→22:22)
--- NOTE | 2017-09-15 14:16 | NEUROPROG ---
Assessment: [id number] Neurology Consult: CC: F/U for confusion HPI: He was admitted to [facility] on 09/07/17 for an aortic dissection for which he had surgery. 12 hours after initial surgery he had cardiac tamponade requiring further surgery. He did have episodes of relative hypotension with a systolic in the 80s. The patient was reported in vital signs section of [facility] to have been in afib on 09/09/17 and 09/11/17. He was noted on 09/12/17 to have confusion and relative right sided weakness. A head CT at that time showed possible infarcts vs microvascular ischemic gliosis in left frontal lobe, suspected lacune infarct of R caudate head (age indeterminate), and questionable left occipital cortical infarct. H1AC on 09/07/[address] Mcduffie saw the patient on 09/13/17 and again on 09/14/17. Pt was able to be extubated and was showing improvement in mentation. When I evaluated the patient he was moving arms/legs symmetrically and was able to reliably follow 1 step commands. His nurse felt he was improving. I initially saw the patient on 09/15/17. PMHx: probable chronic hypertension SHx: thought to be a romansh speaker FHx: unknown ROS: unknown, patient unable to provide information Labs: 09/15/17- CBC WBC 14.32H Hct 27.8L Plt 99L, Chem Anion gap 17H BUN 95H Cr 8.4H Gluc 130H Ca 6.9L Rads: 09/07/17- H1AC 5.8 09/12/17- Head CT w/o con: possible infarcts vs microvascular ischemic gliosis in left frontal lobe, suspect lacune infarct of R caudate head (age indeterminate), questionable left occipital cortical infarct, mild sinusitis Assessment: 1. Aortic Dissection on 09/07/17, corrected with surgery 2. Confusion and right sided weakness noted 09/12/17: Head CT on 09/12/17 showed possible strokes. Pt had cardiac surgery for aortic dissection on and was also noted to have relative hypotension in 80s systolic after cardiac surgery as well as being reported to be in afib on 09/09/17 and . Any of those conditions could have caused cerebral ischemia. Pt currently improving at this time. Will not pursue further evaluation at this time as he does not appear to have any neurologic deficits other than encephalopathy which is improving. If as he recovers he is noted to have persistent neurologic deficits we can always pursue further neurologic evaluation. 3. Renal Failure: secondary to hypotension 4. History of chronic hypertension Plan: - Blood pressure goal < 140/90 - Continue Aspirin 81 mg qd for stroke prevention (Pt was noted to have been in afib on 09/09/17 and 09/11/17, if this represents an ongoing risk of paroxysmal afib then anticoagulation should be considered for this patient) - Agree with PT/OT/Speech consults, possible rehab need - No further neurologic w/u needed at this time so neurology will sign off. If as he recovers he is noted to have persistent neurologic deficits we can always pursue further neurologic evaluation. 35 min spent with patient, majority of time spent coordinating care with ICU team and interacting with patient at bedside. Objective: Vital Signs Temp Pulse Resp BP Pulse Ox 37.3 C 84 20 140/83 H 97 09/15/17 04:00 09/15/17 09:55 09/15/17 08:00 09/15/17 09:55 09/15/17 08:00 Microbiology 09/12/17 05:16 - Final Sputum, Induced/Suctioned Sputum Culture - Final Enterobacter Aerogenes Escherichia Coli Laboratory Results 09/15/17 04:15 09/15/17 04:15 09/14/17 09/15/17 09/16/17 05:59 05:59 05:59 Intake Total 1881.6 1642.7 Output Total 270 2350 Balance 1611.6 -707.3 PT 23.0 SEC (12.0-15.0) H 09/07/17 19:55 INR 2.03 (0.83-1.16) H 09/07/17 19:55 Allergies/Adverse Reactions: No Known Allergies Allergy (Unverified 09/07/17 09:15)
--- NOTE | 2017-09-15 16:17 | ASMTCMCOM ---
CM Note CM Note Notes: "Family Meeting" today. Family wanted to meet today, they plan to leave for [place] on Friday. They would like to meet with Dr Shweta Guerra if possible. Dr. Monsivais filled in explaining patient's medical complications and procedures. Family does not believe that patient has gained citizenship, so there will be no payor source for rehab after he leaves the hospital. Family is prepared to take him to [place] when he is capable of travel. 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 Date Signed: 09/15/2017 04:16 PM Electronically Signed By:Rae Price LCSW
[2017-09-15] MEDS: traMADol 50 MG TAB PO PRN (22:22)
[2017-09-16 03:59] LABS: PLATELET COUNT 123 10^3/uL (150-400)
[2017-09-16] MEDS: PIPERACILLIN/TAZO 2.25 GM/DEX 50 ML IV SCH ×3 (06:14→21:28)
--- NOTE | 2017-09-16 07:31 | SOAPPROG ---
SOAP Progress Note Assessment/Plan: POD #9: Emergent replacement of ascending aorta and hemiarch under circulatory arrest with #26 mm Hemashield graft, resuspension of aortic valve with repair, left axillary artery cannulation with #10 mm Hemashield graft POD #8: Re-exploration of chest with evacuation of clot Acute ascending aortic dissection s/p repair - stable. Post-op tamponade - clot evacuated, stable. Acute blood loss anemia with coagulopathy s/p massive blood transfusion - stable. Thrombocytopenia Acute renal failure - secondary to hypoperfusion. Dialysis as per renal. VDRF - extubated and on room air. Continue Zosyn, day 3/?, for GNR in sputum. Postoperative PAF - Thromboprophylaxis deferred d/t short duration. Continue beta-anish. Post-operative encephalopathy - improving with supportive care. No evidence of acute CVA on CTH. Continues to have RUE weakness likely secondary to nerve injury during cannulation. Continue aggressive PT/OT. DVT prophylaxis - SCDs/heparin SQ. Nutrition - continue dysphagia diet. Lines - RIJ HD catheter (09/16/17), LUE PICC, Betancourt (to be removed today) Subjective: Pt following basic commands. Will re-assess when third loader present. Objective: Vital Signs Temp Pulse Resp BP Pulse Ox 36.5 C 80 25 H 133/70 H 93 09/16/17 04:00 09/16/17 06:00 09/16/17 06:00 09/16/17 06:00 09/16/17 06:00 Microbiology 09/12/17 05:16 - Final Sputum, Induced/Suctioned Sputum Culture - Final Enterobacter Aerogenes Escherichia Coli Laboratory Results 09/16/17 03:45 09/16/17 03:45 09/15/17 09/16/17 09/17/17 05:59 05:59 05:59 Intake Total 1642.7 1475 Output Total 2350 250 Balance -707.3 1225 PT 23.0 SEC (12.0-15.0) H 09/07/17 19:55 INR 2.03 (0.83-1.16) H 09/07/17 19:55 Physical Exam - Physical Exam General Appearance: WD/WN, no apparent distress, obese EENT: No scleral icterus (R), No scleral icterus (L) Neck: normal inspection Respiratory: No respiratory distress Cardiac/Chest: regular rate, rhythm Abdomen: non-tender, soft, distended Skin: normal color, warm/dry Extremities: pedal edema Neuro/Psych: alert, motor weakness (RUE) ICD10 Worksheet Patient Problems: Problems Problem Status Onset Acute blood loss anemia Acute Acute renal failure Acute Acute respiratory failure Acute Aortic dissection, thoracoabdominal Acute Hypokalemia Acute Postoperative atrial fibrillation Acute S/P ascending aortic replacement Acute ~09/07/17 HTN (hypertension) Chronic Morbid obesity Chronic
[2017-09-16] MEDS ORDERED: HEPARIN 50,000 UNIT/10 ML VIAL ONE (08:38)
[2017-09-16] MEDS: CALCIUM ACETATE 667 MG CAP PO SCH ×3 (09:35→18:22)
--- NOTE | 2017-09-16 10:55 | SOAPPROG ---
SOAP Progress Note Assessment/Plan: Assessment: 1. MADDY UO may be increasing. Clearly needs dialysis today. New temp cath placed in IR. He is stable on HD at present. Targeting 3kg UF. Given labs, will run again tomorrow. 2. Still sedated from procedure. 3. Anemia Hg trending down. Follow. Subjective: Sedated Objective: Vital Signs Temp Pulse Resp BP Pulse Ox 36.6 C 86 24 H 120/85 H 93 09/16/17 08:00 09/16/17 10:00 09/16/17 10:00 09/16/17 10:00 09/16/17 10:00 Microbiology 09/12/17 05:16 - Final Sputum, Induced/Suctioned Sputum Culture - Final Enterobacter Aerogenes Escherichia Coli Laboratory Results 09/16/17 03:45 09/16/17 03:45 09/15/17 09/16/17 09/17/17 05:59 05:59 05:59 Intake Total 1642.7 1475 Output Total 2350 250 Balance -707.3 1225 PT 23.0 SEC (12.0-15.0) H 09/07/17 19:55 INR 2.03 (0.83-1.16) H 09/07/17 19:55 Physical Exam - Physical Exam General Appearance: no apparent distress Neck: other (Cath line site ok) Respiratory: decreased breath sounds Cardiac/Chest: regular rate, rhythm Abdomen: other (obese, soft) Male Genitalia: other (Betancourt) Extremities: pedal edema ICD10 Worksheet Patient Problems: Problems Problem Status Onset Acute blood loss anemia Acute Acute renal failure Acute Acute respiratory failure Acute Aortic dissection, thoracoabdominal Acute Hypokalemia Acute Postoperative atrial fibrillation Acute S/P ascending aortic replacement Acute ~09/07/17 HTN (hypertension) Chronic Morbid obesity Chronic
[2017-09-16] MEDS: SODIUM CITRATE 4% 5 ML in SYRINGE 0 ML DIAL PRN (11:44)
--- NOTE | 2017-09-16 14:08 | CPEKG ---
Heart Rate: 96 RR Interval: 625 P-R Interval: 156 QRSD Interval: 168 QT Interval: 452 QTC Interval: 572 P [place]: 51 QRS [place]: 121 T Wave [place]: 44 EKG Severity - ABNORMAL ECG - EKG Impression: SINUS RHYTHM EKG Impression: RBBB AND LPFB Electronically Signed By: Angelo Zarate 17-Sep-2017 14:50:57
--- NOTE | 2017-09-16 14:34 | PDINTPN ---
Ceramic Mold Designer Progress Note Assessment/Plan: Assessment: 47 M with uncontrolled HTN admitted 09/07/17 with chest pain and found to have Aortic dissection from Ao root to iliacs, who underwent urgent repair including AV repair and root replacement with graft, complicated by cardiac tamponade requiring return to OR for removal of large clot. He was also hypotensive and required multiple pressors, in addition to 11 units RBCs, 10 units FFP, 4 platelets and 2 cryo transfusions. He subsequently develop MADDY. * Aortic dissection- s/p emergent root replacement, AV repair with improving hemodynamics. BP required pressor support for several days postop, and labile with HD, though much more stable now and off pressors. On metoprolol. * Acute respiratory failure with hypoxia. Extubated without difficulty 09/13, and now on RA. Fever and elevated WBC post extubation, but CXR without obvious PNA. Sputum culture growing E coli and enterobacter, with uncertain significance but started Zosyn 09/14 with slight downtrend in WBC. Encourage IS , OOB as tolerates * MADDY 2/2 likely ATN and hypotension. Continue with HD per renal. Starting to get some urine output, but BUN and Cr still markedly elevated and requiring daily dialysis. * Altered mental status- much improved after holding meds prior to extubation. CT with tiny hypodensities consistent with infarcts, but do not explain issues of 09/11-. No immediate intervention at this time. I dont think these Ct abnormalities will have any sequelae. Passed speech eval for swallow. * Afib- resolved. Amiodarone dc'd 09/13 Plan: Increase activity. Daily dialysis. Will probably stop Zosyn after 5 day course if no further signs of infection. 09/16/17 14:40 Subjective: Groggy from IR procedure. Denies pain. Objective: Vital Signs Temp Pulse Resp BP Pulse Ox 36.6 C 93 22 H 113/51 L 96 09/16/17 08:00 09/16/17 12:00 09/16/17 12:00 09/16/17 12:00 09/16/17 12:00 Microbiology 09/12/17 05:16 - Final Sputum, Induced/Suctioned Sputum Culture - Final Enterobacter Aerogenes Escherichia Coli Laboratory Results 09/16/17 03:45 09/16/17 03:45 09/15/17 09/16/17 09/17/17 05:59 05:59 05:59 Intake Total 1642.7 1475 Output Total 2350 250 Balance -707.3 1225 PT 23.0 SEC (12.0-15.0) H 09/07/17 19:55 INR 2.03 (0.83-1.16) H 09/07/17 19:55 CXR: No focal infiltrates. Images reviewed by me. Physical Exam - Physical Exam General Appearance: No alert (groggy but arousable) EENT: normal ENT inspection Neck: normal inspection Respiratory: lungs clear, normal breath sounds Cardiac/Chest: regular rate, rhythm, No edema Abdomen: normal bowel sounds, non-tender Skin: normal color, warm/dry Extremities: normal inspection Neuro/Psych: No alert, No oriented x 3, No motor weakness ICD10 Worksheet Patient Problems: Problems Problem Status Onset Acute blood loss anemia Acute Acute renal failure Acute Acute respiratory failure Acute Aortic dissection, thoracoabdominal Acute Hypokalemia Acute Postoperative atrial fibrillation Acute S/P ascending aortic replacement Acute ~09/07/17 HTN (hypertension) Chronic Morbid obesity Chronic
[2017-09-16] MEDS: METOPROLOL TARTRATE 25 MG TAB PO SCH ×2 (14:46→21:28)
[2017-09-16] MEDS: PANTOPRAZOLE SODIUM 40 MG TAB PO SCH (15:20)
[2017-09-16] MEDS: ASPIRIN EC 81 MG TAB PO SCH (15:20)
[2017-09-16] MEDS: LACTULOSE 20 GM/30 ML UDCUP PO PRN (15:20)
[2017-09-16] MEDS: HEPARIN 5,000 UNIT/0.5 ML SYR SC SCH ×2 (15:20→21:28)
[2017-09-16] MEDS: SENNOSIDES 1 TAB PO SCH ×2 (15:43→21:28)
--- NOTE | 2017-09-16 16:18 | ASMTCMCOM ---
CM Note CM Note Notes: Family needs to return to [place] for work. Letter written for the [facility] so that patient's mother might be able to come and visit patient. Date Signed: 09/16/2017 04:18 PM Electronically Signed By:Rae Price LCSW
--- NOTE | 2017-09-16 16:20 | ASMTCMCOM ---
CM Note CM Note Notes: Family reports that patient's employer might assist with rehab costs. His name Jaswant Hernandez [phone]. Tried to call be phone rang with no message. Date Signed: 09/16/2017 04:20 PM Electronically Signed By:Rae Price LCSW
[2017-09-16] MEDS: ACETAMINOPHEN 325 MG TAB PO PRN (21:28)
[2017-09-17] MEDS: HEPARIN 5,000 UNIT/0.5 ML SYR SC SCH ×3 (05:41→22:36)
[2017-09-17] MEDS: PIPERACILLIN/TAZO 2.25 GM/DEX 50 ML IV SCH ×3 (05:41→22:36)
[2017-09-17] MEDS: ALTEPLASE 2 MG VIAL IVP PRN (06:00)
--- NOTE | 2017-09-17 06:43 | SOAPPROG ---
SOAP Progress Note Assessment/Plan: Assessment: POD#10 Emergent replacement of ascending aorta and hemiarch with # 26 mm Hemashield graft. Hypothermic circulatory arrest, right axillary artery cannulation, resuspension of aortic valve with repair POD#9 Re-exploration of chest with evacuation of clot. Chest closure with kacey. LUE PICC. [facility] dialysis cath. D4 Zosyn Acute type 1 aortic dissection - Aortic root to infrarenal abd aorta. AV resuspended and asc ao and hemiarch replaced with dacron tube graft. Repair complicated by coagulopathy and cardiac tamponade necessitating re-exploration and wash-out. Hemodynamic support on multiple pressors x 48 hrs. Multiorgan dysfx slowly resolving. Remains significantly fluid overloaded. Acute expected blood loss anemia with coagulopathy - Exacerbated by HCA. Stable s/p massive blood transfusion. No evidence active bleeding. Chest tubes out. Platelet count rebound noted. Precautionary HIT neg. VTE prophylaxis with SCDs and SQ hep. Acute renal failure - Likely secondary to hypotension and low-flow state. Nephrology consulted. HD, fluid and electrolyte management at their direction. Acute postoperative respiratory failure - Vent dependent thru POD#6. Wean delayed by metabolic encephalopathy. Modest suppl O2 req post extubation. Now on room air. Abnl sputum (with low grade temps/mild inc WBC) covered with Zosyn. No overt PNA by CXR. Cleared for dysphagia diet by ASSEMBLER CAMPER. Postoperative encephalopathy - AMS with decr rt limb mvmt. CT head indeterminate. Rapid improvements in mentation and ext mvmt/strength post cessation of sedation. Residual rt arm weakness possibly related to vascular exposure. Cont aggressive PT/OT. Postoperative PAF - With RVR on POD#4. Successful conversion back to SR on amiodarone within 8hr. Transitioned to BB. Development of episodic michael/? sinus arrest last 24h. BB held pending EP consult. Postoperative sternal drainage - Distal sternotomy. Active serosang ooze. No overt instability. Sternal diastasis suspected. Follow. Plan: Cont supportive care by multidisciplinary team. EP cards consult. 18 06:43 Subjective: Eating breakfast independently w left hand. Claims to be left handed and thus not dextrous with rt hand. Soles of feet hurt when standing. No walking as of yet. Objective: Vital Signs Temp Pulse Resp BP Pulse Ox 37.3 C 88 21 H 133/71 H 99 09/17/17 00:00 09/17/17 06:00 09/17/17 06:00 09/17/17 06:00 09/17/17 06:00 Laboratory Results 09/17/17 04:55 09/17/17 04:55 09/16/17 09/17/17 09/18/17 05:59 05:59 05:59 Intake Total 1475 773.6 Output Total 250 3100 Balance 1225 -2326.4 PT 23.0 SEC (12.0-15.0) H 09/07/17 19:55 INR 2.03 (0.83-1.16) H 09/07/17 19:55 SR/ST. Occ PVCs. Episodic michael. No hypotension. Satting well on RA. 3 liters fluid taken off w dialysis yest. Still +16kg. Plt count cont to improve. Blood cxs NGTD. Physical Exam - Physical Exam General Appearance: alert, no apparent distress Respiratory: lungs clear Cardiac/Chest: regular rate, rhythm, other (Sternum grossly stable. Distal sternum moist. Clear serosang drainage expressible w compression. No purulence.) Abdomen: non-tender, soft Skin: warm/dry Extremities: swelling (1+ gen) ICD10 Worksheet Patient Problems: Problems Problem Status Onset Acute blood loss anemia Acute Acute renal failure Acute Acute respiratory failure Acute Aortic dissection, thoracoabdominal Acute Hypokalemia Acute Postoperative atrial fibrillation Acute S/P ascending aortic replacement Acute ~09/07/17 HTN (hypertension) Chronic Morbid obesity Chronic
--- NOTE | 2017-09-17 08:55 | SOAPPROG ---
SOAP Progress Note Assessment/Plan: Assessment: Oliguric MADDY PO Ao repair after dissection hypocalcemia, continue supplementation volume overload, now on room air, wt still up about 16 kg from admission Plan: HD today and tomorrow HD should help with his hypocalcemia, Supplement Ca encouraged nutrition and physical therapy 09/11/17 08:46 09/11/17 08:52 09/17/17 08:52 Subjective: up to chair still a bit SOB, no significant pain hungry for breakfast denies nausea or vomiting spirits OK Objective: Vital Signs Temp Pulse Resp BP Pulse Ox 37.3 C 76 24 H 120/72 94 09/17/17 00:00 09/17/17 07:28 09/17/17 07:28 09/17/17 07:28 09/17/17 07:28 Laboratory Results 09/17/17 04:55 09/17/17 04:55 09/16/17 09/17/17 09/18/17 05:59 05:59 05:59 Intake Total 1475 773.6 Output Total 250 3100 Balance 1225 -2326.4 PT 23.0 SEC (12.0-15.0) H 09/07/17 19:55 INR 2.03 (0.83-1.16) H 09/07/17 19:55 Physical Exam - Physical Exam General Appearance: alert, obese Respiratory: No rhonchi, No wheezing, No pleural rub (occasional basilar rales) Cardiac/Chest: regular rate, rhythm, No friction rub (trace LE edema) Abdomen: normal bowel sounds, non-tender Skin: warm/dry Neuro/Psych: alert, normal mood/affect, oriented x 3 ICD10 Worksheet Patient Problems: Problems Problem Status Onset Acute blood loss anemia Acute Acute renal failure Acute Acute respiratory failure Acute Aortic dissection, thoracoabdominal Acute Hypokalemia Acute Postoperative atrial fibrillation Acute S/P ascending aortic replacement Acute ~09/07/17 HTN (hypertension) Chronic Morbid obesity Chronic
[2017-09-17] MEDS ORDERED: CALCIUM GLUCONATE 2 GM in D5W 50 ML IV ONE (08:58)
[2017-09-17] MEDS: CALCIUM ACETATE 667 MG CAP PO SCH ×3 (09:38→18:38)
[2017-09-17] MEDS: PANTOPRAZOLE SODIUM 40 MG TAB PO SCH (09:38)
[2017-09-17] MEDS: SENNOSIDES 1 TAB PO SCH ×2 (09:38→22:36)
[2017-09-17] MEDS: ASPIRIN EC 81 MG TAB PO SCH (09:38)
[2017-09-17] MEDS: METOPROLOL TARTRATE 25 MG TAB PO SCH (09:45)
--- NOTE | 2017-09-17 13:11 | PDINTPN ---
[employer] Operations Progress Note Assessment/Plan: Assessment: 47 M with uncontrolled HTN admitted 09/07/17 with chest pain and found to have Aortic dissection from Ao root to iliacs, who underwent urgent repair including AV repair and root replacement with graft, complicated by cardiac tamponade requiring return to OR for removal of large clot. He was also hypotensive and required multiple pressors, in addition to 11 units RBCs, 10 units FFP, 4 platelets and 2 cryo transfusions. He subsequently develop MADDY. * Aortic dissection- s/p emergent root replacement, AV repair with improving hemodynamics. BP required pressor support for several days postop, and labile with HD, though much more stable now and off pressors. On metoprolol. * Acute respiratory failure with hypoxia. Extubated without difficulty 09/13, and now on RA. Fever and elevated WBC post extubation, but CXR without obvious PNA. Sputum culture growing E coli and enterobacter, with uncertain significance but started Zosyn 09/14. WBC up today. * MADDY 2/2 likely ATN and hypotension. Continue with daily HD per renal. Starting to get some urine output, but BUN and Cr still markedly elevated. * Altered mental status- much improved after holding meds prior to extubation. CT with tiny hypodensities consistent with infarcts, but do not explain issues of 09/11-. No immediate intervention at this time. I don't think these Ct abnormalities will have any sequelae. Passed speech eval for swallow. * Afib- resolved. Amiodarone dc'd 09/13 Plan: Increase activity. Daily dialysis/fluid removal. Will probably stop Zosyn after 5 day course if no further signs of infection. Encourage IS, OOB as tolerates. May go to OR tomorrow from probable sternal stabilization. 09/17/17 13:09 Subjective: Sleeping but arousable. Denies pain. Objective: Vital Signs Temp Pulse Resp BP Pulse Ox 37.1 C 87 22 H 120/72 100 09/17/17 12:15 09/17/17 12:15 09/17/17 12:15 09/17/17 12:15 09/17/17 12:15 Laboratory Results 09/17/17 04:55 09/17/17 04:55 09/16/17 09/17/17 09/18/17 05:59 05:59 05:59 Intake Total 1475 773.6 440 Output Total 250 3100 Balance 1225 -2326.4 440 PT 23.0 SEC (12.0-15.0) H 09/07/17 19:55 INR 2.03 (0.83-1.16) H 09/07/17 19:55 Physical Exam - Physical Exam General Appearance: No alert (sleeping but arousable) EENT: normal ENT inspection Neck: normal inspection Respiratory: lungs clear, normal breath sounds Cardiac/Chest: regular rate, rhythm, edema (1+) Abdomen: normal bowel sounds, non-tender, soft Skin: normal color, warm/dry Extremities: normal inspection Neuro/Psych: oriented x 3, No alert ICD10 Worksheet Patient Problems: Problems Problem Status Onset Acute blood loss anemia Acute Acute renal failure Acute Acute respiratory failure Acute Aortic dissection, thoracoabdominal Acute Hypokalemia Acute Postoperative atrial fibrillation Acute S/P ascending aortic replacement Acute ~09/07/17 HTN (hypertension) Chronic Morbid obesity Chronic
--- NOTE | 2017-09-17 14:31 | WOCRNPDOC ---
JOCELYN Advanced Assessment Note - Skin Integrity Problem, Advanced Assess Left Sacrum Pressure Injury Dressing Type: Allevyn Life Dressing Description: Clean/Dry, Intact Exudate Amount: None Integumentary Issue Intervention: Dressing Changed Ashley Wound Tissue: Blanching, Erythema Wound Bed Color: Black, Purple Wound Bed Constitution: Red/Clinton - Non Granular Tissue Wound Edges: Attached Site Measurement - Head-to-Toe Length X Width X Depth (cm): 8x5x0.1 Pressure Injury Stage: Deep Tissue Injury (DTI) Pressure Injury Present on Admit: No Skin Integrity Problem Comment: Evolving deep tissue injury now presenting with paritial thickness opening surrounding a black/purple base. Wound care will follow. Will trial Cinitron mattress. Discussed concern of patient bottoming out Clinitron with Sebastian from [facility] who thought it would be advisable to trial the mattress first. Discussed wound care plan with Nanci Speech therapist as HOB needs to be kept below 30 degrees in bed; idealy as close to 0 degrees as possible. Patient up in chair today so the plan is for patient to eat meals in the chair (for max 30 min at a time) and keep the HOB low so patient does not bottom out on the mattress due to his body habitus. Tata RAY and Diane RAY's aware. Right Sacrum Pressure Injury Dressing Type: Allevyn Life Dressing Description: Clean/Dry, Intact Exudate Amount: None Integumentary Issue Intervention: Dressing Changed Ashley Wound Tissue: Blanching Wound Bed Color: Red, Yellow Wound Bed Constitution: Red/Clinton - Non Granular Tissue Wound Edges: Attached Site Measurement - Head-to-Toe Length X Width X Depth (cm): 7x4x0.1 Pressure Injury Stage: Deep Tissue Injury (DTI) Pressure Injury Present on Admit: No Skin Integrity Problem Comment: Evolving DTI now presents with partial thickness desqamation. Wound care will follow. Reanna YUSUF, Tata RN, CINDY CONTRACT ADMIN in room for care. Please use regular size TAPS the bariatric TAPS are too big for this patient.
[2017-09-17] MEDS: ACETAMINOPHEN 325 MG TAB PO PRN (15:14)
[2017-09-17] MEDS: traMADol 50 MG TAB PO PRN (19:45)
[2017-09-17] MEDS ORDERED: HEPARIN 50,000 UNIT/10 ML VIAL ONE (20:00)
--- NOTE | 2017-09-18 02:20 | GCON ---
[f rep st] CONSULTATION CARDIAC CONSULTATION DATE OF CONSULTATION: 09/17/2017 CHIEF COMPLAINT: Bradycardia, status post cardiovascular surgery. 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 Here, he underwent aortic valve repair and aortic root replacement with graft by Dr. Neil Rock on September 07. This was complicated by tamponade requiring the patient to go back to the OR for clot removal. He also suffered acute kidney injury and has been on hemodialysis. He is volume overloaded working on reducing his volume status with hemodialysis. His aortic dissection was thought to be related to uncontrolled hypertension. His blood pressure is now well controlled on his current medical regimen. His course was also complicated by atrial fibrillation, at which time he received amiodarone. He is currently in normal sinus rhythm. Cardiology was consulted for bradycardia. His heart rate is typically running in the 80s, but he has had a few bradycardic events with his rates down in the 40s. It appears that the majority of these lower rates occurred while the patient was trying to get out of bed. He does have occasional lightheadedness, but he correlates this with his medications. PAST MEDICAL HISTORY: Limited by his condition. Also, the patient is a poor historian and not giving much information at this time. MEDICATIONS: Please see med list. He was on metoprolol, but this was held this morning. His last dose was given yesterday evening. He also received amiodarone on the and and . The medication has been discontinued. He is not on any other rate-controlling medications. ALLERGIES: No known drug allergies. PHYSICAL EXAMINATION: GENERAL: A section leader was present. He is alert and oriented, in no acute distress at this time. VITAL SIGNS: Blood pressure 114/70, heart rate 88, oxygen saturation of 100% on 3 L, afebrile. NECK: No carotid bruits or JVD present. LUNGS: Bilateral crackles without any wheezing present. CARDIAC: Regular rate and rhythm with systolic murmur present. CHEST WALL: He does have a bandage covering his sternum. ABDOMEN: Soft. Nontender. EXTREMITIES: Tender to palpation with edema bilaterally. NEUROLOGIC: Nonfocal. PSYCHIATRIC: Mood and affect appropriate. REVIEW OF SYSTEMS: Difficult to obtain, but the patient denies any other symptoms except for some left foot pain while the compression stockings are present. DIAGNOSTIC STUDIES: His EKG shows normal sinus rhythm with right bundle branch block and left anterior fascicular block. On telemetry, he has remained in sinus rhythm with intermittent bradycardia with rates down into the 40s. ASSESSMENT: The patient is a 47-year-old male admitted with aortic dissection, status post aortic valve repair and root replacement with graft. He is now having intermittent bradycardia with rates in the 40s. PLAN: The patient is status post aortic valve repair and root replacement with graft secondary to acute aortic dissection on September 07. Cardiology has been consulted for bradycardia, which was identified earlier this morning. He is having heart rates into the 40s and also has known conduction disease with right bundle branch block and left posterior fascicular block by EKG. His episodes of bradycardia occurred while he was trying to get out of bed. It is possible these are related to vagal events. Will continue to monitor the patient over his hospital course. If he continues to have bradycardia or his conduction disease progresses he would be a candidate for pacemaker implantation.. I do not see any indication for a pace maker at this time, Will continue to hold his metoprolol and monitor him on telemetry. /[id number]/MODL MTDD
[2017-09-18] MEDS ORDERED: ACETAMINOPHEN 650 MG SUPP PR ONE (05:33)
[2017-09-18] MEDS: PIPERACILLIN/TAZO 2.25 GM/DEX 50 ML IV SCH ×3 (06:10→21:34)
--- NOTE | 2017-09-18 07:17 | SOAPPROG ---
SOAP Progress Note Assessment/Plan: POD #11: Emergent replacement of ascending aorta and hemiarch under circulatory arrest with #26 mm Hemashield graft, resuspension of aortic valve with repair, left axillary artery cannulation with #10 mm Hemashield graft POD #10: Re-exploration of chest with evacuation of clot Acute ascending aortic dissection s/p repair - stable. Post-op tamponade - clot evacuated, stable. Acute blood loss anemia with coagulopathy s/p massive blood transfusion - stable. Thrombocytopenia - secondary to CPB. HIT negative. Resolved. Acute renal failure - secondary to hypoperfusion. Dialysis as per renal. VDRF - extubated and on room air. Continue Zosyn, day 5/?, for GNR in sputum. Postoperative PAF/bradycardia - thromboprophylaxis deferred d/t short duration. Beta-anish held d/t bradycardia. Post-operative encephalopathy - improving with supportive care. No evidence of acute CVA on CTH. Continues to have RUE weakness likely secondary to nerve injury during cannulation. Continue aggressive PT/OT. Persistent sternal drainage - for exploration today. DVT prophylaxis - SCDs/heparin SQ. Nutrition - continue dysphagia diet. Lines - RIJ HD catheter (09/16/17), LUE PICC Subjective: No complaints. Objective: Vital Signs Temp Pulse Resp BP Pulse Ox 38.1 C 90 17 107/77 95 09/18/17 06:00 09/18/17 06:00 09/18/17 06:00 09/18/17 06:00 09/18/17 06:00 Laboratory Results 09/18/17 05:09 09/18/17 05:09 09/17/17 09/18/17 09/19/17 05:59 05:59 05:59 Intake Total 773.6 804 Output Total 3100 3100 Balance -2326.4 -2296 PT 23.0 SEC (12.0-15.0) H 09/07/17 19:55 INR 2.03 (0.83-1.16) H 09/07/17 19:55 Physical Exam - Physical Exam General Appearance: alert, no apparent distress, obese EENT: No scleral icterus (R), No scleral icterus (L) Neck: normal inspection Respiratory: No respiratory distress Cardiac/Chest: regular rate, rhythm, tachycardia Abdomen: non-tender, soft, distended Skin: normal color, warm/dry Extremities: pedal edema Neuro/Psych: alert, motor weakness, cognition abnormalities ICD10 Worksheet Patient Problems: Problems Problem Status Onset Acute blood loss anemia Acute Acute renal failure Acute Acute respiratory failure Acute Aortic dissection, thoracoabdominal Acute Hypokalemia Acute Postoperative atrial fibrillation Acute S/P ascending aortic replacement Acute ~09/07/17 HTN (hypertension) Chronic Morbid obesity Chronic
[2017-09-18] MEDS: HEPARIN 5,000 UNIT/0.5 ML SYR SC SCH (08:38)
[2017-09-18] MEDS: ASPIRIN EC 81 MG TAB PO SCH (08:41)
[2017-09-18] MEDS: PANTOPRAZOLE SODIUM 40 MG TAB PO SCH (08:41)
[2017-09-18] MEDS: CALCIUM ACETATE 667 MG CAP PO SCH ×3 (08:41→20:35)
[2017-09-18] MEDS: SENNOSIDES 1 TAB PO SCH ×2 (08:42→20:35)
--- NOTE | 2017-09-18 10:38 | SOAPPROG ---
SOAP Progress Note Assessment/Plan: Assessment: Oliguric MADDY P/O Ao repair after dissection hypocalcemia, continue supplementation, better today volume overload, now on room air, wt still up from admission, BP down a bit today sternum wound needs repaired Plan: HD tomorrow, hold HD today as going back to OR for rewiring of his sternum Supplement Ca as needed encouraged nutrition and physical therapy hopefully begin to see renal recovery soon, still not making much urine 09/11/17 08:46 09/11/17 08:52 09/17/17 08:52 09/18/17 10:34 Subjective: in bed his feet are sore chest is sore as well no nausea or vomiting appetite not great, not eating much Objective: Vital Signs Temp Pulse Resp BP Pulse Ox 38.1 C 96 20 120/73 94 09/18/17 06:00 09/18/17 10:00 09/18/17 10:00 09/18/17 10:00 09/18/17 10:00 Laboratory Results 09/18/17 05:09 09/18/17 05:09 09/17/17 09/18/17 09/19/17 05:59 05:59 05:59 Intake Total 773.6 804 Output Total 3100 3100 Balance -2326.4 -2296 PT 23.0 SEC (12.0-15.0) H 09/07/17 19:55 INR 2.03 (0.83-1.16) H 09/07/17 19:55 Physical Exam - Physical Exam General Appearance: alert Respiratory: other (occas rh and wh) Cardiac/Chest: regular rate, rhythm, No friction rub Abdomen: normal bowel sounds Skin: other (toes are dusky) Neuro/Psych: alert, oriented x 3 ICD10 Worksheet Patient Problems: Problems Problem Status Onset Acute blood loss anemia Acute Acute renal failure Acute Acute respiratory failure Acute Aortic dissection, thoracoabdominal Acute Hypokalemia Acute Postoperative atrial fibrillation Acute S/P ascending aortic replacement Acute ~09/07/17 HTN (hypertension) Chronic Morbid obesity Chronic
[2017-09-18] MEDS: SEVELAMER HCL 800 MG TAB PO SCH ×2 (12:25→20:35)
[2017-09-18] MEDS ORDERED: MINERAL OIL 10 ML VIAL ONE (12:44)
--- NOTE | 2017-09-18 13:18 | PDINTPN ---
Test Conductor Progress Note Assessment/Plan: Assessment: 47 M with uncontrolled HTN admitted 09/07/17 with chest pain and found to have Aortic dissection from Ao root to iliacs, who underwent urgent repair including AV repair and root replacement with graft, complicated by cardiac tamponade requiring return to OR for removal of large clot. He was also hypotensive and required multiple pressors, in addition to 11 units RBCs, 10 units FFP, 4 platelets and 2 cryo transfusions. He subsequently develop MADDY. * Aortic dissection- s/p emergent root replacement, AV repair with improving hemodynamics. BP required pressor support for several days postop, and labile with HD, though much more stable now and off pressors. On metoprolol. * Acute respiratory failure with hypoxia. Extubated without difficulty 09/13, and now on RA. Fever and elevated WBC post extubation, but CXR without obvious PNA. Sputum culture growing E coli and enterobacter, with uncertain significance but started Zosyn 09/14. WBC up yesterday. Tmax 38.1 * MADDY 2/2 likely ATN and hypotension. Continue with daily HD per renal. Starting to get some urine output, but BUN and Cr still markedly elevated. * Altered mental status- much improved after holding meds prior to extubation. CT with tiny hypodensities consistent with infarcts, but do not explain issues of 09/11-. No immediate intervention at this time. I don't think these Ct abnormalities will have any sequelae. Passed speech eval for swallow. * Afib- resolved. Amiodarone dc'd 09/13 Plan: Increase activity. Daily dialysis/fluid removal (held today due to surgery ). Will probably stop Zosyn after 5 day course 09/19/17 if no further signs of pulmonary infection. Encourage IS, OOB as tolerates. To OR this afternoon for probable sternal instability. 09/18/17 13:18 Subjective: C/O toe pain earlier, now better. Very hungry. Objective: Vital Signs Temp Pulse Resp BP Pulse Ox 36.5 C 96 20 121/61 H 91 L 09/18/17 12:01 09/18/17 12:01 09/18/17 12:01 09/18/17 12:01 09/18/17 12:01 Laboratory Results 09/18/17 05:09 09/18/17 05:09 09/17/17 09/18/17 09/19/17 05:59 05:59 05:59 Intake Total 773.6 804 Output Total 3100 3100 Balance -2326.4 -2296 PT 23.0 SEC (12.0-15.0) H 09/07/17 19:55 INR 2.03 (0.83-1.16) H 09/07/17 19:55 Physical Exam - Physical Exam General Appearance: alert, no apparent distress EENT: normal ENT inspection Neck: normal inspection Respiratory: lungs clear, normal breath sounds, respiratory distress Cardiac/Chest: regular rate, rhythm, No edema Abdomen: normal bowel sounds, non-tender, soft Skin: normal color, other (serosanguinous drainage from sternal wound.) Extremities: normal inspection Neuro/Psych: alert, normal mood/affect, oriented x 3 ICD10 Worksheet Patient Problems: Problems Problem Status Onset Acute blood loss anemia Acute Acute renal failure Acute Acute respiratory failure Acute Aortic dissection, thoracoabdominal Acute Hypokalemia Acute Postoperative atrial fibrillation Acute S/P ascending aortic replacement Acute ~09/07/17 HTN (hypertension) Chronic Morbid obesity Chronic
--- NOTE | 2017-09-18 14:57 | PDANEPAE ---
ANE History of Present Illness 47 yo for sternal debridement and re wiring s/p aortic disection ARF Resp Failure post op afib ANE Past Medical History - Cardiovascular History Hx Hypertension: No Hx Arrhythmias: No Hx Chest Pain: Yes Hx Coronary Artery / Peripheral Vascular Disease: No Hx CHF / Valvular Disease: No Hx Palpitations: No - Pulmonary History Hx COPD: No Hx Asthma/Reactive Airway Disease: No Hx Recent Upper Respiratory Infection: No Hx Oxygen in Use at Home: No Hx Sleep Apnea: No Sleep Apnea Screening Result - Last Documented: Negative - Neurologic History Hx Cerebrovascular Accident: No Hx Seizures: No Hx Dementia: No - Endocrine History Hx Diabetes: No Hypothyroid: No Hyperthyroid: No - Renal History Hx Renal Disorders: No ANE Review of Systems Review of Systems: - Pacemaker Pacemaker Set Rate: 40 ANE Patient History - Allergies Allergies/Adverse Reactions: No Known Allergies Allergy (Unverified 09/07/17 09:15) - Home Medications Home Medications: NK [No Known Home Meds] 09/07/17 [Last Taken Unknown] - NPO status NPO Since - Liquids (Date): 09/18/17 NPO Since - Liquids (Time): 00:00 NPO Since - Solids (Date): 09/18/17 NPO Since - Solids (Time): 00:00 - Smoking Hx Smoking Status: Never smoked ANE Labs/Vital Signs - Labs Result Diagrams: 09/18/17 05:09 09/18/17 05:09 - Vital Signs Blood Pressure: 88/61 Heart Rate: 97 Respiratory Rate: 20 O2 Sat (%): 93 Height: 5 ft 7 in Weight: 103.7 kg ANE Physical Exam - Airway Neck exam: FROM Mallampati Score: Class 3 Mouth exam: normal dental/mouth exam - Pulmonary Pulmonary: no respiratory distress - Cardiovascular Cardiovascular: regular rate and rhythym - ASA Status ASA Status: IV ANE Anesthesia Plan Anesthesia Plan: general endotracheal anesthesia
[2017-09-18] MEDS ORDERED: VANCOMYCIN HCL/NORMAL SALINE 250 ML IV ONE (15:00)
[2017-09-18] MEDS ORDERED: fentaNYL 250 MCG/5 ML INJ ONE (15:07)
[2017-09-18] MEDS ORDERED: REMIFENTANIL HCL 1 MG VIAL ONE (15:07)
[2017-09-18] MEDS ORDERED: PROPOFOL/EMULSION 500 MG/50 ML BOTTLE IV ONE (15:07)
[2017-09-18] MEDS ORDERED: BACITRACIN ZINC 14.2 GM OINTTUBE TP ONE (16:24)
--- NOTE | 2017-09-18 17:18 | POSTANESTH ---
Post Anesthetic Evaluation Cardiovascular Status: Normal, Stable Respiratory Status: Tx Decrease in SpO2 Level of Consciousness/Mental Status: Can Participate in Eval Pain Control: Adequate, Prn Tx Ordered Nausea/Vomiting Control: Adequate, Prn Tx Ordered Complications Possibly Related to Anesthesia: None Noted
--- NOTE | 2017-09-18 19:09 | GOP ---
[f rep st] OPERATIVE REPORT DATE OF OPERATION: 09/18/2017 SURGEON: Neil Rock DO MARKETING ADMINISTRATOR: Patrick Agarwal PA-C. ANESTHESIOLOGIST: Calvin Alberto MD. 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 POSTOPERATIVE DIAGNOSIS: No evidence sternal dehiscence. Superficial wound dehiscence with serous a ccumulation anterior to the sternum. PROCEDURE PERFORMED: Debridement and re-closure of superficial wound with irrigation of mediastinum from subxiphoid region. FINDINGS: DESCRIPTION OF PROCEDURE: Patient was brought to the operating room. Sternal skin clips were remove d. He was prepped and draped in sterile classical manner. This patient was morbidly obese with a 4- 5 inch layer of fat anterior to his sternum. The sutures were taken out. The sternum was re-opened. There was a collection of clotted blood and serous fluid sitting anterior to the sternum and pretty significant separation of his subcutaneous tissues for about 3 inches extending laterally. This was all irrigated and suctioned. The sternum was actually solid and intact. I removed the fascial sutu res and placed a sucker in the pericardium and removed some old clot and irrigated it, but no active bleeding was encountered. No purulence was identified. No cultures were obtained. A single Willie d rain was placed inside the pericardium and brought out through a separate stab wound. We then reclos ed the fascial sutures with #2 Vicryl. I then closed the subcutaneous tissue with multiple interrupt ed 3-0 Vicryl sutures and placed retention sutures approximately 3 inches apart along the entire awais th, bolstering it with a red rubber tubing. Arlen were used on the skin. Dressings were applied. Patient was returned to ICU in stable condition. /[id number]/MODL
[2017-09-18] MEDS ORDERED: AMIODARONE HCL 100 ML IV ONE (22:40)
[2017-09-18] MEDS: traMADol 50 MG TAB PO PRN (23:54)
[2017-09-19] MEDS: ACETAMINOPHEN 325 MG TAB PO PRN ×2 (04:46→23:53)
[2017-09-19] MEDS ORDERED: HEPARIN 5,000 UNIT/0.5 ML SYR ONE (05:03)
[2017-09-19] MEDS: PIPERACILLIN/TAZO 2.25 GM/DEX 50 ML IV SCH ×2 (05:04→15:02)
--- NOTE | 2017-09-19 06:43 | SOAPPROG ---
SOAP Progress Note Assessment/Plan: Assessment: POD#12 Emergent replacement of ascending aorta and hemiarch with # 26 mm Hemashield graft. Hypothermic circulatory arrest, right axillary artery cannulation, resuspension of aortic valve with repair POD#11 Re-exploration of chest with evacuation of clot. Chest closure with kacey. POD#1 Debridement of presternal soft tissue. Chest closure with kacey. LUE PICC. RIJ dialysis cath. D6 Zosyn Acute type 1 aortic dissection - Aortic root to infrarenal abd aorta. AV resuspended and asc ao and hemiarch replaced with dacron tube graft. Repair complicated by coagulopathy and cardiac tamponade necessitating re-exploration and wash-out. Hemodynamic support on multiple pressors x 48 hrs. Multiorgan dysfx slowly resolving. Remains significantly fluid overloaded. Acute expected blood loss anemia with coagulopathy - Exacerbated by HCA. Stable s/p massive blood transfusion. No evidence active bleeding. Chest tubes out. Platelet count rebound noted. Precautionary HIT neg. VTE prophylaxis with SCDs and SQ hep. Acute renal failure - Likely secondary to hypotension and low-flow state. Nephrology consulted. HD, fluid and electrolyte management at their direction. Acute postoperative respiratory failure - Vent dependent thru POD#6. Wean delayed by metabolic encephalopathy. Eventual extubation without incident and weaned to room air. Abnl sputum (with low grade temps/mild inc WBC) covered with Zosyn. No overt PNA by CXR. Cleared for dysphagia diet by DELIVERY TABLE OPERATOR. Postoperative encephalopathy - AMS with decr rt limb mvmt. CT head indeterminate. Rapid improvements in mentation and ext mvmt/strength post cessation of sedation. Residual rt arm weakness possibly related to vascular exposure. Cont aggressive PT/OT. Postoperative PAF - With RVR on POD#4 and yest post procedure. Successful conversion back to SR on amiodarone. Adjunctive BB on hold d/t episodic michael/? sinus arrest. EP consult pending. Formal thromboprophylaxis deferred for now. Postoperative sternal drainage - Distal sternotomy. Active serosang ooze. No overt instability. Sternal diastasis suspected. Taken to OR yest for exploration. Only superficial dehiscence of soft tissue suture line found. Bone itself and hardware intact. Wound debrided and reapproximated. Postoperative pedal ischemia - Bilateral toe discoloration. DP and PT pulses preserved. Gen surg consulted. Addition of CCB planned if okay with cards. Plan: Cont supportive care by multidisciplinary team. Pull chest drain later today. 09/19/17 06:38 Subjective: Conversant, sitting in a chair. Only c/o sore feet, throbbing sensation when upright. Objective: Vital Signs Temp Pulse Resp BP Pulse Ox 37.1 C 87 18 115/72 90 L 09/19/17 05:55 09/19/17 05:55 09/19/17 05:55 09/19/17 05:55 09/19/17 05:55 Microbiology 09/13/17 08:00 Blood Culture - Final Blood 09/13/17 08:00 Blood Culture - Final Blood Laboratory Results 09/18/17 05:09 09/19/17 04:54 09/18/17 09/19/17 09/20/17 05:59 05:59 05:59 Intake Total 804 1200 Output Total 3100 150 Balance -2296 1050 PT 23.0 SEC (12.0-15.0) H 09/07/17 19:55 INR 2.03 (0.83-1.16) H 09/07/17 19:55 Re-extubated without incident or dysphagia. No AF overnoc. No sig CTOP. Physical Exam - Physical Exam General Appearance: alert, no apparent distress Respiratory: rhonchi (scattered), other ([place] to bulb suction, serosang drainage) Cardiac/Chest: regular rate, rhythm, other (Sternal dressing CDI) Peripheral Pulses: 2+: dorsalis-pedis (R) (dusky toes and soles), dorsalis- pedis (L) (dusky toes and soles with blackened big toe) Abdomen: non-tender, soft Skin: warm/dry Extremities: swelling (1-2+ gen) ICD10 Worksheet Patient Problems: Problems Problem Status Onset Acute blood loss anemia Acute Acute renal failure Acute Acute respiratory failure Acute Aortic dissection, thoracoabdominal Acute Hypokalemia Acute Postoperative atrial fibrillation Acute S/P ascending aortic replacement Acute ~09/07/17 HTN (hypertension) Chronic Morbid obesity Chronic
--- NOTE | 2017-09-19 08:13 | SOAPPROG ---
SOAP Progress Note Assessment/Plan: Assessment: Oliguric MADDY, dialysis dependent at this point, I expect eventual renal recovery P/O Ao repair after dissection hypocalcemia, continue supplementation, as necessary, should improve with HD volume overload, now on room air, wt still up from admission, BP better today sternum wound needed repaired, dehiscence was superficial and did not involve the sternotomy, drain placed Plan: HD today and tomorrow Supplement Ca as needed encouraged nutrition and physical therapy hopefully begin to see renal recovery soon, still not making much urine 09/11/17 08:46 09/11/17 08:52 09/17/17 08:52 09/18/17 10:34 09/19/17 08:10 Subjective: up to chair denies significant post op pain feet are still sore no SOB nausea or vomiting slept OK appetite is OK Objective: Vital Signs Temp Pulse Resp BP Pulse Ox 37.1 C 87 18 115/72 90 L 09/19/17 05:55 09/19/17 05:55 09/19/17 05:55 09/19/17 05:55 09/19/17 05:55 Microbiology 09/13/17 08:00 Blood Culture - Final Blood 09/13/17 08:00 Blood Culture - Final Blood Laboratory Results 09/18/17 05:09 09/19/17 04:54 09/18/17 09/19/17 09/20/17 05:59 05:59 05:59 Intake Total 804 1200 Output Total 3100 150 Balance -2296 1050 PT 23.0 SEC (12.0-15.0) H 09/07/17 19:55 INR 2.03 (0.83-1.16) H 09/07/17 19:55 Physical Exam - Physical Exam General Appearance: alert, obese Neck: other (temp HD cath in place) Respiratory: crackles, No rhonchi, No wheezing, No pleural rub Cardiac/Chest: regular rate, rhythm, edema, No friction rub Abdomen: normal bowel sounds, non-tender Skin: other (feet are dusky bilaterally) Extremities: swelling Neuro/Psych: alert, normal mood/affect, oriented x 3 ICD10 Worksheet Patient Problems: Problems Problem Status Onset Acute blood loss anemia Acute Acute renal failure Acute Acute respiratory failure Acute Aortic dissection, thoracoabdominal Acute Hypokalemia Acute Postoperative atrial fibrillation Acute S/P ascending aortic replacement Acute ~09/07/17 HTN (hypertension) Chronic Morbid obesity Chronic
[2017-09-19] MEDS: CALCIUM ACETATE 667 MG CAP PO SCH ×3 (08:30→17:20)
[2017-09-19] MEDS: HEPARIN 5,000 UNIT/0.5 ML SYR SC SCH ×3 (08:30→21:31)
[2017-09-19] MEDS: ASPIRIN EC 81 MG TAB PO SCH (08:31)
[2017-09-19] MEDS: SENNOSIDES 1 TAB PO SCH (08:31)
[2017-09-19] MEDS: PANTOPRAZOLE SODIUM 40 MG TAB PO SCH (08:31)
[2017-09-19] MEDS: SEVELAMER HCL 800 MG TAB PO SCH ×3 (09:00→17:21)
[2017-09-19] MEDS ORDERED: VANCOMYCIN HCL/NORMAL SALINE 250 ML IV ONE (09:00)
--- NOTE | 2017-09-19 14:39 | ASMTCMCOM ---
CM Note CM Note Notes: Patient went for acute aortic dissection and sternum wound repair today. PT is recommending SNF rehab, however patient does not have insurance or resources to pay for this. The plan remains to return to [place] with his family at d/c. CM available for consult. Date Signed: 09/19/2017 02:39 PM Electronically Signed By:Loan Raymond LCSW
--- NOTE | 2017-09-19 15:47 | PDINTPN ---
Business Risk Analyst Progress Note Assessment/Plan: Assessment: 47 M with uncontrolled HTN admitted 09/07/17 with chest pain and found to have Aortic dissection from Ao root to iliacs, who underwent urgent repair including AV repair and root replacement with graft, complicated by cardiac tamponade requiring return to OR for removal of large clot. He was also hypotensive and required multiple pressors, in addition to 11 units RBCs, 10 units FFP, 4 platelets and 2 cryo transfusions. He subsequently develop MADDY. * Aortic dissection- s/p emergent root replacement, AV repair with improving hemodynamics. BP required pressor support for several days postop, and labile with HD, though much more stable now and off pressors. On metoprolol. * Acute respiratory failure with hypoxia. Extubated without difficulty 09/13, and now on RA. Fever and elevated WBC post extubation, but CXR without obvious PNA. Sputum culture growing E coli and enterobacter, with uncertain significance but started Zosyn 09/14. Afebrile. * MADDY 2/2 likely ATN and hypotension. Continue with daily HD per renal. Starting to get some urine output, but BUN and Cr still markedly elevated. * Altered mental status- much improved after holding meds prior to extubation. CT with tiny hypodensities consistent with infarcts, but do not explain issues of 09/11-. No immediate intervention at this time. I don't think these Ct abnormalities will have any sequelae. Passed speech eval for swallow. * Afib- resolved. Amiodarone dc'd 09/13 * Sacral Decubitus: Plan: Increase activity. Daily dialysis/fluid removal (held today due to surgery ). Will stop Zosyn today. Encourage IS, OOB as tolerates. Tx to SDU. Wound care to sacral decubitus, change to [place] bed. 09/19/17 15:47 Subjective: Feels OK, appetite fair. Still quite weak, unable to stand. Objective: Vital Signs Temp Pulse Resp BP Pulse Ox 36.7 C 86 15 130/77 H 97 09/19/17 08:00 09/19/17 12:00 09/19/17 12:00 09/19/17 12:00 09/19/17 12:00 Microbiology 09/13/17 08:00 Blood Culture - Final Blood 09/13/17 08:00 Blood Culture - Final Blood Laboratory Results 09/18/17 05:09 09/19/17 04:54 09/18/17 09/19/17 09/20/17 05:59 05:59 05:59 Intake Total 804 1200 Output Total 3100 150 325 Balance -2296 1050 -325 PT 23.0 SEC (12.0-15.0) H 09/07/17 19:55 INR 2.03 (0.83-1.16) H 09/07/17 19:55 Physical Exam - Physical Exam General Appearance: alert, no apparent distress EENT: normal ENT inspection Neck: normal inspection Respiratory: lungs clear, normal breath sounds Cardiac/Chest: regular rate, rhythm, edema Abdomen: normal bowel sounds, non-tender, other (obese) Skin: normal color, warm/dry Extremities: normal inspection Neuro/Psych: alert, normal mood/affect ICD10 Worksheet Patient Problems: Problems Problem Status Onset Acute blood loss anemia Acute Acute renal failure Acute Acute respiratory failure Acute Aortic dissection, thoracoabdominal Acute Hypokalemia Acute Postoperative atrial fibrillation Acute S/P ascending aortic replacement Acute ~09/07/17 HTN (hypertension) Chronic Morbid obesity Chronic
[2017-09-19] MEDS ORDERED: HEPARIN 50,000 UNIT/10 ML VIAL ONE (19:26)
[2017-09-19] MEDS: traMADol 50 MG TAB PO PRN (21:31)
[2017-09-20 05:33] LABS: PLATELET COUNT 248 10^3/uL (150-400)
[2017-09-20] MEDS: HEPARIN 5,000 UNIT/0.5 ML SYR SC SCH ×3 (05:51→23:56)
[2017-09-20] MEDS: ASPIRIN EC 81 MG TAB PO SCH (08:18)
[2017-09-20] MEDS: SEVELAMER HCL 800 MG TAB PO SCH ×3 (08:18→17:57)
[2017-09-20] MEDS: CALCIUM ACETATE 667 MG CAP PO SCH ×3 (08:18→17:57)
[2017-09-20] MEDS: PANTOPRAZOLE SODIUM 40 MG TAB PO SCH (08:18)
--- NOTE | 2017-09-20 08:26 | SOAPPROG ---
SOAP Progress Note Assessment/Plan: Assessment: POD#13 Emergent replacement of ascending aorta and hemiarch with # 26 mm Hemashield graft. Hypothermic circulatory arrest, right axillary artery cannulation, resuspension of aortic valve with repair POD#12 Re-exploration of chest with evacuation of clot. Chest closure with kacey. POD#2 Debridement of presternal soft tissue. Chest closure with kacey and retention sutures. LUE PICC. RIJ dialysis cath. Acute type 1 aortic dissection - Aortic root to infrarenal abd aorta. AV resuspended and asc ao and hemiarch replaced with dacron tube graft. Repair complicated by coagulopathy and cardiac tamponade necessitating re-exploration and wash-out. Hemodynamic support on multiple pressors x 48 hrs. Multiorgan dysfx slowly resolving. Remains significantly fluid overloaded. Acute expected blood loss anemia with coagulopathy - Exacerbated by HCA. Stable s/p massive blood transfusion. No evidence active bleeding. Chest tubes out. Platelet count rebound noted. Precautionary HIT neg. VTE prophylaxis with SCDs and SQ hep. Acute renal failure - Likely secondary to hypotension and low-flow state. Nephrology consulted. HD, fluid and electrolyte management at their direction. Acute postoperative respiratory failure - Vent dependent thru POD#6. Wean delayed by metabolic encephalopathy. Eventual extubation without incident and weaned to room air. Abnl sputum (with low grade temps/mild inc WBC) covered with course of Zosyn. No overt PNA by CXR. Cleared for dysphagia diet by EXTERNAL GRINDER. Postoperative encephalopathy - AMS with decr rt limb mvmt. CT head indeterminate. Rapid improvements in mentation and ext mvmt/strength post cessation of sedation. Residual rt arm weakness possibly related to vascular exposure. Cont aggressive PT/OT. Postoperative PAF - 2 short episodes successfully converted back to SR on amiodarone. Adjunctive BB on hold d/t episodic michael/? sinus arrest. EP consult pending. Formal thromboprophylaxis deferred for now. Postoperative sternal drainage - Distal sternotomy. OR exploration revelatory of superficial dehiscence of soft tissue suture line with seroma. No sternal malunion or lax hardware. Wound debrided and reapproximated. Drain removed POD# 1. Postoperative pedal ischemia - Bilateral toe discoloration w preserved DP and PT pulses. Microvascular thrombosis while on high dose pressor support suspected. Demarcation in progress. Addition of CCB planned if okay with cards. Gen surg involvement prn. Delayed mobility while wt bearing compromised. Postoperative sacral pressure ulcers - DTI. Followed by wound care. Plan: Cont supportive care by multidisciplinary team. Repeat H/H. Transfuse 1u PRBC on dialysis if HCT < 24. PCU status (no physical relocation d/t [place] bed). 09/20/17 08:24 Subjective: Feeling alright. No dizziness. Good pain control. Feet only hurt with weight bearing. Objective: Vital Signs Temp Pulse Resp BP Pulse Ox 36.6 C 88 16 136/86 H 98 09/20/17 08:00 09/20/17 08:00 09/20/17 08:00 09/20/17 08:00 09/20/17 08:00 Laboratory Results 09/20/17 05:12 09/20/17 05:12 09/19/17 09/20/17 09/21/17 05:59 05:59 05:59 Intake Total 1200 2010 Output Total 150 3825 Balance 1050 -1815 PT 23.0 SEC (12.0-15.0) H 09/07/17 19:55 INR 2.03 (0.83-1.16) H 09/07/17 19:55 Cardioresp status stable. No bradyarrhythmias or AF. Improving fluid balance. Now +13 kg. Downward drifting H/H ? CRF Physical Exam - Physical Exam General Appearance: alert, no apparent distress Respiratory: lungs clear (grossly) Cardiac/Chest: regular rate, rhythm, other (Sternotomy and CT sites CDI) Peripheral Pulses: 2+: dorsalis-pedis (R) (distal duskiness unchanged), dorsalis -pedis (L) (distal duskiness unchanged) Abdomen: non-tender Skin: warm/dry Extremities: swelling (2+ dependent) ICD10 Worksheet Patient Problems: Problems Problem Status Onset Acute blood loss anemia Acute Acute renal failure Acute Acute respiratory failure Acute Aortic dissection, thoracoabdominal Acute Hypokalemia Acute Postoperative atrial fibrillation Acute S/P ascending aortic replacement Acute ~09/07/17 HTN (hypertension) Chronic Morbid obesity Chronic
--- NOTE | 2017-09-20 12:54 | SOAPPROG ---
SOAP Progress Note Assessment/Plan: Assessment: Oliguric MADDY, dialysis dependent at this point, I expect eventual renal recovery P/O Ao repair after dissection hypocalcemia, continue supplementation, as necessary, should improve with HD volume overload, now on room air, wt still up from admission, BP better today sternum wound needed repaired, dehiscence was superficial and did not involve the sternotomy, drain placed Plan: HD today and tomorrow Supplement Ca as needed encouraged nutrition and physical therapy hopefully begin to see renal recovery soon, still not making much urine, but over 300cc so far today 09/11/17 08:46 09/11/17 08:52 09/17/17 08:52 09/18/17 10:34 09/19/17 08:10 09/20/17 12:52 Subjective: feet hurt no nausea or vomiting no significant CP, no SOB eating OK spirits good Objective: Vital Signs Temp Pulse Resp BP Pulse Ox 36.6 C 90 19 143/81 H 96 09/20/17 11:58 09/20/17 11:58 09/20/17 11:58 09/20/17 11:58 09/20/17 11:58 Laboratory Results 09/20/17 10:40 09/20/17 05:12 09/19/17 09/20/17 09/21/17 05:59 05:59 05:59 Intake Total 1200 2009 Output Total 150 3825 Balance 1050 -1815 PT 23.0 SEC (12.0-15.0) H 09/07/17 19:55 INR 2.03 (0.83-1.16) H 09/07/17 19:55 Physical Exam - Physical Exam General Appearance: alert, obese Respiratory: rales, No rhonchi, No wheezing Cardiac/Chest: regular rate, rhythm, edema, No friction rub Abdomen: non-tender, soft Extremities: other (feet continue to get duskier) Neuro/Psych: alert, normal mood/affect, oriented x 3 ICD10 Worksheet Patient Problems: Problems Problem Status Onset Acute blood loss anemia Acute Acute renal failure Acute Acute respiratory failure Acute Aortic dissection, thoracoabdominal Acute Hypokalemia Acute Postoperative atrial fibrillation Acute S/P ascending aortic replacement Acute ~09/07/17 HTN (hypertension) Chronic Morbid obesity Chronic
[2017-09-20] MEDS: traMADol 50 MG TAB PO PRN (15:39)
[2017-09-20] MEDS ORDERED: HEPARIN 50,000 UNIT/10 ML VIAL ONE (19:36)
[2017-09-20] MEDS ORDERED: MELATONIN 3 MG TAB PO SCH (21:00)
--- NOTE | 2017-09-21 00:20 | GCON ---
[f rep st] CONSULTATION DATE OF CONSULTATION: 09/18/2017 HISTORY OF PRESENT ILLNESS: The patient is a 47-year-old male who has undergone heart surgery for ao rtic dissection, and had a 2nd surgery for debridement and re-closure of his mediastinal wound. I wa s asked to consult because of discoloration of his toes bilaterally. He has been on significant amou nts of pressors during his initial heart surgery and postoperative course because of hypotension. Jackson s been in renal failure since his 1st initial heart surgery and has been on dialysis. ALLERGIES: None. MEDICATIONS: None. REVIEW OF SYSTEMS: Negative on a full 10-point review, although it is somewhat difficult to discern information from the patient. Specifically, he does not smoke. PHYSICAL EXAM: GENERAL: Reveals his head and neck to be intact with normal pupils, nonicteric, no a denopathy. Trachea midline. CHEST: Clear and symmetric. At this point he has a recently closed ch est wound with dressings. ABDOMEN: Soft and nontender. EXTREMITIES: Reveal excellent pulses bilat erally all the way down. However, he has discoloration of all 10 toes to some degree, worse on the r ight than the left. He has no frankly necrotic tissue. IMPRESSION: Microvascular ischemic changes secondary to his pressors. At this point, the damage may be done. I would recommend consideration of Procardia for vasal dilatation if okay with Cardiology. Consider low-dose heparin and consider possible nitro paste for his feet. He is on baby aspirin, a pparently, and he could be fully anticoagulated if that were safe. Prognosis for his toes is poor, b ut his feet should be quite viable. PLAN: Close observation. /[id number]/MODL
[2017-09-21] MEDS: ZOLPIDEM TARTRATE 5 MG TAB PO SCH ×2 (04:05→22:35)
[2017-09-21] MEDS: traMADol 50 MG TAB PO PRN ×3 (06:08→18:14)
[2017-09-21] MEDS: HEPARIN 5,000 UNIT/0.5 ML SYR SC SCH ×3 (06:12→22:34)
[2017-09-21] MEDS: ASPIRIN EC 81 MG TAB PO SCH (07:49)
[2017-09-21] MEDS: ACETAMINOPHEN 325 MG TAB PO PRN ×2 (07:49→12:31)
[2017-09-21] MEDS: PANTOPRAZOLE SODIUM 40 MG TAB PO SCH (07:49)
--- NOTE | 2017-09-21 08:19 | SOAPPROG ---
SOAP Progress Note Assessment/Plan: Assessment: POD#14 Emergent replacement of ascending aorta and hemiarch with # 26 mm Hemashield graft. Hypothermic circulatory arrest, right axillary artery cannulation, resuspension of aortic valve with repair POD#13 Re-exploration of chest with evacuation of clot. Chest closure with kacey. POD#3 Debridement of presternal soft tissue. Chest closure with kacey and retention sutures. LUE PICC. RIJ dialysis cath. Acute type 1 aortic dissection - Aortic root to infrarenal abd aorta. AV resuspended and asc ao and hemiarch replaced with dacron tube graft. Repair complicated by coagulopathy and cardiac tamponade necessitating re-exploration and wash-out. Hemodynamic support on multiple pressors x 48 hrs. Multiorgan dysfx slowly resolving. Remains significantly fluid overloaded. Acute expected blood loss anemia with coagulopathy - Exacerbated by HCA. Stable s/p massive blood transfusion. No evidence active bleeding. Chest tubes out. Platelet count normalized. Precautionary HIT neg. VTE prophylaxis with SCDs and SQ hep. Acute renal failure - Likely secondary to hypotension and low-flow state. Nephrology consulted. HD, fluid and electrolyte management at their direction. Acute postoperative respiratory failure - Vent dependent thru POD#6. Wean delayed by metabolic encephalopathy. Eventual extubation without incident and weaned to room air. Abnl sputum (with low grade temps/mild inc WBC) covered with course of Zosyn. No overt PNA by CXR. Cleared for dysphagia diet by [employer]. Postoperative encephalopathy - AMS with decr rt limb mvmt. CT head indeterminate. Rapid improvements in mentation and ext mvmt/strength post cessation of sedation. Residual rt arm weakness possibly related to vascular exposure. Cont aggressive PT/OT. Postoperative PAF - 2 short episodes successfully converted back to SR on amiodarone. Adjunctive BB on hold d/t episodic michael/? sinus arrest. EP consult pending. Formal thromboprophylaxis deferred for now. Postoperative sternal drainage - Distal sternotomy. OR exploration revelatory of superficial dehiscence of soft tissue suture line with seroma. No sternal malunion or lax hardware. Wound debrided and reapproximated. Drain removed POD# 1. Postoperative pedal ischemia - Bilateral toe discoloration w preserved DP and PT pulses. Microvascular thrombosis while on high dose pressor support suspected. Demarcation in progress. Addition of CCB planned if okay with cards. Gen surg involvement prn. Delayed mobility while wt bearing compromised. Postoperative sacral pressure ulcers - DTI. Followed by wound care. Plan: Cont supportive care by multidisciplinary team. 09/21/17 08:18 Subjective: Sitting in a chair. Nothing new to report. Feet cont to hurt. Unwilling to stand. Objective: Vital Signs Temp Pulse Resp BP Pulse Ox 36.7 C 90 19 154/81 H 97 09/21/17 07:47 09/21/17 07:47 09/21/17 07:47 09/21/17 07:47 09/21/17 07:47 Laboratory Results 09/21/17 05:20 09/21/17 05:20 09/20/17 09/21/17 09/22/17 05:59 05:59 05:59 Intake Total 2009 1999 Output Total 3825 3200 Balance -1815 -1200 PT 23.0 SEC (12.0-15.0) H 09/07/17 19:55 INR 2.03 (0.83-1.16) H 09/07/17 19:55 Cardioresp status stable. Beginning to make a bit more urine. Physical Exam - Physical Exam General Appearance: alert, no apparent distress Respiratory: lungs clear (grossly) Cardiac/Chest: regular rate, rhythm, other (Sternotomy and CT sites CDI) Peripheral Pulses: 2+: dorsalis-pedis (R) (mottled toes/soles), dorsalis-pedis ( L) (mottled toes/soles) Abdomen: non-tender, soft Skin: warm/dry Extremities: swelling (2+ dependent), other (feet warm mid foot to ankle) ICD10 Worksheet Patient Problems: Problems Problem Status Onset Acute blood loss anemia Acute Acute renal failure Acute Acute respiratory failure Acute Aortic dissection, thoracoabdominal Acute Hypokalemia Acute Postoperative atrial fibrillation Acute S/P ascending aortic replacement Acute ~09/07/17 HTN (hypertension) Chronic Morbid obesity Chronic
[2017-09-21] MEDS: SEVELAMER HCL 800 MG TAB PO SCH ×3 (09:23→18:14)
[2017-09-21] MEDS: CALCIUM ACETATE 667 MG CAP PO SCH ×3 (09:23→18:14)
--- NOTE | 2017-09-21 10:02 | SOAPPROG ---
SOAP Progress Note Assessment/Plan: Assessment: Oliguric MADDY, dialysis dependent at this point, I expect eventual renal recovery P/O Ao repair after dissection hypocalcemia, continue supplementation, as necessary, should improve with HD, 7 today! volume overload, now on room air, wt still up from admission, BP better today sternum wound needed repaired, dehiscence was superficial and did not involve the sternotomy, drain placed Plan: HD today and tomorrow Supplement Ca as needed encouraged nutrition and physical therapy hopefully begin to see renal recovery soon, still not making much urine, but 300cc so far today 09/11/17 08:46 09/11/17 08:52 09/17/17 08:52 09/18/17 10:34 09/19/17 08:10 09/20/17 12:52 09/21/17 09:59 Subjective: eating OK denies nausea vomiting now wound discomfort, bu his feet are a bit sore up in the chair spirits good all things considered Objective: Vital Signs Temp Pulse Resp BP Pulse Ox 36.7 C 90 19 154/81 H 97 09/21/17 07:47 09/21/17 07:47 09/21/17 07:47 09/21/17 07:47 09/21/17 07:47 Laboratory Results 09/21/17 05:20 09/21/17 05:20 09/20/17 09/21/17 09/22/17 05:59 05:59 05:59 Intake Total 2009 1999 Output Total 3825 3200 Balance -1815 -1200 PT 23.0 SEC (12.0-15.0) H 09/07/17 19:55 INR 2.03 (0.83-1.16) H 09/07/17 19:55 Physical Exam - Physical Exam General Appearance: alert, obese (decreased BS in bases, occasional rales as well) Respiratory: No rhonchi, No wheezing Cardiac/Chest: regular rate, rhythm, edema, No friction rub Abdomen: normal bowel sounds, non-tender, soft Skin: other (feet continue to look ischemic) Extremities: swelling Neuro/Psych: alert, normal mood/affect, oriented x 3 ICD10 Worksheet Patient Problems: Problems Problem Status Onset Acute blood loss anemia Acute Acute renal failure Acute Acute respiratory failure Acute Aortic dissection, thoracoabdominal Acute Hypokalemia Acute Postoperative atrial fibrillation Acute S/P ascending aortic replacement Acute ~09/07/17 HTN (hypertension) Chronic Morbid obesity Chronic
[2017-09-21] MEDS: NIFEdipine 10 MG CAP PO SCH ×2 (15:02→22:35)
[2017-09-21] MEDS ORDERED: HEPARIN 50,000 UNIT/10 ML VIAL ONE (20:21)
[2017-09-22] MEDS: HEPARIN 5,000 UNIT/0.5 ML SYR SC SCH ×3 (05:40→21:02)
--- NOTE | 2017-09-22 06:24 | SOAPPROG ---
SOAP Progress Note Assessment/Plan: POD #:15 Emergent replacement of ascending aorta and hemiarch under circulatory arrest with #26 mm Hemashield graft, resuspension of aortic valve with repair, left axillary artery cannulation with #10 mm Hemashield graft POD #14: Re-exploration of chest with evacuation of clot POD #4: Debridement of presternal soft tissue. Chest closure with kacey and retention sutures. Acute ascending aortic dissection s/p repair - stable. Acute blood loss anemia with coagulopathy s/p massive blood transfusion. Transfuse prn. Post-op tamponade - clot evacuated, stable. Thrombocytopenia - secondary to CPB. HIT negative. Resolved. Acute renal failure - secondary to hypoperfusion. Further management as per renal. VDRF - extubated and on room air. Zosyn course completed for GNR in sputum. Postoperative PAF/bradycardia - thromboprophylaxis deferred d/t short duration. Beta-anish held d/t bradycardia. Post-operative encephalopathy - improving with supportive care. No evidence of acute CVA on CTH. Continue aggressive PT/OT. Persistent sternal drainage - s/p debridement with closure. Stable. Postoperative pedal ischemia - bilateral toe discoloration w preserved DP and PT pulses. Microvascular thrombosis while on high dose pressor support suspected. Demarcation in progress. CCB started for vasodilation. Gen surg involvement prn. Postoperative sacral pressure ulcers - followed by wound care. DVT prophylaxis - SCDs/heparin SQ. Nutrition - continue regular diet. Lines - RIJ HD catheter (09/16/17), LUE PICC Subjective: No complaints. Objective: Vital Signs Temp Pulse Resp BP Pulse Ox 36.6 C 101 H 31 H 152/88 H 93 09/22/17 05:15 09/22/17 05:15 09/22/17 05:15 09/22/17 05:15 09/22/17 05:15 Laboratory Results 09/21/17 05:20 09/22/17 05:10 09/21/17 09/22/17 09/23/17 05:59 05:59 05:59 Intake Total 2000 1200 Output Total 3200 0 Balance -1200 1200 PT 23.0 SEC (12.0-15.0) H 09/07/17 19:55 INR 2.03 (0.83-1.16) H 09/07/17 19:55 Physical Exam - Physical Exam General Appearance: WD/WN, alert, no apparent distress EENT: No scleral icterus (R), No scleral icterus (L) Neck: normal inspection Respiratory: No respiratory distress Cardiac/Chest: regular rate, rhythm Abdomen: non-tender, soft, distended Skin: normal color, warm/dry Extremities: pedal edema ICD10 Worksheet Patient Problems: Problems Problem Status Onset Acute blood loss anemia Acute Acute renal failure Acute Acute respiratory failure Acute Aortic dissection, thoracoabdominal Acute Hypokalemia Acute Postoperative atrial fibrillation Acute S/P ascending aortic replacement Acute ~09/07/17 HTN (hypertension) Chronic Morbid obesity Chronic
--- NOTE | 2017-09-22 09:41 | SOAPPROG ---
SOAP Progress Note Assessment/Plan: Assessment/Plan: MADDY: crow ARCINIEGA, remains oliguric with only 300ml UOP yesterday. - Will do HD today. - Will plan on HD again tomorrow. - Will continue to monitor for renal recovery. - Avoid hypotension and nephrotoxins. Hypervolemia: will continue to modulate with fluid removal on HD. Hyperphosphatemia: Phos 8.7, will increase calcium acetate and continue sevelamer, continue to monitor. HTN: controlled on current meds, will continue to monitor. Anemia: will continue to monitor CBC. Subjective: No acute events overnight. Pt states that his feet continue to hurt, and his legs are still swollen. He had HD yesterday with 2.9L removed but does not feel that his swelling is much different. He has no dyspnea. Objective: Vital Signs Temp Pulse Resp BP Pulse Ox 36.8 C 102 H 18 131/79 H 93 09/22/17 07:35 09/22/17 07:35 09/22/17 07:35 09/22/17 07:35 09/22/17 07:35 Laboratory Results 09/21/17 05:20 09/22/17 05:10 09/21/17 09/22/17 09/23/17 05:59 05:59 05:59 Intake Total 2000 1200 Output Total 3200 0 Balance -1200 1200 PT 23.0 SEC (12.0-15.0) H 09/07/17 19:55 INR 2.03 (0.83-1.16) H 09/07/17 19:55 General: alert and oriented, no acute distress Eyes: EOMI, PERRL OP: Clear CV: RRR Resp: nonlabored respirations on RA Abd: soft, ND Ext: +2 edema BLE neuro: CN II-XII grossly intact, no asterixis Psych: cooperative Access: RIJ temp cath ICD10 Worksheet Patient Problems: Problems Problem Status Onset Acute blood loss anemia Acute Acute renal failure Acute Acute respiratory failure Acute Aortic dissection, thoracoabdominal Acute Hypokalemia Acute Postoperative atrial fibrillation Acute S/P ascending aortic replacement Acute ~09/07/17 HTN (hypertension) Chronic Morbid obesity Chronic
[2017-09-22] MEDS: traMADol 50 MG TAB PO PRN ×2 (09:44→21:08)
[2017-09-22] MEDS: SEVELAMER HCL 800 MG TAB PO SCH ×3 (09:45→18:25)
[2017-09-22] MEDS: CALCIUM ACETATE 667 MG CAP PO SCH ×4 (09:45→18:28)
[2017-09-22] MEDS: ASPIRIN EC 81 MG TAB PO SCH (09:46)
[2017-09-22] MEDS: PANTOPRAZOLE SODIUM 40 MG TAB PO SCH (09:46)
[2017-09-22] MEDS: NIFEdipine 10 MG CAP PO SCH ×3 (09:46→21:02)
--- NOTE | 2017-09-22 17:44 | ASMTCMCOM ---
CM Note CM Note Notes: Patient making progress with therapies, still needs 2 pers assist, sliding board, W/C. Patient's legs swollen, still needing diaysis. CM following. Date Signed: 09/22/2017 05:43 PM Electronically Signed By:Rae Price LCSW
[2017-09-22] MEDS: ZOLPIDEM TARTRATE 5 MG TAB PO SCH (21:02)
[2017-09-23] MEDS: HEPARIN 5,000 UNIT/0.5 ML SYR SC SCH ×3 (05:39→21:01)
--- NOTE | 2017-09-23 07:38 | SOAPPROG ---
SOAP Progress Note Assessment/Plan: Assessment: POD#16 Emergent replacement of ascending aorta and hemiarch with # 26 mm Hemashield graft. Hypothermic circulatory arrest, right axillary artery cannulation, resuspension of aortic valve with repair POD#15 Re-exploration of chest with evacuation of clot. Chest closure with kacey. POD#5 Debridement of presternal soft tissue. Chest closure with kacey and retention sutures. LUE PICC. RIJ dialysis cath. Acute type 1 aortic dissection - Aortic root to infrarenal abd aorta. AV resuspended and asc ao and hemiarch replaced with dacron tube graft. Repair complicated by coagulopathy and cardiac tamponade necessitating re-exploration and wash-out. Hemodynamic support on multiple pressors x 48 hrs. Multiorgan dysfx slowly resolving. Remains significantly fluid overloaded. Acute expected blood loss anemia with coagulopathy - Exacerbated by HCA. Stable s/p massive blood transfusion. No evidence active bleeding. Chest tubes out. Platelet count normalized. Precautionary HIT neg. VTE prophylaxis with SCDs and SQ hep. Acute renal failure - Likely secondary to hypotension and low-flow state. Nephrology consulted. HD, fluid and electrolyte management at their direction. Acute postoperative respiratory failure - Vent dependent thru POD#6. Wean delayed by metabolic encephalopathy. Eventual extubation without incident and weaned to room air. Abnl sputum (with low grade temps/mild inc WBC) covered with course of Zosyn. No overt PNA by CXR. Cleared for dysphagia diet by ADMINISTRATIVE TECHNICIAN. Postoperative encephalopathy - AMS with decr rt limb mvmt. CT head indeterminate. Rapid improvements in mentation and ext mvmt/strength post cessation of sedation. Residual rt arm weakness possibly related to vascular exposure. Cont aggressive PT/OT. Postoperative PAF - 2 short episodes successfully converted back to SR on amiodarone. Adjunctive BB held d/t episodic michael/? sinus arrest. Probable vagal response per cards review. Preferential use of CCB for vasorelaxation pedal circulation. Formal thromboprophylaxis deferred for now. Postoperative sternal drainage - Distal sternotomy. OR exploration revelatory of superficial dehiscence of soft tissue suture line with seroma. No sternal malunion or lax hardware. Wound debrided and reapproximated. Drain removed POD# 1. Postoperative pedal ischemia - Bilateral toe discoloration w preserved DP and PT pulses. Microvascular thrombosis while on high dose pressor support suspected. Demarcation in progress. Addition of CCB okayed by cards. Gen surg involvement prn. Delayed mobility while wt bearing compromised. Postoperative sacral pressure ulcers - DTI. Followed by wound care. Plan: Cont supportive care by multidisciplinary team. Inc Procardia to 20 mg TID. Cont existing hold parameters. 09/23/17 07:34 Subjective: In bed getting dialysis Objective: Vital Signs Temp Pulse Resp BP Pulse Ox 36.8 C 101 H 16 140/79 H 95 09/23/17 04:00 09/23/17 04:00 09/23/17 04:00 09/23/17 04:00 09/23/17 04:00 Laboratory Results 09/23/17 05:40 09/23/17 05:40 09/22/17 09/23/17 09/24/17 05:59 05:59 05:59 Intake Total 1200 500 Output Total 0 750 Balance 1200 -250 PT 23.0 SEC (12.0-15.0) H 09/07/17 19:55 INR 2.03 (0.83-1.16) H 09/07/17 19:55 SR/ST with upward creeping SBPs. Beginning to make a bit more urine. Wt steadily decr. Now only +3kg. Physical Exam - Physical Exam General Appearance: no apparent distress Cardiac/Chest: regular rate, rhythm Skin: warm/dry ICD10 Worksheet Patient Problems: Problems Problem Status Onset Acute blood loss anemia Acute Acute renal failure Acute Acute respiratory failure Acute Aortic dissection, thoracoabdominal Acute Hypokalemia Acute Postoperative atrial fibrillation Acute S/P ascending aortic replacement Acute ~09/07/17 HTN (hypertension) Chronic Morbid obesity Chronic
[2017-09-23] MEDS: ASPIRIN EC 81 MG TAB PO SCH (08:49)
[2017-09-23] MEDS: PANTOPRAZOLE SODIUM 40 MG TAB PO SCH (08:49)
[2017-09-23] MEDS: SEVELAMER HCL 800 MG TAB PO SCH ×3 (09:02→18:42)
[2017-09-23] MEDS: CALCIUM ACETATE 667 MG CAP PO SCH ×3 (09:02→18:42)
[2017-09-23] MEDS: NIFEdipine 10 MG CAP PO SCH ×3 (09:51→21:01)
--- NOTE | 2017-09-23 10:00 | SOAPPROG ---
SOAP Progress Note Assessment/Plan: Assessment/Plan: MADDY: likely ATN, now nonoliguric with UOP up to 750ml yesterday. - Will do HD today. - Will hold on HD tomorrow and evaluate for HD needs in the next couple days. - Will continue to monitor for renal recovery. - Avoid hypotension and nephrotoxins. Hypervolemia: improving, will continue to modulate with fluid removal on HD. Hyperphosphatemia: will continue current phos binders and continue to monitor. HTN: controlled on current meds, will continue to monitor. Anemia: will continue to monitor CBC. Hyperkalemia: K 5.3, will modulate with HD. Hyponatremia: Na 130. Will modulate with HD, also will place 1800ml fluid restriction. Subjective: No acute events overnight. Pt reports that the pain in his feet is worse this morning. He is on HD this am and tolerating well, although line is quite positional and requires a lot of adjustment. Objective: Vital Signs Temp Pulse Resp BP Pulse Ox 36.7 C 104 H 16 137/87 H 96 09/23/17 08:00 09/23/17 08:00 09/23/17 08:00 09/23/17 08:00 09/23/17 08:00 Laboratory Results 09/23/17 05:40 09/23/17 05:40 09/22/17 09/23/17 09/24/17 05:59 05:59 05:59 Intake Total 1200 500 Output Total 0 750 Balance 1200 -250 PT 23.0 SEC (12.0-15.0) H 09/07/17 19:55 INR 2.03 (0.83-1.16) H 09/07/17 19:55 General: alert and oriented, no acute distress Eyes: EOMI, PERRL OP: Clear CV: RRR Resp: nonlabored respirations on RA Abd: Soft, NT Ext: trace edema BLE Neuro: CN II-XII Grossly intact, no asterixis Psych: cooperative Access: RIJ temp cath ICD10 Worksheet Patient Problems: Problems Problem Status Onset Acute blood loss anemia Acute Acute renal failure Acute Acute respiratory failure Acute Aortic dissection, thoracoabdominal Acute Hypokalemia Acute Postoperative atrial fibrillation Acute S/P ascending aortic replacement Acute ~09/07/17 HTN (hypertension) Chronic Morbid obesity Chronic
[2017-09-23] MEDS: traMADol 50 MG TAB PO PRN ×2 (11:16→18:13)
--- NOTE | 2017-09-23 11:20 | WOCRNPDOC ---
WOCRN Advanced Assessment Note - Skin Integrity Problem, Advanced Assess Left Sacrum Pressure Injury Dressing Type: Allevyn Life Dressing Description: Intact Exudate Amount: Scant Exudate Color: Reddish/Yellow Exudate Characteristic(s): Serosanguinous Integumentary Issue Intervention: Dressing Changed, Hydrogel Applied Ashley Wound Tissue: Blanching, Intact Ashley Wound Swelling: None Wound Bed Color: Black, Red Wound Bed Constitution: Red/[place] - Non Granular Tissue (50%), Mixed Loose & Adhered Slough/Eschar (50% eschar) Wound Edges: Irregular Site Odor: None Pressure Injury Stage: Unstageable Pressure Injury Present on Admit: No Skin Integrity Problem Comment: Full-thickness wound noted on L lower sacrum, medial aspect of patient's buttocks. This was previously documented as an evolving deep tissue injury, and has now evolved into an unstageable pressure injury w/ 50% adhered eschar in the medial aspect of the wound bed. Remaining wound bed is smooth, non-granulating tissue. Changed order to wound gel and hydrocolloid dressing to help facilitate autolysis of necrotic tissue, followed by larger Allevyn life bordered foam to protect site. Patient remains on [place] air-fluidized surface, w/ turns q2. Staff RNs Praful and Latisha assisting. Right Sacrum Pressure Injury Dressing Type: Allevyn Life Dressing Description: Intact Exudate Amount: Scant Exudate Characteristic(s): Serosanguinous Integumentary Issue Intervention: Dressing Applied, Dressing Changed, Hydrogel Applied Ashley Wound Tissue: Blanching, Intact Ashley Wound Swelling: None Wound Bed Color: Black, Red Wound Bed Constitution: Red/[place] - Non Granular Tissue (80%), Mixed Loose & Adhered Slough/Eschar (20% eschar) Wound Edges: Irregular Site Odor: None Pressure Injury Stage: Unstageable Pressure Injury Present on Admit: No Skin Integrity Problem Comment: Full-thickness wound w/ adhered eschar along the medial aspect of the wound bed, previously documented as an evolving DTI which has now evolved into an unstageable wound. Periwound skin is intact and blanching. Changed treatment plan to hydogel and hydrocolloid to facilitate autolysis of the remaining eschar, followed by Allevyn Life foam dressing. Discussed ongoing plan to keep site off-loaded with nursing, and provided specialty supplies.
[2017-09-23] MEDS: SENNOSIDES 1 TAB PO PRN (15:58)
[2017-09-23] MEDS: oxyCODONE IR 5 MG TAB PO PRN (18:13)
[2017-09-23] MEDS: ZOLPIDEM TARTRATE 5 MG TAB PO SCH (20:57)
--- NOTE | 2017-09-24 06:18 | SOAPPROG ---
SOAP Progress Note Assessment/Plan: POD #:17 Emergent replacement of ascending aorta and hemiarch under circulatory arrest with #26 mm Hemashield graft, resuspension of aortic valve with repair, left axillary artery cannulation with #10 mm Hemashield graft POD #16: Re-exploration of chest with evacuation of clot POD #6: Debridement of presternal soft tissue. Chest closure with kacey and retention sutures. Acute ascending aortic dissection s/p repair - stable. Acute blood loss anemia with coagulopathy s/p massive blood transfusion. Transfuse prn. Post-op tamponade - clot evacuated, stable. Thrombocytopenia - secondary to CPB. HIT negative. Resolved. Acute renal failure - secondary to hypoperfusion. Increasing UOP as per bladder scans. Further management as per renal. VDRF - extubated and on room air. Zosyn course completed for GNR in sputum. Postoperative PAF/bradycardia - thromboprophylaxis deferred d/t short duration. Beta-anish held d/t bradycardia. Post-operative encephalopathy - improving with supportive care. No evidence of acute CVA on CTH. Continue aggressive PT/OT. Persistent sternal drainage - s/p debridement with closure. Stable. Postoperative pedal ischemia - bilateral toe necrosis w preserved DP and PT pulses. Microvascular thrombosis while on high dose pressor support suspected. CCB started for vasodilation. Gen surg involvement prn. Postoperative sacral pressure ulcers - managed by wound care. DVT prophylaxis - SCDs/heparin SQ. Nutrition - continue regular diet. Lines - RIJ HD catheter (09/16/17), LUE PICC Subjective: No complaints. Objective: Vital Signs Temp Pulse Resp BP Pulse Ox 36.6 C 101 H 18 142/72 H 98 09/24/17 04:00 09/24/17 04:00 09/24/17 04:00 09/24/17 04:00 09/24/17 04:00 Laboratory Results 09/24/17 04:25 09/24/17 04:25 09/23/17 09/24/17 09/25/17 05:59 05:59 05:59 Intake Total 500 800 Output Total 750 450 Balance -250 350 PT 23.0 SEC (12.0-15.0) H 09/07/17 19:55 INR 2.03 (0.83-1.16) H 09/07/17 19:55 Physical Exam - Physical Exam General Appearance: WD/WN, alert, no apparent distress EENT: No scleral icterus (R), No scleral icterus (L) Neck: normal inspection Respiratory: No respiratory distress Cardiac/Chest: regular rate, rhythm, tachycardia Abdomen: non-tender, soft, No distended Skin: normal color, warm/dry Extremities: pedal edema Neuro/Psych: no motor/sensory deficits, alert, normal mood/affect ICD10 Worksheet Patient Problems: Problems Problem Status Onset Acute blood loss anemia Acute Acute renal failure Acute Acute respiratory failure Acute Aortic dissection, thoracoabdominal Acute Hypokalemia Acute Postoperative atrial fibrillation Acute S/P ascending aortic replacement Acute ~09/07/17 HTN (hypertension) Chronic Morbid obesity Chronic
[2017-09-24] MEDS: HEPARIN 5,000 UNIT/0.5 ML SYR SC SCH ×3 (06:35→21:20)
[2017-09-24] MEDS: traMADol 50 MG TAB PO PRN ×2 (07:28→13:40)
[2017-09-24] MEDS: CALCIUM ACETATE 667 MG CAP PO SCH ×3 (08:43→18:37)
[2017-09-24] MEDS: SEVELAMER HCL 800 MG TAB PO SCH ×3 (08:43→18:37)
[2017-09-24] MEDS: ASPIRIN EC 81 MG TAB PO SCH (08:48)
[2017-09-24] MEDS: PANTOPRAZOLE SODIUM 40 MG TAB PO SCH (08:48)
[2017-09-24] MEDS: NIFEdipine 10 MG CAP PO SCH ×3 (08:48→21:20)
[2017-09-24] MEDS ORDERED: FUROSEMIDE 40 MG/4 ML VIAL IVP ONE (12:31)
--- NOTE | 2017-09-24 12:36 | SOAPPROG ---
SOAP Progress Note Assessment/Plan: Assessment: Oliguric MADDY, dialysis dependent at this point, I continue to expect eventual renal recovery P/O Ao repair after dissection hypocalcemia, continue supplementation, as necessary, should improve with HD, 8.6 today! volume overload, now on room air, wt still up from admission, BP better today sternum wound needed repaired, dehiscence was superficial and did not involve the sternotomy, drain placed hypokalemis Plan: No HD planned for today evaluate for HD tomorrow give a dose of lasix today supplement K Supplement Ca as needed encouraged nutrition and physical therapy hopefully begin to see renal recovery soon, uop is picking up 09/11/17 08:46 09/11/17 08:52 09/17/17 08:52 09/18/17 10:34 09/19/17 08:10 09/20/17 12:52 09/21/17 09:59 09/24/17 12:33 Subjective: still with foot pain no nausea or vomiting in bed today no cp or SOB sleeping well Objective: Vital Signs Temp Pulse Resp BP Pulse Ox 36.9 C 105 H 24 H 135/87 H 95 09/24/17 12:00 09/24/17 12:00 09/24/17 12:00 09/24/17 08:00 09/24/17 12:00 Laboratory Results 09/24/17 04:25 09/24/17 04:25 09/23/17 09/24/17 09/25/17 05:59 05:59 05:59 Intake Total 500 1050 Output Total 750 450 500 Balance -250 600 -500 PT 23.0 SEC (12.0-15.0) H 09/07/17 19:55 INR 2.03 (0.83-1.16) H 09/07/17 19:55 Physical Exam - Physical Exam General Appearance: alert Respiratory: No rhonchi, No wheezing Cardiac/Chest: regular rate, rhythm, edema, No gallop, No friction rub Abdomen: normal bowel sounds, non-tender, soft Skin: other (feet and toes still dusky) Extremities: swelling Neuro/Psych: alert, oriented x 3 ICD10 Worksheet Patient Problems: Problems Problem Status Onset Acute blood loss anemia Acute Acute renal failure Acute Acute respiratory failure Acute Aortic dissection, thoracoabdominal Acute Hypokalemia Acute Postoperative atrial fibrillation Acute S/P ascending aortic replacement Acute ~09/07/17 HTN (hypertension) Chronic Morbid obesity Chronic
[2017-09-24] MEDS ORDERED: POTASSIUM Cl (KCl) 100 ML IV ONE (12:37)
--- NOTE | 2017-09-24 15:15 | ASMTCMCOM ---
CM Note CM Note Notes: Spoke with patient's nurse who is concerned patient's pain is not controlled and as a result he is having a difficult time participating in therapies. Dr. Rock approved gabapentin to be added to medications to see if this improves patient's pain levels. Patient is dialysis dependent currently with eventual renal recovery expected. CM will follow. Date Signed: 09/24/2017 03:14 PM Electronically Signed By:Loan Raymond LCSW
[2017-09-24] MEDS: LACTULOSE 20 GM/30 ML UDCUP PO PRN (15:47)
[2017-09-24] MEDS: GABAPENTIN 300 MG CAP PO SCH ×2 (15:47→21:20)
[2017-09-24] MEDS: oxyCODONE IR 5 MG TAB PO PRN ×2 (18:37→22:38)
[2017-09-24] MEDS: ZOLPIDEM TARTRATE 5 MG TAB PO SCH (21:20)
--- NOTE | 2017-09-25 07:05 | SOAPPROG ---
SOAP Progress Note Assessment/Plan: Assessment: POD#18 Emergent replacement of ascending aorta and hemiarch with # 26 mm Hemashield graft. Hypothermic circulatory arrest, right axillary artery cannulation, resuspension of aortic valve with repair POD#17 Re-exploration of chest with evacuation of clot. Chest closure with kacey. POD#7 Debridement of presternal soft tissue. Chest closure with kacey and retention sutures. LUE PICC. DCJ dialysis cath. Acute type 1 aortic dissection - Aortic root to infrarenal abd aorta. AV resuspended and asc ao and hemiarch replaced with dacron tube graft. Repair complicated by coagulopathy and cardiac tamponade necessitating re-exploration and wash-out. Hemodynamic support on multiple pressors x 48 hrs. Multiorgan dysfx slowly resolving. Remains significantly fluid overloaded. Acute expected blood loss anemia with coagulopathy - Exacerbated by HCA. Stable s/p massive blood transfusion. No evidence active bleeding. Chest tubes out. Platelet count normalized. Precautionary HIT neg. VTE prophylaxis with SCDs and SQ hep. Acute renal failure - Likely secondary to hypotension and low-flow state. Nephrology consulted. HD, fluid and electrolyte management at their direction. Acute postoperative respiratory failure - Vent dependent thru POD#6. Wean delayed by metabolic encephalopathy. Eventual extubation without incident and weaned to room air. Abnl sputum (with low grade temps/mild inc WBC) covered with course of Zosyn. No overt PNA by CXR. Cleared for dysphagia diet by MORTGAGE SERVICING SPECIALIST. Postoperative encephalopathy - AMS with decr rt limb mvmt. CT head indeterminate. Rapid improvements in mentation and ext mvmt/strength post cessation of sedation. Cont aggressive PT/OT. Postoperative PAF - 2 short episodes successfully converted back to SR on amiodarone. Adjunctive BB held d/t episodic michael/? sinus arrest. Probable vagal response per cards review. Preferential use of CCB for vasorelaxation pedal circulation. Formal thromboprophylaxis deferred for now. Postoperative sternal drainage - Distal sternotomy. OR exploration revelatory of superficial dehiscence of soft tissue suture line with seroma. No sternal malunion or lax hardware. Wound debrided and reapproximated. Drain removed POD# 1. Postoperative pedal ischemia - Bilateral toe discoloration w preserved DP and PT pulses. Microvascular thrombosis while on high dose pressor support suspected. Demarcation in progress. CCB started for vasodilatation. Gen surg involvement prn. Delayed mobility while wt bearing compromised. Postoperative sacral pressure ulcers - DTI. Followed by wound care. Plan: Cont supportive care by multidisciplinary team. 09/25/17 07:05 Subjective: Sitting in a chair. Eating, sleeping well. Adequate analgesia of incisional pain. Feet cont to limit wt bearing. Objective: Vital Signs Temp Pulse Resp BP Pulse Ox 36.9 C 106 H 20 138/85 H 96 09/24/17 20:00 09/25/17 04:00 09/25/17 04:00 09/25/17 04:00 09/25/17 04:00 Laboratory Results 09/25/17 04:15 09/25/17 04:15 09/24/17 09/25/17 09/26/17 05:59 05:59 05:59 Intake Total 1050 200 Output Total 450 2270 Balance 600 -2070 PT 23.0 SEC (12.0-15.0) H 09/07/17 19:55 INR 2.03 (0.83-1.16) H 09/07/17 19:55 Cardioresp status stable. Steady resolution of fluid overload. Now within 2 kg of admit wt. Dramatic inc in UOP. Physical Exam - Physical Exam General Appearance: alert, no apparent distress Respiratory: lungs clear Cardiac/Chest: regular rate, rhythm, other (Sternum grossly stable. Sternotomy CDI.) Peripheral Pulses: 3+: dorsalis-pedis (R) (blackened toe tips), dorsalis-pedis ( L) (blackened toe tips) Abdomen: non-tender, soft Skin: warm/dry Extremities: swelling (2+ pedal) ICD10 Worksheet Patient Problems: Problems Problem Status Onset Acute blood loss anemia Acute Acute renal failure Acute Acute respiratory failure Acute Aortic dissection, thoracoabdominal Acute Hypokalemia Acute Postoperative atrial fibrillation Acute S/P ascending aortic replacement Acute ~09/07/17 HTN (hypertension) Chronic Morbid obesity Chronic
[2017-09-25] MEDS: HEPARIN 5,000 UNIT/0.5 ML SYR SC SCH ×3 (07:20→23:32)
[2017-09-25] MEDS: oxyCODONE IR 5 MG TAB PO PRN ×4 (08:22→23:33)
[2017-09-25] MEDS: PANTOPRAZOLE SODIUM 40 MG TAB PO SCH (08:22)
[2017-09-25] MEDS: GABAPENTIN 300 MG CAP PO SCH ×3 (08:22→23:32)
[2017-09-25] MEDS: SEVELAMER HCL 800 MG TAB PO SCH ×3 (08:22→18:39)
[2017-09-25] MEDS: CALCIUM ACETATE 667 MG CAP PO SCH ×3 (08:22→18:39)
[2017-09-25] MEDS: NIFEdipine 10 MG CAP PO SCH ×3 (08:23→23:32)
[2017-09-25] MEDS: ASPIRIN EC 81 MG TAB PO SCH (08:23)
[2017-09-25] MEDS: LACTULOSE 20 GM/30 ML UDCUP PO PRN (08:23)
--- NOTE | 2017-09-25 08:24 | SOAPPROG ---
[facility] Progress Note Assessment/Plan: Assessment: Oliguric MADDY, now non oliguric, still dialysis dependent at this point but UOP 2.2 L yesterday, I continue to expect eventual renal recovery P/O Ao repair after dissection hypocalcemia, continue supplementation, as necessary, should improve with HD volume overload, now on room air, wt still up from admission, BP better today sternum wound needed repaired, dehiscence was superficial and did not involve the sternotomy, drain placed hypokalemia better Plan: No HD planned for today evaluate for HD tomorrow give a dose of lasix today supplement K as needed Supplement Ca as needed encouraged nutrition and physical therapy hopefully begin to see renal recovery soon, uop is picking up nicely 09/11/17 08:46 09/11/17 08:52 09/17/17 08:52 09/18/17 10:34 09/19/17 08:10 09/20/17 12:52 09/21/17 09:59 09/24/17 12:33 09/25/17 08:21 Subjective: up to chair feet continue to be his biggest complaint no cp sob nausea or vomiting appetite improved energy better slept well last night spirits good today Objective: Vital Signs Temp Pulse Resp BP Pulse Ox 36.9 C 106 H 20 138/85 H 96 09/24/17 20:00 09/25/17 04:00 09/25/17 04:00 09/25/17 04:00 09/25/17 04:00 Laboratory Results 09/25/17 04:15 09/25/17 04:15 09/24/17 09/25/17 09/26/17 05:59 05:59 05:59 Intake Total 1050 200 Output Total 450 2270 Balance 600 -2070 PT 23.0 SEC (12.0-15.0) H 09/07/17 19:55 INR 2.03 (0.83-1.16) H 09/07/17 19:55 Physical Exam - Physical Exam General Appearance: alert, obese Respiratory: rales, No rhonchi, No wheezing Cardiac/Chest: regular rate, rhythm, edema, No friction rub Abdomen: normal bowel sounds, non-tender, soft Skin: other (feet remain dusky) Extremities: swelling Neuro/Psych: alert, normal mood/affect, oriented x 3 ICD10 Worksheet Patient Problems: Problems Problem Status Onset Acute blood loss anemia Acute Acute renal failure Acute Acute respiratory failure Acute Aortic dissection, thoracoabdominal Acute Hypokalemia Acute Postoperative atrial fibrillation Acute S/P ascending aortic replacement Acute ~09/07/17 HTN (hypertension) Chronic Morbid obesity Chronic
[2017-09-25] MEDS: FUROSEMIDE 40 MG/4 ML VIAL IVP SCH (09:08)
--- NOTE | 2017-09-25 11:16 | WOCRNPDOC ---
WOCRJohny Advanced Assessment Note - Skin Integrity Problem, Advanced Assess Left Sacrum Pressure Injury Dressing Type: Allevyn Life, Hydrocolloid Dressing Description: Clean/Dry, Intact Exudate Amount: Scant Exudate Characteristic(s): Serosanguinous Integumentary Issue Intervention: Dressing Changed, Dressing Initialed & Dated Wound Bed Constitution: Red/[place] - Non Granular Tissue (30%), Mixed Loose & Adhered Slough/Eschar (70%) Wound Edges: Attached Pressure Injury Stage: Unstageable Pressure Injury Present on Admit: No Skin Integrity Problem Comment: Cleaned with ns and gauze. Able to mechanically debride some loose slough. Applied wound gel to slough and covered with 4x4 replicare. Then large allevyn life sacral dressing. Center and deepest area of wound still slightly fluctuant and has not fully declared itsself. May be ready for surgical debridement next week. Patient did not have any pain with fairly aggressive mechanical debridement of wound bed at the bedside. Wound care will round again next week. Right Sacrum Pressure Injury Dressing Type: Allevyn Life, Hydrocolloid Dressing Description: Clean/Dry, Intact Exudate Amount: Scant Exudate Characteristic(s): Serosanguinous Integumentary Issue Intervention: Dressing Changed, Dressing Initialed & Dated Wound Bed Color: Red, Yellow Wound Bed Constitution: Red/[place] - Non Granular Tissue, Adhered Slough (50%) Wound Edges: Attached Pressure Injury Stage: Unstageable Pressure Injury Present on Admit: No Skin Integrity Problem Comment: Cleaned with ns and gauze. Able to mechanically debride some loose slough. Applied wound gel to slough and covered with 4x4 replicare. Then large allevyn life sacral dressing. Right Heel Pressure Injury Dressing Type: Open to Air Wound Bed Color: Black, Purple Site Measurement - Head-to-Toe Length X Width X Depth (cm): 4.5x6.5x0 Pressure Injury Stage: Deep Tissue Injury (DTI) Pressure Injury Present on Admit: No Skin Integrity Problem Comment: No open areas on either heel. The damage appears quite deep and likely least partially due to patient's cardiovascular status/vasopressor use. Unknown if this will resolve without opening or not. Will monitor area. Please offload at all times when in bed. Left Heel Pressure Injury Dressing Type: Open to Air Site Measurement - Head-to-Toe Length X Width X Depth (cm): 3.5x4.5x0 Pressure Injury Stage: Deep Tissue Injury (DTI) Pressure Injury Present on Admit: No Skin Integrity Problem Comment: Patient was refusing offloading boots. Then explained reasoning for needing to wear them and consequences of leaving boots off and patient allowed bilateral heel offloading boots to be placed. Jewels RAY in room. Right Toes Dressing Type: Open to Air Wound Bed Constitution: Stable Eschar Skin Integrity Problem Comment: Necrosis present on all toes. Left Toes Dressing Type: Open to Air Wound Bed Constitution: Stable Eschar Skin Integrity Problem Comment: Necrosis present on all toes. Recommend to paint with betadine BID.
[2017-09-25] MEDS: ZOLPIDEM TARTRATE 5 MG TAB PO SCH (23:32)
[2017-09-26] MEDS: HEPARIN 5,000 UNIT/0.5 ML SYR SC SCH ×3 (06:22→23:43)
--- NOTE | 2017-09-26 06:33 | SOAPPROG ---
SOAP Progress Note Assessment/Plan: POD #:19 Emergent replacement of ascending aorta and hemiarch under circulatory arrest with #26 mm Hemashield graft, resuspension of aortic valve with repair, left axillary artery cannulation with #10 mm Hemashield graft POD #18: Re-exploration of chest with evacuation of clot POD #8: Debridement of presternal soft tissue. Chest closure with kacey and retention sutures. Acute ascending aortic dissection s/p repair - stable. Acute blood loss anemia with coagulopathy s/p massive blood transfusion. Stable. Post-op tamponade - clot evacuated, stable. Thrombocytopenia - secondary to CPB. HIT negative. Resolved. Acute renal failure - secondary to hypoperfusion. Increasing UOP. Further management as per renal. VDRF - extubated and on room air. Zosyn course completed for GNR in sputum. Postoperative PAF/bradycardia - thromboprophylaxis deferred d/t short duration. Calcium channel anish started. Post-operative encephalopathy - Resolved. No evidence of acute CVA on CTH. Continue aggressive PT/OT. Persistent sternal drainage - s/p debridement with closure. Stable. Postoperative pedal ischemia - bilateral toe necrosis w preserved DP and PT pulses. Microvascular thrombosis while on high dose pressor support suspected. CCB started for vasodilation. Gen surg involvement prn. Postoperative sacral pressure ulcers - managed by wound care. DVT prophylaxis - SCDs/heparin SQ. Nutrition - continue regular diet. Lines - RIJ HD catheter (09/16/17), LUE PICC Subjective: Feet hurt otherwise no complaints. Objective: Vital Signs Temp Pulse Resp BP Pulse Ox 37.3 C 110 H 19 118/89 H 94 09/26/17 04:00 09/26/17 04:00 09/26/17 04:00 09/26/17 04:00 09/26/17 04:00 Laboratory Results 09/26/17 05:00 09/26/17 05:00 09/25/17 09/26/17 09/27/17 05:59 05:59 05:59 Intake Total 200 1340 Output Total 2270 2225 Balance -0 -885 PT 23.0 SEC (12.0-15.0) H 09/07/17 19:55 INR 2.03 (0.83-1.16) H 09/07/17 19:55 Physical Exam - Physical Exam General Appearance: WD/WN, alert, no apparent distress EENT: No scleral icterus (R), No scleral icterus (L) Neck: normal inspection Respiratory: No respiratory distress Cardiac/Chest: tachycardia, other (sternotomy and right axillary cannulation site intact ) Abdomen: non-tender, soft, distended Skin: normal color, warm/dry Extremities: pedal edema, other (necrotic toes) Neuro/Psych: alert, normal mood/affect ICD10 Worksheet Patient Problems: Problems Problem Status Onset Acute blood loss anemia Acute Acute renal failure Acute Acute respiratory failure Acute Aortic dissection, thoracoabdominal Acute Hypokalemia Acute Postoperative atrial fibrillation Acute S/P ascending aortic replacement Acute ~09/07/17 HTN (hypertension) Chronic Morbid obesity Chronic
[2017-09-26] MEDS ORDERED: NS 100 ML IV PRN (07:13)
[2017-09-26] MEDS: CALCIUM ACETATE 667 MG CAP PO SCH ×3 (09:39→17:52)
[2017-09-26] MEDS: SEVELAMER HCL 800 MG TAB PO SCH ×3 (09:40→17:51)
[2017-09-26] MEDS: NIFEdipine 10 MG CAP PO SCH (09:40)
[2017-09-26] MEDS: PANTOPRAZOLE SODIUM 40 MG TAB PO SCH (09:40)
[2017-09-26] MEDS: FUROSEMIDE 40 MG/4 ML VIAL IVP SCH (09:40)
[2017-09-26] MEDS: ASPIRIN EC 81 MG TAB PO SCH (09:40)
[2017-09-26] MEDS: GABAPENTIN 300 MG CAP PO SCH ×3 (09:40→23:43)
[2017-09-26] MEDS: oxyCODONE IR 5 MG TAB PO PRN ×3 (10:21→23:55)
--- NOTE | 2017-09-26 10:50 | SOAPPROG ---
SOAP Progress Note Assessment/Plan: Assessment: 1. MADDY. Ischemic ATN. Brisk uop. Creat now falling on its own. Hold dialysis after today and watch for recovery. 2. Volume overload. No edema. CXR clear. Minimal O2 req although up to 3 L this am. Wt back to ~2kg up from admission. Rec holding lasix, give prn if uop slows down or acutely needed. 3. Hyperphosphatemia. P 7. Continue cliff shipley qa. Plan: 09/26/17 10:48 09/26/17 10:49 09/26/17 10:50 Subjective: Pt seen and examined on dialysis. C/o bilateral foot pain. Catheter has been very positional. Objective: Vital Signs Temp Pulse Resp BP Pulse Ox 37.0 C 112 H 17 133/86 H 95 09/26/17 06:58 09/26/17 06:58 09/26/17 06:58 09/26/17 06:58 09/26/17 06:58 Laboratory Results 09/26/17 05:00 09/26/17 05:00 09/25/17 09/26/17 09/27/17 05:59 05:59 05:59 Intake Total 200 1590 Output Total 2270 3825 Balance -2069 -2234 PT 23.0 SEC (12.0-15.0) H 09/07/17 19:55 INR 2.03 (0.83-1.16) H 09/07/17 19:55 male. NAD. On dialysis, R IJ temp catheter IRIR, tachy, no m/g/r CTAB Abdom soft, nt No LE edema Toes all black/necrotic. blue/black discoloration on forefeet ICD10 Worksheet Patient Problems: Problems Problem Status Onset Postoperative atrial fibrillation Acute Morbid obesity Chronic Acute blood loss anemia Acute Acute respiratory failure Acute Acute renal failure Acute S/P ascending aortic replacement Acute ~09/07/17 HTN (hypertension) Chronic Aortic dissection, thoracoabdominal Acute Hypokalemia Acute
[2017-09-26] MEDS: MUPIROCIN 2% 22 GM OINT TP SCH (11:01)
[2017-09-26] MEDS: DILTIAZEM 60 MG TAB PO SCH ×3 (13:58→23:44)
[2017-09-26] MEDS: LACTULOSE 20 GM/30 ML UDCUP PO PRN (13:58)
[2017-09-26] MEDS: TAMSULOSIN HCL 0.4 MG CAP PO SCH (14:25)
[2017-09-26] MEDS ORDERED: HEPARIN 50,000 UNIT/10 ML VIAL ONE (17:59)
--- NOTE | 2017-09-26 18:08 | ECHO ---
[email or web address] [address] [address] Main: [phone] Fax: [email or web address] Echocardiogram Name: ANTHONY WOODSON MR#: [id number] Study Date: 09/26/2017 Study Time: 01:26 PM Date of : 1970 Age: 47 year(s) Height: 170.2 cm (67 in.) Weight: 92.53 kg (204 lb.) BSA: 2.04 m2 Gender: Male Examination: Echo Indication: s/p asc aorta replacement; aortic dissection Image Quality: Technically Difficult Contrast: Requested by: Patrick Agarwal BP: 98 mmHg/51 mmHg Heart Rate: Rhythm: Indication: s/p asc aorta replacement; aortic dissection Procedure Staff [employer] Manager: Shantelle Ramirez Reading Physician: Michael Harrison Requesting Provider: Conclusions: Normal size left ventricle. Moderate concentric LV hypertrophy. Normal global systolic LV function. No regional wall motion abnormality. Normal size right ventricle. Normal RV function. The left atrium is normal in size. There is a bright echo noted near the coronary sinus outside the LA; in some views reverberation from this structure/mass gives the impression of a LA thrombus. Cannot definitely rule out LA thrombus without a MARA.. The right atrium is normal in size. The mitral valve is normal in appearance. Trivial to mild mitral regurgitation. No mitral stenosis is present. Aortic valve is not well visualized. There is no aortic valve regurgitation. Tricuspid valve not well visualized. Trivial to mild tricuspid valve regurgitation. Right ventricular systolic pressure measures 20mmHg. The pulmonary artery pressure is normal. Pulmonary valve not well visualized. S/P ascending aorta replacment. Normal size ascending aorta measuring 3.6 cm. No pericardial effusion. If there is worry of left atrial compression by an extracardiac source cnsider correlation with CT to evaluate further. If a left atrial thrombus is a possibility or concern consider MARA to better evaluate. Measurements: Patient: ANTHONY WOODSON Study Date: 09/26/2017 Page 1 of 3 01:26 PM Chambers Valvular Assessment AV/MV Valvular Assessment TV/PV Normal Normal Normal Name Value Range Name Value Range Name Value Range IVSd (2D): 1.4 cm (0.6 cm-1.1 AV Vmax: 1.21 m/s (1 m/s-1.7 TR Vmax: 1.93 mm/s ( - ) cm) m/s) TR PGmax: 15 mmHg ( - ) LVDd (2D): 4.6 cm (4.2 cm-5.9 AV maxP mmHg ( - ) syst. PAP: 20 mmHg ( - ) cm) LVOT Vmax: 1.14 m/s (0.7 m/s-1.1 PV Vmax: 1.46 m/s (0.6 m/s-0.9 LVDs (2D): 3.0 cm (2.1 cm-4 m/s) m/s) cm) MV E Vmax: 0.77 m/s ( - ) PV PGmax: 9 mmHg ( - ) LVPWd (2D): 1.3 cm (0.6 cm-1 MV A Vmax: 0.89 m/s ( - ) cm) MV E/A: 0.87 ( - ) RVDd(2D): 3.2 cm (1.9 cm-3.8 cmmm) Continued Measurements: Chambers Valvular Assessment AV/MV Valvular Assessment TV/PV Name Value Name Value Name Value LADs Lon.7 cm MV DecTime: 140 m/s CVP (est.): 5 mmHg LA Area: 23.3 cm2 LA Volume: 46 ml LA Volume Index: 22.5 ml/m2 Additional Vessels Name Value Ao Ascendin.6 cm Findings: Left Ventricle: Normal size left ventricle. Moderate concentric LV hypertrophy. Normal global systolic LV function. No regional wall motion abnormality. Right Ventricle: Normal size right ventricle. Normal RV function. Left Atrium: The left atrium is normal in size. There is a bright echo noted near the coronary sinus outside the LA; in some views reverberation from this structure/mass gives the impression of a LA thrombus. Cannot definitely rule out LA thrombus without a MARA.. Right Atrium: The right atrium is normal in size. Mitral Valve: The mitral valve is normal in appearance. Trivial to mild mitral regurgitation. No mitral stenosis is present. Aortic Valve: Aortic valve is not well visualized. There is no aortic valve regurgitation. No aortic valve stenosis is present. Tricuspid Valve: Tricuspid valve not well visualized. Trivial to mild tricuspid valve regurgitation. Right ventricular systolic pressure measures 20mmHg. The pulmonary artery pressure is normal. Pulmonic Valve: Pulmonary valve not well visualized. Aorta: S/P ascending aorta replacment. Normal size ascending aorta measuring 3.6 cm. Pericardium: No pericardial effusion. (No Signature Object) Patient: ANTHONY WOODSON Study Date: 09/26/2017 Page 2 of 3 01:26 PM Patient: ANTHONY WOODSON Study Date: 09/26/2017 Page 3 of 3 01:26 PM [id number]
[2017-09-26] MEDS: ZOLPIDEM TARTRATE 5 MG TAB PO SCH ×2 (23:43→23:57)
[2017-09-26] MEDS: SENNOSIDES 1 TAB PO PRN (23:43)
[2017-09-27] MEDS: HEPARIN 5,000 UNIT/0.5 ML SYR SC SCH ×3 (06:42→22:13)
[2017-09-27] MEDS: DILTIAZEM 60 MG TAB PO SCH ×3 (06:42→17:40)
--- NOTE | 2017-09-27 08:25 | SOAPPROG ---
SOAP Progress Note Assessment/Plan: Assessment: POD #:20 Emergent replacement of ascending aorta and hemiarch under circulatory arrest with #26 mm Hemashield graft, resuspension of aortic valve with repair, left axillary artery cannulation with #10 mm Hemashield graft POD #19: Re-exploration of chest with evacuation of clot POD #9: Debridement of presternal soft tissue. Chest closure with kacey and retention sutures. Acute ascending aortic dissection s/p repair - On ASA with stable BP on Diltiazem. Acute blood loss anemia with coagulopathy- S/p massive blood transfusion. Stable. Post-op tamponade - Clot evacuated, stable. Secondary thrombocytopenia due to CPB- HIT negative. Resolved. Acute renal failure - Secondary to hypoperfusion. Stable UOP. HD yesterday, however no need for further HD per renal. Urinary retention- Initiated Flomax yesterday. Required straight cath again last night, however did urinate today. Will hold off on re-placing palmer for now. VDRF - Currently on 2L NC. Zosyn course completed for GNR in sputum. Postoperative PAF/bradycardia - Thromboprophylaxis deferred d/t short duration. On Diltiazem. Post-operative encephalopathy - Resolved. No evidence of acute CVA on CTH. Continue aggressive PT/OT. Persistent sternal drainage - s/p debridement with closure. Stable. Postoperative pedal ischemia - bilateral toe necrosis worsening w preserved DP and PT pulses. Microvascular thrombosis while on high dose pressor support suspected. On Diltiazem for vasodilation. Gen surg involvement prn. Postoperative sacral pressure ulcers - Managed by wound care. DVT prophylaxis - SCDs/heparin SQ. Nutrition - Continue regular diet. Lines - RIJ HD catheter (09/16/17), LUE PICC Plan: - D/c HD catheter. - Suppository for no BM several days. - Will continue to follow patient's necrotic toes. Continue Neurontin. - Continue to bladder scan Q6 and straight cath prn. Subjective: Patient reports having pain in his feet. Objective: Vital Signs Temp Pulse Resp BP Pulse Ox 36.8 C 100 18 94/58 L 94 09/27/17 07:16 09/27/17 07:16 09/27/17 07:16 09/27/17 07:16 09/27/17 07:16 Laboratory Results 09/26/17 05:00 09/27/17 05:30 09/26/17 09/27/17 09/28/17 05:59 05:59 05:59 Intake Total 1590 550 Output Total 3825 1270 Balance -2235 -720 PT 23.0 SEC (12.0-15.0) H 09/07/17 19:55 INR 2.03 (0.83-1.16) H 09/07/17 19:55 Physical Exam - Physical Exam General Appearance: WD/WN ( ), alert, no apparent distress Respiratory: lungs clear, other (Diminished BS bilaterally) Cardiac/Chest: regular rate, rhythm, other (Sternum stable, sternotomy c/d/i) Abdomen: normal bowel sounds, non-tender, soft Skin: warm/dry, other (black necrotic toes bilat) Extremities: other (Minimal lower extremity edema) Neuro/Psych: alert, normal mood/affect, oriented x 3 ICD10 Worksheet Patient Problems: Problems Problem Status Onset Acute blood loss anemia Acute Acute renal failure Acute Acute respiratory failure Acute Aortic dissection, thoracoabdominal Acute Hypokalemia Acute Postoperative atrial fibrillation Acute S/P ascending aortic replacement Acute ~09/07/17 HTN (hypertension) Chronic Morbid obesity Chronic
[2017-09-27] MEDS: oxyCODONE IR 5 MG TAB PO PRN ×3 (09:38→21:58)
[2017-09-27] MEDS: PANTOPRAZOLE SODIUM 40 MG TAB PO SCH (09:38)
[2017-09-27] MEDS: ASPIRIN EC 81 MG TAB PO SCH (09:38)
[2017-09-27] MEDS: SEVELAMER HCL 800 MG TAB PO SCH ×3 (09:38→15:58)
[2017-09-27] MEDS: GABAPENTIN 300 MG CAP PO SCH ×3 (09:38→21:58)
[2017-09-27] MEDS: TAMSULOSIN HCL 0.4 MG CAP PO SCH (09:38)
[2017-09-27] MEDS: CALCIUM ACETATE 667 MG CAP PO SCH ×3 (09:39→15:58)
[2017-09-27] MEDS: MUPIROCIN 2% 22 GM OINT TP SCH (11:42)
[2017-09-27] MEDS ORDERED: BISACODYL 10 MG SUPP PR ONE (12:18)
--- NOTE | 2017-09-27 12:46 | SOAPPROG ---
SOAP Progress Note Assessment/Plan: Assessment: 1. MADDY. Ischemic ATN. Nonoliguric. Creat was down on its own yesterday. Holding dialysis and watching for recovery. Note that HD cath was removed this am. 2. Volume overload. No edema. CXR clear. BP dropped yesterday. Euvolemic. If BP drops again give 250cc NS bolus. 3. Hyperphosphatemia. P 6.2. Continue cliff shipley qarachel. Plan: 09/26/17 10:48 09/26/17 10:49 09/26/17 10:50 09/27/17 12:44 09/27/17 12:45 09/27/17 12:46 Subjective: No events per RN. I&O cath with 500cc urine just recently. Had low BP in 70s after HD yesterday, better now. 3 L UF on HD. Objective: Vital Signs Temp Pulse Resp BP Pulse Ox 36.7 C 93 18 110/85 H 93 09/27/17 11:18 09/27/17 11:18 09/27/17 11:18 09/27/17 11:18 09/27/17 11:18 Laboratory Results 09/26/17 05:00 09/27/17 05:30 09/26/17 09/27/17 09/28/17 05:59 05:59 05:59 Intake Total 1590 550 360 Output Total 3825 1270 550 Balance -2235 -720 -190 PT 23.0 SEC (12.0-15.0) H 09/07/17 19:55 INR 2.03 (0.83-1.16) H 09/07/17 19:55 Lethargic, arousable, in bed, appears very weak IRIR, tachy, no m/g/r CTAB Abdom soft, nt Toes/forefeet both with black discoloration/dry gangrene No LE edema ICD10 Worksheet Patient Problems: Problems Problem Status Onset Postoperative atrial fibrillation Acute Morbid obesity Chronic Acute blood loss anemia Acute Acute respiratory failure Acute Acute renal failure Acute S/P ascending aortic replacement Acute ~09/07/17 HTN (hypertension) Chronic Aortic dissection, thoracoabdominal Acute Hypokalemia Acute
--- NOTE | 2017-09-27 14:40 | ASMTCMCOM ---
CM Note CM Note Notes: Patient continues to be dependent for all ADLs. He stood with PT today. Dialysis catheter removed. Per FLOR Lora, he faces a long road to recovery. His toes are necrotic and will likely require I & D or amputation. She spoke with his brother Adal in [place] today and gave these updates. Discharge needs continue to be TBD pending patient's progress. Date Signed: 09/27/2017 02:39 PM Electronically Signed By:Samantha Marshall RN
[2017-09-27] MEDS: ZOLPIDEM TARTRATE 5 MG TAB PO SCH (21:58)
[2017-09-28] MEDS: DILTIAZEM 60 MG TAB PO SCH ×4 (00:52→17:43)
[2017-09-28] MEDS: HEPARIN 5,000 UNIT/0.5 ML SYR SC SCH ×3 (06:12→22:49)
[2017-09-28] MEDS: MUPIROCIN 2% 22 GM OINT TP SCH (07:18)
--- NOTE | 2017-09-28 08:13 | SOAPPROG ---
SOAP Progress Note Assessment/Plan: POD #21: Emergent replacement of ascending aorta and hemiarch under circulatory arrest with #26 mm Hemashield graft, resuspension of aortic valve with repair, left axillary artery cannulation with #10 mm Hemashield graft POD #20: Re-exploration of chest with evacuation of clot POD #10: Debridement of presternal soft tissue. Chest closure with kacey and retention sutures. Acute ascending aortic dissection s/p repair - On ASA with stable BP. Retention sutures to stay in place for one month. Acute blood loss anemia with coagulopathy- S/p massive blood transfusion. Stable. Post-op tamponade - s/p clot evacuation, stable. Secondary thrombocytopenia due to CPB- HIT negative. Resolved. Acute renal failure - Secondary to hypoperfusion. Good UOP. HD held for now per renal. HD catheter d/c'd yesterday. Can place new HD catheter later if necessary. Urinary retention- Initiated Flomax and patient is able to urinate small volumes , however still requiring straight cath due to high PVR's. Continue to bladder scan and straight cath prn. VDRF - Currently on 2-3L NC. Zosyn course completed for GNR in sputum. Postoperative PAF/bradycardia - Thromboprophylaxis deferred d/t short duration. On Diltiazem. Post-operative encephalopathy - Resolved. No evidence of acute CVA on CTH. Continue aggressive PT/OT. Persistent sternal drainage - s/p debridement with closure. Stable. Postoperative pedal ischemia - Bilateral toe necrosis worsening w preserved DP and PT pulses. Microvascular thrombosis while on high dose pressor support suspected. On Diltiazem for vasodilation. Gen surg involvement prn. Postoperative sacral pressure ulcers - Managed by wound care. DVT prophylaxis - SCDs/heparin SQ. Nutrition - Continue regular diet. Lines - LUE PICC Subjective: Patient reports continued bilateral foot pain. Reports that his current pain regimen is not helping his pain. Objective: Vital Signs Temp Pulse Resp BP Pulse Ox 36.6 C 89 18 110/62 97 09/28/17 07:46 09/28/17 07:46 09/28/17 07:46 09/28/17 07:46 09/28/17 07:46 Laboratory Results 09/26/17 05:00 09/28/17 05:10 09/27/17 09/28/17 09/29/17 05:59 05:59 05:59 Intake Total 550 1810 Output Total 1270 2250 Balance -720 -440 PT 23.0 SEC (12.0-15.0) H 09/07/17 19:55 INR 2.03 (0.83-1.16) H 09/07/17 19:55 Physical Exam - Physical Exam General Appearance: WD/WN, alert, no apparent distress Respiratory: lungs clear, normal breath sounds, decreased breath sounds (bases) Cardiac/Chest: other (Murmur LSB, no rubs. Sternum stable, sternotomy c/d/i with retention sutures intact. ) Abdomen: normal bowel sounds, non-tender, soft Skin: warm/dry Extremities: other (No edema. Bilateral toes still black. ) Neuro/Psych: alert, normal mood/affect, oriented x 3 ICD10 Worksheet Patient Problems: Problems Problem Status Onset Acute blood loss anemia Acute Acute renal failure Acute Acute respiratory failure Acute Aortic dissection, thoracoabdominal Acute Hypokalemia Acute Postoperative atrial fibrillation Acute S/P ascending aortic replacement Acute ~09/07/17 HTN (hypertension) Chronic Morbid obesity Chronic
[2017-09-28] MEDS: CALCIUM ACETATE 667 MG CAP PO SCH ×3 (08:30→17:43)
[2017-09-28] MEDS: SEVELAMER HCL 800 MG TAB PO SCH ×3 (08:30→17:43)
[2017-09-28] MEDS: TAMSULOSIN HCL 0.4 MG CAP PO SCH (08:30)
[2017-09-28] MEDS: GABAPENTIN 300 MG CAP PO SCH ×3 (08:30→22:48)
[2017-09-28] MEDS: ASPIRIN EC 81 MG TAB PO SCH (08:30)
[2017-09-28] MEDS: PANTOPRAZOLE SODIUM 40 MG TAB PO SCH (08:31)
[2017-09-28] MEDS: oxyCODONE IR 5 MG TAB PO PRN (09:10)
--- NOTE | 2017-09-28 12:52 | SOAPPROG ---
SOAP Progress Note Assessment/Plan: Assessment: 1. MADDY. Ischemic ATN. Good UOP. Creat trending down. Appears to be recovering. Holding dialysis at this point. 2. Volume overload. No edema. CXR clear. Lasix held. Bolus NS prn hypotension. 3. Hyperphosphatemia. Continue renvela, tums qac. 4. Foot gangrene. Dry, likely d/t pressors. May need Gen surg. Seem to be worse today. Plan: 09/26/17 10:48 09/26/17 10:49 09/26/17 10:50 09/27/17 12:44 09/27/17 12:45 09/27/17 12:46 09/28/17 12:50 09/28/17 12:52 Subjective: C/o a lot of pain in his feet. Objective: Vital Signs Temp Pulse Resp BP Pulse Ox 37.1 C 89 17 110/73 93 09/28/17 12:00 09/28/17 12:00 09/28/17 12:00 09/28/17 12:00 09/28/17 12:00 Laboratory Results 09/26/17 05:00 09/28/17 05:10 09/27/17 09/28/17 09/29/17 05:59 05:59 05:59 Intake Total 550 1810 840 Output Total 1270 2250 700 Balance -720 -440 140 PT 23.0 SEC (12.0-15.0) H 09/07/17 19:55 INR 2.03 (0.83-1.16) H 09/07/17 19:55 Tired, weak and debilitated appearing male, in bed. Alert. RRR, no m/g/r CTAB Abdom obese, nt No LE edema All toes necrotic and black. Forefeet purple to black in color. Feet warm. ICD10 Worksheet Patient Problems: Problems Problem Status Onset Postoperative atrial fibrillation Acute Morbid obesity Chronic Acute blood loss anemia Acute Acute respiratory failure Acute Acute renal failure Acute S/P ascending aortic replacement Acute ~09/07/17 HTN (hypertension) Chronic Aortic dissection, thoracoabdominal Acute Hypokalemia Acute
[2017-09-28] MEDS: ZOLPIDEM TARTRATE 5 MG TAB PO SCH (22:48)
[2017-09-29] MEDS: HEPARIN 5,000 UNIT/0.5 ML SYR SC SCH ×3 (06:07→21:00)
[2017-09-29] MEDS: MUPIROCIN 2% 22 GM OINT TP SCH (07:37)
--- NOTE | 2017-09-29 07:39 | SOAPPROG ---
SOAP Progress Note Assessment/Plan: Assessment: POD#22 Emergent replacement of ascending aorta and hemiarch with # 26 mm Hemashield graft. Hypothermic circulatory arrest, right axillary artery cannulation, resuspension of aortic valve with repair POD#21 Re-exploration of chest with evacuation of clot. Chest closure with kacey. POD#11 Debridement of presternal soft tissue. Chest closure with kacey and retention sutures. LUE PICC. Acute type 1 aortic dissection - Aortic root to infrarenal abd aorta. AV resuspended and asc ao and hemiarch replaced with dacron tube graft. Repair complicated by coagulopathy and cardiac tamponade necessitating re-exploration and wash-out. Hemodynamic support on multiple pressors x 48 hrs. Multiorgan dysfx slowly resolving. BP well controlled. Acute expected blood loss anemia with thrombocytopenia and coagulopathy - Exacerbated by HCA. Stable s/p massive blood transfusion. No evidence active bleeding. Chest tubes out. Platelet count normalized. Precautionary HIT neg. VTE prophylaxis with SCDs and SQ hep. Acute renal failure - Likely secondary to hypotension and low-flow state. Nephrology consulted. HD, fluid and electrolyte management at their direction. UOP picking up, Cr trending down, and HD currently on hold. Postoperative urinary retention - Evident once producing urine. Refractory to Flomax. High PVRs regularly decompressed with straight caths. Consider urology consult. Acute postoperative respiratory failure - Vent dependent thru POD#6. Wean delayed by metabolic encephalopathy. Eventual extubation without incident and weaned to room air. Abnl sputum (with low grade temps/mild inc WBC) covered with course of Zosyn. No overt PNA by CXR. Dietary advancement per QUILL REAMER. Postoperative encephalopathy - AMS with decr rt limb mvmt. CT head indeterminate. Rapid improvements in mentation and ext mvmt/strength post cessation of sedation. Cont aggressive PT/OT. Postoperative PAF - 2 short episodes successfully converted back to SR on amiodarone. Adjunctive BB held d/t episodic michael/? sinus arrest. Probable vagal response per cards review. Preferential use of CCB for pedal vasorelaxation. Formal thromboprophylaxis deferred for now. Postoperative sternal drainage - Distal sternotomy. OR exploration revelatory of superficial dehiscence of soft tissue suture line with seroma. No sternal malunion or lax hardware. Wound debrided and reapproximated. Drain removed POD# 1. Postoperative pedal ischemia - Bilateral toe discoloration w preserved DP and PT pulses. Microvascular thrombosis while on high dose pressor support suspected. Demarcation in progress. CCB started for vasodilatation. Gen surg involvement prn. Delayed mobility while wt bearing compromised. Postoperative sacral pressure ulcers - DTI. Followed by wound care. Plan: Cont supportive care by multidisciplinary team. Change dilt IR to lower dose dilt XR. Consider 1u PRBC. 09/29/17 07:39 Subjective: Awoken from sleep. Grumpy to be disturbed. Denies c/o. Objective: Vital Signs Temp Pulse Resp BP Pulse Ox 36.9 C 98 16 112/60 92 09/29/17 04:00 09/29/17 04:00 09/29/17 04:00 09/29/17 04:00 09/29/17 04:00 Laboratory Results 09/29/17 06:10 09/29/17 06:10 09/28/17 09/29/17 09/30/17 05:59 05:59 05:59 Intake Total 1810 1840 Output Total 2250 3500 Balance -440 -1660 PT 23.0 SEC (12.0-15.0) H 09/07/17 19:55 INR 2.03 (0.83-1.16) H 09/07/17 19:55 Labile HR and BP. Generally sl tachy with intermittent SBPs 90s. Excellent UOP. At admit wt. Cr cont to fall. CXR -> no pulm vasc congestion, no pleural effusions, left basilar atelectasis Physical Exam - Physical Exam General Appearance: no apparent distress Respiratory: lungs clear (grossly) Cardiac/Chest: regular rate, rhythm, tachycardia, other (Sternotomy and CT sites CDI) Abdomen: non-tender, soft Skin: warm/dry Extremities: other (dry gangrenous toes bilat) ICD10 Worksheet Patient Problems: Problems Problem Status Onset Acute blood loss anemia Acute Acute renal failure Acute Acute respiratory failure Acute Aortic dissection, thoracoabdominal Acute Hypokalemia Acute Postoperative atrial fibrillation Acute S/P ascending aortic replacement Acute ~09/07/17 HTN (hypertension) Chronic Morbid obesity Chronic
[2017-09-29] MEDS: SEVELAMER HCL 800 MG TAB PO SCH (08:13)
[2017-09-29] MEDS: GABAPENTIN 300 MG CAP PO SCH ×3 (08:13→21:00)
[2017-09-29] MEDS: CALCIUM ACETATE 667 MG CAP PO SCH ×3 (08:13→18:01)
[2017-09-29] MEDS: OXYCODONE/APAP 5/325 TAB PO PRN ×2 (08:13→21:05)
[2017-09-29] MEDS: ASPIRIN EC 81 MG TAB PO SCH (08:14)
[2017-09-29] MEDS: DILTIAZEM CD 180 MG CAP PO SCH (08:14)
[2017-09-29] MEDS: PANTOPRAZOLE SODIUM 40 MG TAB PO SCH (08:14)
[2017-09-29] MEDS: TAMSULOSIN HCL 0.4 MG CAP PO SCH (08:14)
--- NOTE | 2017-09-29 11:50 | SOAPPROG ---
SOAP Progress Note Assessment/Plan: Assessment/Plan: MADDY: likely ATN, now nonoliguric with good UOP and ok lytes. - Pt is now off HD and Cr continues to downtrend, will continue to monitor recovery. - Avoid hypotension and nephrotoxins. Hypervolemia: improved and now without extra edema, good UOP, will monitor. Hyperphosphatemia: Phos improved to 5.4 in setting of improving MADDY. Will stop sevelamer but continue calcium acetate with meals for now and continue to monitor. HTN: controlled on current meds, will continue to monitor. Anemia: Hgb 8.0, pt to get transfused 1 unit PRBCs today, will continue to monitor. Hyponatremia: Na 133. Will change fluid restriction to 2000ml and continue to monitor. Subjective: No acute events overnight. Pt sleepy but arousable, has no new complaints today. Objective: Vital Signs Temp Pulse Resp BP Pulse Ox 37.2 C 101 H 17 122/69 H 93 09/29/17 07:49 09/29/17 07:49 09/29/17 07:49 09/29/17 07:49 09/29/17 07:49 Laboratory Results 09/29/17 06:10 09/29/17 06:10 09/28/17 09/29/17 09/30/17 05:59 05:59 05:59 Intake Total 1810 1840 600 Output Total 2250 3500 Balance -440 -1660 600 PT 23.0 SEC (12.0-15.0) H 09/07/17 19:55 INR 2.03 (0.83-1.16) H 09/07/17 19:55 General: somnolent but arousable, no mild distress Eyes; EOMI, PERRL OP: clear CV: RRR Resp: CTAB Abd: Soft, nondistended Ext: no edema BLE Neuro; CN II-XII grossly intact ICD10 Worksheet Patient Problems: Problems Problem Status Onset Acute blood loss anemia Acute Acute renal failure Acute Acute respiratory failure Acute Aortic dissection, thoracoabdominal Acute Hypokalemia Acute Postoperative atrial fibrillation Acute S/P ascending aortic replacement Acute ~09/07/17 HTN (hypertension) Chronic Morbid obesity Chronic
[2017-09-29] MEDS: SENNOSIDES 1 TAB PO PRN (17:00)
[2017-09-29] MEDS: ZOLPIDEM TARTRATE 5 MG TAB PO SCH (21:00)
[2017-09-30] MEDS: OXYCODONE/APAP 5/325 TAB PO PRN ×3 (06:00→22:08)
[2017-09-30] MEDS: HEPARIN 5,000 UNIT/0.5 ML SYR SC SCH ×3 (06:01→22:07)
--- NOTE | 2017-09-30 07:13 | SOAPPROG ---
SOAP Progress Note Assessment/Plan: Assessment: POD#23 Emergent replacement of asc aorta and hemiarch with #26 mm Hemashield graft. Hypothermic circulatory arrest, right axillary artery cannulation, resuspension of aortic valve with repair POD#22 Re-exploration of chest with evacuation of clot. Chest closure with kacey. POD#12 Debridement of presternal soft tissue. Chest closure with kacey and retention sutures. LUE PICC. Acute type 1 aortic dissection - Aortic root to infrarenal abd aorta. AV resuspended and asc ao and hemiarch replaced with dacron tube graft. Repair complicated by coagulopathy and cardiac tamponade necessitating re-exploration and wash-out. Hemodynamic support on multiple pressors x 48 hrs. Multiorgan dysfx slowly resolving. BP well controlled. Acute expected blood loss anemia with thrombocytopenia and coagulopathy - Exacerbated by HCA. Stable s/p massive blood transfusion. No evidence active bleeding. Chest tubes out. Platelet count normalized. Precautionary HIT neg. VTE prophylaxis with SCDs and SQ hep. Acute renal failure - Likely secondary to hypotension and low-flow state. Nephrology consulted. HD, fluid and electrolyte management at their direction. UOP picking up, Cr trending down, and HD currently on hold. Postoperative urinary retention - Evident once producing urine. Regularly decompressed with straight caths. No sig improvement on Flomax. Consider urology consult. Acute postoperative respiratory failure - Vent dependent thru POD#6. Wean delayed by metabolic encephalopathy. Eventual extubation without incident and weaned to room air. Abnl sputum (with low grade temps/mild inc WBC) covered with course of Zosyn. No overt PNA by CXR. Dietary advancement per [employer]. Postoperative encephalopathy - AMS with decr rt limb mvmt. CT head indeterminate. Rapid improvements in mentation and ext mvmt/strength post cessation of sedation. Cont aggressive PT/OT. Postoperative PAF - 2 short episodes successfully converted back to SR on amiodarone. Adjunctive BB held d/t episodic michael/? sinus arrest. Probable vagal response per cards review. Preferential use of CCB for pedal vasorelaxation. Formal thromboprophylaxis deferred for now. Postoperative sternal drainage - Distal sternotomy. OR exploration revelatory of superficial dehiscence of soft tissue suture line with seroma. No sternal malunion or lax hardware. Wound debrided and reapproximated. Drain removed POD# 1. Postoperative pedal ischemia - Bilateral toe discoloration w preserved DP and PT pulses. Microvascular thrombosis while on high dose pressor support suspected. Demarcation in progress. CCB started for vasodilatation. Gen surg involvement prn. Delayed mobility while wt bearing compromised. Postoperative sacral pressure ulcers - DTI. Followed by wound care. Plan: Cont supportive care by multidisciplinary team. 09/30/17 07:11 Subjective: Sleeping and not disturbed Objective: Vital Signs Temp Pulse Resp BP Pulse Ox 36.9 C 88 16 109/69 96 09/30/17 04:00 09/30/17 04:00 09/30/17 04:00 09/30/17 04:00 09/30/17 04:00 Laboratory Results 09/29/17 06:10 09/29/17 06:10 09/29/17 09/30/17 10/01/17 05:59 05:59 05:59 Intake Total 1840 2100 Output Total 3500 2875 Balance -1660 -775 PT 23.0 SEC (12.0-15.0) H 09/07/17 19:55 INR 2.03 (0.83-1.16) H 09/07/17 19:55 cardioresp status stable Physical Exam - Physical Exam General Appearance: no apparent distress Cardiac/Chest: regular rate, rhythm Skin: warm/dry ICD10 Worksheet Patient Problems: Problems Problem Status Onset Acute blood loss anemia Acute Acute renal failure Acute Acute respiratory failure Acute Aortic dissection, thoracoabdominal Acute Hypokalemia Acute Postoperative atrial fibrillation Acute S/P ascending aortic replacement Acute ~09/07/17 HTN (hypertension) Chronic Morbid obesity Chronic
[2017-09-30] MEDS: MUPIROCIN 2% 22 GM OINT TP SCH (08:24)
[2017-09-30] MEDS: TAMSULOSIN HCL 0.4 MG CAP PO SCH (08:48)
[2017-09-30] MEDS: PANTOPRAZOLE SODIUM 40 MG TAB PO SCH (08:48)
[2017-09-30] MEDS: CALCIUM ACETATE 667 MG CAP PO SCH (08:48)
[2017-09-30] MEDS: DILTIAZEM CD 180 MG CAP PO SCH (08:48)
[2017-09-30] MEDS: ASPIRIN EC 81 MG TAB PO SCH (08:48)
--- NOTE | 2017-09-30 09:45 | SOAPPROG ---
SOAP Progress Note Assessment/Plan: Assessment/Plan: MADDY: likely ATN, now nonoliguric with good UOP and ok lytes. - Pt is now off HD and Cr continues to downtrend, down to 2.8 today, will continue to monitor recovery. - Avoid hypotension and nephrotoxins. Hyperphosphatemia: Phos improved to 4.4 in setting of improving MADDY. Will stop all phos binders and continue to monitor. HTN: controlled on current meds, will continue to monitor. Anemia: Hgb 8.0, pt to get transfused 1 unit PRBCs yesterda, will continue to monitor. Hyponatremia: Na upt o 134. Will change fluid restriction to 2200ml and continue to monitor. Subjective: No acute events overnight. Pt eating and drinking well. Noted that he is still unable to urinate on his own, is getting I/O cathed regularly, has good UOP. He continues to have pain in feet. Objective: Vital Signs Temp Pulse Resp BP Pulse Ox 36.4 C 99 16 102/62 99 09/30/17 07:28 09/30/17 07:28 09/30/17 07:28 09/30/17 07:28 09/30/17 07:28 Laboratory Results 09/29/17 06:10 09/30/17 09:15 09/29/17 09/30/17 10/01/17 05:59 05:59 05:59 Intake Total 1840 2100 Output Total 3500 2875 Balance -1660 -775 PT 23.0 SEC (12.0-15.0) H 09/07/17 19:55 INR 2.03 (0.83-1.16) H 09/07/17 19:55 General: no acute distress Eyes: EOMI, PERRL OP: Clear CV: RRR Resp: nonlabored respirations on NC Abd: Soft, ND Ext: no edema Skin: black toes bilaterally Neuro: CN II-XII grossly intact, no asterixis ICD10 Worksheet Patient Problems: Problems Problem Status Onset Acute blood loss anemia Acute Acute renal failure Acute Acute respiratory failure Acute Aortic dissection, thoracoabdominal Acute Hypokalemia Acute Postoperative atrial fibrillation Acute S/P ascending aortic replacement Acute ~09/07/17 HTN (hypertension) Chronic Morbid obesity Chronic
--- NOTE | 2017-09-30 15:06 | WOCRNPDOC ---
WOFRANCISCO Advanced Assessment Note - Skin Integrity Problem, Advanced Assess Left Sacrum Pressure Injury Dressing Type: Allevyn Life, Hydrocolloid Dressing Description: Clean/Dry, Intact Exudate Amount: Scant Exudate Color: Reddish/Yellow Exudate Characteristic(s): Serosanguinous Integumentary Issue Intervention: Visualized Under Dressing Ashley Wound Tissue: Blanching, Erythema, Intact Ashley Wound Swelling: None Wound Bed Color: Red, Yellow Wound Bed Constitution: Red/[place] - Non Granular Tissue (50%), Adhered Slough (50 %) Wound Edges: Epithelizing Pressure Injury Stage: Unstageable Pressure Injury Present on Admit: No Skin Integrity Problem Comment: Autolytic debridement w/ hydrocolliod dressing working well, w/ a decrease in slough noted during this assessment. Wound bed is 50% non-granulating tissue along outer edges, and 50% adhered slough medially. Wound edges are epithelializing, and periwound skin is intact and blanching. Will continue w/ autolytic debridement and re-evaluate on . Right Sacrum Pressure Injury Dressing Type: Allevyn Life, Hydrocolloid Dressing Description: Intact Exudate Amount: Scant Exudate Color: Reddish/Yellow Exudate Characteristic(s): Serosanguinous Integumentary Issue Intervention: Visualized Under Dressing Ashley Wound Tissue: Blanching, Intact Ashley Wound Swelling: None Wound Bed Color: Red, Yellow Wound Bed Constitution: Red/[place] - Non Granular Tissue (70%), Adhered Slough (30 %) Pressure Injury Stage: Unstageable Pressure Injury Present on Admit: No Skin Integrity Problem Comment: Decreased slough noted during this assessment, well-adhered in the medial aspect of the wound w/ non-granulating tissue surrounding. Epithelializing along the margins. Periwound skin is intact and blanching. Will continue w/ hydrocolloid to promote autolysis of necrotic tissue , followed by Allevyn. Patient should remain on Cl[facility] bed while inpatient. Report given to assistant director of financial aidFLOR Payton.
--- NOTE | 2017-09-30 16:59 | CPEKG ---
Heart Rate: 108 RR Interval: 556 P-R Interval: 168 QRSD Interval: 148 QT Interval: 384 QTC Interval: 515 P [place]: 44 QRS [place]: 139 T Wave [place]: 17 EKG Severity - ABNORMAL ECG - EKG Impression: SINUS TACHYCARDIA EKG Impression: RBBB AND LPFB Electronically Signed By: Sea Feliz 30-Sep-2017 17:05:53
[2017-09-30] MEDS: ACETAMINOPHEN 325 MG TAB PO PRN (22:07)
[2017-09-30] MEDS: ZOLPIDEM TARTRATE 5 MG TAB PO SCH (22:08)
[2017-10-01] MEDS: HEPARIN 5,000 UNIT/0.5 ML SYR SC SCH ×3 (05:14→20:10)
--- NOTE | 2017-10-01 07:57 | SOAPPROG ---
SOAP Progress Note Assessment/Plan: POD #23 Emergent replacement of ascending aorta and hemiarch under circulatory arrest with #26 mm Hemashield graft, resuspension of aortic valve with repair, left axillary artery cannulation with #10 mm Hemashield graft POD #23: Re-exploration of chest with evacuation of clot POD #13: Debridement of presternal soft tissue. Chest closure with kacey and retention sutures. Acute ascending aortic dissection s/p repair - stable. Acute blood loss anemia with coagulopathy s/p massive blood transfusion - stable. Post-op tamponade - clot evacuated, stable. Thrombocytopenia - secondary to CPB. HIT negative. Resolved. Acute renal failure - secondary to hypoperfusion. Increasing UOP with normalizing Cr. Monitor BMP. NS @ 50 cc/h started for likely dehydration. VDRF - extubated and on room air. Zosyn course completed for GNR in sputum. Postoperative PAF/bradycardia - thromboprophylaxis deferred d/t short duration. Continue BB/CCB. Post-operative encephalopathy - Resolved. No evidence of acute CVA on CTH. Continue aggressive PT/OT. Persistent sternal drainage - s/p debridement with closure. Stable. Postoperative pedal ischemia - bilateral toe necrosis w preserved DP and PT pulses. Microvascular thrombosis while on high dose pressor support suspected. CCB started for vasodilation. Gen surg involvement prn. Postoperative sacral pressure ulcers - managed by wound care. DVT prophylaxis - SCDs/heparin SQ. Nutrition - continue regular diet. Lines - LUE PICC Subjective: Sleeping. Objective: Vital Signs Temp Pulse Resp BP Pulse Ox 36.8 C 102 H 12 126/101 H 93 10/01/17 07:21 10/01/17 07:21 10/01/17 07:21 10/01/17 07:21 10/01/17 07:21 Laboratory Results 10/01/17 05:15 10/01/17 05:15 09/30/17 10/01/17 10/02/17 05:59 05:59 05:59 Intake Total 2100 2000 Output Total 2875 3700 Balance -775 -1700 PT 23.0 SEC (12.0-15.0) H 09/07/17 19:55 INR 2.03 (0.83-1.16) H 09/07/17 19:55 Physical Exam - Physical Exam General Appearance: WD/WN, alert, no apparent distress EENT: No scleral icterus (R), No scleral icterus (L) Neck: normal inspection Respiratory: No respiratory distress Cardiac/Chest: tachycardia Abdomen: non-tender, soft, distended Skin: normal color, warm/dry Extremities: other (necrotic toes ) Neuro/Psych: no motor/sensory deficits ICD10 Worksheet Patient Problems: Problems Problem Status Onset Acute blood loss anemia Acute Acute renal failure Acute Acute respiratory failure Acute Aortic dissection, thoracoabdominal Acute Hypokalemia Acute Postoperative atrial fibrillation Acute S/P ascending aortic replacement Acute ~09/07/17 HTN (hypertension) Chronic Morbid obesity Chronic
[2017-10-01] MEDS: DILTIAZEM CD 180 MG CAP PO SCH (08:42)
[2017-10-01] MEDS: PANTOPRAZOLE SODIUM 40 MG TAB PO SCH (08:42)
[2017-10-01] MEDS: ASPIRIN EC 81 MG TAB PO SCH (08:42)
[2017-10-01] MEDS: OXYCODONE/APAP 5/325 TAB PO PRN (08:42)
[2017-10-01] MEDS: TAMSULOSIN HCL 0.4 MG CAP PO SCH (08:42)
[2017-10-01] MEDS: MUPIROCIN 2% 22 GM OINT TP SCH (09:47)
--- NOTE | 2017-10-01 09:58 | SOAPPROG ---
SODEBORAH Progress Note Assessment/Plan: Assessment: 47 MALE SP URGENT HEART SURGERY FOR DISSECTION IN NEED OF DIALYSIS CATH FOR ACUTE RENAL FAILURWE WITH CREAT> 8 INR PROLONGED PT UNABLE TO RESPOND Plan:RT IJ DIALYSIS CATH 09/09/17 23:55 10/01/17 09:55 OVERALL PATIENT IS IMPROVING FROM HIS CARDIAC SURGERY. HIS TOES ARE DEMARCATING WELL WITH ALMOST ALL 10 TOES APPEARING NECROTIC BUT DRY. WILL EVENTUALLY NEED BILATERAL TRANSMETATARSAL AMPUTATIONS. RISKS AND OPTIONS BRIEFLY DISCUSSED WITH THE PATIENT BUT HE DID NOT FULLY COMPREHEND AT THIS POINT. WILL CONTINUE TO FOLLOW EVENTUALLY PLAN SURGERY Objective: Vital Signs Temp Pulse Resp BP Pulse Ox 36.8 C 101 H 12 138/89 H 93 10/01/17 07:21 10/01/17 08:38 10/01/17 07:21 10/01/17 08:38 10/01/17 07:21 Laboratory Results 10/01/17 05:15 10/01/17 05:15 09/30/17 10/01/17 10/02/17 05:59 05:59 05:59 Intake Total 2099 1999 236 Output Total 2875 3700 Balance -775 -1700 236 PT 23.0 SEC (12.0-15.0) H 09/07/17 19:55 INR 2.03 (0.83-1.16) H 09/07/17 19:55 ICD10 Worksheet Patient Problems: Problems Problem Status Onset Acute blood loss anemia Acute Acute renal failure Acute Acute respiratory failure Acute Aortic dissection, thoracoabdominal Acute Hypokalemia Acute Postoperative atrial fibrillation Acute S/P ascending aortic replacement Acute ~09/07/17 HTN (hypertension) Chronic Morbid obesity Chronic
[2017-10-01] MEDS ORDERED: NS 1,000 ML IV SCH (10:15)
--- NOTE | 2017-10-01 11:31 | SOAPPROG ---
AIDA Progress Note Assessment/Plan: Assessment: Oliguric MADDY, now recovered P/O Ao repair after dissection ischemic feet Plan: No more HD renal recovery well on its way renal signing off 09/11/17 08:46 09/11/17 08:52 09/17/17 08:52 09/18/17 10:34 09/19/17 08:10 09/20/17 12:52 09/21/17 09:59 09/24/17 12:33 09/25/17 08:21 10/01/17 11:28 Subjective: hungry today no cp sob nausea or vomiting spirits ok feet hurt, otherwise no complaints appetite good energy improving Objective: Vital Signs Temp Pulse Resp BP Pulse Ox 36.8 C 101 H 12 138/89 H 93 10/01/17 07:21 10/01/17 08:38 10/01/17 07:21 10/01/17 08:38 10/01/17 07:21 Laboratory Results 10/01/17 05:15 10/01/17 05:15 09/30/17 10/01/17 10/02/17 05:59 05:59 05:59 Intake Total 2099 1999 236 Output Total 2875 3700 Balance -775 -1700 236 PT 23.0 SEC (12.0-15.0) H 09/07/17 19:55 INR 2.03 (0.83-1.16) H 09/07/17 19:55 Physical Exam - Physical Exam General Appearance: alert Respiratory: No rhonchi, No wheezing Cardiac/Chest: other (regular, tachy), No friction rub Abdomen: normal bowel sounds, non-tender, soft Skin: other (ischemic canges bilaterally in his feet) Extremities: No swelling Neuro/Psych: alert, oriented x 3 ICD10 Worksheet Patient Problems: Problems Problem Status Onset Acute blood loss anemia Acute Acute renal failure Acute Acute respiratory failure Acute Aortic dissection, thoracoabdominal Acute Hypokalemia Acute Postoperative atrial fibrillation Acute S/P ascending aortic replacement Acute ~09/07/17 HTN (hypertension) Chronic Morbid obesity Chronic
[2017-10-01] MEDS: METOPROLOL TARTRATE 25 MG TAB PO SCH ×2 (11:43→20:10)
[2017-10-01] MEDS: diphenhydrAMINE 25 MG CAP PO PRN (17:27)
[2017-10-01] MEDS: ZOLPIDEM TARTRATE 5 MG TAB PO SCH (20:10)
[2017-10-02] MEDS: HEPARIN 5,000 UNIT/0.5 ML SYR SC SCH ×3 (05:50→21:21)
[2017-10-02] MEDS: OXYCODONE/APAP 5/325 TAB PO PRN ×2 (05:50→18:19)
--- NOTE | 2017-10-02 06:55 | SOAPPROG ---
SOAP Progress Note Assessment/Plan: POD #25 Emergent replacement of ascending aorta and hemiarch under circulatory arrest with #26 mm Hemashield graft, resuspension of aortic valve with repair, left axillary artery cannulation with #10 mm Hemashield graft POD #24: Re-exploration of chest with evacuation of clot POD #14: Debridement of presternal soft tissue. Chest closure with kacey and retention sutures. Acute ascending aortic dissection s/p repair - stable. Acute blood loss anemia with coagulopathy s/p massive blood transfusion - stable. Post-op tamponade - clot evacuated, stable. Thrombocytopenia - secondary to CPB. HIT negative. Resolved. Acute renal failure - secondary to hypoperfusion. Increasing UOP with normalizing Cr. Renal signed off. VDRF - extubated and on room air. Zosyn course completed for GNR in sputum. Postoperative PAF/bradycardia - thromboprophylaxis deferred d/t short duration. Continue BB/CCB. Post-operative encephalopathy - Resolved. No evidence of acute CVA on CTH. Continue aggressive PT/OT. Persistent sternal drainage - s/p debridement with closure. Stable. Postoperative pedal ischemia - bilateral toe necrosis w preserved DP and PT pulses. Microvascular thrombosis while on high dose pressor support suspected. CCB started for vasodilation. Gen surgery to amputate toes in future. Postoperative sacral pressure ulcers - managed by wound care. DVT prophylaxis - SCDs/heparin SQ. Nutrition - continue regular diet. Lines - LUE PICC Subjective: Walked yesterday. Objective: Vital Signs Temp Pulse Resp BP Pulse Ox 37.0 C 98 16 114/86 H 94 10/02/17 04:00 10/02/17 04:00 10/02/17 04:00 10/02/17 04:00 10/02/17 04:00 Laboratory Results 10/02/17 05:45 10/02/17 05:45 10/01/17 10/02/17 10/03/17 05:59 05:59 05:59 Intake Total 1999 2765 Output Total 3700 2700 Balance -1700 65 PT 23.0 SEC (12.0-15.0) H 09/07/17 19:55 INR 2.03 (0.83-1.16) H 09/07/17 19:55 Physical Exam - Physical Exam General Appearance: WD/WN, alert, no apparent distress, obese EENT: No scleral icterus (R), No scleral icterus (L) Neck: normal inspection Respiratory: No respiratory distress Cardiac/Chest: tachycardia Abdomen: non-tender, soft, No distended Skin: normal color, warm/dry Extremities: No pedal edema Neuro/Psych: no motor/sensory deficits, alert, normal mood/affect, oriented x 3 ICD10 Worksheet Patient Problems: Problems Problem Status Onset Acute blood loss anemia Acute Acute renal failure Acute Acute respiratory failure Acute Aortic dissection, thoracoabdominal Acute Hypokalemia Acute Postoperative atrial fibrillation Acute S/P ascending aortic replacement Acute ~09/07/17 HTN (hypertension) Chronic Morbid obesity Chronic
--- NOTE | 2017-10-02 09:34 | WOCRNPDOC ---
WOFRANCISCO Advanced Assessment Note - Skin Integrity Problem, Advanced Assess Left Sacrum Pressure Injury Dressing Type: Allevyn Life Dressing Description: Intact Integumentary Issue Intervention: Dressing Removed Ashley Wound Tissue: Erythema, Denuded Wound Bed Color: Brown, Red, Yellow Wound Bed Constitution: Red/[place] - Non Granular Tissue (50%), Mixed Loose & Adhered Slough/[place] (50%) Wound Edges: Attached Pressure Injury Stage: Unstageable Pressure Injury Present on Admit: No Skin Integrity Problem Comment: Dr Harkins visualized wound and would like wound care to continue autolytic debridement. Right Sacrum Pressure Injury Dressing Type: Allevyn Life Dressing Description: Clean/Dry, Intact Integumentary Issue Intervention: Dressing Removed Wound Bed Color: Red Wound Bed Constitution: Red/[place] - Non Granular Tissue, Adhered Slough (30%)
[2017-10-02] MEDS: METOPROLOL TARTRATE 25 MG TAB PO SCH (10:14)
[2017-10-02] MEDS: diphenhydrAMINE 25 MG CAP PO PRN (10:14)
[2017-10-02] MEDS: DILTIAZEM CD 180 MG CAP PO SCH (10:14)
[2017-10-02] MEDS: PANTOPRAZOLE SODIUM 40 MG TAB PO SCH (10:14)
[2017-10-02] MEDS: ASPIRIN EC 81 MG TAB PO SCH (10:15)
[2017-10-02] MEDS: TAMSULOSIN HCL 0.4 MG CAP PO SCH (10:15)
[2017-10-02] MEDS: MUPIROCIN 2% 22 GM OINT TP SCH ×2 (10:16→10:20)
[2017-10-02] MEDS: MAG HYDROX/AL HYDROX/SIMETH 30 ML UDCUP PO PRN (18:46)
[2017-10-02] MEDS: ZOLPIDEM TARTRATE 5 MG TAB PO SCH (21:21)
[2017-10-02] MEDS: METOPROLOL TARTRATE 50 MG TAB PO SCH (21:21)
--- NOTE | 2017-10-03 00:03 | SOAPPROG ---
SODEBORAH Progress Note Assessment/Plan: Assessment: 47 MALE SP URGENT HEART SURGERY FOR DISSECTION IN NEED OF DIALYSIS CATH FOR ACUTE RENAL FAILURWE WITH CREAT> 8 INR PROLONGED PT UNABLE TO RESPOND Plan:RT IJ DIALYSIS CATH 09/09/17 23:55 10/01/17 09:55 OVERALL PATIENT IS IMPROVING FROM HIS CARDIAC SURGERY. HIS TOES ARE DEMARCATING WELL WITH ALMOST ALL 10 TOES APPEARING NECROTIC BUT DRY. WILL EVENTUALLY NEED BILATERAL TRANSMETATARSAL AMPUTATIONS. RISKS AND OPTIONS BRIEFLY DISCUSSED WITH THE PATIENT BUT HE DID NOT FULLY COMPREHEND AT THIS POINT. WILL CONTINUE TO FOLLOW EVENTUALLY PLAN SURGERY 10/03/17 00:01 DOES CONTINUE TO DEMARCATE/ HE WILL LOSE ALMOST ALL HIS TOES/VERY WEAK/ BILATERAL SUPERFICIAL BUTTOCK DECUBITI I STABLE Objective: Vital Signs Temp Pulse Resp BP Pulse Ox 37.3 C 100 17 134/86 H 92 10/02/17 22:59 10/02/17 22:59 10/02/17 22:59 10/02/17 22:59 10/02/17 22:59 Laboratory Results 10/02/17 05:45 10/02/17 05:45 10/01/17 10/02/17 10/03/17 05:59 05:59 05:59 Intake Total 1999 2765 240 Output Total 3700 2700 2150 Balance -1700 65 -1910 PT 23.0 SEC (12.0-15.0) H 09/07/17 19:55 INR 2.03 (0.83-1.16) H 09/07/17 19:55 ICD10 Worksheet Patient Problems: Problems Problem Status Onset Acute blood loss anemia Acute Acute renal failure Acute Acute respiratory failure Acute Aortic dissection, thoracoabdominal Acute Hypokalemia Acute Postoperative atrial fibrillation Acute S/P ascending aortic replacement Acute ~09/07/17 HTN (hypertension) Chronic Morbid obesity Chronic
[2017-10-03] MEDS: HEPARIN 5,000 UNIT/0.5 ML SYR SC SCH ×3 (06:05→21:05)
--- NOTE | 2017-10-03 07:01 | SOAPPROG ---
SOAP Progress Note Assessment/Plan: POD #26 Emergent replacement of ascending aorta and hemiarch under circulatory arrest with #26 mm Hemashield graft, resuspension of aortic valve with repair, left axillary artery cannulation with #10 mm Hemashield graft POD #25: Re-exploration of chest with evacuation of clot POD #15: Debridement of presternal soft tissue. Chest closure with kacey and retention sutures. Acute ascending aortic dissection s/p repair - stable. Acute blood loss anemia with coagulopathy s/p massive blood transfusion - stable. Post-op tamponade - clot evacuated, stable. Thrombocytopenia - secondary to CPB. HIT negative. Resolved. Acute renal failure - secondary to hypoperfusion. Now polyuric with normalizing Cr. NS @ 100 cc/h until UOP slows. Urinary retention - continue q4h bladder scans while polyuric. Continue Flomax. UA without signs of UTI. Urine Cx pending. VDRF - extubated and on room air. Zosyn course completed for GNR in sputum. Postoperative PAF/bradycardia - thromboprophylaxis deferred d/t short duration. Continue BB/CCB. Post-operative encephalopathy - Resolved. No evidence of acute CVA on CTH. Continue aggressive PT/OT. Persistent sternal drainage - s/p debridement with closure. Stable. Will remove kacey/sutures today. Postoperative pedal ischemia - bilateral toe necrosis w preserved DP and PT pulses secondary to pressor support suspected. CCB started for vasodilation. Gen surgery to amputate toes in future. Postoperative sacral pressure ulcers - managed by wound care. DVT prophylaxis - SCDs/heparin SQ. Nutrition - continue regular diet. Lines - LUE PICC Subjective: No complaints. Objective: Vital Signs Temp Pulse Resp BP Pulse Ox 37.4 C 94 20 140/90 H 94 10/03/17 03:26 10/03/17 03:26 10/03/17 03:26 10/03/17 03:26 10/03/17 03:26 Laboratory Results 10/02/17 05:45 10/03/17 03:40 10/02/17 10/03/17 10/04/17 05:59 05:59 05:59 Intake Total 2765 990 Output Total 2700 4517 Balance 65 -3527 PT 23.0 SEC (12.0-15.0) H 09/07/17 19:55 INR 2.03 (0.83-1.16) H 09/07/17 19:55 Physical Exam - Physical Exam General Appearance: WD/WN, alert, no apparent distress EENT: No scleral icterus (R), No scleral icterus (L) Neck: normal inspection Respiratory: No respiratory distress Cardiac/Chest: regular rate, rhythm, tachycardia Abdomen: non-tender, soft, No distended Skin: normal color, warm/dry Extremities: No pedal edema Neuro/Psych: no motor/sensory deficits, alert, normal mood/affect, oriented x 3 ICD10 Worksheet Patient Problems: Problems Problem Status Onset Acute blood loss anemia Acute Acute renal failure Acute Acute respiratory failure Acute Aortic dissection, thoracoabdominal Acute Hypokalemia Acute Postoperative atrial fibrillation Acute S/P ascending aortic replacement Acute ~09/07/17 HTN (hypertension) Chronic Morbid obesity Chronic
[2017-10-03] MEDS: NS 1,000 ML IV SCH ×2 (08:50→19:10)
[2017-10-03] MEDS: METOPROLOL TARTRATE 50 MG TAB PO SCH ×2 (08:50→20:59)
[2017-10-03] MEDS: DILTIAZEM CD 180 MG CAP PO SCH (08:50)
[2017-10-03] MEDS: TAMSULOSIN HCL 0.4 MG CAP PO SCH (08:50)
[2017-10-03] MEDS: PANTOPRAZOLE SODIUM 40 MG TAB PO SCH (08:50)
[2017-10-03] MEDS: ASPIRIN EC 81 MG TAB PO SCH (08:50)
[2017-10-03] MEDS: ACETAMINOPHEN 325 MG TAB PO PRN ×2 (08:50→16:15)
[2017-10-03] MEDS: traMADol 50 MG TAB PO PRN (20:59)
[2017-10-03] MEDS: ZOLPIDEM TARTRATE 5 MG TAB PO SCH (20:59)
[2017-10-04] MEDS: NS 1,000 ML IV SCH ×2 (03:39→14:07)
[2017-10-04] MEDS: HEPARIN 5,000 UNIT/0.5 ML SYR SC SCH ×3 (05:12→21:15)
[2017-10-04] MEDS: DILTIAZEM CD 180 MG CAP PO SCH (09:41)
[2017-10-04] MEDS: METOPROLOL TARTRATE 50 MG TAB PO SCH ×2 (09:42→19:44)
[2017-10-04] MEDS: ASPIRIN EC 81 MG TAB PO SCH (09:42)
[2017-10-04] MEDS: PANTOPRAZOLE SODIUM 40 MG TAB PO SCH (09:42)
[2017-10-04] MEDS: TAMSULOSIN HCL 0.4 MG CAP PO SCH (09:42)
--- NOTE | 2017-10-04 09:44 | ASMTCMCOM ---
CM Note CM Note Notes: 10/04/2017 Case Management Note Reviewed chart. PT is recommending SNF rehab. Unfortunately pt insurance will not fund SNF rehab. Pt is going to d/c independent with family support. Case Management to follow. Date Signed: 10/04/2017 09:43 AM Electronically Signed By:Rosie Garcia RN
--- NOTE | 2017-10-04 09:47 | SOAPPROG ---
SOAP Progress Note Assessment/Plan: Assessment: POD#27 Emergent replacement of asc aorta and hemiarch with #26 mm Hemashield graft. Hypothermic circulatory arrest, right axillary artery cannulation, resuspension of aortic valve with repair POD#26 Re-exploration of chest with evacuation of clot. Chest closure with kacey. POD#16 Debridement of presternal soft tissue. Chest closure with kacey and retention sutures. LUE PICC. Acute type 1 aortic dissection - Aortic root to infrarenal abd aorta. AV resuspended and asc ao and hemiarch replaced with dacron tube graft. Repair complicated by coagulopathy and cardiac tamponade necessitating re-exploration and wash-out. Hemodynamic support on multiple pressors x 48 hrs. Multiorgan dysfx slowly resolving. BP well controlled. Acute expected blood loss anemia with thrombocytopenia and coagulopathy - Exacerbated by HCA. Stable s/p massive blood transfusion. No evidence active bleeding. Chest tubes out. Platelet count normalized. Precautionary HIT neg. VTE prophylaxis with SCDs and SQ hep. Acute renal failure - Secondary to hypoperfusion. Nephrology consulted. HD, fluid and electrolyte management at their direction. Now polyuric with normalizing Cr. NS @ 100 cc/h until UOP slows. Postoperative urinary retention - Evident once producing urine. Regularly decompressed with straight caths. No sig improvement on Flomax. UA neg for UTI. Consider urology consult. Acute postoperative respiratory failure - Vent dependent thru POD#6. Wean delayed by metabolic encephalopathy. Eventual extubation without incident and weaned to room air. Abnl sputum (with low grade temps/mild inc WBC) covered with course of Zosyn. No overt PNA by CXR. Dietary advancement per TAIL EDGER. Postoperative encephalopathy - AMS with decr rt limb mvmt. CT head indeterminate. Rapid improvements in mentation and ext mvmt/strength post cessation of sedation. Cont aggressive PT/OT. Postoperative PAF - 2 short episodes successfully converted back to SR on amiodarone. Adjunctive BB and CCB for rate control. Thromboprophylaxis deferred due to short duration. Postoperative sternal drainage - Distal sternotomy. OR exploration revelatory of superficial dehiscence of soft tissue suture line with seroma. No sternal malunion or lax hardware. Wound debrided and reapproximated. Drain removed POD# 1. Kacey and retention sutures out. Wounds healing appropriately. Postoperative pedal ischemia - Bilateral toe necrosis w preserved DP and PT pulses. Microvascular thrombosis while on high dose pressor support suspected. Demarcation in progress. Transmet amputations by gen surg when appropriate. CCB for vasodilatation. Delayed mobility while wt bearing compromised. Postoperative sacral pressure ulcers - DTI. Followed by wound care. Plan: Cont supportive care by multidisciplinary team. Increase diltiazem to 240 mg daily. Stop telemetry. 10/04/17 09:37 Subjective: Improving mobility. Wants to go to [place] where family support available. Feet largest source of pain but does not want to lose more than toes. Objective: Vital Signs Temp Pulse Resp BP Pulse Ox 36.8 C 99 18 142/96 H 90 L 10/04/17 08:00 10/04/17 08:00 10/04/17 08:00 10/04/17 08:00 10/04/17 08:00 Laboratory Results 10/02/17 05:45 10/03/17 03:40 10/03/17 10/04/17 10/05/17 05:59 05:59 05:59 Intake Total 990 4000 Output Total 4517 3170 350 Balance -3527 830 -350 PT 23.0 SEC (12.0-15.0) H 09/07/17 19:55 INR 2.03 (0.83-1.16) H 09/07/17 19:55 Stable rhythm, occ ST. Upward creeping BP. Balanced I/Os. Physical Exam - Physical Exam General Appearance: alert, no apparent distress Respiratory: lungs clear (grossly) Cardiac/Chest: regular rate, rhythm, other (Sternum grossly stable. Sternotomy, rt axillary incision, and chest tube sites healing well.) Abdomen: non-tender, soft Skin: warm/dry, other (Bilateral toes dry gangrene) Extremities: other (no visible limb edema) ICD10 Worksheet Patient Problems: Problems Problem Status Onset Acute blood loss anemia Acute Acute renal failure Acute Acute respiratory failure Acute Aortic dissection, thoracoabdominal Acute Hypokalemia Acute Postoperative atrial fibrillation Acute S/P ascending aortic replacement Acute ~09/07/17 HTN (hypertension) Chronic Morbid obesity Chronic
[2017-10-04] MEDS: traMADol 50 MG TAB PO PRN (19:45)
[2017-10-04] MEDS: ZOLPIDEM TARTRATE 5 MG TAB PO SCH (21:15)
[2017-10-05] MEDS: NS 1,000 ML IV SCH (00:20)
[2017-10-05] MEDS: HEPARIN 5,000 UNIT/0.5 ML SYR SC SCH ×2 (05:34→15:15)
--- NOTE | 2017-10-05 07:59 | SOAPPROG ---
SOAP Progress Note Assessment/Plan: Assessment: POD#28 Emergent replacement of asc aorta and hemiarch with #26 mm Hemashield graft. Hypothermic circulatory arrest, right axillary artery cannulation, resuspension of aortic valve with repair POD#27 Re-exploration of chest with evacuation of clot. Chest closure with kacey. POD#17 Debridement of presternal soft tissue. Chest closure with kacey and retention sutures. LUE PICC. Acute type 1 aortic dissection - Aortic root to infrarenal abd aorta. AV resuspended and asc ao and hemiarch replaced with dacron tube graft. Repair complicated by coagulopathy and cardiac tamponade necessitating re-exploration and wash-out. Hemodynamic support on multiple pressors x 48 hrs. Multiorgan dysfx slowly resolving. BP well controlled. Acute expected blood loss anemia with thrombocytopenia and coagulopathy - Exacerbated by HCA. Stable s/p massive blood transfusion. No evidence active bleeding. Chest tubes out. Platelet count normalized. Precautionary HIT neg. VTE prophylaxis with SCDs and SQ hep. Acute renal failure - Secondary to hypoperfusion. Nephrology consulted. HD, fluid and electrolyte management at their direction. Now polyuric with normalizing Cr. NS @ 100 cc/h until UOP slows. Postoperative urinary retention - Evident once producing urine. Regularly decompressed with straight caths. No sig improvement on Flomax. Urine cx notable for candiduria, likely colonization. Consider urology consult. Acute postoperative respiratory failure - Vent dependent thru POD#6. Wean delayed by metabolic encephalopathy. Eventual extubation without incident and weaned to room air. Abnl sputum (with low grade temps/mild inc WBC) covered with course of Zosyn. No overt PNA by CXR. Dietary advancement per DIETARY AIDE. Postoperative encephalopathy - AMS with decr rt limb mvmt. CT head indeterminate. Rapid improvements in mentation and ext mvmt/strength post cessation of sedation. Cont aggressive PT/OT. Postoperative PAF - 2 short episodes early postop successfully converted back to SR on amiodarone. Adjunctive BB and CCB for rate control. Thromboprophylaxis deferred due to short duration without recurrence. Postoperative sternal drainage - Distal sternotomy. OR exploration revelatory of superficial dehiscence of soft tissue suture line with seroma. No sternal malunion or lax hardware. Wound debrided and reapproximated. Drain removed POD# 1. [place] and retention sutures out. Wounds healing appropriately. Postoperative pedal ischemia - Bilateral toe necrosis w preserved DP and PT pulses. Microvascular thrombosis while on high dose pressor support suspected. Demarcation in progress. Transmet amputations by gen surg when appropriate. CCB for vasodilatation. Delayed mobility while wt bearing compromised. Postoperative sacral pressure ulcers - DTI. Followed by wound care. Plan: Cont supportive care by multidisciplinary team. Inc diltiazem to 240 mg daily. Consider inc metoprolol to 75 mg BID if pm pressures elev. Cont IVF at 100 ml/h. 10/05/17 07:57 Subjective: Sitting in a chair. Pleased to be making more urine on his own. Objective: Vital Signs Temp Pulse Resp BP Pulse Ox 37.3 C 91 13 149/99 H 94 10/05/17 04:00 10/05/17 04:00 10/05/17 04:00 10/05/17 04:00 10/05/17 04:00 Microbiology 10/02/17 16:45 Urine Culture - Final Urine,Catheterized Aide Albicans Laboratory Results 10/05/17 04:30 10/05/17 04:30 10/04/17 10/05/17 10/06/17 05:59 05:59 05:59 Intake Total 4000 2993 Output Total 3170 4850 400 Balance 830 -1857 -400 PT 23.0 SEC (12.0-15.0) H 09/07/17 19:55 INR 2.03 (0.83-1.16) H 09/07/17 19:55 Remains sl tachy and hypertensive. Ongoing polyuria, neg 2L. Bladder scans q4h. Cont PVR 400-600 ml at least twice daily. Cr normalized. K ok. Physical Exam - Physical Exam General Appearance: alert, no apparent distress Respiratory: lungs clear Cardiac/Chest: regular rate, rhythm, other (All chest wounds healing well.) Abdomen: non-tender, soft Skin: warm/dry Extremities: other (feet/toes unchanged) ICD10 Worksheet Patient Problems: Problems Problem Status Onset Acute blood loss anemia Acute Acute renal failure Acute Acute respiratory failure Acute Aortic dissection, thoracoabdominal Acute Hypokalemia Acute Postoperative atrial fibrillation Acute S/P ascending aortic replacement Acute ~09/07/17 HTN (hypertension) Chronic Morbid obesity Chronic
[2017-10-05] MEDS: DILTIAZEM XR 240 MG CAP PO SCH (10:02)
[2017-10-05] MEDS: METOPROLOL TARTRATE 50 MG TAB PO SCH ×2 (10:02→20:10)
[2017-10-05] MEDS: traMADol 50 MG TAB PO PRN ×2 (10:03→20:21)
[2017-10-05] MEDS: TAMSULOSIN HCL 0.4 MG CAP PO SCH (10:03)
[2017-10-05] MEDS: ASPIRIN EC 81 MG TAB PO SCH (10:03)
[2017-10-05] MEDS: PANTOPRAZOLE SODIUM 40 MG TAB PO SCH (10:03)
--- NOTE | 2017-10-05 16:51 | PDHOSCONS ---
Hospitalist Consult Hospitalist Consult: Referring Physician: Dr. Rock Reason for consultation: medical mgmt HPI/Hospital course: This is a 47 yo male who was admitted on 09/07 with chest pain and found to have aortic dissection from the aortic root down to the iliacs. He underwent aortic valve repair and aortic root replacement with graft by Dr. Rock on Sep 07. This was complicated by tamponade and the pt was returned to the OR for clot removal. He suffered acute kidney injury and required HD. His course was complicated by Afib and he received Amiodarone and converted to SR. He required multiple pressors and this was complicated by pedal ischemia with toe necrosis involving all 10 toes. He is now off HD and his cr has normalized. He is voiding w/o difficulty. He is still on IVF His BP is well controlled. He remains in NSR. He denies cp, sob, palpitations, or leg swelling. His main concern is whether he will lose his toes PMHx: -HTN PSHx: none SocHx: no hx of tobacco use. social [facility] FmHx: NC All: NKDA Meds: see med rec O: VSS NAD AAOX3 RRR CTAB S/NT/ND NO LE EDEMA SKIN: NECROSIS OF ALL TEN TOES PSYCH: MOOD APPROPRIATE I/P #s/p Ascending aorta Root replacement due to Acute Type 1 Aortic dissection, Aortic Valve Repair, s/p evacuation of clot #Acute blood loss anemia, s/p multiple transfusion #s/p coagulopathy, s/p thrombocytopenia with negative HIT. #s/p Acute renal failure requiring HD. Voiding well, Nephrology has signed off. S/p Urinary retention #HTN, now normotensive #post operative Afib, now in SR. -on BB and CCB -AC deferred due to short duration w/o recurrence #s/p Resp Failure, was Vent dependent thru POD#6. Was treated with Zosyn. no active sings of infection #s/p postoperative encephalopathy #Generalized weakness #Postoperative pedal ischemia - Bilateral toe necrosis w preserved DP and PT pulses. Microvascular thrombosis while on high dose pressor support suspected. Demarcation in progress. Transmet amputations by gen surg when appropriate. CCB for vasodilatation. D -Gen Surgery is following Postoperative sacral pressure ulcers - DTI. Followed by wound care. Plan: -trial off IVF -Change Heparin to Lovenox for DVT proph -Cont both BB and CCB at current doses, would not increase at this time -monitor Hgb closely. If drop, consider additional unit transfusion -Off telemetry -PT/OT -Wound Care -Full code Thank you for this consult. We will become the primary attending.
[2017-10-05] MEDS: ZOLPIDEM TARTRATE 5 MG TAB PO SCH (20:10)
[2017-10-06 05:27] LABS: PLATELET COUNT 232 10^3/uL (150-400)
[2017-10-06] MEDS: TAMSULOSIN HCL 0.4 MG CAP PO SCH (09:03)
[2017-10-06] MEDS: ENOXAPARIN 40 MG/0.4 ML SYR SC SCH (09:03)
[2017-10-06] MEDS: DILTIAZEM XR 240 MG CAP PO SCH (09:04)
[2017-10-06] MEDS: METOPROLOL TARTRATE 50 MG TAB PO SCH ×2 (09:04→20:09)
[2017-10-06] MEDS: ASPIRIN EC 81 MG TAB PO SCH (09:04)
[2017-10-06] MEDS: PANTOPRAZOLE SODIUM 40 MG TAB PO SCH (09:04)
--- NOTE | 2017-10-06 09:38 | SOAPPROG ---
SOAP Progress Note Assessment/Plan: Assessment/Plan: 47 Y M with long hospital stay initially 2/2 aortic dissection , requiring multiple surgeries. Reviewed chart and d/w Dr. Harkins and CT surgery. Asked to see patient for management of toe necrosis 2/2 pressor needs. Toes well demarcated. Plan for amputation tomorrow in the OR, likely early to mid afternoon. Will need left foot toes 1-5 and right foot toes 2-5, possibly 1- 5. He has excellent palpable pulses so suspect he will heal well. Ivorian consent in chart. Will need to discuss detailed risks and options with fish hatchery manager present. He does understand our basic plan. 10/06/17 09:34 Objective: Vital Signs Temp Pulse Resp BP Pulse Ox 37.2 C 88 16 127/79 H 94 10/06/17 07:34 10/06/17 07:34 10/06/17 07:34 10/06/17 07:34 10/06/17 07:34 Laboratory Results 10/06/17 05:10 10/06/17 05:10 10/05/17 10/06/17 10/07/17 05:59 05:59 05:59 Intake Total 2993 1870 500 Output Total 4850 3775 300 Balance -1857 -1905 200 PT 23.0 SEC (12.0-15.0) H 09/07/17 19:55 INR 2.03 (0.83-1.16) H 09/07/17 19:55 ICD10 Worksheet Patient Problems: Problems Problem Status Onset Acute blood loss anemia Acute Acute renal failure Acute Acute respiratory failure Acute Aortic dissection, thoracoabdominal Acute Hypokalemia Acute Postoperative atrial fibrillation Acute S/P ascending aortic replacement Acute ~09/07/17 HTN (hypertension) Chronic Morbid obesity Chronic
[2017-10-06] MEDS: OXYCODONE/APAP 5/325 TAB PO PRN (14:57)
--- NOTE | 2017-10-06 15:47 | ASMTCMCOM ---
CM Note CM Note Notes: Chart reviewed to assess dc poc also reviewed in rounds with hospital medicine. General surgery taking patient ot OR tomorrow to amputate some portion of foot. Patient has no insurance and will likely dc to family that may take him home to [place]. CM to follow. Date Signed: 10/06/2017 03:46 PM Electronically Signed By:Mare Fernandez RN
--- NOTE | 2017-10-06 18:09 | HOSPPROG ---
Hospitalist Progress Note Assessment/Plan: Assessment: 47 yo M p/w aortic dissection Plan: # Acute Type 1 Aortic dissection, s/p Ascending aorta Root replacement, Aortic Valve Repair, s/p evacuation of clot # Acute blood loss anemia, s/p multiple transfusion, monitor Hgb level # Coagulopathy, s/p thrombocytopenia with negative HIT. # Acute renal failure requiring HD, has experienced complete renal recovery, off HD and renal signed off - net neg 1.9L o/n # HTN, now normotensive # Paroxysmal Atrial Fibrillation. Post-op, provoked, now in NSR - cont on BB and CCB, ASA - AC deferred due to short duration w/o recurrence # Acute Resp Failure, was Vent dependent thru POD#6. Was treated with Zosyn. no active sings of infection # Acute postoperative encephalopathy, evidenced by poor directability, prolonged sedation s/p surgery, acute change from baseline, likely 2/2 toxic effects of anaesthesia # Postoperative pedal ischemia - Bilateral toe necrosis w preserved DP and PT pulses. Microvascular thrombosis while on high dose pressor support suspected. Demarcation in progress. - A1c pending - Transmet amputations by gen surg tomorrow - CCB for vasodilatation - counseled patient regarding plan # Postoperative sacral pressure ulcers. Cont wound care Diet. Regular, NPO MN Code. Full PPx. Hold tomorrow lovenox Dispo. ADD uncertain, pending post-op course Subjective: no pain in feet Objective: Vital Signs Temp Pulse Resp BP Pulse Ox 36.8 C 83 16 101/56 L 93 10/06/17 17:05 10/06/17 17:05 10/06/17 17:05 10/06/17 17:05 10/06/17 17:05 Laboratory Results 10/06/17 05:10 10/06/17 05:10 10/05/17 10/06/17 10/07/17 05:59 05:59 05:59 Intake Total 2993 1870 980 Output Total 4850 3775 1225 Balance -1857 -1905 -245 PT 23.0 SEC (12.0-15.0) H 09/07/17 19:55 INR 2.03 (0.83-1.16) H 09/07/17 19:55 - Physical Exam Constitutional: no apparent distress, not in pain, chronically ill appearing, uncomfortable Cardiovascular: systolic murmur (I/vI at sternum), other (bilat dorsalis pedis pulses 2+), No irregularly irregular, No tachycardia Respiratory: no respiratory distress, no rales or rhonchi, clear to auscultation Gastrointestinal: normoactive bowel sounds, soft, non-tender abdomen, no palpable masses, No distension Skin: other (necrotic toes bilat, no surrounding erythema/induration/no pustulent drainage) Neurologic: AAOx3, No sensation intact bilaterally (distal paresthesia/absent sensation distal toes), No weakness Psychiatric: not anxious, not encephalopathic, flat affect, No agitated ICD10 Worksheet Patient Problems: Problems Problem Status Onset Acute blood loss anemia Acute Acute renal failure Acute Acute respiratory failure Acute Aortic dissection, thoracoabdominal Acute Hypokalemia Acute Postoperative atrial fibrillation Acute S/P ascending aortic replacement Acute ~09/07/17 HTN (hypertension) Chronic Morbid obesity Chronic
[2017-10-06] MEDS: ZOLPIDEM TARTRATE 5 MG TAB PO SCH (20:09)
[2017-10-07] MEDS ORDERED: BUPIVACAINE 0.5% 30 ML SDV ONE (08:22)
[2017-10-07] MEDS ORDERED: fentaNYL 100 MCG/2 ML INJ ONE (08:37)
[2017-10-07] MEDS ORDERED: ceFAZolin 1 GM VIAL ONE ×2 (08:48→09:52)
[2017-10-07] MEDS ORDERED: ceFAZolin 2 GM/SWFI 2 GM/20 ML SYR IVP ONE (09:00)
[2017-10-07] MEDS ORDERED: HYDROmorphONE/DILAUDID 2 MG/ML INJ ONE (09:04)
--- NOTE | 2017-10-07 09:13 | SOAPPROG ---
AIDA Progress Note Assessment/Plan: Assessment: 47 MALE SP URGENT HEART SURGERY FOR DISSECTION IN NEED OF DIALYSIS CATH FOR ACUTE RENAL FAILURWE WITH CREAT> 8 INR PROLONGED PT UNABLE TO RESPOND Plan:RT IJ DIALYSIS CATH 09/09/17 23:55 10/01/17 09:55 OVERALL PATIENT IS IMPROVING FROM HIS CARDIAC SURGERY. HIS TOES ARE DEMARCATING WELL WITH ALMOST ALL 10 TOES APPEARING NECROTIC BUT DRY. WILL EVENTUALLY NEED BILATERAL TRANSMETATARSAL AMPUTATIONS. RISKS AND OPTIONS BRIEFLY DISCUSSED WITH THE PATIENT BUT HE DID NOT FULLY COMPREHEND AT THIS POINT. WILL CONTINUE TO FOLLOW EVENTUALLY PLAN SURGERY 10/03/17 00:01 DOES CONTINUE TO DEMARCATE/ HE WILL LOSE ALMOST ALL HIS TOES/VERY WEAK/ BILATERAL SUPERFICIAL BUTTOCK DECUBITI I STABLE 10/07/17 09:12 SURGICAL RISKS AND OPTIONS FULLY DISCUSSED AND HE WISHES TO PROCEED/ PLAN TOE AMPUTATIONS Objective: Vital Signs Temp Pulse Resp BP Pulse Ox 37.4 C 99 16 123/73 H 94 10/07/17 08:27 10/07/17 08:27 10/07/17 08:27 10/07/17 08:27 10/07/17 08:27 Laboratory Results 10/07/17 06:30 10/07/17 06:30 10/06/17 10/07/17 10/08/17 05:59 05:59 05:59 Intake Total 1870 1180 Output Total 3775 2375 350 Balance -1905 -1195 -350 PT 23.0 SEC (12.0-15.0) H 09/07/17 19:55 INR 2.03 (0.83-1.16) H 09/07/17 19:55 ICD10 Worksheet Patient Problems: Problems Problem Status Onset Acute blood loss anemia Acute Acute renal failure Acute Acute respiratory failure Acute Aortic dissection, thoracoabdominal Acute Hypokalemia Acute Postoperative atrial fibrillation Acute S/P ascending aortic replacement Acute ~09/07/17 HTN (hypertension) Chronic Morbid obesity Chronic
--- NOTE | 2017-10-07 09:35 | PDANEPAE ---
ANE History of Present Illness 47 year old male with PMH significant for s/p Aortic root replacement and AV repair 09/07/2017. He has Paroxysmal Atrial Fibrillation and HTN. He currently has bilateral foot necrosis. No problems with anesthesia in the past. He was consented via the Contract Administration Manager. ANE Past Medical History - Cardiovascular History Hx Hypertension: No Hx Arrhythmias: No Hx Chest Pain: Yes Hx Coronary Artery / Peripheral Vascular Disease: No Hx CHF / Valvular Disease: No Hx Palpitations: No - Pulmonary History Hx COPD: No Hx Asthma/Reactive Airway Disease: No Hx Recent Upper Respiratory Infection: No Hx Oxygen in Use at Home: No Hx Sleep Apnea: No Sleep Apnea Screening Result - Last Documented: Negative - Neurologic History Hx Cerebrovascular Accident: No Hx Seizures: No Hx Dementia: No - Endocrine History Hx Diabetes: No Hypothyroid: No Hyperthyroid: No - Renal History Hx Renal Disorders: No ANE Review of Systems Review of Systems: - Pacemaker Pacemaker Set Rate: 40 ANE Patient History - Allergies Allergies/Adverse Reactions: No Known Allergies Allergy (Unverified 09/07/17 09:15) - Home Medications Home Medications: NK [No Known Home Meds] 09/07/17 [Last Taken Unknown] - NPO status NPO Since - Liquids (Date): 10/07/17 NPO Since - Liquids (Time): 00:00 NPO Since - Solids (Date): 10/07/17 NPO Since - Solids (Time): 00:00 - Smoking Hx Smoking Status: Never smoked ANE Labs/Vital Signs - Labs Result Diagrams: 10/07/17 06:30 10/07/17 06:30 - Vital Signs Blood Pressure: 123/73 Heart Rate: 99 Respiratory Rate: 16 O2 Sat (%): 94 Height: 170.18 cm Weight: 89.3 kg ANE Physical Exam - Airway Neck exam: FROM Mallampati Score: Class 3 Mouth exam: poor dentition, small mouth opening, kim, abnormal chin - Pulmonary Pulmonary: no respiratory distress - Cardiovascular Cardiovascular: irregularly irregular - ASA Status ASA Status: III ANE Anesthesia Plan Anesthesia Plan: general endotracheal anesthesia (Possible post operative intubation and ICU admission.)
[2017-10-07] MEDS ORDERED: ROCURONIUM 50 MG/5 ML VIAL ONE (09:52)
[2017-10-07] MEDS ORDERED: MEPERIDINE 25 MG/ML SYR IVP PRN (09:59)
[2017-10-07] MEDS ORDERED: fentaNYL 100 MCG/2 ML INJ IVP PRN (09:59)
[2017-10-07] MEDS ORDERED: NALOXONE HCL 0.4 MG/ML INJ IVP PRN (09:59)
[2017-10-07] MEDS ORDERED: LR 500 ML IV PRN (09:59)
[2017-10-07] MEDS: TAMSULOSIN HCL 0.4 MG CAP PO SCH (13:43)
[2017-10-07] MEDS: PANTOPRAZOLE SODIUM 40 MG TAB PO SCH (13:44)
[2017-10-07] MEDS: ASPIRIN EC 81 MG TAB PO SCH (13:44)
[2017-10-07] MEDS: OXYCODONE/APAP 5/325 TAB PO PRN (14:01)
[2017-10-07] MEDS: METOPROLOL TARTRATE 50 MG TAB PO SCH ×2 (14:02→20:26)
[2017-10-07] MEDS: DILTIAZEM XR 240 MG CAP PO SCH (14:03)
[2017-10-07] MEDS: traMADol 50 MG TAB PO PRN (15:20)
--- NOTE | 2017-10-07 16:38 | POSTOPPROG ---
Post Op Note Date of Operation: 10/07/17 Surgeon: Angelo Harkins Patternator: Fernanda Layne Anesthesiologist: Saira Conde Anesthesia: GET(General Endotracheal) Pre-op Diagnosis: toe necrosis Post-op Diagnosis: same Procedure: amputation B toes 1-5 Findings: L c poor blood supply, R c good blood supply and healthier tissue Inf/Abcess present in the surg proc area at time of surgery?: No EBL: Minimal Complications: none Drains: Margaret Specimen(s): to path
[2017-10-07] MEDS: ACETAMINOPHEN 325 MG TAB PO PRN (16:41)
[2017-10-07] MEDS: HYDROmorphONE/DILAUDID 1 MG/ML INJ IVP PRN ×3 (17:48→23:23)
[2017-10-07] MEDS: ERTAPENEM 1 GM VIAL IVP SCH (18:05)
--- NOTE | 2017-10-07 19:16 | HOSPPROG ---
Hospitalist Progress Note Assessment/Plan: Assessment: 47 yo M p/w aortic dissection Plan: # Acute Type 1 Aortic dissection, s/p Ascending aorta Root replacement, Aortic Valve Repair, s/p evacuation of clot # Acute blood loss anemia, s/p multiple transfusion, recurring s/p amputations - given 1u PRBC 10/07, repeat Hgb level # Coagulopathy, s/p thrombocytopenia with negative HIT. # Acute renal failure requiring HD, has experienced complete renal recovery, off HD and renal signed off - net neg 1.2L o/n # HTN, now normotensive # Paroxysmal Atrial Fibrillation. Post-op, provoked, now in NSR - cont on BB and CCB, ASA - AC deferred due to short duration w/o recurrence # Acute Resp Failure, was Vent dependent thru POD#6. Was treated with Zosyn # Acute postoperative encephalopathy, evidenced by poor directability, prolonged sedation s/p surgery, acute change from baseline, likely 2/2 toxic effects of anaesthesia # Postoperative pedal ischemia - Bilateral toe necrosis w preserved DP and PT pulses. Microvascular thrombosis while on high dose pressor support suspected, d /w Dr. Rock above - POD#[address] Harkins - adjusted pain mgmt w/ dilaudid - CCB for vasodilatation # Fever. Acute, new problem, further w/u indicated. Suspect post-op inflammation , get BCx, monitor VS - on invanz post-op, will reassess abx selection depending on whether fever continues - monitor for any signs of further infxn (pulmonary, urinary) # Postoperative sacral pressure ulcers. Cont wound care, discussed on team rounds the safety risk of prolonged sitting if patient is to travel to [place] in near future - case mgmt to d/w family travel plans Diet. Regular Code. Full PPx. Restart lovenox tomorrow Dispo. ADD uncertain, pending post-op course High level of medical complexity, high risk patient for worsening morbidity. Subjective: patient reports ongoing pain, chills Objective: Vital Signs Temp Pulse Resp BP Pulse Ox 39.1 C H 108 H 22 H 116/81 H 95 10/07/17 16:02 10/07/17 16:02 10/07/17 16:02 10/07/17 16:02 10/07/17 16:02 Laboratory Results 10/07/17 16:50 10/07/17 06:30 10/06/17 10/07/17 10/08/17 05:59 05:59 05:59 Intake Total 1870 1180 2540 Output Total 3435 2375 350 Balance -1905 -1195 2190 PT 23.0 SEC (12.0-15.0) H 09/07/17 19:55 INR 2.03 (0.83-1.16) H 09/07/17 19:55 - Physical Exam Constitutional: no apparent distress, chronically ill appearing, uncomfortable, No not in pain (moderate) Cardiovascular: tachycardia, No systolic murmur, No irregularly irregular, No edema Respiratory: no respiratory distress, no rales or rhonchi, clear to auscultation Gastrointestinal: No normoactive bowel sounds (hypoactive bowel sounds), No tenderness, No guarding, No distension Skin: other (bleeding at surg sites) Psychiatric: not anxious, flat affect, other (cooperative and following commands ), No agitated ICD10 Worksheet Patient Problems: Problems Problem Status Onset Postoperative atrial fibrillation Acute Morbid obesity Chronic Acute blood loss anemia Acute Acute respiratory failure Acute Acute renal failure Acute S/P ascending aortic replacement Acute ~09/07/17 HTN (hypertension) Chronic Aortic dissection, thoracoabdominal Acute Hypokalemia Acute
[2017-10-07] MEDS: HYDROmorphONE/DILAUDID 2 MG TAB PO PRN (19:26)
[2017-10-07] MEDS: ZOLPIDEM TARTRATE 5 MG TAB PO SCH (20:26)
[2017-10-08] MEDS: HYDROmorphONE/DILAUDID 1 MG/ML INJ IVP PRN ×4 (01:33→14:17)
[2017-10-08] MEDS: HYDROmorphONE/DILAUDID 2 MG TAB PO PRN ×2 (03:27→08:17)
[2017-10-08 05:45] LABS: PLATELET COUNT 235 10^3/uL (150-400)
[2017-10-08] MEDS: PANTOPRAZOLE SODIUM 40 MG TAB PO SCH (08:16)
[2017-10-08] MEDS: TAMSULOSIN HCL 0.4 MG CAP PO SCH (08:16)
[2017-10-08] MEDS: ERTAPENEM 1 GM VIAL IVP SCH (08:16)
[2017-10-08] MEDS: METOPROLOL TARTRATE 50 MG TAB PO SCH ×2 (08:17→21:43)
[2017-10-08] MEDS: DILTIAZEM XR 240 MG CAP PO SCH (08:17)
[2017-10-08] MEDS: ASPIRIN EC 81 MG TAB PO SCH (08:17)
[2017-10-08] MEDS: ENOXAPARIN 40 MG/0.4 ML SYR SC SCH (08:20)
--- NOTE | 2017-10-08 09:27 | SOAPPROG ---
SOAP Progress Note Assessment/Plan: Assessment/Plan: 47 Y M with long hospital stay initially 2/2 aortic dissection , requiring multiple surgeries. Reviewed chart and d/w Dr. Harkins and CT surgery. Asked to see patient for management of toe necrosis 2/2 pressor needs. s/p B toes 1-5 amputation. POD#1. Wounds redressed. [place] drains in place. D/'wed PT and medicine. May weight bear as tolerated with flat foot, post op shoes, and no toe off. If d/c'ed, then can f/u as outpatient. I acknowledge patient's support system in in [place]. Will need surgeon f/u there if returns--he has sutures bilaterally and less than optimal bleeding/healthy tissue seen on left foot at surgery. S: c/p pain but meds helping O: alert, nad, sitting upright no wob wounds redressed with Kerlix. normal serosanguinous drainage with chet drains in place. 10/08/17 09:23 Objective: Vital Signs Temp Pulse Resp BP Pulse Ox 37.3 C 101 H 17 112/72 93 10/08/17 07:51 10/08/17 07:51 10/08/17 07:51 10/08/17 07:51 10/08/17 07:51 Laboratory Results 10/08/17 05:27 10/08/17 05:27 10/07/17 10/08/17 10/09/17 05:59 05:59 05:59 Intake Total 1180 2940 200 Output Total 2375 850 Balance -1195 2090 200 PT 23.0 SEC (12.0-15.0) H 09/07/17 19:55 INR 2.03 (0.83-1.16) H 09/07/17 19:55 ICD10 Worksheet Patient Problems: Problems Problem Status Onset Acute blood loss anemia Acute Acute renal failure Acute Acute respiratory failure Acute Aortic dissection, thoracoabdominal Acute Hypokalemia Acute Postoperative atrial fibrillation Acute S/P ascending aortic replacement Acute ~09/07/17 HTN (hypertension) Chronic Morbid obesity Chronic
[2017-10-08] MEDS ORDERED: OXYCODONE/APAP 5/325 TAB PO PRN (10:50)
[2017-10-08] MEDS ORDERED: HYDROmorphONE/DILAUDID 2 MG TAB PO PRN (11:23)
[2017-10-08] MEDS: OXYCODONE/APAP 5/325 TAB PO PRN ×2 (11:42→21:44)
[2017-10-08] MEDS: VANCOMYCIN 1.25 GM in D5W 250 ML IV SCH ×2 (12:24→23:41)
--- NOTE | 2017-10-08 15:18 | CPIP ---
[f rep st] INVASIVE CARDIAC PROCEDURE PROCEDURE: Patient was seen for arterial studies because of necrotic toes. FINDINGS: He demonstrates ankle-brachial indices greater than 1 bilaterally with good palpable pedal pulses and excellent PVR tracings down to the ankle level bilaterally. Could not test the metatarsal level because of dressings on his toes, but he has excellent Doppler pulse forms all the way down to the dorsalis pedis. IMPRESSION: Good arterial inflow which should be satisfactory for healing his transmetatarsal incisi ons. /[id number]/MODL
--- NOTE | 2017-10-08 16:23 | GOP ---
[f rep st] OPERATIVE REPORT DATE OF OPERATION: 10/07/2017 SURGEON: Angelo Harkins MD WORKCELL OPERATOR: IVORY Rivera. ANESTHESIOLOGIST: Saira Rosario MD. PREOPERATIVE DIAGNOSIS: Necrotic toes bilaterally. POSTOPERATIVE DIAGNOSIS: Necrotic toes bilaterally. PROCEDURE PERFORMED: Bilateral transmetatarsal amputations. FINDINGS: The patient was found to have fully necrotic toes on both sides, involving all 10 toes. H ad adequate blood flow on the right leg. On the left leg blood flow seemed to be somewhat marginal, despite palpable excellent pedal pulses on both sides. DESCRIPTION OF PROCEDURE: Patient taken to the operating room, where he received satisfactory genera l endotracheal anesthesia by Dr. Rosario. He was placed in supine position, prepped and draped in usua l sterile fashion. Bilateral elliptical incisions were made over both feet at the level of the phala ngeal metatarsal joints. Full elliptical incision was made, and dissection was carried down to the m etatarsals which were divided with the power saw. Soft tissue was divided with the electrocautery. Hemostasis was obtained with electrocautery. The skin edges were trimmed back further and there was skin edge of bleeding circumferentially, although much better on the right than the left. Both feet were handled in a similar manner. They were then both closed with interrupted 3-0 nylon sutures with a through and through Margaret drain placed through the wound. Wounds were infiltrated with 0.5% Mar shelton. He tolerated the procedure well. He was taken to recovery room in good condition. /[id number]/MODL
--- NOTE | 2017-10-08 17:20 | HOSPPROG ---
Hospitalist Progress Note Assessment/Plan: Assessment: 47 yo M p/w aortic dissection c/b distal bilat foot necrosis while on pressors, s/p bilat toe amputations Plan: # Postoperative pedal ischemia - Bilateral toe necrosis w preserved DP and PT pulses. Microvascular thrombosis while on high dose pressor support suspected, d /w Dr. Rock above - POD#[address] Harkins - adjusted pain mgmt w/ dilaudid, add gabapentin HS given neuropathic component - CCB for vasodilatation - Dr. Harkins getting vascular studies today - suspect better vascular flow to RLE w/ more bleeding/pain than LLE - counseled patient that he will require approx 2 weeks of healing (d/w Fernanda Layne, gen surg) of the feet s/p discharge for adequate follow-up, and case mgmt is looking into where patient will receive care (supposedly with friends) during this recovery period # Fever. Acute, post-op inflammation, BCx neg # Postoperative sacral pressure ulcers. Cont wound care, discussed on team rounds the safety risk of prolonged sitting if patient is to travel to [place] in near future - patient reports he will fly to [place] s/p foot wound recovery # Acute Type 1 Aortic dissection, s/p Ascending aorta Root replacement, Aortic Valve Repair, s/p evacuation of clot by Dr. Rock # Acute blood loss anemia, s/p multiple transfusion, recurring s/p amputations - given 1u PRBC 10/07, repeat Hgb level stable # Coagulopathy, s/p thrombocytopenia with negative HIT. # Acute renal failure requiring HD, has experienced complete renal recovery, off HD and renal signed off # HTN, now normotensive # Paroxysmal Atrial Fibrillation. Post-op, provoked, now in NSR - cont on BB and CCB, ASA - AC deferred due to short duration w/o recurrence # Acute Resp Failure, was Vent dependent thru POD#6. Was treated with Zosyn # Acute postoperative encephalopathy, evidenced by poor directability, prolonged sedation s/p surgery, acute change from baseline, likely 2/2 toxic effects of anaesthesia Diet. Regular Code. Full PPx. Restarted lovenox per gen surg Dispo. ADD uncertain, pending post-op course High level of medical complexity, high risk patient for worsening morbidity. Subjective: patient w/ increase pain in bilat LE, R>L Objective: Vital Signs Temp Pulse Resp BP Pulse Ox 37.0 C 81 15 95/72 L 91 L 10/08/17 16:00 10/08/17 16:00 10/08/17 16:00 10/08/17 16:00 10/08/17 16:00 Laboratory Results 10/08/17 05:27 10/08/17 05:27 10/07/17 10/08/17 10/09/17 05:59 05:59 05:59 Intake Total 1180 2940 200 Output Total 2375 850 400 Balance -1195 2090 -200 PT 23.0 SEC (12.0-15.0) H 09/07/17 19:55 INR 2.03 (0.83-1.16) H 09/07/17 19:55 - Physical Exam Constitutional: no apparent distress, obese, uncomfortable, No not in pain ( moderate) Cardiovascular: systolic murmur (II/ at sternum), No irregularly irregular, No tachycardia, No edema Respiratory: no respiratory distress, no rales or rhonchi, clear to auscultation Gastrointestinal: normoactive bowel sounds, soft, non-tender abdomen, no palpable masses, No guarding, No distension Skin: other (bandaged bilat LE) Neurologic: AAOx3, sensation intact bilaterally (plantar surfaces of his feet), No weakness Psychiatric: interacting appropriately, not anxious, not encephalopathic, thought process linear ICD10 Worksheet Patient Problems: Problems Problem Status Onset Postoperative atrial fibrillation Acute Morbid obesity Chronic Acute blood loss anemia Acute Acute respiratory failure Acute Acute renal failure Acute S/P ascending aortic replacement Acute ~09/07/17 HTN (hypertension) Chronic Aortic dissection, thoracoabdominal Acute Hypokalemia Acute
--- NOTE | 2017-10-08 17:46 | ASMTCMCOM ---
CM Note CM Note Notes: 10/08/2017 Case Management Note Met w/pt and retail coverage merchandiser to discuss pt plans for d/c. Pt sister Yudith lives in [place] and can be reached at [phone]. Pt plans to fly to [place] after cleared by . requesting a 2 week stay in [place] after d/c to check wound healing. Called Kika at [facility] to assess for terminal system operator Medicaid eligibility. If eligible can start ULTC 100 process for placement in SNF rehab for 30 days. Pt requested case management contact employer at [facility] [employer] [phone] to check on insurance benefits. Gave information to financial counseling and requested they contact [employer] for insurance information. Case Management d/c poc: TBD Case Management to follow. Date Signed: 10/08/2017 05:46 PM Electronically Signed By:Rosie Garcia RN
[2017-10-08] MEDS: GABAPENTIN 300 MG CAP PO SCH (21:43)
[2017-10-08] MEDS: ZOLPIDEM TARTRATE 5 MG TAB PO SCH (21:43)
[2017-10-09] MEDS: OXYCODONE/APAP 5/325 TAB PO PRN ×4 (05:40→20:43)
[2017-10-09 06:00] LABS: PLATELET COUNT 240 10^3/uL (150-400)
[2017-10-09] MEDS: traMADol 50 MG TAB PO PRN (08:56)
[2017-10-09] MEDS: ENOXAPARIN 40 MG/0.4 ML SYR SC SCH (08:57)
[2017-10-09] MEDS: DILTIAZEM XR 240 MG CAP PO SCH (08:59)
[2017-10-09] MEDS: ASPIRIN EC 81 MG TAB PO SCH (09:00)
[2017-10-09] MEDS: SENNOSIDES 1 TAB PO PRN (09:00)
[2017-10-09] MEDS: TAMSULOSIN HCL 0.4 MG CAP PO SCH (09:00)
[2017-10-09] MEDS: PANTOPRAZOLE SODIUM 40 MG TAB PO SCH (09:00)
[2017-10-09] MEDS: METOPROLOL TARTRATE 50 MG TAB PO SCH ×2 (09:00→20:43)
--- NOTE | 2017-10-09 10:06 | SOAPPROG ---
AIDA Progress Note Assessment/Plan: Assessment: 47 MALE SP URGENT HEART SURGERY FOR DISSECTION IN NEED OF DIALYSIS CATH FOR ACUTE RENAL FAILURWE WITH CREAT> 8 INR PROLONGED PT UNABLE TO RESPOND Plan:RT IJ DIALYSIS CATH 09/09/17 23:55 10/01/17 09:55 OVERALL PATIENT IS IMPROVING FROM HIS CARDIAC SURGERY. HIS TOES ARE DEMARCATING WELL WITH ALMOST ALL 10 TOES APPEARING NECROTIC BUT DRY. WILL EVENTUALLY NEED BILATERAL TRANSMETATARSAL AMPUTATIONS. RISKS AND OPTIONS BRIEFLY DISCUSSED WITH THE PATIENT BUT HE DID NOT FULLY COMPREHEND AT THIS POINT. WILL CONTINUE TO FOLLOW EVENTUALLY PLAN SURGERY 10/03/17 00:01 DOES CONTINUE TO DEMARCATE/ HE WILL LOSE ALMOST ALL HIS TOES/VERY WEAK/ BILATERAL SUPERFICIAL BUTTOCK DECUBITI I STABLE 10/07/17 09:12 SURGICAL RISKS AND OPTIONS FULLY DISCUSSED AND HE WISHES TO PROCEED/ PLAN TOE AMPUTATIONS 10/09/17 10:05 wounds stable/ strong pulses/ may need further amputation Objective: Vital Signs Temp Pulse Resp BP Pulse Ox 37.2 C 92 20 102/50 L 92 10/09/17 08:00 10/09/17 08:00 10/09/17 08:00 10/09/17 08:00 10/09/17 08:00 Laboratory Results 10/09/17 05:35 10/09/17 05:35 10/08/17 10/09/17 10/10/17 05:59 05:59 05:59 Intake Total 2940 2220 Output Total 850 1200 Balance 2090 1020 PT 23.0 SEC (12.0-15.0) H 09/07/17 19:55 INR 2.03 (0.83-1.16) H 09/07/17 19:55 ICD10 Worksheet Patient Problems: Problems Problem Status Onset Acute blood loss anemia Acute Acute renal failure Acute Acute respiratory failure Acute Aortic dissection, thoracoabdominal Acute Hypokalemia Acute Postoperative atrial fibrillation Acute S/P ascending aortic replacement Acute ~09/07/17 HTN (hypertension) Chronic Morbid obesity Chronic
--- NOTE | 2017-10-09 14:08 | WOCRNPDOC ---
WOCRN Advanced Assessment Note - Skin Integrity Problem, Advanced Assess Left Sacrum Pressure Injury Dressing Type: Allevyn Life, Hydrocolloid Dressing Description: Clean/Dry, Intact Exudate Amount: Scant Exudate Characteristic(s): Serous Integumentary Issue Intervention: Dressing Changed, Hydrogel Applied Ashley Wound Tissue: Blanching, Erythema, Scarred Ashley Wound Swelling: Mild Wound Bed Color: Red, Yellow Wound Bed Constitution: Granulation Tissue (60%), Adhered Slough (40%) Wound Edges: Epithelizing Site Measurement - Head-to-Toe Length X Width X Depth (cm): 5cmx4.5cmx0.2cm Pressure Injury Stage: Unstageable Skin Integrity Problem Comment: There remains an island of adhered slough in the medial aspect of this wound, approx. 40% of wound bed. Progress is deceptive because wound bed is epithelializing along margins and becoming smaller; by comparison, percentage of slough appears unchanged. However, it is decreasing in size and loosening along the edges. Anticipate this will slough off w/in the next week or two. Will f/u w/ patient on Saturday 10/14. Right Sacrum Pressure Injury Dressing Type: Allevyn Life Exudate Amount: Scant Exudate Color: Reddish/Yellow Exudate Characteristic(s): Serosanguinous Integumentary Issue Intervention: Dressing Changed, Hydrogel Applied Ashley Wound Tissue: Blanching, Erythema, Scarred Ashley Wound Swelling: Mild Wound Bed Color: Red, Yellow Wound Bed Constitution: Granulation Tissue (75%), Adhered Slough (25%) Wound Edges: Epithelizing Site Odor: None Site Measurement - Head-to-Toe Length X Width X Depth (cm): 4.5cmx2.5cmx0.2cm Skin Integrity Problem Comment: Two discrete slough-filled areas remain in wound , remaining wound bed is ganulation tissue. Wound is decreasing in size, epithelializing along margins. Hydrogel applied to both sloughy areas, but [employer] hydrocolloid left off the R side during this dressing change. Covered w/ larger Allevyn. water supply technicianFLOR eugene
[2017-10-09] MEDS: VANCOMYCIN 1.25 GM in D5W 250 ML IV SCH ×2 (14:13→23:59)
[2017-10-09] MEDS: HYDROmorphONE/DILAUDID 1 MG/ML INJ IVP PRN (14:23)
--- NOTE | 2017-10-09 15:47 | HOSPPROG ---
Hospitalist Progress Note Assessment/Plan: Assessment: 47 yo M p/w aortic dissection c/b distal bilat foot necrosis while on pressors, s/p bilat toe amputations Plan: # Postoperative pedal ischemia - Bilateral toe necrosis w preserved DP and PT pulses. Microvascular thrombosis while on high dose pressor support suspected - adjusted pain mgmt w/ dilaudid, add gabapentin HS given neuropathic component - CCB for vasodilatation - Dr. Harkins getting vascular studies - suspect better vascular flow to RLE w/ more bleeding/pain than LLE - counseled patient that he will require approx 2 weeks of healing (d/w Fernanda Layne, gen surg) of the feet s/p discharge for adequate follow-up, and case mgmt is looking into where patient will receive care (supposedly with friends) during this recovery period # Fever. Acute, post-op inflammation, BCx neg # Postoperative sacral pressure ulcers. Cont wound care, discussed on team rounds the safety risk of prolonged sitting if patient is to travel to [place] in near future - patient reports he will fly to [place] s/p foot wound recovery # Acute Type 1 Aortic dissection, s/p Ascending aorta Root replacement, Aortic Valve Repair, s/p evacuation of clot by Dr. Rock # Acute blood loss anemia, s/p multiple transfusion, recurring s/p amputations - given 1u PRBC 10/07, repeat Hgb level stable # Coagulopathy, s/p thrombocytopenia with negative HIT. # Acute renal failure requiring HD, has experienced complete renal recovery, off HD and renal signed off # HTN, now normotensive # Paroxysmal Atrial Fibrillation. Post-op, provoked, now in NSR - cont on BB and CCB, ASA - AC deferred due to short duration w/o recurrence # Acute Resp Failure, was Vent dependent thru POD#6. Was treated with Zosyn # Acute postoperative encephalopathy, evidenced by poor directability, prolonged sedation s/p surgery, acute change from baseline, likely 2/2 toxic effects of anaesthesia (improving) Diet. Regular Code. Full PPx. Restarted lovenox per gen surg Dispo. ADD uncertain, pending post-op course High level of medical complexity, high risk patient for worsening morbidity. Subjective: reports controlled pain in feet. no fevers or chills. no other acute complaints. wants to travel back to [place] soon Objective: Vital Signs Temp Pulse Resp BP Pulse Ox 37.2 C 79 16 104/73 93 10/09/17 15:07 10/09/17 15:07 10/09/17 15:07 10/09/17 15:07 10/09/17 15:07 Laboratory Results 10/09/17 05:35 10/09/17 05:35 10/08/17 10/09/17 10/10/17 05:59 05:59 05:59 Intake Total 2940 2220 Output Total 850 1200 525 Balance 2090 1020 -525 PT 23.0 SEC (12.0-15.0) H 09/07/17 19:55 INR 2.03 (0.83-1.16) H 09/07/17 19:55 - Physical Exam Constitutional: no apparent distress, appears nourished, not in pain Cardiovascular: regular rate and rhythym, no murmur, rub, or gallop Respiratory: no respiratory distress, no rales or rhonchi, clear to auscultation Gastrointestinal: normoactive bowel sounds, soft, non-tender abdomen, no palpable masses ICD10 Worksheet Patient Problems: Problems Problem Status Onset Postoperative atrial fibrillation Acute Morbid obesity Chronic Acute blood loss anemia Acute Acute respiratory failure Acute Acute renal failure Acute S/P ascending aortic replacement Acute ~09/07/17 HTN (hypertension) Chronic Aortic dissection, thoracoabdominal Acute Hypokalemia Acute
[2017-10-09] MEDS: ZOLPIDEM TARTRATE 5 MG TAB PO SCH (20:43)
[2017-10-09] MEDS: GABAPENTIN 300 MG CAP PO SCH (20:43)
[2017-10-10] MEDS: traMADol 50 MG TAB PO PRN ×2 (00:08→11:23)
[2017-10-10] MEDS: ENOXAPARIN 40 MG/0.4 ML SYR SC SCH (08:58)
[2017-10-10] MEDS: OXYCODONE/APAP 5/325 TAB PO PRN ×3 (08:59→21:43)
[2017-10-10] MEDS: ASPIRIN EC 81 MG TAB PO SCH (08:59)
[2017-10-10] MEDS: TAMSULOSIN HCL 0.4 MG CAP PO SCH (08:59)
[2017-10-10] MEDS: METOPROLOL TARTRATE 50 MG TAB PO SCH ×2 (08:59→21:45)
[2017-10-10] MEDS: ACETAMINOPHEN 325 MG TAB PO PRN (08:59)
[2017-10-10] MEDS: PANTOPRAZOLE SODIUM 40 MG TAB PO SCH (08:59)
--- NOTE | 2017-10-10 09:49 | ASMTCMCOM ---
CM Note CM Note Notes: CM note intended for 10/09/17 Discussed pt case in morning rounds. CM met w/ pt with clay press operator to discuss d/c plans. Pt does not qualify for medicaid at this time. Pt reports that his brother is able to pick him up and bring him back to [place]. Doctors were recommending that pt stays in [place] for 2 weeks for follow up. Pt would like to know if it would be a possibility for him to return back to [place] w/ family. CM to follow. Plan: Discuss w/ tx team on d/c date Date Signed: 10/10/2017 09:48 AM Electronically Signed By:SARAH Lagos
[2017-10-10] MEDS: DILTIAZEM XR 240 MG CAP PO SCH (10:09)
[2017-10-10 10:25] LABS: PLATELET COUNT 237 10^3/uL (150-400)
[2017-10-10] MEDS: SENNOSIDES 1 TAB PO PRN (11:23)
[2017-10-10] MEDS: MAG HYDROX/AL HYDROX/SIMETH 30 ML UDCUP PO PRN (11:23)
[2017-10-10] MEDS: VANCOMYCIN 1.25 GM in D5W 250 ML IV SCH (12:25)
--- NOTE | 2017-10-10 15:03 | ASMTCMCOM ---
CM Note CM Note Notes: 10/10/2017 Case Management Note Met w/pt and director of customer acquisition to discuss d/c needs. Pt plans to stay in [place] at the [facility] on baseline. Confirmed room with Tavares (friend) [phone]. Tavares volunteered to pick pt up and take to hotel, provide meals and drive [facility]. Pt wants to drive to [place], however he does not have an MD there who could follow his recovery. Reiterated the need for him to stay in town to have his wound healing observed by MD's here. Case Management d/c poc: to [facility] with friend support. Case Management to follow. Date Signed: 10/10/2017 03:02 PM Electronically Signed By:Rosie Garcia RN
--- NOTE | 2017-10-10 16:04 | HOSPPROG ---
Hospitalist Progress Note Assessment/Plan: Assessment: 47 yo M p/w aortic dissection c/b distal bilat foot necrosis while on pressors, s/p bilat toe amputations Plan: # Postoperative pedal ischemia - Bilateral toe necrosis w preserved DP and PT pulses. Microvascular thrombosis while on high dose pressor support suspected - adjusted pain mgmt w/ dilaudid, add gabapentin HS given neuropathic component - CCB for vasodilatation # Fever. (Resolved) # Postoperative sacral pressure ulcers. Cont wound care, discussed on team rounds the safety risk of prolonged sitting if patient is to travel to [place] in near future - patient reports he will fly to [place] s/p foot wound recovery # Acute Type 1 Aortic dissection, s/p Ascending aorta Root replacement, Aortic Valve Repair, s/p evacuation of clot by Dr. Rock # Acute blood loss anemia, s/p multiple transfusion, recurring s/p amputations - given 1u PRBC 10/07, repeat Hgb level stable # Coagulopathy, s/p thrombocytopenia with negative HIT. # Acute renal failure requiring HD, has experienced complete renal recovery, off HD and renal signed off # HTN, now normotensive # Paroxysmal Atrial Fibrillation. Post-op, provoked, now in NSR - cont on BB and CCB, ASA - AC deferred due to short duration w/o recurrence # Acute Resp Failure, was Vent dependent thru POD#6. Was treated with Zosyn # Acute postoperative encephalopathy, evidenced by poor directability, prolonged sedation s/p surgery, acute change from baseline, likely 2/2 toxic effects of anaesthesia (improving) Diet. Regular Code. Full PPx. Restarted lovenox per gen surg Dispo. Patient plans to move back to [place] with his brother who plans to drive out in the next few days. High level of medical complexity, high risk patient for worsening morbidity. Subjective: Patient was seen with the medical customer project manager present. His pain is controlled. Denies any chest pain or shortness of breath. Denies any fevers. He is tolerating a regular diet. Objective: Vital Signs Temp Pulse Resp BP Pulse Ox 36.9 C 84 14 113/71 93 10/10/17 15:54 10/10/17 15:54 10/10/17 15:54 10/10/17 15:54 10/10/17 15:54 Laboratory Results 10/10/17 10:16 10/09/17 05:35 10/09/17 10/10/17 10/11/17 05:59 05:59 05:59 Intake Total 2220 400 Output Total 1200 5 1600 Balance 1020 -1635 -1600 PT 23.0 SEC (12.0-15.0) H 09/07/17 19:55 INR 2.03 (0.83-1.16) H 09/07/17 19:55 - Physical Exam Constitutional: no apparent distress, appears nourished, not in pain Ears, Nose, Mouth, Throat: moist mucous membranes, hearing normal, ears appear normal, no oral mucosal ulcers Cardiovascular: regular rate and rhythym, no murmur, rub, or gallop Respiratory: no respiratory distress, no rales or rhonchi, clear to auscultation Gastrointestinal: normoactive bowel sounds, soft, non-tender abdomen, no palpable masses, No guarding, No rebound ICD10 Worksheet Patient Problems: Problems Problem Status Onset Postoperative atrial fibrillation Acute Morbid obesity Chronic Acute blood loss anemia Acute Acute respiratory failure Acute Acute renal failure Acute S/P ascending aortic replacement Acute ~09/07/17 HTN (hypertension) Chronic Aortic dissection, thoracoabdominal Acute Hypokalemia Acute
[2017-10-10] MEDS: HYDROmorphONE/DILAUDID 1 MG/ML INJ IVP PRN (16:39)
[2017-10-10] MEDS: ZOLPIDEM TARTRATE 5 MG TAB PO SCH (21:42)
[2017-10-10] MEDS: GABAPENTIN 300 MG CAP PO SCH (21:42)
[2017-10-11] MEDS: VANCOMYCIN 1.25 GM in D5W 250 ML IV SCH ×3 (00:25→23:38)
[2017-10-11] MEDS: DILTIAZEM XR 240 MG CAP PO SCH (10:23)
[2017-10-11] MEDS: ASPIRIN EC 81 MG TAB PO SCH (10:23)
[2017-10-11] MEDS: ENOXAPARIN 40 MG/0.4 ML SYR SC SCH (10:24)
[2017-10-11] MEDS: METOPROLOL TARTRATE 50 MG TAB PO SCH ×2 (10:24→21:44)
[2017-10-11] MEDS: PANTOPRAZOLE SODIUM 40 MG TAB PO SCH (10:25)
[2017-10-11] MEDS: TAMSULOSIN HCL 0.4 MG CAP PO SCH (10:25)
--- NOTE | 2017-10-11 11:22 | SOAPPROG ---
AIDA Progress Note Assessment/Plan: Assessment/Plan: 47 Y M with long hospital stay initially 2/2 aortic dissection , requiring multiple surgeries. Reviewed chart and d/w Dr. Harkins and CT surgery. Asked to see patient for management of toe necrosis 2/2 pressor needs. s/p B toes 1-5 amputation. POD#4. Changed dressings. +flap necrosis L foot. Hopefully superficial but could need revision. Will need to continue to follow. [place] drains can come out soon-- plan for Friday. Will absolutely need surgical follow up upon his eventual d/c-- either here with us or with other surgeon in [place]. S: c/o pain but meds helping O: alert, nad, sitting upright no wob wounds redressed with Kerlix. see above. 10/11/17 11:20 Objective: Vital Signs Temp Pulse Resp BP Pulse Ox 36.8 C 82 16 127/67 H 92 10/11/17 07:47 10/11/17 07:47 10/11/17 07:47 10/11/17 07:47 10/11/17 07:47 Laboratory Results 10/10/17 10:16 10/09/17 05:35 10/10/17 10/11/17 10/12/17 05:59 05:59 05:59 Intake Total 400 900 Output Total 5 2900 400 Balance -1635 -2000 -400 PT 23.0 SEC (12.0-15.0) H 09/07/17 19:55 INR 2.03 (0.83-1.16) H 09/07/17 19:55 ICD10 Worksheet Patient Problems: Problems Problem Status Onset Acute blood loss anemia Acute Acute renal failure Acute Acute respiratory failure Acute Aortic dissection, thoracoabdominal Acute Hypokalemia Acute Postoperative atrial fibrillation Acute S/P ascending aortic replacement Acute ~09/07/17 HTN (hypertension) Chronic Morbid obesity Chronic
[2017-10-11] MEDS: SENNOSIDES 1 TAB PO PRN (14:01)
[2017-10-11] MEDS: OXYCODONE/APAP 5/325 TAB PO PRN ×2 (14:01→21:44)
--- NOTE | 2017-10-11 14:11 | HOSPPROG ---
Hospitalist Progress Note Assessment/Plan: New patient to me on 10/11 DIAGNOSES: # acute aortic dissection c/b distal bilat foot necrosis while on pressors, s/p bilat toe amputations for ostoperative pedal ischemic injury- Bilateral toe necrosis w preserved DP and PT pulses. Microvascular thrombosis while on high dose pressor support suspected - adjusted pain mgmt w/ dilaudid, add gabapentin HS given neuropathic component - CCB for vasodilatation # Fever. (Resolved) # Postoperative sacral pressure ulcers. Cont wound care, discussed on team rounds the safety risk of prolonged sitting if patient is to travel to [place] in near future - patient reports he will fly to [place] s/p foot wound recovery # Acute Type 1 Aortic dissection, s/p Ascending aorta Root replacement, Aortic Valve Repair, s/p evacuation of clot by Dr. Rock # Acute blood loss anemia, s/p multiple transfusion, recurring s/p amputations - given 1u PRBC 10/07, repeat Hgb level stable # Coagulopathy, s/p thrombocytopenia with negative HIT. # Acute renal failure requiring HD, has experienced complete renal recovery, off HD and renal signed off # HTN, now normotensive # Paroxysmal Atrial Fibrillation. Post-op, provoked, now in NSR - cont on BB and CCB, ASA - AC deferred due to short duration w/o recurrence # Acute Resp Failure now resolved, was Vent dependent thru POD#6. Was treated with Zosyn # Acute postoperative encephalopathy, evidenced by poor directability, prolonged sedation s/p surgery, acute change from baseline, likely 2/2 toxic effects of anaesthesia; seems to be improving well but not back to baseline PLANS: -continue wound care and surgical management -continue to avoid SOIL CONSERVATION AIDE active medicines as able -PT and OT -will recheck serum chemistry in the morning to ensure stability of renal function and electrolytes -follow blood pressure renal function and electrolytes closely Dispo. Patient plans to move back to [place] with his brother who plans to drive out in the next few days. I reviewed with the case management associate today and have been in on discussions with behavioral health case manager over the last few days. Essentially this patient has to much risk for further loss of limb or other severe complications if he tries to travel at any time in the very near future. Were recommending at least probably a couple weeks of ongoing wound care management and careful observation. Also he has some decubitus skin changes at the sacrum and sitting in a plane or car would be dangers for that. We have spent considerable time trying to find a local situation for him as he has no insurance. It sounds like we have found by a close friend of his here who was willing to take him into his home and drive him to appointments once we find that he is stable for discharge from the hospital. Will continue work closely with case management and on assessing the timing of discharge and make sure that he has a safe plan and will follow up as needed for his complicated wounds. High level of medical complexity, high risk patient for worsening morbidity. SUBJECTIVE: Patient states he has mild pain at his feet today minimal abdominal pain Eating well No shortness of breath No chills or sweats OBJECTIVE Vitals reviewed: Stable without fever Exam: alert oriented skin warm dry color ok resps not labored lungs clear BSs heart regular abd soft nondistended nontender, bowel sounds present limbs all of his dressings are clean and dry at this time, no increase in swelling at all iv site ok Laboratory data: Stable anemia on CBC No chemistries today Objective: Vital Signs Temp Pulse Resp BP Pulse Ox 36.7 C 97 17 126/74 H 93 10/11/17 11:29 10/11/17 11:29 10/11/17 11:29 10/11/17 11:29 10/11/17 11:29 Laboratory Results 10/10/17 10:16 10/09/17 05:35 10/10/17 10/11/17 10/12/17 06:59 06:59 06:59 Intake Total 400 900 Output Total 2035 2900 400 Balance -1635 -2000 -400 PT 23.0 SEC (12.0-15.0) H 09/07/17 19:55 INR 2.03 (0.83-1.16) H 09/07/17 19:55 - Time Spent With Patient Time Spent with Patient: greater than 35 minutes Time Spent with Patient: Greater than 35 minutes spent on this patients care, greater than 50% of time spent counseling, educating, and coordinating care regarding the above mentioned plan. ICD10 Worksheet Patient Problems: Problems Problem Status Onset Acute blood loss anemia Acute Acute renal failure Acute Acute respiratory failure Acute Aortic dissection, thoracoabdominal Acute Hypokalemia Acute Postoperative atrial fibrillation Acute S/P ascending aortic replacement Acute ~09/07/17 HTN (hypertension) Chronic Morbid obesity Chronic
[2017-10-11 15:01] LABS: PLATELET COUNT 256 10^3/uL (150-400)
[2017-10-11] MEDS: GABAPENTIN 300 MG CAP PO SCH (21:44)
[2017-10-11] MEDS: ZOLPIDEM TARTRATE 5 MG TAB PO SCH (21:47)
[2017-10-12] MEDS: OXYCODONE/APAP 5/325 TAB PO PRN ×5 (04:52→21:40)
[2017-10-12] MEDS: DILTIAZEM XR 240 MG CAP PO SCH (09:29)
[2017-10-12] MEDS: SENNOSIDES 1 TAB PO PRN (09:29)
[2017-10-12] MEDS: ENOXAPARIN 40 MG/0.4 ML SYR SC SCH (09:30)
[2017-10-12] MEDS: ASPIRIN EC 81 MG TAB PO SCH (09:30)
[2017-10-12] MEDS: TAMSULOSIN HCL 0.4 MG CAP PO SCH (09:30)
[2017-10-12] MEDS: METOPROLOL TARTRATE 50 MG TAB PO SCH ×2 (09:30→21:37)
[2017-10-12] MEDS: PANTOPRAZOLE SODIUM 40 MG TAB PO SCH (09:30)
--- NOTE | 2017-10-12 10:27 | SOAPPROG ---
SOAP Progress Note Assessment/Plan: Assessment/Plan: 47 Y M with long hospital stay initially 2/2 aortic dissection , requiring multiple surgeries. Reviewed chart and d/w Dr. Harkins and CT surgery. Asked to see patient for management of toe necrosis 2/2 pressor needs. s/p B toes 1-5 amputation. POD#5. Dressing change and chet drain removal tomorrow. 10/12/17 10:26 Objective: Vital Signs Temp Pulse Resp BP Pulse Ox 36.8 C 88 16 114/87 H 94 10/12/17 07:20 10/12/17 07:20 10/12/17 07:20 10/12/17 07:20 10/12/17 07:20 Laboratory Results 10/11/17 14:50 10/12/17 04:45 10/11/17 10/12/17 10/13/17 05:59 05:59 05:59 Intake Total 900 1000 Output Total 2900 2850 300 Balance -2000 -1850 -300 PT 23.0 SEC (12.0-15.0) H 09/07/17 19:55 INR 2.03 (0.83-1.16) H 09/07/17 19:55 ICD10 Worksheet Patient Problems: Problems Problem Status Onset Acute blood loss anemia Acute Acute renal failure Acute Acute respiratory failure Acute Aortic dissection, thoracoabdominal Acute Hypokalemia Acute Postoperative atrial fibrillation Acute S/P ascending aortic replacement Acute ~09/07/17 HTN (hypertension) Chronic Morbid obesity Chronic
[2017-10-12] MEDS: VANCOMYCIN 1.25 GM in D5W 250 ML IV SCH ×2 (12:01→23:37)
[2017-10-12] MEDS ORDERED: MAGNESIUM HYDROXIDE 30 ML UDCUP PO PRN (14:31)
[2017-10-12] MEDS ORDERED: LACTULOSE 20 GM/30 ML UDCUP PO PRN (14:31)
[2017-10-12] MEDS ORDERED: BISACODYL 10 MG SUPP PR PRN (14:31)
[2017-10-12] MEDS: POLYETHYLENE GLYCOL 3350 17 GM PKT PO PRN (14:38)
[2017-10-12] MEDS: SENNOSIDES/DOCUSATE SODIUM TAB PO SCH ×2 (14:38→21:37)
--- NOTE | 2017-10-12 19:14 | HOSPPROG ---
Hospitalist Progress Note Assessment/Plan: The patient is a 47-year-old male with PMH hypertension, PAF who was admitted for acute take 1 aortic dissection, complicated by pressor induced bilateral distal foot necrosis which resulted in bilateral toe amputations. ASSESSMENT/PLAN: Bilateral distal foot necrosis, secondary to pressors, status post bilateral toe amputations B/l foot pain Sacral decubitus ulcers, postop -wound care, offloading air mattress -PT/OT as tolerated -Encouraged pt to ask for prn medication more -Increase dosing of gabapentin to help w/ nerve pain -On CCB for vasodilation Type 1 aortic dissection, status post ascending order root replacement/AV repair /clot removal PAF, postop HTN, resolved -continue cardiac meds. ABLA, s/p multiple transfusions Coagulopathy -stable -Check CBC AM MADDY, resolved -required HD, but no longer needs -Check BMP AM VTE prophylaxis: Lovenox Code Status: Full code Status: Inpatient for greater than 2 midnight stay. Disposition: Med surge with discharge not anticipated soon. Patient eventually plans to go to [place] where his family is. For now, he is able to stay with a friend in [place] for couple weeks upon discharge. See Dr. Nieto's last progress note for more details. This patient is new to me. Reviewed patient's chart/records for this visit. All communication because patient was obtained using a carbon capture power plant operator. ____ SUBJECTIVE: Today the patient complains of severe pain in bilateral feet, postoperative. Per RN, he is only also for his Percocet twice. OBJECTIVE: Physical Exam: General: The patient is a male who is alert and in no acute distress. HEENT: normocephalic, extraocular movements intact, conjunctivae clear. Mucous membranes moist. Neck: trachea midline, no visible masses. CV: +S1/S2, RRR, no MRG. Resp: unlabored, CTAB no RRW. Abd: soft and nondistended. Musculoskeletal: +dressing bilateral feet w/ yellow stains c/w serous fluid. Neuro: cranial nerves II XII grossly intact. Intact gross motor and sensory function. Psych: Appropriate mood and flattened affect. Skin: No pallor. No petechiae. Heme/lymph: No peripheral edema at bilateral lower legs. Labs/Imaging/Other Tests: Personally reviewed/interpreted. Objective: Vital Signs Temp Pulse Resp BP Pulse Ox 36.8 C 86 16 103/66 91 L 10/12/17 15:13 10/12/17 15:13 10/12/17 15:13 10/12/17 15:13 10/12/17 15:13 Laboratory Results 10/11/17 14:50 10/12/17 04:45 10/11/17 10/12/17 10/13/17 05:59 05:59 05:59 Intake Total 900 1000 500 Output Total 2900 2850 1800 Balance -2000 -1850 -1300 PT 23.0 SEC (12.0-15.0) H 09/07/17 19:55 INR 2.03 (0.83-1.16) H 09/07/17 19:55 ICD10 Worksheet Patient Problems: Problems Problem Status Onset Acute blood loss anemia Acute Acute renal failure Acute Acute respiratory failure Acute Aortic dissection, thoracoabdominal Acute Hypokalemia Acute Postoperative atrial fibrillation Acute S/P ascending aortic replacement Acute ~09/07/17 HTN (hypertension) Chronic Morbid obesity Chronic
[2017-10-12] MEDS: ZOLPIDEM TARTRATE 5 MG TAB PO SCH (21:40)
[2017-10-12] MEDS: GABAPENTIN 300 MG CAP PO SCH (21:41)
[2017-10-12] MEDS: traMADol 50 MG TAB PO PRN (23:43)
[2017-10-13 05:09] LABS: PLATELET COUNT 244 10^3/uL (150-400)
--- NOTE | 2017-10-13 08:59 | HOSPPROG ---
Hospitalist Progress Note Assessment/Plan: The patient is a 47-year-old male with PMH hypertension, PAF who was admitted for acute take 1 aortic dissection, complicated by pressor induced bilateral distal foot necrosis which resulted in bilateral toe amputations. Today is my first encounter with the patient, chart reviewed. Reviewed his care with Fernanda DODSON with surgical services. *Bilateral distal foot necrosis, secondary to pressors, status post bilateral toe amputations left foot with necrosis but could be superficial, but poss need revision on dc it is critical he needs f/u with surgery here or in the [place] area *B/l foot pain *Sacral decubitus ulcers, postop -wound care, offloading air mattress -PT/OT as tolerated -Increase dosing of gabapentin to help w/ nerve pain -On CCB for vasodilation *Type 1 aortic dissection, status post ascending order root replacement/AV repair/clot removal -done by Dr Rock *low magnesium protocol *PAF, postop *HTN, resolved -continue cardiac meds. -bp stable *ABLA, s/p multiple transfusions -may need further transfusions -will heme stools, has been ongoing *Coagulopathy -stable *MADDY, resolved -required HD, but no longer needs *VTE prophylaxis: Lovenox *Code Status: Full code *plan: difficult situation, ? to live with a friend, is from the [facility]. My concern is he needs frequent care, dressing changes. CM looking at possible dc situations. Subjective: mireya is very soft spoken, has no specific complaints Objective: Vital Signs Temp Pulse Resp BP Pulse Ox 36.6 C 89 16 123/84 H 97 10/13/17 07:52 10/13/17 07:52 10/13/17 07:52 10/13/17 07:52 10/13/17 07:52 Microbiology 10/07/17 16:50 Blood Culture - Final Blood 10/07/17 16:50 Blood Culture - Final Blood Laboratory Results 10/13/17 04:45 10/13/17 04:45 10/12/17 10/13/17 10/14/17 05:59 05:59 05:59 Intake Total 1000 950 Output Total 2850 2675 Balance -1850 -1725 PT 23.0 SEC (12.0-15.0) H 09/07/17 19:55 INR 2.03 (0.83-1.16) H 09/07/17 19:55 - Physical Exam Constitutional: chronically ill appearing, uncomfortable Eyes: PERRL Ears, Nose, Mouth, Throat: hearing normal Cardiovascular: regular rate and rhythym Respiratory: no respiratory distress Skin: warm, other Musculoskeletal: generalized weakness Psychiatric: interacting appropriately, not anxious ICD10 Worksheet Patient Problems: Problems Problem Status Onset Acute blood loss anemia Acute Acute renal failure Acute Acute respiratory failure Acute Aortic dissection, thoracoabdominal Acute Hypokalemia Acute Postoperative atrial fibrillation Acute S/P ascending aortic replacement Acute ~09/07/17 HTN (hypertension) Chronic Morbid obesity Chronic
[2017-10-13] MEDS ORDERED: PROTOCOL MAGNESIUM 1 DOSE IV PRN (09:00)
[2017-10-13] MEDS ORDERED: PROTOCOL POTASSIUM 1 DOSE MISC PRN (09:00)
[2017-10-13] MEDS ORDERED: MAGNESIUM SULF 2 GM/WATER 50 ML IV ONE ×2 (09:17→13:43)
[2017-10-13] MEDS: GABAPENTIN 300 MG CAP PO SCH ×2 (10:11→22:04)
[2017-10-13] MEDS: TAMSULOSIN HCL 0.4 MG CAP PO SCH (10:11)
[2017-10-13] MEDS: PANTOPRAZOLE SODIUM 40 MG TAB PO SCH (10:11)
[2017-10-13] MEDS: DILTIAZEM XR 240 MG CAP PO SCH (10:11)
[2017-10-13] MEDS: SENNOSIDES/DOCUSATE SODIUM TAB PO SCH ×2 (10:11→22:05)
[2017-10-13] MEDS: METOPROLOL TARTRATE 50 MG TAB PO SCH ×2 (10:11→22:04)
[2017-10-13] MEDS: ASPIRIN EC 81 MG TAB PO SCH (10:12)
[2017-10-13] MEDS: OXYCODONE/APAP 5/325 TAB PO PRN ×3 (10:12→22:04)
[2017-10-13] MEDS: ENOXAPARIN 40 MG/0.4 ML SYR SC SCH (10:21)
--- NOTE | 2017-10-13 10:43 | SOAPPROG ---
SOAP Progress Note Assessment/Plan: Assessment/Plan: 47 Y M with long hospital stay initially 2/2 aortic dissection , requiring multiple surgeries. Reviewed chart and d/w Dr. Harkins and CT surgery. Asked to see patient for management of toe necrosis 2/2 pressor needs. s/p B toes 1-5 amputation. POD#6. Changed dressings. +flap necrosis L foot. Hopefully superficial but could need revision. [place] drains removed. No general surgery CI to discharge, but will absolutely need surgical follow up upon his eventual d/c--either here with us or with other surgeon in [place]. S: pain is better O: alert, nad, sitting upright no wob wounds redressed with Kerlix. see above. 10/13/17 10:41 Objective: Vital Signs Temp Pulse Resp BP Pulse Ox 36.6 C 89 16 123/84 H 97 10/13/17 07:52 10/13/17 10:11 10/13/17 07:52 10/13/17 10:11 10/13/17 07:52 Microbiology 10/07/17 16:50 Blood Culture - Final Blood 10/07/17 16:50 Blood Culture - Final Blood Laboratory Results 10/13/17 04:45 10/13/17 04:45 10/12/17 10/13/17 10/14/17 05:59 05:59 05:59 Intake Total 1000 950 Output Total 2850 2675 375 Balance -1850 -1725 -375 PT 23.0 SEC (12.0-15.0) H 09/07/17 19:55 INR 2.03 (0.83-1.16) H 09/07/17 19:55 ICD10 Worksheet Patient Problems: Problems Problem Status Onset Acute blood loss anemia Acute Acute renal failure Acute Acute respiratory failure Acute Aortic dissection, thoracoabdominal Acute Hypokalemia Acute Postoperative atrial fibrillation Acute S/P ascending aortic replacement Acute ~09/07/17 HTN (hypertension) Chronic Morbid obesity Chronic
[2017-10-13] MEDS ORDERED: IOPAMIDOL (ISOVUE 370) 100 ML BTL IV ONE (10:44)
[2017-10-13] MEDS: traMADol 50 MG TAB PO PRN ×2 (13:34→18:47)
--- NOTE | 2017-10-13 17:28 | ASMTCMCOM ---
CM Note CM Note Notes: Dc plan still currently to dc with friend to [facility]. Discussed this w/hospitalist; this seems like it will be difficult at this time given pt's physical limitations due to pain. Will see how pt progresses over next couple days and CM will need to discuss plan again w/MD and w/pt and oil dispatcher. CM will follow. Date Signed: 10/13/2017 05:26 PM Electronically Signed By:Whitney Antunez RN
[2017-10-13] MEDS: ALTEPLASE 2 MG VIAL IVP PRN ×2 (17:51→17:54)
[2017-10-13] MEDS: ZOLPIDEM TARTRATE 5 MG TAB PO SCH (22:06)
[2017-10-14] MEDS: traMADol 50 MG TAB PO PRN ×2 (03:42→10:30)
[2017-10-14] MEDS: OXYCODONE/APAP 5/325 TAB PO PRN ×3 (05:15→21:58)
[2017-10-14] MEDS ORDERED: MAGNESIUM SULF 1 GM/DEXTROSE 100 ML IV ONE (07:56)
[2017-10-14] MEDS: ENOXAPARIN 40 MG/0.4 ML SYR SC SCH (09:02)
[2017-10-14] MEDS: DILTIAZEM XR 240 MG CAP PO SCH (09:03)
[2017-10-14] MEDS: TAMSULOSIN HCL 0.4 MG CAP PO SCH (09:03)
[2017-10-14] MEDS: PANTOPRAZOLE SODIUM 40 MG TAB PO SCH (09:03)
[2017-10-14] MEDS: ASPIRIN EC 81 MG TAB PO SCH (09:03)
[2017-10-14] MEDS: GABAPENTIN 300 MG CAP PO SCH ×2 (09:03→21:57)
[2017-10-14] MEDS: SENNOSIDES/DOCUSATE SODIUM TAB PO SCH ×2 (09:03→21:58)
[2017-10-14] MEDS: METOPROLOL TARTRATE 50 MG TAB PO SCH ×3 (09:04→21:57)
[2017-10-14] MEDS ORDERED: CEPACOL LOZENGE PO PRN (10:10)
--- NOTE | 2017-10-14 10:20 | HOSPPROG ---
Hospitalist Progress Note Assessment/Plan: The patient is a 47-year-old male with PMH hypertension, PAF who was admitted for acute take 1 aortic dissection, complicated by pressor induced bilateral distal foot necrosis which resulted in bilateral toe amputations. *Bilateral distal foot necrosis, secondary to pressors, status post bilateral toe amputations left foot with necrosis but could be superficial, but poss need revision on dc it is critical he needs f/u with surgery here or in the [place] area *B/l foot pain *Sacral decubitus ulcers, postop -wound care, offloading air mattress -PT/OT as tolerated -Increase dosing of gabapentin to help w/ nerve pain -On CCB for vasodilation *Type 1 aortic dissection, status post ascending order root replacement/AV repair/clot removal -done by Dr Rock *low magnesium protocol *PAF, postop *HTN, resolved -continue cardiac meds. -bp stable *ABLA, s/p multiple transfusions -may need further transfusions -will heme stools, has been ongoing *Coagulopathy -stable *MADDY, resolved -required HD, but no longer needs *VTE prophylaxis: Lovenox *Code Status: Full code *plan: Patient was able to ambulate easily for me in the room. He has friends who can help take care of him and will help bring him his meals. Reviewed his care with the surgical team. He will need to be seen weekly by Dr. Harkins to monitor his feet as well as a sacral wound. His sacral wound continues to heal nicely. [place] staying [place] the [place]. Prior to his discharge I will give him a unit of packed red blood cells due to hypotension and being anemic. He will need to remain on aspirin, Cardizem and Lopressor. It is critical that he follow up closely with Dr. Harkins regards to his left foot necrosis to see this may need further debridement. Case management actively working with the patient and his friend. Hopefully can be discharged tomorrow. Also looking into Meals on wheels. Best to meet with the patient with the park interpreter. He is very hopeful about leaving. Subjective: Elizabeth feels better, has no complaints/ pain is well controlled. Objective: Vital Signs Temp Pulse Resp BP Pulse Ox 36.6 C 82 18 85/73 L 92 10/14/17 07:57 10/14/17 09:00 10/14/17 07:57 10/14/17 09:00 10/14/17 09:00 Microbiology 10/07/17 16:50 Blood Culture - Final Blood 10/07/17 16:50 Blood Culture - Final Blood Laboratory Results 10/14/17 05:20 10/14/17 05:20 10/13/17 10/14/17 10/15/17 05:59 05:59 05:59 Intake Total 950 50 500 Output Total 2675 2125 300 Balance -1725 -2075 200 PT 23.0 SEC (12.0-15.0) H 09/07/17 19:55 INR 2.03 (0.83-1.16) H 09/07/17 19:55 - Physical Exam Constitutional: not in pain, chronically ill appearing Eyes: PERRL Ears, Nose, Mouth, Throat: hearing normal Respiratory: no respiratory distress Gastrointestinal: normoactive bowel sounds Skin: warm Musculoskeletal: generalized weakness Neurologic: AAOx3 Psychiatric: interacting appropriately, not anxious ICD10 Worksheet Patient Problems: Problems Problem Status Onset Acute blood loss anemia Acute Acute renal failure Acute Acute respiratory failure Acute Aortic dissection, thoracoabdominal Acute Hypokalemia Acute Postoperative atrial fibrillation Acute S/P ascending aortic replacement Acute ~09/07/17 HTN (hypertension) Chronic Morbid obesity Chronic
--- NOTE | 2017-10-14 11:36 | WOCRNPDOC ---
WOCRJohny Advanced Assessment Note - Skin Integrity Problem, Advanced Assess Left Sacrum Pressure Injury Dressing Type: Allevyn Life, Hydrocolloid Dressing Description: Intact Exudate Amount: Minimal Exudate Color: Reddish/Yellow Exudate Characteristic(s): Serosanguinous Integumentary Issue Intervention: Dressing Changed Ashley Wound Tissue: Blanching, Scarred Ashley Wound Swelling: Mild Wound Bed Color: Red, Yellow Wound Bed Constitution: Red/Mcbride - Non Granular Tissue, Adhered Slough Wound Edges: Epithelizing Site Measurement - Head-to-Toe Length X Width X Depth (cm): [id number] area of adhered slough surrounded by thin 0.2cm rim of red, non-granulating tissue Pressure Injury Stage: Unstageable Pressure Injury Present on Admit: No Skin Integrity Problem Comment: Wound continues to epithelialize inward, significantly smaller overall. Adhered slough medially is also smaller, loosening along edges. Ashley-wound tissue is scarred, but intact. Will continue w / tx as it appears to be gradually debriding this wound. Will discuss DC plans w / surgery and hospital medicine today. Right Sacrum Pressure Injury Dressing Type: Allevyn Life Exudate Amount: Scant Exudate Color: Reddish/Yellow Exudate Characteristic(s): Serosanguinous Integumentary Issue Intervention: Dressing Changed, Hydrogel Applied Ashley Wound Tissue: Blanching, Scarred Ashley Wound Swelling: Mild Wound Bed Color: Red, Yellow Wound Bed Constitution: Red/Mcbride - Non Granular Tissue, Adhered Slough Wound Edges: Epithelizing Site Measurement - Head-to-Toe Length X Width X Depth (cm): Two areas of slough remain: 0.8cmx0.6cm (distal) and 1.2cmx0.4cm (proximal) Pressure Injury Stage: Unstageable Pressure Injury Present on Admit: No Skin Integrity Problem Comment: Wounds continue to improve, epithelializing inward w/ significantly smaller measurements. There remain 2 discrete slough- filled areas on the R sacrum and over the coccyx, which are decreasing each assessment. Current tx w/ hydrocolloid and hydrogel has been working well. Will continue w/ plan of care.
--- NOTE | 2017-10-14 12:06 | SOAPPROG ---
SOAP Progress Note Assessment/Plan: Assessment/Plan: 47 Y M with long hospital stay initially 2/2 aortic dissection , requiring multiple surgeries. Reviewed chart and d/w Dr. Harkins and CT surgery. Asked to see patient for management of toe necrosis 2/2 pressor needs. s/p B toes 1-5 amputation. POD#7. No major changes regarding amputation sites. Suture lines moist, no odors, no purulence. Skin margins no longer approximated--poor granulation thus far. Changed dressings again today. +flap necrosis L foot. Hopefully superficial but could need revision. [place] drains removed. No general surgery CI to discharge, but will absolutely need surgical follow up upon his eventual d/c--either here with us or with other surgeon in [place]. Discussed with hospitalist and most likely plan is for him to see us in our office in a week. Also, wound care teaching to be done with patient and his friend who, as of now, will be doing the dressing changes daily between office visits. S: pain is better O: alert, nad, sitting upright no wob wounds redressed with Kerlix, gauze, and xeroform. see above. 10/14/17 12:03 Objective: Vital Signs Temp Pulse Resp BP Pulse Ox 36.6 C 82 18 85/73 L 92 10/14/17 07:57 10/14/17 09:00 10/14/17 07:57 10/14/17 09:00 10/14/17 09:00 Microbiology 10/07/17 16:50 Blood Culture - Final Blood 10/07/17 16:50 Blood Culture - Final Blood Laboratory Results 10/14/17 05:20 10/14/17 05:20 10/13/17 10/14/17 10/15/17 05:59 05:59 05:59 Intake Total 950 50 500 Output Total 2675 2125 300 Balance -1725 -2075 200 PT 23.0 SEC (12.0-15.0) H 09/07/17 19:55 INR 2.03 (0.83-1.16) H 09/07/17 19:55 ICD10 Worksheet Patient Problems: Problems Problem Status Onset Acute blood loss anemia Acute Acute renal failure Acute Acute respiratory failure Acute Aortic dissection, thoracoabdominal Acute Hypokalemia Acute Postoperative atrial fibrillation Acute S/P ascending aortic replacement Acute ~09/07/17 HTN (hypertension) Chronic Morbid obesity Chronic
--- NOTE | 2017-10-14 17:09 | ASMTCMCOM ---
CM Note CM Note Notes: Pt provided walker w seat from storage. Pt approved for [facility] w [facility] RN/PT; [facility] requests pt is sent home w some dressing supplies. Pt has stated his friend Tavares can assist w meals and a Meals [employer] Wheels flier in [place] will be included w pt d/c paper work as a resource. Likely d/c tomorrow. Raymon Ivan [place] is [facility] [address], [place] [address], room needs to be obtained. CM to follow. Date Signed: 10/14/2017 05:08 PM Electronically Signed By:JONO Lynn
[2017-10-14] MEDS: ZOLPIDEM TARTRATE 5 MG TAB PO SCH (21:59)
[2017-10-15] MEDS ORDERED: METOPROLOL TARTRATE 50 MG TAB PO SCH
[2017-10-15] MEDS ORDERED: TAMSULOSIN HCL 0.4 MG CAP PO SCH
[2017-10-15] MEDS ORDERED: OXYCODONE/APAP 5/325 TAB PO SCH
[2017-10-15] MEDS: OXYCODONE/APAP 5/325 TAB PO PRN (05:14)
[2017-10-15 07:35] VITALS: RESP 16; O2SAT 92
[2017-10-15] MEDS ORDERED: MAGNESIUM SULF 1 GM/DEXTROSE 100 ML IV ONE (08:08)
[2017-10-15] MEDS: POLYETHYLENE GLYCOL 3350 17 GM PKT PO PRN (09:14)
[2017-10-15] MEDS: SENNOSIDES/DOCUSATE SODIUM TAB PO SCH (09:14)
[2017-10-15] MEDS: GABAPENTIN 300 MG CAP PO SCH (09:14)
[2017-10-15] MEDS: DILTIAZEM XR 240 MG CAP PO SCH (09:14)
[2017-10-15] MEDS: ENOXAPARIN 40 MG/0.4 ML SYR SC SCH (09:14)
[2017-10-15] MEDS: TAMSULOSIN HCL 0.4 MG CAP PO SCH (09:14)
[2017-10-15] MEDS: ASPIRIN EC 81 MG TAB PO SCH (09:14)
[2017-10-15] MEDS: METOPROLOL TARTRATE 50 MG TAB PO SCH (09:15)
[2017-10-15] MEDS: PANTOPRAZOLE SODIUM 40 MG TAB PO SCH (09:15)
[2017-10-15] MEDS: traMADol 50 MG TAB PO PRN (10:36)
--- NOTE | 2017-10-15 13:35 | PDIAF ---
- Diagnosis Diagnosis: aortic dissection, wounds, necrosis Code Status: Full Code - Medication Management Discharge Medications: Medications to Continue on Transfer Aspirin EC [Aspirin EC 81 mg (*)] 81 mg PO DAILY #0 tab 10/15/17 [Last Taken Unknown] Diltiazem Xr [Dilacor Xr] 240 mg PO DAILY #30 cap 10/15/17 [Last Taken Unknown] Metoprolol Tartrate [Lopressor 50 mg (*)] 50 mg PO BID #30 tab 10/15/17 [Last Taken Unknown] Tamsulosin HCl [Flomax 0.4 MG (*)] 0.4 mg PO DAILY #30 cap 10/15/17 [Last Taken Unknown] oxyCODONE/APAP 5/325 [Percocet 5/325 (*)] 1 - 2 tab PO Q6H PRN #100 tab [Last Taken Unknown] Discharge Medications: Refer to the Discharge Home Medication list for PRN reason. - Orders Services needed: Home Care, Registered Nurse, Physical Therapy Home Care Face to Face: I certify that this patient was under my care and that I had the required [id number] encounter meeting the encounter requirements on the discharge day. My findings support the fact that the patient is homebound as defined in Home Care Face to Face Continued: CMS Chapter 7 Medicare Benefits Manual 30.1.1 , The condition of the patient is such that there exists a normal inability to leave home and consequently, leaving home would require a considerable and taxing effort. Diet Recommendation: no restrictions on diet Diet Texture: Dysphagia 2 - Mechanically Altered - Chopped, Ground, Thin Liquids , Meds Crushed in Puree - Follow Up Care Current Providers and Referrals: Angelo Harkins MD [Medical Doctor] - 10/22/17 3:00 pm Patient,NotPresent [Primary Care Provider] - As per Instructions
[2017-10-15 16:33] VITALS: BP 109/71; PULSE 89; TEMP 97.9
--- NOTE | 2017-10-15 17:06 | ASMTCMCOM ---
CM Note CM Note Notes: Pt medically stable for d/c to [facility] with friend support and [facility] RN/PT. Pt provides phone # [phone] which was provided to [facility], pt was uncertain of the hotel room #. Collision Center Manager services were secured for [facility] appt. Pt scheduled for [facility] appt 10/17/17 02:00pm, will also follow up w Dr. Harkins. Per [facility] request, some dressing supplies will be provided at d/c to get started on wound care. Pt provided walker w seat from storage closet. With approval from director Eyal Hung pt meds are MAPed, totaling approx. $60 (pt Percocet $15, Lopressor $5 and Flomax $15.17 went through [facility] pharmacy while Dilacor $22.27 was filled w [facility]). Pt confirms friends will assist w meals. Pt friend Tavares is emergency contact [phone]. Date Signed: 10/15/2017 05:05 PM Electronically Signed By:JONO Lynn
--- NOTE | 2017-10-16 10:22 | ASDISCHSUM ---
Discharge Information Plan Status:Home with Home Health Medically Cleared to Leave: Discharge Date:10/15/2017 06:16 PM CM D/C Disposition:Home Health Service ADT D/C Disposition:HHSNOTBCH Projected Discharge Date:10/15/2017 11:00 AM Transportation at D/C:Friend Discharge Delay Reason: Follow-Up Date:10/15/2017 11:00 AM Discharge Slot: Final Diagnosis:Aortic aneurysm Placement Information Referral Type:*Home Health Care Services Referral ID:[id number] Provider Name:On License [facility] Care Address 1:[address] [place] [address] Address 2: City:[place] Selection Factors: State:[place] Patient Contact Information Contact Name:BETTYE Relationship: Address:[address] Work Phone: City:[place] Alternate Phone: [facility]/Zip Code:[place] Email: Financial Information Financial Class:Self-Pay Primary Plan Desc:SELF PAY Primary Plan Number: Secondary Plan Desc: Secondary Plan Number: Assessment Information [facility] CM Progress Note CM Note CM Note Notes: Patient brought to ED by friend(s); as they were driving to work this AM, patient began to complain of intense chest/back pain. Found to have aortic dissection and taken emergently to OR. Patient was accompanied by friend Ray, but we were unable to find him in the waiting room. Patient says he has no family here; he is from [facility] and is [place] speaking only. Hopefully, his friend returns to hospital and can be informed of the situation. Date Signed: 09/07/2017 10:09 AM Electronically Signed By:Samantha Marshall RN [facility] CM Progress Note CM Note CM Note Notes: Looking for an interested person to be Medical Proxy. Contacted Tavares Lock [phone] a work friend who came to the hospital with two other work mates. They speak Indonesian and have worked with [employer] for a few years. They have talked with patient's brother, Adal and Adal understands that patient is in the hospital. Adal and [employer] don't have a close relationship but Tavares felt that they should first ask Adal before taking on the responsibility of Medical Proxy. Tavares will let this CM know this afternoon the outcome of their discussion. Date Signed: 09/10/2017 12:34 PM Electronically Signed By:Rae Price LCSW [facility] Progress Note CM Note CM Note Notes: Chart reviewed. This CM has not seen any viistors today. Slow progession. Spiritual care asked to get involved to assist with finding proxy, CM to follow. Date Signed: 09/11/2017 01:16 PM Electronically Signed By:Mare Fernandez RN [facility] Progress Note CM Note CM Note Notes: Chart reviewed. Little progress. Withdraws to painful stimulation. No therapies at this time. Head CT this am. Spiritual care called eri who was able to speak to brother with educational sign language interpreter. His Brother Adal # [phone] is trying to get here by the weekend with other family members. Hopefully he will assume role of proxy medical decision maker. CM to follow, Date Signed: 09/12/2017 03:23 PM Electronically Signed By:Mare Fernandez RN [facility] CM Progress Note CM Note CM Note Notes: "Family Meeting" today. Family wanted to meet today, they plan to leave for [place] on Friday. They would like to meet with Dr Shweta Guerra if possible. Dr. Monsivais filled in explaining patient's medical complications and procedures. Family does not believe that patient has gained citizenship, so there will be no payor source for rehab after he leaves the hospital. Family is prepared to take him to [place] when he is capable of travel. 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 Date Signed: 09/15/2017 04:16 PM Electronically Signed By:Rae Price LCSW [facility] CM Progress Note CM Note CM Note Notes: Family needs to return to [place] for work. Letter written for the [facility] so that patient's mother might be able to come and visit patient. Date Signed: 09/16/2017 04:18 PM Electronically Signed By:Rae Price LCSW [facility] CM Progress Note CM Note CM Note Notes: Family reports that patient's employer might assist with rehab costs. His name Jaswant Hernandez [phone]. Tried to call be phone rang with no message. Date Signed: 09/16/2017 04:20 PM Electronically Signed By:Rae Price LCSW [facility] CM Progress Note CM Note CM Note Notes: Patient went for acute aortic dissection and sternum wound repair today. PT is recommending SNF rehab, however patient does not have insurance or resources to pay for this. The plan remains to return to [place] with his family at d/c. CM available for consult. Date Signed: 09/19/2017 02:39 PM Electronically Signed By:Loan Raymond LCSW [facility] CM Progress Note CM Note CM Note Notes: Patient making progress with therapies, still needs 2 pers assist, sliding board, W/C. Patient's legs swollen, still needing diaysis. CM following. Date Signed: 09/22/2017 05:43 PM Electronically Signed By:Rae Price LCSW [facility] Progress Note CM Note CM Note Notes: Spoke with patient's nurse who is concerned patient's pain is not controlled and as a result he is having a difficult time participating in therapies. Dr. Rock approved gabapentin to be added to medications to see if this improves patient's pain levels. Patient is dialysis dependent currently with eventual renal recovery expected. CM will follow. Date Signed: 09/24/2017 03:14 PM Electronically Signed By:Loan Raymond LCSW [facility] CM Progress Note CM Note CM Note Notes: Patient continues to be dependent for all ADLs. He stood with PT today. Dialysis catheter removed. Per FLOR Lora, he faces a long road to recovery. His toes are necrotic and will likely require I & D or amputation. She spoke with his brother Adal in [place] today and gave these updates. Discharge needs continue to be TBD pending patient's progress. Date Signed: 09/27/2017 02:39 PM Electronically Signed By:Samantha Marshall RN [facility] Progress Note CM Note CM Note Notes: 10/04/2017 Case Management Note Reviewed chart. PT is recommending SNF rehab. Unfortunately pt insurance will not fund SNF rehab. Pt is going to d/c independent with family support. Case Management to follow. Date Signed: 10/04/2017 09:43 AM Electronically Signed By:Rosie Garcia RN [facility] Progress Note CM Note CM Note Notes: Chart reviewed to assess dc poc also reviewed in rounds with hospital medicine. General surgery taking patient ot OR tomorrow to amputate some portion of foot. Patient has no insurance and will likely dc to family that may take him home to [place]. CM to follow. Date Signed: 10/06/2017 03:46 PM Electronically Signed By:Mare Fernandez RN [facility] CM Progress Note CM Note CM Note Notes: 10/08/2017 Case Management Note Met w/pt and nurse coordinator to discuss pt plans for d/c. Pt sister Yudith lives in [place] and can be reached at [phone]. Pt plans to fly to [place] after cleared by . requesting a 2 week stay in [place] after d/c to check wound healing. Called Kika at [facility] to assess for half-way Medicaid eligibility. If eligible can start ULTC 100 process for placement in SNF rehab for 30 days. Pt requested case management contact employer at [employer] jacquie Michaud [phone] to check on insurance benefits. Gave information to financial counseling and requested they contact Jaswant for insurance information. Case Management d/c poc: TBD Case Management to follow. Date Signed: 10/08/2017 05:46 PM Electronically Signed By:Rosie Garcia RN [facility] Progress Note CM Note CM Note Notes: CM note intended for 10/09/17 Discussed pt case in morning rounds. CM met w/ pt with nurse coordinator to discuss d/c plans. Pt does not qualify for medicaid at this time. Pt reports that his brother is able to pick him up and bring him back to [place]. Doctors were recommending that pt stays in [place] for 2 weeks for follow up. Pt would like to know if it would be a possibility for him to return back to [place] w/ family. CM to follow. Plan: Discuss w/ tx team on d/c date Date Signed: 10/10/2017 09:48 AM Electronically Signed By:SARAH Lagos [facility] Progress Note CM Note CM Note Notes: 10/10/2017 Case Management Note Met w/pt and nurse coordinator to discuss d/c needs. Pt plans to stay in [place] at the [facility] on baseline. Confirmed room with Tavares (friend) [phone]. Tavares volunteered to pick pt up and take to hotel, provide meals and drive [facility]. Pt wants to drive to [place], however he does not have an MD there who could follow his recovery. Reiterated the need for him to stay in town to have his wound healing observed by MD's here. Case Management d/c poc: to [facility] with friend support. Case Management to follow. Date Signed: 10/10/2017 03:02 PM Electronically Signed By:Rosie Garcia RN [facility] CM Progress Note CM Note CM Note Notes: Dc plan still currently to dc with friend to [facility]. Discussed this w/hospitalist; this seems like it will be difficult at this time given pt's physical limitations due to pain. Will see how pt progresses over next couple days and CM will need to discuss plan again w/MD and w/pt and educational sign language interpreter. CM will follow. Date Signed: 10/13/2017 05:26 PM Electronically Signed By:Whitney Antunez RN [facility] CM Progress Note CM Note CM Note Notes: Pt provided walker w seat from CM storage. Pt approved for [facility] w [facility] RN/PT; [facility] requests pt is sent home w some dressing supplies. Pt has stated his friend Tavares can assist w meals and a [employer] flier in [place] will be included w pt d/c paper work as a resource. Likely d/c tomorrow. [facility] Barger is [address], [place] [address], room needs to be obtained. CM to follow. Date Signed: 10/14/2017 05:08 PM Electronically Signed By:JONO Lynn [facility] CM Progress Note CM Note CM Note Notes: Pt medically stable for d/c to [facility] with friend support and [facility] RN/PT. Pt provides phone # [phone] which was provided to [facility], pt was uncertain of the hotel room #. Chief Load Dispatcher services were secured for [facility] appt. Pt scheduled for [facility] appt 10/17/17 02:00pm, will also follow up w Dr. Harkins. Per [facility] request, some dressing supplies will be provided at d/c to get started on wound care. Pt provided walker w seat from storage closet. With approval from director Eyal Hung pt meds are MAPed, totaling approx. $60 (pt Percocet $15, Lopressor $5 and Flomax $15.17 went through [facility] pharmacy while Dilacor $22.27 was filled w [facility]). Pt confirms friends will assist w meals. Pt friend Tavares is emergency contact [phone]. Date Signed: 10/15/2017 05:05 PM Electronically Signed By:JONO Lynn Intervention Information
--- NOTE | 2017-10-16 12:25 | PDDCSUM ---
Discharge Summary Discharge Summary: Date of Admission: September 07, 2017 Date of Discharge: October 16, 2017 Discharge Diagnoses: Bilateral distal foot necrosis secondary to pressors, status post bilateral toe amputations Bilateral foot pain, secondary to above Sacral decubitus ulcers, postoperative Type 1 aortic dissection, status post aortic root replacement/AV repair Hypertension Acute blood loss anemia, status post multiple transfusions- stable Acute kidney injury, resolved Coagulopathy, stable Admission Diagnoses: Acute ascending aortic dissection Hypertensive emergency (accelerated hypertension) Acute respiratory failure Obesity Consultants: Cardiovascular thoracic surgery-Dr. Rock Cardiology-Dr. Galvin Pulmonary/critical Care-Dr. Bruce Hospital Course: The patient is a 47-year-old Georgian-speaking male originally from [facility] with a history of hypertension and morbid obesity who was admitted for a type 1 acute aortic dissection that extended down to the renal arteries. He was emergently taken to surgery for replacement of the ascending aorta and grace arch. The patient lost a significant amount of blood, for which he received multiple transfusions of red blood cells, plasma, and platelets. The following day, the patient developed cardiac tamponade and had to undergo exploratory surgery for clot evacuation. He lost more blood and received multiple transfusions again. The patient was in hypotensive hemorrhagic shock, requiring vasopressors to maintain circulatory support and mechanical ventilation for acute respiratory failure. He developed acute kidney failure secondary to acute tubular necrosis and required temporary hemodialysis. He developed postoperative paroxysmal atrial fibrillation with RVR, for which he was treated with amiodarone. Patient developed pressure ulcers of the left lower sacrum. He developed bilateral toe necrosis secondary to microvascular thrombosis while on high dose pressor support for an extended time. On October 07, he underwent amputation of all toes on both feet. Physical Exam: Gen: alert, oriented, sitting in bed, in NAD. Psych: appropriate mood/affect/speech. MSK: dressings on feet CDI. Condition: Fair. Discharged to: Friend's home with Home Healthcare. Pertinent tests/labs/imaging: CTA chest: Medications: Please see med rec form. New Rx: Baby aspirin daily, diltiazem XR 240 mg orally daily, metoprolol tartrate 50 mg orally twice a day, Percocet 5 mg /325 mg tablets-take 1-2 tablets every 6 hours as needed for pain, tamsulosin 0.4 mg orally daily Special instructions: Return to the hospital if you experience recurrent or worsening symptoms. Follow up: Follow up with Dr. Angelo Harkins, General Surgeon - for wound checks and other surgical needs on a weekly basis. Follow up with a primary care physician in 2 weeks. > 30 minutes of total time was spent on counseling and coordination of care for this patient's discharge.
== END 2017-10-15 18:16 | disposition home health service (06) | DRG 219 ==
LOC: F2N 11:56 → OBSVTOIN 15:44 → EEVIPCON 15:44 → F2N 15:47 → F2W 09-25 14:05 → F3N 10-09 19:25
PROVIDERS: ADMIT Internal Medicine; ATTEND Internal Medicine
PROC: 30233R1 Transfusion of Nonautologous Platelets into Peripheral Vein, Percutaneous Approach (ICD-10-PCS; 2017-09-07)
PROC: 30233K1 Transfusion of Nonautologous Frozen Plasma into Peripheral Vein, Percutaneous Approach (ICD-10-PCS; 2017-09-07)
PROC: 30233N1 Transfusion of Nonautologous Red Blood Cells into Peripheral Vein, Percutaneous Approach (ICD-10-PCS; 2017-09-07)
PROC: 0WCC0ZZ Extirpation of Matter from Mediastinum, Open Approach (ICD-10-PCS; 2017-09-08)
PROC: 02HV33Z Insertion of Infusion Device into Superior Vena Cava, Percutaneous Approach (ICD-10-PCS; 2017-09-09)
PROC: 02HV33Z Insertion of Infusion Device into Superior Vena Cava, Percutaneous Approach (ICD-10-PCS; 2017-09-09)
PROC: 02HV33Z Insertion of Infusion Device into Superior Vena Cava, Percutaneous Approach (ICD-10-PCS; 2017-09-16)
PROC: 0JC60ZZ Extirpation of Matter from Chest Subcutaneous Tissue and Fascia, Open Approach (ICD-10-PCS; 2017-09-18)
PROC: 0Y6M0Z0 Detachment at Right Foot, Complete, Open Approach (ICD-10-PCS; 2017-10-07)
PROC: 0Y6N0Z0 Detachment at Left Foot, Complete, Open Approach (ICD-10-PCS; 2017-10-07)
PROC: 02RX0JZ Replacement of Thoracic Aorta, Ascending/Arch with Synthetic Substitute, Open Approach (ICD-10-PCS; principal; 2017-10-08)
PROC: 5A1221Z Performance of Cardiac Output, Continuous (ICD-10-PCS; principal; 2017-10-08)
PROC: 0BH17EZ Insertion of Endotracheal Airway into Trachea, Via Natural or Artificial Opening (ICD-10-PCS; 2017-10-09)
PROC: 5A1955Z Respiratory Ventilation, Greater than 96 Consecutive Hours (ICD-10-PCS; 2017-10-09)
DX: I71.01 Dissection of thoracic aorta (principal); J96.00 Acute respiratory failure, unspecified whether with hypoxia or hypercapnia; N17.0 Acute kidney failure with tubular necrosis; I16.1 Hypertensive emergency; D62 Acute posthemorrhagic anemia; I74.3 Embolism and thrombosis of arteries of the lower extremities; I31.4 Cardiac tamponade; I96 Gangrene, not elsewhere classified; T81.32XA Disruption of internal operation (surgical) wound, not elsewhere classified, initial encounter; E66.01 Morbid (severe) obesity due to excess calories; I48.0 Paroxysmal atrial fibrillation; L89.150 Pressure ulcer of sacral region, unstageable; L89.619 Pressure ulcer of right heel, unspecified stage; L89.629 Pressure ulcer of left heel, unspecified stage
CPT/HCPCS: 82947-QW; 86022-90; 86705-90; 92526-GN; 92610-GN; 96374; 97110-GP; 97116-GP; 97163-GP; 97164-GP; 97167-GO; 97168-GO; 97530-GO; 97530-GP; 97535-GO; 99001-90; C1750; C1751; C1768; J0153; J0171; J0282; J0330; J0360; J0610; J0690; J1170; J1265; J1335; J1644; J1650; J1815; J1940; J2001; J2250; J2260; J2310; J2370; J2405; J2440; J2543; J2704; J2720; J2765; J2930; J2997; J3010; J3370; J3475; J7060; J7189; P9012; P9016; P9017; P9035; P9041; Q9967